=== PATIENT | male | born 1940 | race Caucasian/White ===

== ENCOUNTER 2017-06-23 10:31 | Emergency (ER) | payer MEDICARE ==
[~2017-06-23 10:31] MED LIST: TRIA.1%T TOP; Z.0.NO CURRENT MEDS
[2017-06-23 10:32] VITALS: BP 203/102; PULSE 79; RESP 16; TEMP 97.6; O2SAT 97
--- NOTE | 2017-06-23 11:14 | PD ---
HPI Chief Complaint: Edema Time Seen by Provider: 10:59 Travel History International Travel<30 days: No Contact w/Intl Traveler<30days: No Traveled to known affect area: No History of Present Illness HPI 76-year-old male presents emergency Department with complaint of left foot swelling 1 week. He says he thinks he may have gotten bit by an ant because there is an itchy spot on the back of his ankle he was working in the garden and went golfing about a week ago. He denies injury. Denies history of DVT/ PE. Denies calf pain or leg edema. Denies fevers, vomiting, foot pain, chest pain, shortness of breath. Has been ambulatory on the affected extremity with no complications. He has tried soaking it in Epsom salt with no symptom relief. No known relieving or aggravating factors. Symptoms are mild in severity. Reports history of hypertension 5 years ago with medications; no current medications. Says he takes his blood pressure at [facility] and the top number is typically 130 to 140. Blood pressure is elevated in the ER. He is asymptomatic. I Merry care providers in the ER. No known allergies. Takes no current medications. Denies significant past history other than hypertension. Reports daily alcohol use. Has no other medical complaints. No other modifying factors or associated signs and symptoms. PFSH Social History Alcohol Use: No Tobacco Use: No Substance Use: No Allergies-Medications (Allergen,Severity, Reaction): Coded Allergies: No Known Allergies (Unverified , 07/05/11) Reported Meds & Prescriptions Reported Meds & Active Scripts Active Keflex (Cephalexin) 500 Mg Cap 500 Mg PO Q6H 10 Days Bactrim DS (Sulfamethoxazole-Trimethoprim) 800-160 Mg Tab 1 Tab PO BID 10 Days Kenalog (Triamcinolone) 0.1 % Cre 0.1 % TOP BID Reported No Current Meds (Miscellaneous Medication) Misc Review of Systems Except as stated in HPI: all other systems reviewed are Neg Physical Exam Narrative GENERAL: Well-nourished, well-developed, elderly, male patient, in no acute distress; afebrile, nontoxic-appearing SKIN: Warm and dry. HEAD: Atraumatic. Normocephalic. EYES: Pupils equal and round. No scleral icterus. No injection or drainage. ENT: Mucosa pink and moist. Airway patent. NECK: Trachea midline. CARDIOVASCULAR: Regular rate and rhythm. No murmur appreciated. RESPIRATORY: No accessory muscle use. Breath sounds clear and equal bilaterally. No retractions or tachypnea. GASTROINTESTINAL: Abdomen soft, non-tender, nondistended. Positive bowel sounds. No hepato-splenomegaly, or palpable masses. No guarding. MUSCULOSKELETAL: Left foot and ankle edematous with approximately 1-2+ pitting edema; without tenderness on palpation; full range of motion; no sensory intact ; 2+ pedal pulse; without erythema, ecchymosis; no obvious deformity; there is a small reddened area to the back of the ankle that the patient reports is itchy and it is without drainage or cellulitic process. No obvious deformities. No clubbing. No cyanosis. No edema. NEUROLOGICAL: Awake and alert. Oriented 3. No obvious cranial nerve deficits. Motor grossly within normal limits. Normal speech. PSYCHIATRIC: Appropriate mood and affect; insight and judgment normal. Data Data Last Documented VS Vital Signs Date Time Temp Pulse Resp B/P (MAP) Pulse Ox O2 Delivery O2 Flow Rate FiO2 06/23/17 11:17 62 16 187/95 (125) 98 06/23/17 10:32 97.6 Orders Orders Ed Discharge Order (06/23/17 11:24) MDM Medical Decision Making Medical Screen Exam Complete: Yes Emergency Medical Condition: Yes Medical Record Reviewed: Yes Differential Diagnosis Insect bite, nonspecific foot edema, hypertension, medical clearance Narrative Course 76-year-old male with edema of the left foot and high blood pressure. I discussed the patient with my attending physician, Dr. Ballesteros and she agrees with my plan of care. Keflex and Bactrim prescribed for home. Instructed patient to take Benadryl at home as directed and as needed for itching/swelling. The patient to monitor blood pressure and follow up with primary care provider. Discussed reasons to return to the emergency department. Instructed patient to follow up with primary care provider. Patient verbalizes understanding and agreement with treatment plan. Patient is medically cleared and stable for discharge. Discussed reasons to return to the emergency department. Patient agrees with treatment plan. The patients vital signs are stable and the patient is stable for outpatient follow-up and treatment. Patient discharged home, stable and in no acute distress. Diagnosis Primary Impression: Edema of left foot Additional Impression: High blood pressure Qualified Codes: I10 - Essential (primary) hypertension Referrals: Primary Care Physician Patient Instructions: Edema (ED), General Instructions, Hypertension (ED) Additional Instructions: Antibiotics as prescribed [id number] topicals to reduce itch Benadryl as directed and as needed to reduce itch Follow-up with your primary care provider Return to the emergency department immediately with worsening of symptoms Med/Other Pt SpecificInfo: Prescription(s) given Scripts Cephalexin (Keflex) 500 Mg Cap 500 MG PO Q6H for Infection for 10 Days, #40 CAP 0 Refills Prov: Orin Corona 06/23/17 Sulfamethoxazole-Trimethoprim (Bactrim DS) 800-160 Mg Tab 1 TAB PO BID for Infection for 10 Days, #20 TAB 0 Refills Prov: Orin Corona 06/23/17 Disposition: 01 DISCHARGE HOME Condition: Stable Orin Corona Jun 23, 2017 11:14
[2017-06-23 11:17] VITALS: BP 187/95; PULSE 62; RESP 16; O2SAT 98
[2017-06-23] MEDS ORDERED: BACT800T5 PO (11:19)
[2017-06-23] MEDS ORDERED: CEPH-460 PO (11:19)
[2017-06-23 11:55] VITALS: BP 187/91
== END 2017-06-23 12:02 | disposition home or self-care (01) ==
LOC: NEPC 10:31
DX: R60.0 Localized edema (principal); I10 Essential (primary) hypertension
CPT/HCPCS: 99284

== ENCOUNTER 2017-06-26 13:36 | Emergency (ER) | payer MEDICARE ==
[~2017-06-26] VITALS: Ht 168.9 cm; Wt 66.0 kg
[~2017-06-26 13:36] MED LIST changes: +BACT800T5 PO; +CEPH-460 PO
[2017-06-26 13:37] VITALS: BP 157/82; PULSE 80; RESP 14; TEMP 98.8; O2SAT 98
[2017-06-26] MEDS ORDERED: SODIUM CHLORIDE 0.9% FLUSH 10 ML FLUSH IVF PRN (13:45)
[2017-06-26 14:09] LABS: AUTOMATED NEUTROPHIL # 7.8 TH/MM3 (1.8-7.7); BASOPHIL # 0.1 TH/MM3 (0-0.2); BASOPHIL % 0.5 % (0.0-2.0); EOSINOPHIL # 0.2 TH/MM3 (0-0.4); EOSINOPHIL % 1.5 % (0.0-4.0); HEMATOCRIT 51.3 % (39.0-51.0); HEMOGLOBIN 17.5 GM/DL (13.0-17.0); LYMPH % 15.5 % (9.0-44.0); LYMPHOCYTE # 1.7 TH/MM3 (1.0-4.8); MEAN CELL VOLUME 96.7 FL (80.0-100.0); MEAN CORPUSCULAR HGB CONC 34.1 % (32.0-36.0); MEAN PLATELET VOLUME 6.8 FL (7.0-11.0); MONO % 9.7 % (0.0-8.0); NEUT % 72.8 % (16.0-70.0); PLATELET COUNT 359 TH/MM3 (150-450); RED CELL DISTRIBUTION WIDTH 14.1 % (11.6-17.2); WHITE BLOOD COUNT 10.8 TH/MM3 (4.0-11.0)
[2017-06-26 14:15] LABS: INTERNATIONAL NORMALIZED RATIO 1.2 RATIO; PROTHROMBIN TIME - PATIENT 11.9 SEC (9.8-11.6)
[2017-06-26 14:16] LABS: BACTERIA, URINE OCC /hpf; BLOOD, URINE NEG (NEG); GLUCOSE,URINE 70 mg/dL (NEG); KETONE, URINE NEG (NEG); MUCUS URINE FEW /lpf (OCC); NITRITE,URINE NEG (NEG); SQUAMOUS EPITHELIAL CELL URINE <1 /hpf (0-5); URINE COLOR YELLOW (YELLW/STRAW); URINE LEUKOCYTE ESTERASE MOD (NEG)
[2017-06-26 14:19] LABS: BILIRUBIN, URINE NEG (NEG)
[2017-06-26 14:37] LABS: ALBUMIN 3.9 GM/DL (3.4-5.0); ALKALINE PHOSPHATASE 83 U/L (45-117); ALT (GPT) 22 U/L (12-78); AST (GOT) 31 U/L (15-37); BICARBONATE 28.9 MEQ/L (21.0-32.0); BLOOD UREA NITROGEN 11 MG/DL (7-18); CALCIUM 8.8 MG/DL (8.5-10.1); CHLORIDE 98 MEQ/L (98-107); CREATININE 1.16 MG/DL (0.60-1.30); GLOMERULAR FILTRATION RATE 61 ML/MIN (>89); GLUCOSE,RANDOM 95 MG/DL (74-106); SODIUM (NA) 134 MEQ/L (136-145); TOTAL BILIRUBIN ADULT 0.6 MG/DL (0.2-1.0); TOTAL PROTEIN 8.1 GM/DL (6.4-8.2); TROPONIN I 0.03 NG/ML (0.02-0.05)
[2017-06-26 15:45] VITALS: BP 177/86; PULSE 66; RESP 18; O2SAT 98
--- NOTE | 2017-06-26 16:13 | PD ---
HPI Chief Complaint: Dizziness Time Seen by Provider: 15:38 Travel History International Travel<30 days: No Contact w/Intl Traveler<30days: No Traveled to known affect area: No History of Present Illness HPI Patient is a 76-year-old male presents emergency department for evaluation of dizziness and weakness, the patient states he is on Bactrim for a foot cellulitis and has noticed some mild swelling. He thinks that his symptoms are due to the Bactrim, denies any chest pain shortness of breath abdominal pain fevers cough congestion. He states he is just not feeling fantastic and thinks like he is going to fall out. States symptoms started this morning, intermittent, context as above, mild in severity. PFSH Social History Alcohol Use: No Tobacco Use: No Substance Use: No Allergies-Medications (Allergen,Severity, Reaction): Coded Allergies: No Known Allergies (Unverified Adverse Reaction, Unknown, 06/26/17) Reported Meds & Prescriptions Reported Meds & Active Scripts Active Keflex (Cephalexin) 500 Mg Cap 500 Mg PO Q6H 10 Days Bactrim DS (Sulfamethoxazole-Trimethoprim) 800-160 Mg Tab 1 Tab PO BID 10 Days Kenalog (Triamcinolone) 0.1 % Cre 0.1 % TOP BID Reported No Current Meds (Miscellaneous Medication) Misc Review of Systems Except as stated in HPI: all other systems reviewed are Neg Physical Exam Narrative GENERAL: Well-developed well-nourished, no obvious distress SKIN: Focused skin assessment warm/dry. HEAD: Atraumatic. Normocephalic. EYES: Pupils equal and round. No scleral icterus. No injection or drainage. ENT: No nasal bleeding or discharge. Mucous membranes pink and moist. NECK: Trachea midline. No JVD. CARDIOVASCULAR: Regular rate and rhythm. No murmur appreciated. RESPIRATORY: No accessory muscle use. Clear to auscultation. Breath sounds equal bilaterally. GASTROINTESTINAL: Abdomen soft, non-tender, nondistended. Hepatic and splenic margins not palpable. MUSCULOSKELETAL: No obvious deformities. No clubbing. No cyanosis. Minimal swelling of the right lower extremity, no cellulitis appreciated.. NEUROLOGICAL: Awake and alert. No obvious cranial nerve deficits. Motor grossly within normal limits. Normal speech. PSYCHIATRIC: Appropriate mood and affect; insight and judgment normal. Data Data Last Documented VS Orders Orders Electrocardiogram (06/26/17 13:44) Complete Blood Count With Diff (06/26/17 13:44) Comprehensive Metabolic Panel (06/26/17 13:44) Magnesium (Mg) (06/26/17 13:44) Ckmb (Isoenzyme) Profile (06/26/17 13:44) Troponin I (06/26/17 13:44) Act Partial Throm Time (Ptt) (06/26/17 13:44) Prothrombin Time / Inr (Pt) (06/26/17 13:44) Urinalysis - C+S If Indicated (06/26/17 13:44) Ecg Monitoring (06/26/17 13:44) Iv Access Insert/Monitor (06/26/17 13:44) Oximetry (06/26/17 13:44) Sodium Chloride 0.9% Flush (Ns Flush) (06/26/17 13:45) CKMB (06/26/17 13:52) CKMB% (06/26/17 13:52) Us Leg Venous Doppler (06/26/17 16:29) Ed Discharge Order (06/26/17 17:55) Labs Laboratory Tests Test 06/26/17 13:50 06/26/17 13:52 Urine Color YELLOW Urine Turbidity CLEAR Urine pH 6.0 Urine Specific [place] 1.023 Urine Protein TRACE mg/dL Urine Glucose (UA) 70 mg/dL Urine Ketones NEG mg/dL Urine Occult Blood NEG Urine Nitrite NEG Urine Bilirubin NEG Urine Urobilinogen 2.0 MG/DL Urine Leukocyte Esterase MOD Urine RBC LESS THAN 1 /hpf Urine WBC 4 /hpf Urine Squamous Epithelial Cells <1 /hpf Urine Bacteria OCC /hpf Urine Mucus FEW /lpf Microscopic Urinalysis Comment CULT NOT INDICATED White Blood Count 10.8 TH/MM3 Red Blood Count 5.30 MIL/MM3 Hemoglobin 17.5 GM/DL Hematocrit 51.3 % Mean Corpuscular Volume 96.7 FL Mean Corpuscular Hemoglobin 33.0 PG Mean Corpuscular Hemoglobin Concent 34.1 % Red Cell Distribution Width 14.1 % Platelet Count 359 TH/MM3 Mean Platelet Volume 6.8 FL Neutrophils (%) (Auto) 72.8 % Lymphocytes (%) (Auto) 15.5 % Monocytes (%) (Auto) 9.7 % Eosinophils (%) (Auto) 1.5 % Basophils (%) (Auto) 0.5 % Neutrophils # (Auto) 7.8 TH/MM3 Lymphocytes # (Auto) 1.7 TH/MM3 Monocytes # (Auto) 1.0 TH/MM3 Eosinophils # (Auto) 0.2 TH/MM3 Basophils # (Auto) 0.1 TH/MM3 CBC Comment DIFF FINAL Differential Comment Prothrombin Time 11.9 SEC Prothromb Time International Ratio 1.2 RATIO Activated Partial Thromboplast Time 29.1 SEC Blood Urea Nitrogen 11 MG/DL Creatinine 1.16 MG/DL Random Glucose 95 MG/DL Total Protein 8.1 GM/DL Albumin 3.9 GM/DL Calcium Level 8.8 MG/DL Magnesium Level 2.0 MG/DL Alkaline Phosphatase 83 U/L Aspartate Amino Transf (AST/SGOT) 31 U/L Alanine Aminotransferase (ALT/SGPT) 22 U/L Total Bilirubin 0.6 MG/DL Sodium Level 134 MEQ/L Potassium Level 4.7 MEQ/L Chloride Level 98 MEQ/L Carbon Dioxide Level 28.9 MEQ/L Anion Gap 7 MEQ/L Estimat Glomerular Filtration Rate 61 ML/MIN Total Creatine Kinase 134 U/L Creatine Kinase MB 3.9 NG/ML Troponin I 0.03 NG/ML MDM Medical Decision Making Medical Screen Exam Complete: Yes Emergency Medical Condition: Yes Differential Diagnosis Dizziness, anemia, presyncope, DVT. Narrative Course Patient roomed in emergency department, DVT study negative, basic labs are reassuring and EKG negative. This coupled with physical exam he is stable for discharge, recommended that he continue taking the Bactrim to treat the cellulitis, discussed return to ED criteria, discussed that he still swollen a week to get another ultrasound with his primary care physician. He is stable for discharge. Diagnosis Primary Impression: Pre-syncope Disposition: 01 DISCHARGE HOME Condition: Stable Russell Wetzel MD Jun 26, 2017 16:13
--- NOTE | 2017-06-26 16:55 | RADRPT ---
EXAM DATE/TIME: 06/26/2017 16:27 [facility] COMPARISON: No previous studies available for comparison. INDICATIONS : Left foot swelling. MEDICAL HISTORY : Hypertension. Left foot swelling. SURGICAL HISTORY : None. ENCOUNTER: Initial ACUITY: 1 week PAIN SCORE: 4/10 LOCATION: Left leg. TECHNIQUE: Venous ultrasound of the leg was performed from the inguinal ligament to the proximal calf. Real-jamie e, color Doppler and spectral tracing, compression and augmentation techniques were used. FINDINGS: There is normal compressibility of the deep venous system from the inguinal region to the proximal ca lf. No echogenic clot is seen in the lumen of the common femoral, femoral, popliteal, and posterior tibial veins. There is a normal response of the venous system to proximal and distal augmentation an d respiration. CONCLUSION: Negative for deep venous thrombosis. Mark Anthony Dietz MD FACR on June 26, 2017 at 16:52 Board Certified Radiologist. This report was verified electronically.
--- NOTE | 2017-06-27 12:32 | EKG ---
Date Performed: 06/26/2017 Time Performed: 13:56:07 PTAGE: 76 years EKG: Sinus rhythm LEFT ANTERIOR FASCICULAR BLOCK INFERIOR MYOCARDIAL INFARCTION ABNORMAL ECG NO PREVIOUS TRACING DOCTOR: Brent Garcia Interpretating Date/Time 06/27/2017 12:31:44
== END 2017-06-26 18:40 | disposition home or self-care (01) ==
LOC: NEPC 13:36
DX: R55 Syncope and collapse (principal); M79.89 Other specified soft tissue disorders; R94.31 Abnormal electrocardiogram [ECG] [EKG]
CPT/HCPCS: 80053; 81001; 82550; 82552; 83735; 84484; 85025; 85610; 85730; 93005; 93971; 99285

== ENCOUNTER 2017-11-26 12:40 | Inpatient (IN) | payer MEDICARE ==
[~2017-11-26] VITALS: Ht 167.6 cm; Wt 60.0 kg
[~2017-11-26 12:40] MED LIST changes: +ATOR10 PO
[2017-11-26] MEDS ORDERED: IOHEXOL 350 MG/ML 10 ML VIAL (for RAD DIAG) IVCONTRAST ONE (12:41)
[2017-11-26 12:48] VITALS: BP 174/88; PULSE 103; RESP 28; TEMP 99.3; O2SAT 92
[2017-11-26 12:54] VITALS: O2SAT 94
[2017-11-26] MEDS ORDERED: SODIUM CHLORIDE 0.9% FLUSH 10 ML FLUSH IV FLUSH PRN ×2 (13:00→17:30)
--- NOTE | 2017-11-26 13:01 | PD ---
HPI Chief Complaint: General Weakness Time Seen by Provider: 12:45 Travel History International Travel<30 days: No Contact w/Intl Traveler<30days: No Traveled to known affect area: No History of Present Illness HPI 77-year-old male presents to the emergency department via EMS for evaluation of confusion. Patient states he has been confused since yesterday. According to the nurse, he drinks 6-8 beers daily and has not drank in the past 2 days. The patient tells me he drinks 3 beers daily and last drink yesterday. The patient states he called EMS and lives alone. The patient is alert and oriented to person and place only. He thinks the year is 1977 and that we are in June. The patient has a small abrasion to his forehead. He does not recall how he got this. The patient states he takes no medications at home. He denies any pain. No chest pain or SOB. However, his abdomen is distended. He does appear jaundiced. Patient is a poor historian. Moderate severity. PFSH Past Medical History Cancer: Yes (testicular cancer 2009) Cardiovascular Problems: Yes High Cholesterol: Yes Chest Pain: No Congestive Heart Failure: No Cerebrovascular Accident: Yes (OCTOBER 2013) Diabetes: No Endocrine: No Genitourinary: No Hypertension: Yes Immune Disorder: No Musculoskeletal: No Neurologic: Yes Psychiatric: No Respiratory: No Migraines: No Seizures: No Thyroid Disease: No Past Surgical History Surgical History: No Previous Surgery Genitourinary Surgery: Yes (REMOVE TESTICULAR TUMOR 5 YEARS AGO) Social History Alcohol Use: Yes (daily 6-10 daily ) Tobacco Use: No Substance Use: No Allergies-Medications (Allergen,Severity, Reaction): Coded Allergies: No Known Allergies (Unverified Adverse Reaction, Unknown, 11/26/17) Reported Meds & Prescriptions Reported Meds & Active Scripts Active No Active Prescriptions or Reported Medications Review of Systems ROS Limitations: Altered Mental Status, Poor Historian Except as stated in HPI: all other systems reviewed are Neg Physical Exam Narrative GENERAL: Well-nourished, well-developed male patient, afebrile. SKIN: Focused skin assessment warm/dry. Patient has small abrasion to mid aspect of forehead. HEAD: Normocephalic. EYES: No scleral icterus. No injection or drainage. PERRLA. NECK: Supple, trachea midline. No JVD or lymphadenopathy. ENT: Mucosa pink and moist. No erythema or exudates. No uvular edema. No uvular , palatal, or tonsillar deviation. Airway patent. Nasal turbinates appear normal without nasal blood, purulent drainage or septal hematoma. Bilateral tympanic membranes clear without erythema or perforation. CARDIOVASCULAR: Regular rate and rhythm without murmurs, gallops, or rubs. Bilateral radial and pedal pulses are 2+. RESPIRATORY: Breath sounds equal bilaterally. No accessory muscle use. GASTROINTESTINAL: Abdomen distended, he is tender to the right upper quadrant. MUSCULOSKELETAL: No cyanosis, or edema. Bilateral upper and lower extremity strength 5/5 BACK: Nontender without obvious deformity. No CVA tenderness. Data Data Last Documented VS Vital Signs Date Time Temp Pulse Resp B/P (MAP) Pulse Ox O2 Delivery O2 Flow Rate FiO2 11/26/17 14:37 94 18 149/75 (99) 93 Room Air 11/26/17 12:48 99.3 Orders Orders Electrocardiogram (11/26/17 12:52) Ammonia (11/26/17 12:52) Complete Blood Count With Diff (11/26/17 12:52) Comprehensive Metabolic Panel (11/26/17 12:52) Creatine Kinase (Cpk) (11/26/17 12:52) Prothrombin Time / Inr (Pt) (11/26/17 12:52) Act Partial Throm Time (Ptt) (11/26/17 12:52) Troponin I (11/26/17 12:52) Urinalysis - C+S If Indicated (11/26/17 12:52) Ct Brain W/O Iv Contrast(Rout) (11/26/17 12:52) Blood Glucose (11/26/17 12:52) Ecg Monitoring (11/26/17 12:52) Iv Access Insert/Monitor (11/26/17 12:52) Oximetry (11/26/17 12:52) Sodium Chloride 0.9% Flush (Ns Flush) (11/26/17 13:00) Alcohol (Ethanol) (11/26/17 12:52) Magnesium (Mg) (11/26/17 12:55) Chest, Single Ap (11/26/17 ) Ct Abd/Pel W Iv Contrast(Rout) (11/26/17 ) Lipase (11/26/17 13:22) CKMB (11/26/17 13:04) CKMB% (11/26/17 13:04) Urine Culture (11/26/17 13:37) Iohexol 350 Inj (Omnipaque 350 Inj) (11/26/17 12:41) Sodium Chlorid 0.9% 500 Ml Inj (Ns 500 M (11/26/17 16:00) Admit Order (Ed Use Only) (11/26/17 ) Labs Laboratory Tests Test 11/26/17 13:04 11/26/17 13:37 White Blood Count 14.0 TH/MM3 Red Blood Count 5.08 MIL/MM3 Hemoglobin 16.6 GM/DL Hematocrit 48.2 % Mean Corpuscular Volume 94.8 FL Mean Corpuscular Hemoglobin 32.6 PG Mean Corpuscular Hemoglobin Concent 34.4 % Red Cell Distribution Width 13.6 % Platelet Count 249 TH/MM3 Mean Platelet Volume 6.9 FL Neutrophils (%) (Auto) 93.4 % Lymphocytes (%) (Auto) 2.3 % Monocytes (%) (Auto) 3.9 % Eosinophils (%) (Auto) 0.1 % Basophils (%) (Auto) 0.3 % Neutrophils # (Auto) 13.1 TH/MM3 Lymphocytes # (Auto) 0.3 TH/MM3 Monocytes # (Auto) 0.5 TH/MM3 Eosinophils # (Auto) 0.0 TH/MM3 Basophils # (Auto) 0.0 TH/MM3 CBC Comment DIFF FINAL Differential Comment Prothrombin Time 12.7 SEC Prothromb Time International Ratio 1.3 RATIO Activated Partial Thromboplast Time 28.2 SEC Blood Urea Nitrogen 17 MG/DL Creatinine 1.22 MG/DL Random Glucose 123 MG/DL Total Protein 7.5 GM/DL Albumin 3.4 GM/DL Calcium Level 8.4 MG/DL Alkaline Phosphatase 278 U/L Aspartate Amino Transf (AST/SGOT) 402 U/L Alanine Aminotransferase (ALT/SGPT) 182 U/L Total Bilirubin 3.0 MG/DL Sodium Level 133 MEQ/L Potassium Level 3.9 MEQ/L Chloride Level 95 MEQ/L Carbon Dioxide Level 28.6 MEQ/L Anion Gap 9 MEQ/L Estimat Glomerular Filtration Rate 57 ML/MIN Magnesium Level 1.8 MG/DL Ammonia LESS THAN 10 MCMOL/L Total Creatine Kinase 387 U/L Creatine Kinase MB 6.6 NG/ML Creatine Kinase MB % 1.7 % Troponin I LESS THAN 0.02 NG/ML Lipase 57 U/L Ethyl Alcohol Level LESS THAN 3 MG/DL Urine Color YELLOW Urine Turbidity HAZY Urine pH 6.5 Urine Specific [place] 1.020 Urine Protein 100 mg/dL Urine Glucose (UA) TRACE mg/dL Urine Ketones NEG mg/dL Urine Occult Blood MOD Urine Nitrite NEG Urine Bilirubin SMALL Urine Urobilinogen 4.0 MG/DL Urine Leukocyte Esterase NEG Urine RBC 8 /hpf Urine WBC 7 /hpf Urine Squamous Epithelial Cells <1 /hpf Urine Bacteria RARE /hpf Urine Hyaline Casts 5 /lpf Urine Mucus FEW /lpf Microscopic Urinalysis Comment CATH-CULTURE IND [facility] Medical Decision Making Medical Screen Exam Complete: Yes Emergency Medical Condition: Yes Medical Record Reviewed: Yes Interpretation(s) Last Impressions Head CT 11/26/17 1252 Signed Impressions: Service Date/Time: Sunday, November 26, 2017 14:52 - CONCLUSION: 1. Senescent changes with prominent periventricular white matter ischemic demyelination. 2. No acute intracranial abnormality. Nick Miramontes MD Chest X-Ray 11/26/17 0000 Signed Impressions: Service Date/Time: Sunday, November 26, 2017 12:59 - CONCLUSION: 1. Linear parenchymal opacities in the left lower lung zone, presumably atelectasis lie scarring. 2. Compensated mild cardiomegaly. Nick Miramontes MD Abdomen/Pelvis CT 11/26/17 0000 Signed Impressions: Service Date/Time: Sunday, November 26, 2017 14:59 - CONCLUSION: 1. Choledocholithiasis with prominent common bile duct measuring up to 11 mm. There is also a focus of air in the gallbladder. Gallbladder does not appear inflamed on CT exam. Suspect the air may have been introduced from passage of stone or prior intervention. Consider ERCP examination/intervention as clinically appropriate. Alternatively, HIDA scan may be performed to confirm patency of the cystic duct if there is concern regarding acute cholecystitis. 2. Large septated cystic lesion in the right scrotum measuring up to 11 cm consistent patient's history of testicular carcinoma. 3. Ancillary findings, as above. Nick Miramontes MD Differential Diagnosis Hepatic encephalopathy versus acute liver failure versus alcohol withdrawal versus electrolyte abnormality versus dehydration versus intracranial hemorrhage Narrative Course 77-year-old male presents to the emergency department for evaluation of confusion. EKG, CBC, CMP, CK, troponin, magnesium, ammonia, PTT, PT/INR, alcohol level are ordered and pending. CT of the brain and CT abdomen/pelvis with IV contrast are ordered and pending. Chest x-ray is ordered and pending. EKG shows SR, HR 99. CBC shows leukocytosis of 14.0. CMP shows hyponatremia 133, hyperglycemia 123, bilirubin of 3.0, AST of 402, ALT 182, alkaline phosphatase of 278. CK is 387. Troponin is less than 0.02. Magnesium is 1.8. Lipase is 57. Ammonia is less than 10. PTT is 28.2. PT/INR is 12.7/1.3. Alcohol level is less than 3. UA shows rare bacteria, 7 WBC chest x-ray shows linear parenchymal opacities in the left lower lung zone, presumably atelectasis lie scarring; Compensated mild cardiomegaly. CT of the brain shows senescent changes with prominent periventricular white matter ischemic demyelination, no acute intracranial abnormality. CT abdomen/pelvis shows choledocholithiasis with prominent bile duct measuring up to 11 mm, also a focus of air in the gallbladder, suspect air may have been introduced from passage of stone or prior intervention, consider ERCP or HIDA scan, large septated cystic lesion in the right scrotum measuring up to 11 cm consistent with patient's history of testicular carcinoma. Patient denies any history of cancer to me. Hospitalist is paged for admission. Diagnosis Primary Impression: Altered mental status Qualified Codes: R41.82 - Altered mental status, unspecified Additional Impressions: Choledocholithiasis Alcohol dependence Qualified Codes: F10.29 - Alcohol dependence with unspecified alcohol-induced disorder Admitting Information Admitting Physician Requests: Admit Scripts No Active Prescriptions or Reported Meds Nicole Suarez November 26, 2017 13:01
--- NOTE | 2017-11-26 13:14 | RADRPT ---
EXAM DATE/TIME: 11/26/2017 12:59 [facility] COMPARISON: No previous studies available for comparison. INDICATIONS : Short of breath MEDICAL HISTORY : Hypertension. SURGICAL HISTORY : None. ENCOUNTER: Initial ACUITY: 1 day PAIN SCORE: 0/10 LOCATION: chest FINDINGS: Linear parenchymal opacities in the left lower lung zone. Cardiac silhouette is mildly enlarged. Bony thorax is intact. CONCLUSION: 1. Linear parenchymal opacities in the left lower lung zone, presumably atelectasis lie scarring. 2. Compensated mild cardiomegaly. Nick Miramontes MD on November 26, 2017 at 13:11 Board Certified Radiologist. This report was verified electronically.
[2017-11-26 13:23] LABS: AUTOMATED NEUTROPHIL # 13.1 TH/MM3 (1.8-7.7); BASOPHIL % 0.3 % (0.0-2.0); EOSINOPHIL % 0.1 % (0.0-4.0); HEMATOCRIT 48.2 % (39.0-51.0); HEMOGLOBIN 16.6 GM/DL (13.0-17.0); LYMPH % 2.3 % (9.0-44.0); LYMPHOCYTE # 0.3 TH/MM3 (1.0-4.8); MEAN CELL VOLUME 94.8 FL (80.0-100.0); MEAN CORPUSCULAR HEMOGLOBIN 32.6 PG (27.0-34.0); MEAN CORPUSCULAR HGB CONC 34.4 % (32.0-36.0); MEAN PLATELET VOLUME 6.9 FL (7.0-11.0); MONO % 3.9 % (0.0-8.0); MONOCYTE # 0.5 TH/MM3 (0-0.9); NEUT % 93.4 % (16.0-70.0); PLATELET COUNT 249 TH/MM3 (150-450); RED BLOOD COUNT 5.08 MIL/MM3 (4.50-5.90); RED CELL DISTRIBUTION WIDTH 13.6 % (11.6-17.2)
[2017-11-26 13:31] LABS: INTERNATIONAL NORMALIZED RATIO 1.3 RATIO; PROTHROMBIN TIME - PATIENT 12.7 SEC (9.8-11.6)
[2017-11-26 13:48] LABS: ALBUMIN 3.4 GM/DL (3.4-5.0); ALT (GPT) 182 U/L (12-78); AST (GOT) 402 U/L (15-37); BICARBONATE 28.6 MEQ/L (21.0-32.0); BLOOD UREA NITROGEN 17 MG/DL (7-18); CALCIUM 8.4 MG/DL (8.5-10.1); CHLORIDE 95 MEQ/L (98-107); CREATININE 1.22 MG/DL (0.60-1.30); GLOMERULAR FILTRATION RATE 57 ML/MIN (>89); GLUCOSE,RANDOM 123 MG/DL (74-106); SODIUM (NA) 133 MEQ/L (136-145)
[2017-11-26 13:52] LABS: ALKALINE PHOSPHATASE 278 U/L (45-117); TOTAL PROTEIN 7.5 GM/DL (6.4-8.2); TROPONIN I LESS THAN 0.02 NG/ML (0.02-0.05)
[2017-11-26 14:37] VITALS: BP 149/75; PULSE 94; RESP 18; O2SAT 93
[2017-11-26 14:53] LABS: BACTERIA, URINE RARE /hpf; BILIRUBIN, URINE SMALL (NEG); BLOOD, URINE MOD (NEG); GLUCOSE,URINE TRACE mg/dL (NEG); HYALINE CAST, URINE 5 /lpf (RARE); KETONE, URINE NEG (NEG); MUCUS URINE FEW /lpf (OCC); NITRITE,URINE NEG (NEG); PH, URINE 6.5 (5.0-8.5); SQUAMOUS EPITHELIAL CELL URINE <1 /hpf (0-5); URINE COLOR YELLOW (YELLW/STRAW); URINE LEUKOCYTE ESTERASE NEG (NEG)
--- NOTE | 2017-11-26 15:23 | RADRPT ---
EXAM DATE/TIME: 11/26/2017 14:52 [facility] COMPARISON: CT BRAIN W/O CONTRAST, October 16, 2014, 12:18. INDICATIONS : Altered mental staus. RADIATION DOSE: 53.41 CTDIvol (mGy) ; Tabletop CT Head MEDICAL HISTORY : Cerebrovascular disease. Cardiovascular disease Inflammatory bowel disease.testicular cancer SURGICAL HISTORY : ENCOUNTER: Initial ACUITY: 1 day PAIN SCALE: 0/10 LOCATION: cranial TECHNIQUE: Multiple contiguous axial images were obtained of the head. Using automated exposure control and adj ustment of the mA and/or kV according to patient size, radiation dose was kept as low as reasonably a chievable to obtain optimal diagnostic quality images. DICOM format image data is available electro nically for review and comparison. FINDINGS: CEREBRUM: Prominent diffuse cerebral atrophy. Prominent periventricular white matter hypodensities. The ventric les are normal for degree of atrophy. No evidence of midline shift, mass lesion, hemorrhage or acute infarction. No extra-axial fluid collections are seen. POSTERIOR FOSSA: The cerebellum and brainstem are intact. The 4th ventricle is midline. The cerebellopontine angle i s unremarkable. EXTRACRANIAL: The visualized portion of the orbits is intact. SKULL: The calvaria is intact. No evidence of skull fracture. CONCLUSION: 1. Senescent changes with prominent periventricular white matter ischemic demyelination. 2. No acute intracranial abnormality. Nick Miramontes MD on November 26, 2017 at 15:20 Board Certified Radiologist. This report was verified electronically.
--- NOTE | 2017-11-26 15:34 | RADRPT ---
EXAM DATE/TIME: 11/26/2017 14:59 [facility] COMPARISON: No previous studies available for comparison. INDICATIONS : Patient complains of abdominal pain. IV CONTRAST: 100 cc Omnipaque 350 (iohexol) IV ORAL CONTRAST: No oral contrast ingested. RADIATION DOSE: 14.69 CTDIvol (mGy) MEDICAL HISTORY : Carcinoma, testicular. Cerebrovascular disease. Cardiovascular diseaseHTN SURGICAL HISTORY : None. ENCOUNTER: Initial ACUITY: 1 day PAIN SCALE: 3/10 LOCATION: lower quadrant abdomen TECHNIQUE: Volumetric scanning of the abdomen and pelvis was performed. Using automated exposure control and ad justment of the mA and/or kV according to patient size, radiation dose was kept as low as reasonably achievable to obtain optimal diagnostic quality images. DICOM format image data is available electro nically for review and comparison. FINDINGS: LOWER LUNGS: Minimal atelectasis/scarring at the left lung base. LIVER: Homogeneous density without lesion. There is no dilation of the biliary tree. Small focus of air it appears to be in the gallbladder small probable gallstone near the gallbladder neck. Common bile duct is dilated measuring up to 11 mm and contains a probable 4 mm gallstone distally. SPLEEN: Normal size without lesion. PANCREAS: Within normal limits. KIDNEYS: Kidneys demonstrate symmetrical enhancement without evidence for hydronephrosis. Subcentimeter hypode nse cystic lesion in the right inferior pole is too small to characterize. ADRENAL GLANDS: Within normal limits. VASCULAR: There is no aortic aneurysm. BOWEL/MESENTERY: Prominent sigmoid diverticulosis without significant inflammatory change. Several loops of nondistend ed nonspecific fluid-filled mid to distal jejunum in the midabdomen. No free fluid or drainable fluid collection. No pneumatosis. ABDOMINAL WALL: Within normal limits. RETROPERITONEUM: There is no lymphadenopathy. BLADDER: No wall thickening or mass. REPRODUCTIVE: Within normal limits. INGUINAL: Small fat-containing right inguinal hernia. Large right scrotal septated cystic lesion measuring up t o 11 cm. MUSCULOSKELETAL: Multilevel degenerative spondylosis of the lumbar spine. CONCLUSION: 1. Choledocholithiasis with prominent common bile duct measuring up to 11 mm. There is also a focus o f air in the gallbladder. Gallbladder does not appear inflamed on CT exam. Suspect the air may have b een introduced from passage of stone or prior intervention. Consider ERCP examination/intervention as clinically appropriate. Alternatively, HIDA scan may be performed to confirm patency of the cystic d uct if there is concern regarding acute cholecystitis. 2. Large septated cystic lesion in the right scrotum measuring up to 11 cm consistent patient's histo ry of testicular carcinoma. 3. Ancillary findings, as above. Nick Miramontes MD on November 26, 2017 at 15:23 Board Certified Radiologist. This report was verified electronically.
[2017-11-26] MEDS ORDERED: SODIUM CHLORID 0.9% 500 ML INJ 500 ML IV ONE (16:00)
[2017-11-26] MEDS ORDERED: SENNOSIDES 8.6 MG TAB PO PRN (17:30)
[2017-11-26] MEDS ORDERED: BISACODYL 10 MG SUPP RECTAL PRN (17:30)
[2017-11-26] MEDS ORDERED: MAGNESIUM HYDROXIDE SUSP 30 ML CUP PO PRN (17:30)
[2017-11-26] MEDS ORDERED: ACETAMINOPHEN 325 MG TAB PO PRN (17:30)
[2017-11-26] MEDS ORDERED: LACTULOSE SYRUP 20 GM/30 ML CUP PO PRN (17:30)
[2017-11-26] MEDS ORDERED: NALOXONE HCL 0.4 MG/ML AMP IV PUSH PRN (17:30)
[2017-11-26 17:41] VITALS: BP 149/75
--- NOTE | 2017-11-26 17:48 | EKG ---
Date Performed: 11/26/2017 Time Performed: 13:14:39 PTAGE: 77 years EKG: Sinus rhythm POSSIBLE INFERIOR INFARCT, AGE UNDETERMINED NONSPECIFIC ST & T-WAVE ABNORMALITY ABNORMAL ECG PREVIOUS TRACING : 06/26/2017 13.56 Compared to previous tracing, nonspecific ST/T changes in V 5 and V6 have improved. DOCTOR: Marcial Simmons Interpretating Date/Time 11/26/2017 17:48:31
--- NOTE | 2017-11-26 17:55 | HHI.HP ---
HPI Service [facility] Hospitalists Primary Care Physician Unknown Admission Diagnosis choledocholithiasis Diagnoses: Chief Complaint: "I felt dizzy, was shaking" Travel History International Travel<30 Days: No Contact w/Intl Traveler <30 Da: No Traveled to Known Affected Are: No History of Present Illness This is a 77-year-old male with past medical history significant for alcohol dependence and abuse, history of CVA, hypertension who presents to [facility] complaining of dizziness and shaking. The patient presented to the emergency department via EMS for evaluation of confusion. The patient had told the ER physician that he has been confused since yesterday. The patient stated to me that he felt dizzy and had severe shaking. The patient denies abdominal pain, denies nausea, denies vomiting, denies dysuria. As per ED physician's note the patient was alert and oriented to person and place only and thought he was in the year 1977. The patient states he takes no medications at home. The patient denies chest pain or shortness of breath, appears jaundiced. Patient is a poor historian. During my interview the patient is awake alert and oriented 3 and does not present any tremors. Patient also is noted to have a large right testicular mass. He states that he was seen by a physician in [place] who recommended to have the mass removed but he refused. Review of Systems As per HPI, other systems reviewed by me and negative. Past Family Social History Past Medical History 1. Testicular mass. 2. History of CVA as per medical records. 3. Hypertension. Past Surgical History Denies surgeries. Reported Medications None reported. Allergies: Coded Allergies: No Known Allergies (Unverified Adverse Reaction, Unknown, 11/26/17) Active Ordered Medications Current Medications Medications (Trade) Dose Ordered Sig/Suzette Route Start Time Stop Time Status Last Admin (NS Flush) 2 ml UNSCH PRN IV FLUSH 11/26/17 13:00 Family History Grandmother had diabetes. Denies any family history of cancer. Social History Denies smoking. The patient states he drinks 4 cans of beer every day and he has done that for the past 50 years. Physical Exam Vital Signs Vital Signs Date Time Temp Pulse Resp B/P (MAP) Pulse Ox O2 Delivery O2 Flow Rate FiO2 11/26/17 14:37 94 18 149/75 (99) 93 Room Air 11/26/17 12:54 94 Room Air 11/26/17 12:48 99.3 103 28 174/88 (116) 92 Physical Exam GENERAL: This is a very thin, malnourished patient not in acute distress. SKIN: No rashes, ecchymoses or lesions. Cool and dry. + Jaundice HEAD: Atraumatic. Normocephalic. No temporal or scalp tenderness. EYES: Pupils equal round and reactive. Extraocular motions intact. Mild scleral icterus. No injection or drainage. ENT: Nose without bleeding, purulent drainage or septal hematoma. Throat without erythema, tonsillar hypertrophy or exudate. Uvula midline. Airway patent. NECK: Trachea midline. No JVD or lymphadenopathy. Supple, nontender, no meningeal signs. CARDIOVASCULAR: Regular rate and rhythm without murmurs, gallops, or rubs. RESPIRATORY: Clear to auscultation. Breath sounds equal bilaterally. No wheezes , rales, or rhonchi. GASTROINTESTINAL: Abdomen soft, tender to palpation on right upper quadrant, distended with presence of collateral circulation. + Hepatomegaly, unable to palpate the spleen. MUSCULOSKELETAL: Extremities without clubbing, cyanosis, or edema. No joint tenderness, effusion, or edema noted. No calf tenderness. Negative Homans sign bilaterally. NEUROLOGICAL: Awake and alert. Cranial nerves II through XII intact. Motor and sensory grossly within normal limits. Five out of 5 muscle strength in all muscle groups. Normal speech. : Nontender softball size mass in the right testicle. Left testicle with normal size without any masses, no tenderness. Laboratory Laboratory Tests Test 11/26/17 13:04 11/26/17 13:37 White Blood Count 14.0 Red Blood Count 5.08 Hemoglobin 16.6 Hematocrit 48.2 Mean Corpuscular Volume 94.8 Mean Corpuscular Hemoglobin 32.6 Mean Corpuscular Hemoglobin Concent 34.4 Red Cell Distribution Width 13.6 Platelet Count 249 Mean Platelet Volume 6.9 Neutrophils (%) (Auto) 93.4 Lymphocytes (%) (Auto) 2.3 Monocytes (%) (Auto) 3.9 Eosinophils (%) (Auto) 0.1 Basophils (%) (Auto) 0.3 Neutrophils # (Auto) 13.1 Lymphocytes # (Auto) 0.3 Monocytes # (Auto) 0.5 Eosinophils # (Auto) 0.0 Basophils # (Auto) 0.0 CBC Comment DIFF FINAL Differential Comment Prothrombin Time 12.7 Prothromb Time International Ratio 1.3 Activated Partial Thromboplast Time 28.2 Blood Urea Nitrogen 17 Creatinine 1.22 Random Glucose 123 Total Protein 7.5 Albumin 3.4 Calcium Level 8.4 Alkaline Phosphatase 278 Aspartate Amino Transf (AST/SGOT) 402 Alanine Aminotransferase (ALT/SGPT) 182 Total Bilirubin 3.0 Sodium Level 133 Potassium Level 3.9 Chloride Level 95 Carbon Dioxide Level 28.6 Anion Gap 9 Estimat Glomerular Filtration Rate 57 Magnesium Level 1.8 Ammonia LESS THAN 10 Total Creatine Kinase 387 Creatine Kinase MB 6.6 Creatine Kinase MB % 1.7 Troponin I LESS THAN 0.02 Lipase 57 Ethyl Alcohol Level LESS THAN 3 Urine Color YELLOW Urine Turbidity HAZY Urine pH 6.5 Urine Specific [place] 1.020 Urine Protein 100 Urine Glucose (UA) TRACE Urine Ketones NEG Urine Occult Blood MOD Urine Nitrite NEG Urine Bilirubin SMALL Urine Urobilinogen 4.0 Urine Leukocyte Esterase NEG Urine RBC 8 Urine WBC 7 Urine Squamous Epithelial Cells <1 Urine Bacteria RARE Urine Hyaline Casts 5 Urine Mucus FEW Microscopic Urinalysis Comment CATH-CULTURE IND Date/Time Source Procedure Growth Status 11/26/17 13:37 Urine Catheterized Urine Urine Culture Pending Received Result Diagram: 11/26/17 1304 11/26/17 1304 Imaging Last Impressions Head CT 11/26/17 1252 Signed Impressions: Service Date/Time: Sunday, November 26, 2017 14:52 - CONCLUSION: 1. Senescent changes with prominent periventricular white matter ischemic demyelination. 2. No acute intracranial abnormality. Nick Miramontes MD Chest X-Ray 11/26/17 0000 Signed Impressions: Service Date/Time: Sunday, November 26, 2017 12:59 - CONCLUSION: 1. Linear parenchymal opacities in the left lower lung zone, presumably atelectasis lie scarring. 2. Compensated mild cardiomegaly. Nick Miramontes MD Abdomen/Pelvis CT 11/26/17 0000 Signed Impressions: Service Date/Time: Sunday, November 26, 2017 14:59 - CONCLUSION: 1. Choledocholithiasis with prominent common bile duct measuring up to 11 mm. There is also a focus of air in the gallbladder. Gallbladder does not appear inflamed on CT exam. Suspect the air may have been introduced from passage of stone or prior intervention. Consider ERCP examination/intervention as clinically appropriate. Alternatively, HIDA scan may be performed to confirm patency of the cystic duct if there is concern regarding acute cholecystitis. 2. Large septated cystic lesion in the right scrotum measuring up to 11 cm consistent patient's history of testicular carcinoma. 3. Ancillary findings, as above. MD Kin uMnoz VTE Risk Assessment Caprini VTE Risk Assessment: Mod/High Risk (score >= 2) Caprini Risk Assessment Model Point Value = 1 Point Value = 2 Point Value = 3 Point Value = 5 Age 41-60 Minor surgery BMI > 25 kg/m2 Swollen legs Varicose veins or History of unexplained or recurrent spontaneous Oral contraceptives or hormone replacement Sepsis (< 1 month) Serious lung disease, including pneumonia (< 1 month) Abnormal pulmonary function Acute myocardial infarction Congestive heart failure (< 1 month) History of inflammatory bowel disease Medical patient at bed rest Age 61-74 Arthroscopic surgery Major open surgery (> 45 min) Laparoscopic surgery (> 45 min) Malignancy Confined to bed (> 72 hours) Immobilizing plaster cast Central venous access Age >= 75 History of VTE Family history of VTE Factor V Leiden Prothrombin [id number] Lupus anticoagulant Anticardiolipin antibodies Elevated serum homocysteine Heparin-induced thrombocytopenia Other congenital or acquired thrombophilia Stroke (< 1 month) Elective arthroplasty Hip, pelvis, or leg fracture Acute spinal cord injury (< 1 month) Prophylaxis Regimen Total Risk Factor Score Risk Level Prophylaxis Regimen 0-1 Low Early ambulation 2 Moderate Order ONE of the following: *Sequential Compression Device (SCD) *Heparin 5000 units SQ BID 3-4 Higher Order ONE of the following medications: *Heparin 5000 units SQ TID *Enoxaparin/Lovenox 40 mg SQ daily (WT < 150 kg, CrCl > 30 mL/min) *Enoxaparin/Lovenox 30 mg SQ daily (WT < 150 kg, CrCl > 10-29 mL/min) *Enoxaparin/Lovenox 30 mg SQ BID (WT < 150 kg, CrCl > 30 mL/min) AND/OR *Sequential Compression Device (SCD) 5 or more Highest Order ONE of the following medications: *Heparin 5000 units SQ TID (Preferred with Epidurals) *Enoxaparin/Lovenox 40 mg SQ daily (WT < 150 kg, CrCl > 30 mL/min) *Enoxaparin/Lovenox 30 mg SQ daily (WT < 150 kg, CrCl > 10-29 mL/min) *Enoxaparin/Lovenox 30 mg SQ BID (WT < 150 kg, CrCl > 30 mL/min) AND *Sequential Compression Device (SCD) Assessment and Plan Problem List: (1) Sepsis ICD Code: A41.9 - Sepsis, unspecified organism (2) Choledocholithiasis ICD Code: K80.50 - Calculus of bile duct without cholangitis or cholecystitis without obstruction Status: Acute (3) Alcohol dependence ICD Code: F10.20 - Alcohol dependence Status: Acute (4) Encephalopathy acute ICD Code: G93.40 - Encephalopathy, unspecified (5) Hypertension ICD Code: I10 - Hypertension Status: Acute (6) H/O: CVA (cerebrovascular accident) ICD Code: Z86.73 - Personal history of transient ischemic attack (TIA), and cerebral infarction without residual deficits Assessment and Plan 1. Sepsis: Suspect sepsis likely secondary to possible suspected acute cholecystitis versus urinary tract infection. Admit the patient to the medical floor, start on IV Zosyn, IV fluids, check lactic acid, obtain peripheral blood cultures and follow-up urine culture. 2. Choledocholithiasis.: CT abdomen and pelvis shows choledochal cholelithiasis with prominent common bile duct measuring up to 11 mm. There is also focus of air in the gallbladder. The gallbladder does not appear inflamed on CT exam as per radiology report. We will obtain a HIDA scan to rule out acute cholecystitis. Start the patient IV Zosyn. 3. Right testicular mass: This is equal to testicular cancer until proven otherwise. Consult urology. Patient states he had been recommended to have his testicles removed in [facility] but he refused. 4. Encephalopathy: Suspect metabolic encephalopathy secondary to sepsis. Monitor neurological status. CT of the head reviewed by me showed senescent changes with prominent periventricular white matter ischemic demyelination. No acute intracranial abnormality observed. 5. Alcohol dependence/abuse: I will start the patient on thiamine and folic acid. Placed on CIWA protocol. At this moment there is no evidence of alcohol withdrawal. 6. Leukocytosis: Likely secondary to sepsis, patient also has elevated neutrophils. Continue to monitor CBC with differential. Management of sepsis as above. 7. Hyponatremia: Likely hypovolemic hyponatremia. Start the patient IV normal saline. 8. Transaminitis with bilirubinemia: Suspect secondary to obstructive jaundice with elevated alkaline phosphatase. ALT 182, AST 402. Will check bilirubin differential. Monitor LFTs. Consult gastroenterology for possible ERCP. Check hepatitis profile. 9. Abnormal urinalysis: UA positive with presence of protein, moderate occult blood, small bilirubin, presence of urobilinogen, increased white blood cells, rare bacteria and presence of mucus. Follow-up urine culture. IV Zosyn as above. 10. History of CVA: CT of the head as above. We will start the patient on aspirin 81 mg p.o. daily. Lovenox subcutaneously for DVT prophylaxis. Code Status Full code Discussed Condition With ED physician, RN. Physician Certification 2 Midnight Certification Type: Admission for Inpatient Services Order for Inpatient Services The services are ordered in accordance with Medicare regulations or non- Medicare payer requirements, as applicable. In the case of services not specified as inpatient-only, they are appropriately provided as inpatient services in accordance with the 2-midnight benchmark. Estimated LOS (days): 2 days is the estimated time the patient will need to remain in the hospital, assuming treatment plan goals are met and no additional complications. Post-Hospital Plan: Not yet determined Problem Qualifiers (1) Alcohol dependence: Qualified Codes: F10.29 - Alcohol dependence with unspecified alcohol-induced disorder Montrell Robledo MD November 26, 2017 17:55
[2017-11-26] MEDS: ENOXAPARIN SODIUM 40 MG/0.4 ML SYRINGE SQ SCH (18:00)
[2017-11-26 18:34] LABS: DIRECT BILIRUBIN ADULT 1.9 MG/DL (0.0-0.2); INDIRECT BILIRUBIN 1.2 MG/DL (0.0-0.8); TOTAL BILIRUBIN ADULT 3.1 MG/DL (0.2-1.0)
[2017-11-26 20:30] VITALS: BP 152/73; PULSE 71; RESP 20; TEMP 97.8; O2SAT 94
--- NOTE | 2017-11-26 20:39 | RADRPT ---
EXAM DATE/TIME: 11/26/2017 17:51 This report includes an Addendum and supersedes previous reports for this exam. [facility] COMPARISON: CT ABDOMEN & PELVIS W CONTRAST, November 26, 2017, 14:59. INDICATIONS : Choledocholithiasis. DOSE: 4.3 mCi Tc99m Mebrofenin IV MEDICATION: No CCK administration MEDICAL HISTORY : Carcinoma, testicular. Hypertension. Cerebrovascular disease. SURGICAL HISTORY : Testicular tumor removed. ENCOUNTER: Initial ACUITY: 1 day PAIN SCALE: 0/10 LOCATION: Bilateral upper quadrant TECHNIQUE: Following the intravenous administration of radiotracer, dynamic sequential images were performed wit h continuous acquisition. FINDINGS: HEPATIC KINETICS: There is prompt uptake of radiotracer in the liver. No focal defects are seen. There is normal rate of washout from the hepatic parenchyma. BILIARY CLEARANCE: Significantly delayed biliary clearance with bowel activity noted at approximately 90 minutes. GALLBLADDER: Activity is seen in the gallbladder. BILIARY ENTRIC REFLUX: None observed. CONCLUSION: 1. No activity seen in the gallbladder. Delayed imaging will be obtained to confirm cystic duct occlu soniya. 2. Significantly delayed biliary clearance with bowel activity noted at 90 minutes. This is consisten t with partially obstructing distal CBD calculus as noted on CT exam. Nick Miramontes MD on November 26, 2017 at 20:33 Board Certified Radiologist. This report was verified electronically. ADDENDUM: Delayed images were obtained. There is clear bowel activity on delayed imaging. There is also signifi cant residual hepatic activity. This may be due to partial CBD obstruction or hepatocellular dysfunct ion. The gallbladder is again not visualized. This is concerning for cystic duct obstruction and chol ecystitis in the appropriate clinical setting. Nick Miramontes MD on November 27, 2017 at 10:08 Board Certified Radiologist. This report was verified electronically.
[2017-11-26] MEDS: DOCUSATE SODIUM 50 MG/SENNA 8.6 MG TAB PO SCH (21:00)
[2017-11-26] MEDS: PIPERACIL-TAZO 4.5 GM PREMIX 100 ML IV SCH (22:17)
[2017-11-26] MEDS: SODIUM CHLORIDE 0.9% FLUSH 10 ML FLUSH IV FLUSH SCH (22:18)
[2017-11-26] MEDS: SODIUM CHLOR 0.9% 1000 ML INJ 1,000 ML IV SCH (22:19)
[2017-11-27] VITALS (7 sets, daily range): BP systolic 128–155; BP diastolic 64–79; PULSE 63–72; RESP 16–20; TEMP 97.3–98.3; O2SAT 94–97
[2017-11-27] MEDS: PIPERACIL-TAZO 4.5 GM PREMIX 100 ML IV SCH ×3 (03:40→19:51)
[2017-11-27] MEDS: SODIUM CHLOR 0.9% 1000 ML INJ 1,000 ML IV SCH ×3 (03:41→23:00)
[2017-11-27 08:09] LABS: AUTOMATED NEUTROPHIL # 8.2 TH/MM3 (1.8-7.7); BASOPHIL % 0.3 % (0.0-2.0); EOSINOPHIL % 0.4 % (0.0-4.0); HEMATOCRIT 45.4 % (39.0-51.0); HEMOGLOBIN 15.3 GM/DL (13.0-17.0); LYMPH % 5.9 % (9.0-44.0); LYMPHOCYTE # 0.6 TH/MM3 (1.0-4.8); MEAN CELL VOLUME 96.1 FL (80.0-100.0); MEAN CORPUSCULAR HEMOGLOBIN 32.4 PG (27.0-34.0); MEAN CORPUSCULAR HGB CONC 33.7 % (32.0-36.0); MEAN PLATELET VOLUME 7.6 FL (7.0-11.0); MONO % 12.1 % (0.0-8.0); MONOCYTE # 1.2 TH/MM3 (0-0.9); NEUT % 81.3 % (16.0-70.0); PLATELET COUNT 186 TH/MM3 (150-450); RED BLOOD COUNT 4.72 MIL/MM3 (4.50-5.90); RED CELL DISTRIBUTION WIDTH 13.8 % (11.6-17.2); WHITE BLOOD COUNT 10.1 TH/MM3 (4.0-11.0)
[2017-11-27 08:34] LABS: ALBUMIN 2.6 GM/DL (3.4-5.0); ALKALINE PHOSPHATASE 227 U/L (45-117); ALT (GPT) 188 U/L (12-78); AST (GOT) 221 U/L (15-37); BLOOD UREA NITROGEN 18 MG/DL (7-18); CHLORIDE 99 MEQ/L (98-107); CREATININE 0.99 MG/DL (0.60-1.30); GLOMERULAR FILTRATION RATE 73 ML/MIN (>89); GLUCOSE,RANDOM 71 MG/DL (74-106); SODIUM (NA) 135 MEQ/L (136-145); TOTAL BILIRUBIN ADULT 3.2 MG/DL (0.2-1.0); TOTAL PROTEIN 6.3 GM/DL (6.4-8.2)
[2017-11-27] MEDS: DOCUSATE SODIUM 50 MG/SENNA 8.6 MG TAB PO SCH ×2 (08:50→19:50)
[2017-11-27] MEDS: SODIUM CHLORIDE 0.9% FLUSH 10 ML FLUSH IV FLUSH SCH ×2 (08:50→19:50)
[2017-11-27] MEDS: ASPIRIN EC 81 MG TABEC PO SCH (08:50)
--- NOTE | 2017-11-27 09:53 | PD.CONS ---
HPI Service Urology Consult Requested By Dr. Umaña Reason for Consult Right scrotal mass Primary Care Physician Unknown Diagnosis: (1) Sepsis ICD Code: A41.9 - Sepsis, unspecified organism (2) Choledocholithiasis ICD Code: K80.50 - Calculus of bile duct without cholangitis or cholecystitis without obstruction (3) Alcohol dependence ICD Code: F10.20 - Alcohol dependence (4) Encephalopathy acute ICD Code: G93.40 - Encephalopathy, unspecified (5) Hypertension ICD Code: I10 - Hypertension (6) H/O: CVA (cerebrovascular accident) ICD Code: Z86.73 - Personal history of transient ischemic attack (TIA), and cerebral infarction without residual deficits History of Present Illness 77-year-old gentleman with multiple medical problems and a questionable history of testicular cancer who was admitted for altered mental status. During the course of his present hospitalization a CT scan study was performed that demonstrated an 11 cm cystic mass with septations involving the right scrotum. A urology consult was placed to address this finding. The patient is a very poor historian but stated that he was treated many years ago for testicular cancer. I reviewed the actual CT scan images that demonstrated a septic cystic mass involving the right hemiscrotum with thickened betts consistent with chronicity. There was no pelvic or retroperitoneal adenopathy and no significant abnormalities involving the kidneys or urinary bladder. Patient reports that he is under the care of a urologist in [place] and plans to be returning soon. Review of Systems ROS Limitations: Poor Historian Except as stated in HPI: all other systems reviewed are Neg Past Family Social History Past Medical History History CVA Hypertension Past Surgical History Denies major surgery Reported Medications Refer to EMR Allergies: Coded Allergies: No Known Allergies (Unverified Adverse Reaction, Unknown, 11/26/17) Active Ordered Medications Refer to EMR Family History Diabetes mellitus Cancer Social History Denies history of tobacco or intravenous drug abuse Consumes 4 cans of beer daily and has done so for the past 50 years Physical Exam Vital Signs Date Time Temp Pulse Resp B/P (MAP) Pulse Ox O2 Delivery O2 Flow Rate FiO2 11/27/17 08:00 97.6 65 17 140/72 (94) 95 11/27/17 04:00 97.6 72 20 128/66 (86) 94 11/27/17 00:00 97.4 67 20 131/64 (86) 96 11/26/17 20:30 97.8 71 20 152/73 (99) 94 11/26/17 17:41 149/75 (99) 95 21 11/26/17 14:37 94 18 149/75 (99) 93 Room Air 11/26/17 12:54 94 Room Air 11/26/17 12:48 99.3 103 28 174/88 (116) 92 Physical Exam GENERAL: This is a well-nourished, well-developed patient, in no apparent distress. SKIN: No rashes, ecchymoses or lesions. Cool and dry. HEAD: Atraumatic. Normocephalic. No temporal or scalp tenderness. EYES: Pupils equal round and reactive. Extraocular motions intact. No scleral icterus. No injection or drainage. ENT: Nose without bleeding, purulent drainage or septal hematoma. Throat without erythema, tonsillar hypertrophy or exudate. Uvula midline. Airway patent. NECK: Trachea midline. No JVD or lymphadenopathy. Supple, nontender, no meningeal signs. GASTROINTESTINAL: Abdomen soft, non-tender, nondistended. No hepato-splenomegaly , or palpable masses. No guarding. GENITOURINARY: Cystic mass involving the right hemiscrotum consistent with a hydrocele. MUSCULOSKELETAL: Extremities without clubbing, cyanosis, or edema. No joint tenderness, effusion, or edema noted. No calf tenderness. Negative Homans sign bilaterally. NEUROLOGICAL: Awake and alert. Cranial nerves II through XII intact. Motor and sensory grossly within normal limits. Five out of 5 muscle strength in all muscle groups. Normal speech. Lab results reviewed: Yes Laboratory Tests Test 11/26/17 13:04 11/26/17 13:37 11/27/17 07:00 White Blood Count 14.0 10.1 Red Blood Count 5.08 4.72 Hemoglobin 16.6 15.3 Hematocrit 48.2 45.4 Mean Corpuscular Volume 94.8 96.1 Mean Corpuscular Hemoglobin 32.6 32.4 Mean Corpuscular Hemoglobin Concent 34.4 33.7 Red Cell Distribution Width 13.6 13.8 Platelet Count 249 186 Mean Platelet Volume 6.9 7.6 Neutrophils (%) (Auto) 93.4 81.3 Lymphocytes (%) (Auto) 2.3 5.9 Monocytes (%) (Auto) 3.9 12.1 Eosinophils (%) (Auto) 0.1 0.4 Basophils (%) (Auto) 0.3 0.3 Neutrophils # (Auto) 13.1 8.2 Lymphocytes # (Auto) 0.3 0.6 Monocytes # (Auto) 0.5 1.2 Eosinophils # (Auto) 0.0 0.0 Basophils # (Auto) 0.0 0.0 CBC Comment DIFF FINAL DIFF FINAL Differential Comment Prothrombin Time 12.7 Prothromb Time International Ratio 1.3 Activated Partial Thromboplast Time 28.2 Blood Urea Nitrogen 17 18 Creatinine 1.22 0.99 Random Glucose 123 71 Total Protein 7.5 6.3 Albumin 3.4 2.6 Calcium Level 8.4 8.0 Alkaline Phosphatase 278 227 Aspartate Amino Transf (AST/SGOT) 402 221 Alanine Aminotransferase (ALT/SGPT) 182 188 Total Bilirubin 3.0 3.2 Sodium Level 133 135 Potassium Level 3.9 3.9 Chloride Level 95 99 Carbon Dioxide Level 28.6 24.0 Anion Gap 9 12 Estimat Glomerular Filtration Rate 57 73 Magnesium Level 1.8 Direct Bilirubin 1.9 Indirect Bilirubin 1.2 Ammonia LESS THAN 10 Total Creatine Kinase 387 Creatine Kinase MB 6.6 Creatine Kinase MB % 1.7 Troponin I LESS THAN 0.02 Lipase 57 51 Ethyl Alcohol Level LESS THAN 3 Urine Color YELLOW Urine Turbidity HAZY Urine pH 6.5 Urine Specific Industry 1.020 Urine Protein 100 Urine Glucose (UA) TRACE Urine Ketones NEG Urine Occult Blood MOD Urine Nitrite NEG Urine Bilirubin SMALL Urine Urobilinogen 4.0 Urine Leukocyte Esterase NEG Urine RBC 8 Urine WBC 7 Urine Squamous Epithelial Cells <1 Urine Bacteria RARE Urine Hyaline Casts 5 Urine Mucus FEW Microscopic Urinalysis Comment CATH-CULTURE IND Hepatitis B Surface Antigen NONREACTIVE Hepatitis B Core IgM Antibody NONREACTIVE Hepatitis C IgG Antibody NONREACTIVE Date/Time Source Procedure Growth Status 11/27/17 07:00 Blood Peripheral Aerobic Blood Culture Pending Received 11/27/17 07:00 Blood Peripheral Anaerobic Blood Culture Pending Received 11/26/17 13:37 Urine Catheterized Urine Urine Culture Pending Received Result Diagram: 11/27/17 0700 11/27/17 0700 Personally reviewed images: Yes Imaging Last Impressions Head CT 11/26/17 1252 Signed Impressions: Service Date/Time: Sunday, November 26, 2017 14:52 - CONCLUSION: 1. Senescent changes with prominent periventricular white matter ischemic demyelination. 2. No acute intracranial abnormality. Nick Miramontes MD Hepatobiliary Scan Nuclear Medicine 11/26/17 Signed Impressions: Service Date/Time: Sunday, November 26, 2017 17:51 - CONCLUSION: 1. No activity seen in the gallbladder. Delayed imaging will be obtained to confirm cystic duct occlusion. 2. Significantly delayed biliary clearance with bowel activity noted at 90 minutes. This is consistent with partially obstructing distal CBD calculus as noted on CT exam. Nick Miramontes MD Chest X-Ray 11/26/17 Signed Impressions: Service Date/Time: Sunday, November 26, 2017 12:59 - CONCLUSION: 1. Linear parenchymal opacities in the left lower lung zone, presumably atelectasis lie scarring. 2. Compensated mild cardiomegaly. Nick Miramontes MD Abdomen/Pelvis CT 11/26/17 Signed Impressions: Service Date/Time: Sunday, November 26, 2017 14:59 - CONCLUSION: 1. Choledocholithiasis with prominent common bile duct measuring up to 11 mm. There is also a focus of air in the gallbladder. Gallbladder does not appear inflamed on CT exam. Suspect the air may have been introduced from passage of stone or prior intervention. Consider ERCP examination/intervention as clinically appropriate. Alternatively, HIDA scan may be performed to confirm patency of the cystic duct if there is concern regarding acute cholecystitis. 2. Large septated cystic lesion in the right scrotum measuring up to 11 cm consistent patient's history of testicular carcinoma. 3. Ancillary findings, as above. Nick Miramontes MD Assessment and Plan Assessment and Plan Urologic impression: 1. Septated cystic mass involving right hemiscrotum of chronic nature consistent with hydrocele and not malignancy 2. Questionable history testicular cancer in the past Recommendations: 1. No acute intervention indicated at the present time 2. Patient to follow-up with his established urologist back in [place] after hospital discharge 3. If patient is to remain in the area for an extended period time then he was advised to follow-up with me at my office and I will make arrangements for his urology records from [place] to be sent to my office for review. 4. Will be available as needed Problem Qualifiers (1) Alcohol dependence: Qualified Codes: F10.29 - Alcohol dependence with unspecified alcohol-induced disorder Titus Munroe MD November 27, 2017 09:53
--- NOTE | 2017-11-27 10:15 | HHI.PR ---
Subjective Remarks Follow-up sepsis, choledocholithiasis. The patient is reporting right flank pain that is "achy". Denies nausea or vomiting. Denies chest pain or dyspnea. Objective Vitals Vital Signs Date Time Temp Pulse Resp B/P (MAP) Pulse Ox O2 Delivery O2 Flow Rate FiO2 11/27/17 08:00 97.6 65 17 140/72 (94) 95 11/27/17 04:00 97.6 72 20 128/66 (86) 94 11/27/17 00:00 97.4 67 20 131/64 (86) 96 11/26/17 20:30 97.8 71 20 152/73 (99) 94 11/26/17 17:41 149/75 (99) 95 21 11/26/17 14:37 94 18 149/75 (99) 93 Room Air 11/26/17 12:54 94 Room Air 11/26/17 12:48 99.3 103 28 174/88 (116) 92 I/O 11/26/17 11/26/17 11/26/17 11/27/17 11/27/17 11/27/17 07:00 15:00 23:00 07:00 15:00 23:00 Intake Total 500 ml 1420 ml Output Total 500 ml Balance 500 ml 920 ml Intake Oral 220 ml IV Total 500 ml 1200 ml Output Urine Total 500 ml # Bowel Movements 0 Result Diagram: 11/27/17 0700 11/27/17 0700 Imaging Last Impressions Head CT 11/26/17 1252 Signed Impressions: Service Date/Time: Sunday, November 26, 2017 14:52 - CONCLUSION: 1. Senescent changes with prominent periventricular white matter ischemic demyelination. 2. No acute intracranial abnormality. Nick Miramontes MD Hepatobiliary Scan Nuclear Medicine 11/26/17 0000 Signed Impressions: Service Date/Time: Sunday, November 26, 2017 17:51 - CONCLUSION: 1. No activity seen in the gallbladder. Delayed imaging will be obtained to confirm cystic duct occlusion. 2. Significantly delayed biliary clearance with bowel activity noted at 90 minutes. This is consistent with partially obstructing distal CBD calculus as noted on CT exam. Nick Miramontes MD Chest X-Ray 11/26/17 0000 Signed Impressions: Service Date/Time: Sunday, November 26, 2017 12:59 - CONCLUSION: 1. Linear parenchymal opacities in the left lower lung zone, presumably atelectasis lie scarring. 2. Compensated mild cardiomegaly. Nick Miramontes MD Abdomen/Pelvis CT 11/26/17 0000 Signed Impressions: Service Date/Time: Sunday, November 26, 2017 14:59 - CONCLUSION: 1. Choledocholithiasis with prominent common bile duct measuring up to 11 mm. There is also a focus of air in the gallbladder. Gallbladder does not appear inflamed on CT exam. Suspect the air may have been introduced from passage of stone or prior intervention. Consider ERCP examination/intervention as clinically appropriate. Alternatively, HIDA scan may be performed to confirm patency of the cystic duct if there is concern regarding acute cholecystitis. 2. Large septated cystic lesion in the right scrotum measuring up to 11 cm consistent patient's history of testicular carcinoma. 3. Ancillary findings, as above. Nick Miramontes MD Objective Remarks General: No acute distress. Heart: Regular rate and rhythm. No murmur. Lungs: Clear to auscultation bilaterally. No wheezes, rales, or rhonchi. Breathing is nonlabored. Abdomen: Soft, mild tenderness in the right upper quadrant, moderately distended. Extremities: No lower extremity edema. Psych: Alert and oriented. Neuro: Normal speech. No focal deficits noted. : Significant scrotal enlargement Procedures None Urinary Catheter: No Vascular Central Line Catheter: No A/P Problem List: (1) Sepsis ICD Code: A41.9 - Sepsis, unspecified organism (2) Choledocholithiasis ICD Code: K80.50 - Calculus of bile duct without cholangitis or cholecystitis without obstruction Status: Acute (3) Alcohol dependence ICD Code: F10.20 - Alcohol dependence Status: Acute (4) Encephalopathy acute ICD Code: G93.40 - Encephalopathy, unspecified (5) Hypertension ICD Code: I10 - Hypertension Status: Acute (6) H/O: CVA (cerebrovascular accident) ICD Code: Z86.73 - Personal history of transient ischemic attack (TIA), and cerebral infarction without residual deficits Assessment and Plan 1. Sepsis: Source is likely acute cholecystitis. Continue IV antibiotics, IV fluids. Blood cultures are pending. Urine culture is pending. 2. Choledocholithiasis: Abnormal HIDA scan. Continue IV Zosyn. GI consult is pending. 3. Possible right testicular mass: Imaging shows cystic mass on right. Evaluated by urology. No surgical intervention planned. Patient to follow-up with his urologist in [place]. 4. Encephalopathy: Likely secondary to sepsis. Mental status seems to be improving. 5. Alcohol abuse: CIWA protocol, thiamine, folic acid. No evidence of alcohol withdrawal symptoms at this time. 6. Hyponatremia: Likely hypovolemic. Continue IV fluids. 7. Transaminitis, hyperbilirubinemia: Suspect that this is secondary to obstructive jaundice. Monitor LFTs, which are improving. GI consult is pending. 8. Abnormal UA: Possible UTI. Urine culture is pending. On IV Zosyn. 9. Leukocytosis: Secondary to sepsis. Monitor labs. 10. History of CVA: Continue aspirin. 11. DVT prophylaxis: Lovenox. Problem Qualifiers (1) Alcohol dependence: Qualified Codes: F10.29 - Alcohol dependence with unspecified alcohol-induced disorder Fabrice Dupree MD November 27, 2017 10:15
--- NOTE | 2017-11-27 14:51 | PD.CONS ---
HPI History of Present Illness This is a 77 year old male with hx etoh dependence, CVA who presented with confusion and shakiness. GI is consulted for choledocholithiasis, cholecystitis. Pt denies abd pain but is complaining of right flank pain. He denies n/v, hx liver problems. never had EGD or colonoscopy. Drinks [address] showed choledocholithiasis. HIDA suggestive obstruction, cholecystitis. Limited historian. ([place]) [facility] Past Medical History 1. Testicular mass. 2. History of CVA as per medical records. 3. Hypertension. Past Surgical History Denies surgeries. ([place]) Coded Allergies: No Known Allergies (Unverified Adverse Reaction, Unknown, 11/26/17) Family History Grandmother had diabetes. Denies any family history of cancer. Social History Denies smoking. The patient states he drinks 4 cans of beer every day and he has done that for the past 50 years. ([place]) Review of Systems Constitutional: DENIES: Fever Endocrine: DENIES: Polydipsia Eyes: DENIES: Blurred vision Ears, nose, mouth, throat: DENIES: Hearing loss Respiratory: DENIES: Cough Cardiovascular: DENIES: Chest pain Gastrointestinal: COMPLAINS OF: Diarrhea, DENIES: Abdominal pain, Nausea, Vomiting Genitourinary: DENIES: Urinary incontinence Musculoskeletal: DENIES: Muscle aches Integumentary: DENIES: Abnormal pigmentation Hematologic/lymphatic: DENIES: Bruising Immunologic/allergic: DENIES: Eczema Neurologic: COMPLAINS OF: Abnormal gait Psychiatric: COMPLAINS OF: Confusion ([place]) GI Exam Vitals I&O Vital Signs Date Time Temp Pulse Resp B/P (MAP) Pulse Ox O2 Delivery O2 Flow Rate FiO2 11/27/17 12:00 98.0 63 17 134/70 (91) 97 11/27/17 08:00 97.6 65 17 140/72 (94) 95 11/27/17 04:00 97.6 72 20 128/66 (86) 94 11/27/17 00:00 97.4 67 20 131/64 (86) 96 11/26/17 20:30 97.8 71 20 152/73 (99) 94 11/26/17 17:41 149/75 (99) 95 21 I/O 11/26/17 11/26/17 11/26/17 11/27/17 11/27/17 11/27/17 07:00 15:00 23:00 07:00 15:00 23:00 Intake Total 500 ml 1420 ml 100 ml Output Total 500 ml 200 ml Balance 500 ml 920 ml -100 ml Intake Oral 220 ml IV Total 500 ml 1200 ml 100 ml Output Urine Total 500 ml 200 ml # Bowel Movements 0 Imaging Last Impressions Head CT 11/26/17 1252 Signed Impressions: Service Date/Time: Sunday, November 26, 2017 14:52 - CONCLUSION: 1. Senescent changes with prominent periventricular white matter ischemic demyelination. 2. No acute intracranial abnormality. Nick Miramontes MD Hepatobiliary Scan Nuclear Medicine 11/26/17 0000 Signed Impressions: Service Date/Time: Sunday, November 26, 2017 17:51 - CONCLUSION: 1. No activity seen in the gallbladder. Delayed imaging will be obtained to confirm cystic duct occlusion. 2. Significantly delayed biliary clearance with bowel activity noted at 90 minutes. This is consistent with partially obstructing distal CBD calculus as noted on CT exam. Nick Miramontes MD ADDENDUM: Delayed images were obtained. There is clear bowel activity on delayed imaging. There is also significant residual hepatic activity. This may be due to partial CBD obstruction or hepatocellular dysfunction. The gallbladder is again not visualized. This is concerning for cystic duct obstruction and cholecystitis in the appropriate clinical setting. Nick Miramontes MD Chest X-Ray 11/26/17 0000 Signed Impressions: Service Date/Time: Sunday, November 26, 2017 12:59 - CONCLUSION: 1. Linear parenchymal opacities in the left lower lung zone, presumably atelectasis lie scarring. 2. Compensated mild cardiomegaly. Nick Miramontes MD Abdomen/Pelvis CT 11/26/17 0000 Signed Impressions: Service Date/Time: Sunday, November 26, 2017 14:59 - CONCLUSION: 1. Choledocholithiasis with prominent common bile duct measuring up to 11 mm. There is also a focus of air in the gallbladder. Gallbladder does not appear inflamed on CT exam. Suspect the air may have been introduced from passage of stone or prior intervention. Consider ERCP examination/intervention as clinically appropriate. Alternatively, HIDA scan may be performed to confirm patency of the cystic duct if there is concern regarding acute cholecystitis. 2. Large septated cystic lesion in the right scrotum measuring up to 11 cm consistent patient's history of testicular carcinoma. 3. Ancillary findings, as above. Nick Miramontes MD Laboratory Test 11/27/17 07:00 White Blood Count 10.1 TH/MM3 Red Blood Count 4.72 MIL/MM3 Hemoglobin 15.3 GM/DL Hematocrit 45.4 % Mean Corpuscular Volume 96.1 FL Mean Corpuscular Hemoglobin 32.4 PG Mean Corpuscular Hemoglobin Concent 33.7 % Red Cell Distribution Width 13.8 % Platelet Count 186 TH/MM3 Mean Platelet Volume 7.6 FL Neutrophils (%) (Auto) 81.3 % Lymphocytes (%) (Auto) 5.9 % Monocytes (%) (Auto) 12.1 % Eosinophils (%) (Auto) 0.4 % Basophils (%) (Auto) 0.3 % Neutrophils # (Auto) 8.2 TH/MM3 Lymphocytes # (Auto) 0.6 TH/MM3 Monocytes # (Auto) 1.2 TH/MM3 Eosinophils # (Auto) 0.0 TH/MM3 Basophils # (Auto) 0.0 TH/MM3 CBC Comment DIFF FINAL Differential Comment Blood Urea Nitrogen 18 MG/DL Creatinine 0.99 MG/DL Random Glucose 71 MG/DL Total Protein 6.3 GM/DL Albumin 2.6 GM/DL Calcium Level 8.0 MG/DL Alkaline Phosphatase 227 U/L Aspartate Amino Transf (AST/SGOT) 221 U/L Alanine Aminotransferase (ALT/SGPT) 188 U/L Total Bilirubin 3.2 MG/DL Sodium Level 135 MEQ/L Potassium Level 3.9 MEQ/L Chloride Level 99 MEQ/L Carbon Dioxide Level 24.0 MEQ/L Anion Gap 12 MEQ/L Estimat Glomerular Filtration Rate 73 ML/MIN Lipase 51 U/L Hepatitis A IgM Antibody NONREACTIVE Hepatitis B Surface Antigen NONREACTIVE Hepatitis B Core IgM Antibody NONREACTIVE Hepatitis C IgG Antibody NONREACTIVE Date/Time Source Procedure Growth Status 11/27/17 07:00 Blood Peripheral Aerobic Blood Culture Pending Received 11/27/17 07:00 Blood Peripheral Anaerobic Blood Culture Pending Received 11/26/17 13:37 Urine Catheterized Urine Urine Culture - Preliminary Gram Negative [place] Resulted Physical Examination HEENT: PERRL; normocephalic; atraumatic;+ jaundice. CHEST: CTA CARDIAC: RRR ABDOMEN: Soft, distended, RUQ & epigastric tenderness; no hepatosplenomegaly; bowel sounds are present in all four quadrants. EXTREMITIES: No clubbing, cyanosis, or edema. SKIN: Normal; no rash; CARTRIDGE FEEDER: alert ([place]) Assessment and Plan Plan ASSESSMENT - abnormal imaging, elevated LFTs - CT showed choledocholithiasis, HIDA suggestive obstruction & cholecystitis. LFTs elevated obstructive pattern. pt denied abd pain but was tender on exam. Hx etoh dependence. GS consult pending. PLAN - ERCP - obtain consent - NPO after midnight - await GS consult - monitor labs - further recs to follow pt seen by myself and DR Goldstein and this note is on his behalf ([place]) Physician Comments Patient seen and examined Agree with above Continue with current supportive care Monitor labs ERCP tomorrow (Prasanth Goldstein MD) [place] November 27, 2017 14:51 Prasanth Goldstein MD November 27, 2017 23:38
[2017-11-27] MEDS: ENOXAPARIN SODIUM 40 MG/0.4 ML SYRINGE SQ SCH (16:54)
[2017-11-28 00:22] VITALS: BP 139/66; PULSE 62; RESP 18; TEMP 97.5; O2SAT 95
[2017-11-28] MEDS: PIPERACIL-TAZO 4.5 GM PREMIX 100 ML IV SCH ×3 (03:53→19:20)
[2017-11-28] MEDS ORDERED: SODIUM CHLORID 0.9% 500 ML IV PRN (07:00)
[2017-11-28] MEDS ORDERED: LACTATED RINGER'S 1000 ML IV PRN (07:00)
[2017-11-28] MEDS ORDERED: CHLORHEXIDINE GLUCONATE 2 % 1 PACK (2 CLOTHS) TOPICAL PRN (07:00)
[2017-11-28 08:00] VITALS: BP 164/78; PULSE 56; RESP 17; TEMP 97.3; O2SAT 95
[2017-11-28 08:09] LABS: AUTOMATED NEUTROPHIL # 5.6 TH/MM3 (1.8-7.7); BASOPHIL % 0.3 % (0.0-2.0); EOSINOPHIL # 0.2 TH/MM3 (0-0.4); HEMOGLOBIN 15.2 GM/DL (13.0-17.0); LYMPH % 10.2 % (9.0-44.0); LYMPHOCYTE # 0.8 TH/MM3 (1.0-4.8); MEAN CELL VOLUME 96.1 FL (80.0-100.0); MEAN CORPUSCULAR HEMOGLOBIN 32.4 PG (27.0-34.0); MEAN CORPUSCULAR HGB CONC 33.7 % (32.0-36.0); MEAN PLATELET VOLUME 7.4 FL (7.0-11.0); MONO % 16.3 % (0.0-8.0); MONOCYTE # 1.3 TH/MM3 (0-0.9); NEUT % 71.2 % (16.0-70.0); PLATELET COUNT 208 TH/MM3 (150-450); RED BLOOD COUNT 4.69 MIL/MM3 (4.50-5.90); RED CELL DISTRIBUTION WIDTH 13.7 % (11.6-17.2); WHITE BLOOD COUNT 7.9 TH/MM3 (4.0-11.0)
--- NOTE | 2017-11-28 08:30 | PD.CONS ---
cc: Jovany Rob MD HPI Service General Surgery Consult Requested By Dr. Dupree Reason for Consult Cholecystitis Primary Care Physician Unknown History of Present Illness This is a 77 year old male with a past history of a testicular mass who is a relatively poor historian presented the ED on Monday complaining of confusion , dizziness and shaky hands. The patient denies fever, chills or headache. He lives here part of the year and in [place] the other part of the year. He does have a Urologist he follows for his testicular mass in [place]. On admission his WBC was elevated at 14,000 but now 7,900. He does have elevated liver enzymes and imaging consistent with choledocholithiasis. He is scheduled for an ERCP today. His main complaint today is that his abdomen is distended. A General Surgery consultation has been requested. Review of Systems Constitutional: COMPLAINS OF: Dizziness, DENIES: Fatigue, Chills, Change in appetite Endocrine: DENIES: Polydipsia, Polyuria, Polyphagia Eyes: DENIES: Diplopia, Double Vision Ears, nose, mouth, throat: DENIES: Hearing loss Respiratory: COMPLAINS OF: Shortness of breath, DENIES: Apneas Cardiovascular: COMPLAINS OF: Dyspnea on Exertion, DENIES: Chest pain Gastrointestinal: DENIES: Abdominal pain, Nausea, Vomiting Genitourinary: COMPLAINS OF: Testicular Swelling, DENIES: Urgency Musculoskeletal: DENIES: Joint pain Integumentary: DENIES: Abnormal pigmentation Hematologic/lymphatic: DENIES: Bruising Immunologic/allergic: DENIES: Eczema Neurologic: DENIES: Headache, Localized weakness Psychiatric: DENIES: Depression, Hallucinations Past Family Social History Past Medical History Testicular mass Past Surgical History Tonsillectomy as a child Reported Medications None Allergies: Coded Allergies: No Known Allergies (Unverified Adverse Reaction, Unknown, 11/26/17) Active Ordered Medications Current Medications Medications (Trade) Dose Ordered Sig/Suzette Route Start Time Stop Time Status Last Admin Sodium Chloride 1,000 ml @ 100 mls/hr Q10H IV 11/26/17 17:21 11/27/17 23:00 (NS Flush) 2 ml UNSCH PRN IV FLUSH 11/26/17 17:30 (NS Flush) 2 ml BID IV FLUSH 11/26/17 21:00 11/26/17 22:18 (Tylenol) 650 mg Q4H PRN PO 11/26/17 17:30 (Lovenox Inj) 40 mg Q24H SQ 11/26/17 18:00 11/27/17 16:54 (Narcan Inj) 0.4 mg UNSCH PRN IV PUSH 11/26/17 17:30 (Adele-Colace) 1 tab BID PO 11/26/17 21:00 (Milk Of Magnesia Liq) 30 ml Q12H PRN PO 11/26/17 17:30 (Senokot) 17.2 mg Q12H PRN PO 11/26/17 17:30 (Dulcolax Supp) 10 mg DAILY PRN RECTAL 11/26/17 17:30 (Lactulose Liq) 30 ml DAILY PRN PO 11/26/17 17:30 Piperacillin Sod/ Tazobactam Sod 100 ml @ 200 mls/hr Q8H IV 11/26/17 20:00 11/28/17 03:53 (Ecotrin Ec) 81 mg DAILY PO 11/27/17 09:00 Lactated Ringer's 1,000 ml @ 30 mls/hr Q24H PRN IV 11/28/17 07:00 12/01/17 06:59 Sodium Chloride 500 ml @ 30 mls/hr [id number] PRN IV 11/28/17 07:00 12/01/17 06:59 (Chlorhexidine 2% Cloth) 3 pack INTERACTIVE [employer] DES[employer] PRN TOPICAL 11/28/17 07:00 12/01/17 06:59 Family History Noncontributory Social History Denies tobacco use + ETOH use ---4 beers daily for 50 + years Lives in [place] half the year and the other half in [place]. He is [place] go back [place] tomorrow. Physical Exam Vital Signs Vital Signs Date Time Temp Pulse Resp B/P (MAP) Pulse Ox O2 Delivery O2 Flow Rate FiO2 11/28/17 00:22 97.5 62 18 139/66 (90) 95 11/27/17 23:58 64 11/27/17 20:34 97.3 71 16 155/79 (104) 97 11/27/17 16:00 98.3 64 17 147/77 (100) 97 11/27/17 12:00 98.0 63 17 134/70 (91) 97 Physical Exam GENERAL: 77 year old male mildly confused resting in bed in no acute distress. SKIN: Warm and dry. HEAD: Atraumatic. Normocephalic. EYES: Pupils equal and round. No scleral icterus. No injection or drainage. ENT: No nasal bleeding or discharge. Mucous membranes pink and moist. NECK: Trachea midline. CARDIOVASCULAR: Regular rate and rhythm. RESPIRATORY: No accessory muscle use. Clear to auscultation. Breath sounds equal bilaterally. GASTROINTESTINAL: Abdomen soft, distended; Mild RUQ tenderness with palpation. Moderate RIGHT flank pain. No visible scars or hernias. MUSCULOSKELETAL: Extremities without clubbing, cyanosis, or edema. No obvious deformities. NEUROLOGICAL: Awake and alert. No obvious cranial nerve deficits. Motor grossly within normal limits. Five out of 5 muscle strength in the arms and legs. Normal speech. PSYCHIATRIC: Appropriate mood and affect; insight and judgment normal. Laboratory Laboratory Tests Test 11/28/17 07:25 11/28/17 07:58 White Blood Count 7.9 Red Blood Count 4.69 Hemoglobin 15.2 Hematocrit 45.0 Mean Corpuscular Volume 96.1 Mean Corpuscular Hemoglobin 32.4 Mean Corpuscular Hemoglobin Concent 33.7 Red Cell Distribution Width 13.7 Platelet Count 208 Mean Platelet Volume 7.4 Neutrophils (%) (Auto) 71.2 Lymphocytes (%) (Auto) 10.2 Monocytes (%) (Auto) 16.3 Eosinophils (%) (Auto) 2.0 Basophils (%) (Auto) 0.3 Neutrophils # (Auto) 5.6 Lymphocytes # (Auto) 0.8 Monocytes # (Auto) 1.3 Eosinophils # (Auto) 0.2 Basophils # (Auto) 0.0 CBC Comment DIFF FINAL Differential Comment Date/Time Source Procedure Growth Status 11/27/17 07:00 Blood Peripheral Aerobic Blood Culture Pending Received 11/27/17 07:00 Blood Peripheral Anaerobic Blood Culture Pending Received 11/26/17 13:37 Urine Catheterized Urine Urine Culture - Preliminary Gram Negative [place] Resulted Result Diagram: 11/28/17 0725 11/27/17 0700 Imaging Last [address] 11/26/17 1252 Signed Impressions: Service Date/Time: Sunday, November 26, 2017 14:52 - CONCLUSION: 1. Senescent changes with prominent periventricular white matter ischemic demyelination. 2. No acute intracranial abnormality. Nick Miramontes MD Assessment and Plan Assessment and Plan 77 year old male with choledocholithiasis -Proceed with ERCP today with GI -CT images reviewed and does not show an inflamed gallbladder -Follow liver enzymes -NPO for procedure; diet as tolerated after -Follow up with Urologist in [place] for testicular mass PATIENT SEEN AND EVALUATED WITH SITE LEAD WHO DOCUMENTED OUR VISIT. NO EVIDENCE OF CHOLECYSTITIS. PATIENT NEEDS ERCP FOR STONE REMOVAL. WILL FOLLOW UP EXAM. WILL NEED ELECTIVE CHOLECYSTECTOMY. HE IS RETURNING [place] SOON AND SAYS HE WILL HAVE IT DONE UP THERE. JOVANY ROB MD FACS Discussed Condition With Fe Pascal SITE LEAD/[employer] SITE LEAD November 28, 2017 08:30 Jovany Rob MD Dec 12, 2017 10:48
[2017-11-28 08:36] LABS: INTERNATIONAL NORMALIZED RATIO 1.1 RATIO; PROTHROMBIN TIME - PATIENT 11.4 SEC (9.8-11.6)
[2017-11-28 08:47] LABS: ALBUMIN 2.6 GM/DL (3.4-5.0); ALT (GPT) 132 U/L (12-78); AST (GOT) 95 U/L (15-37); BICARBONATE 24.7 MEQ/L (21.0-32.0); BLOOD UREA NITROGEN 13 MG/DL (7-18); CALCIUM 7.9 MG/DL (8.5-10.1); CHLORIDE 103 MEQ/L (98-107); GLOMERULAR FILTRATION RATE 82 ML/MIN (>89); GLUCOSE,RANDOM 79 MG/DL (74-106); SODIUM (NA) 137 MEQ/L (136-145)
[2017-11-28 08:49] LABS: ALKALINE PHOSPHATASE 178 U/L (45-117); TOTAL BILIRUBIN ADULT 1.2 MG/DL (0.2-1.0); TOTAL PROTEIN 6.1 GM/DL (6.4-8.2)
[2017-11-28] MEDS: DOCUSATE SODIUM 50 MG/SENNA 8.6 MG TAB PO SCH ×2 (09:00→19:20)
[2017-11-28] MEDS: ASPIRIN EC 81 MG TABEC PO SCH (09:00)
[2017-11-28] MEDS: SODIUM CHLORIDE 0.9% FLUSH 10 ML FLUSH IV FLUSH SCH ×2 (09:00→19:20)
[2017-11-28] MEDS: SODIUM CHLOR 0.9% 1000 ML INJ 1,000 ML IV SCH ×2 (09:21→19:20)
[2017-11-28 12:00] VITALS: BP 180/89; PULSE 61; RESP 18; TEMP 97.5; O2SAT 96
[2017-11-28] MEDS ORDERED: METOPROLOL TARTRATE 5 MG/5 ML VIAL IV ONE (12:00)
[2017-11-28] MEDS ORDERED: SUCCINYLCHOLINE CHLORIDE 100 MG/5 ML SYRINGE IV PUSH ONE (12:00)
[2017-11-28] MEDS ORDERED: hydrALAZINE HCL 20 MG/ML VIAL IV ONE (12:00)
[2017-11-28] MEDS ORDERED: LIDOCAINE HCL 1% PF 5 ML SYRINGE OTHER ONE (12:00)
[2017-11-28] MEDS ORDERED: PROPOFOL 200 MG/20 ML AMP IV ONE (12:00)
--- NOTE | 2017-11-28 12:32 | HHI.PR ---
Subjective Remarks The patient was about to go for ERCP. He said his blood pressure was high. He said that he had abdominal bloating but no real pain. He has not had an appetite recently. Discussed with nursing. Objective Vitals Vital Signs Date Time Temp Pulse Resp B/P (MAP) Pulse Ox O2 Delivery O2 Flow Rate FiO2 11/28/17 00:22 97.5 62 18 139/66 (90) 95 11/27/17 23:58 64 11/27/17 20:34 97.3 71 16 155/79 (104) 97 11/27/17 16:00 98.3 64 17 147/77 (100) 97 I/O 11/27/17 11/27/17 11/27/17 11/28/17 11/28/17 11/28/17 07:00 15:00 23:00 07:00 15:00 23:00 Intake Total 1420 ml 100 ml 2060 ml 100 ml Output Total 500 ml 200 ml 340 ml Balance 920 ml -100 ml 2060 ml -240 ml Intake Oral 220 ml 960 ml IV Total 1200 ml 100 ml 1100 ml 100 ml Output Urine Total 500 ml 200 ml 340 ml # Voids 4 # Bowel Movements 0 1 0 Result Diagram: 11/28/17 0725 11/28/17 0725 Imaging Last Impressions Head CT 11/26/17 1252 Signed Impressions: Service Date/Time: Sunday, November 26, 2017 14:52 - CONCLUSION: 1. Senescent changes with prominent periventricular white matter ischemic demyelination. 2. No acute intracranial abnormality. Nick Miramontes MD Hepatobiliary Scan Nuclear Medicine 11/26/17 0000 Signed Impressions: Service Date/Time: Sunday, November 26, 2017 17:51 - CONCLUSION: 1. No activity seen in the gallbladder. Delayed imaging will be obtained to confirm cystic duct occlusion. 2. Significantly delayed biliary clearance with bowel activity noted at 90 minutes. This is consistent with partially obstructing distal CBD calculus as noted on CT exam. Ncik Miramontes MD ADDENDUM: Delayed images were obtained. There is clear bowel activity on delayed imaging. There is also significant residual hepatic activity. This may be due to partial CBD obstruction or hepatocellular dysfunction. The gallbladder is again not visualized. This is concerning for cystic duct obstruction and cholecystitis in the appropriate clinical setting. Nick Miramontes MD Chest X-Ray 11/26/17 0000 Signed Impressions: Service Date/Time: Sunday, November 26, 2017 12:59 - CONCLUSION: 1. Linear parenchymal opacities in the left lower lung zone, presumably atelectasis lie scarring. 2. Compensated mild cardiomegaly. Nick Miramontes MD Abdomen/Pelvis CT 11/26/17 0000 Signed Impressions: Service Date/Time: Sunday, November 26, 2017 14:59 - CONCLUSION: 1. Choledocholithiasis with prominent common bile duct measuring up to 11 mm. There is also a focus of air in the gallbladder. Gallbladder does not appear inflamed on CT exam. Suspect the air may have been introduced from passage of stone or prior intervention. Consider ERCP examination/intervention as clinically appropriate. Alternatively, HIDA scan may be performed to confirm patency of the cystic duct if there is concern regarding acute cholecystitis. 2. Large septated cystic lesion in the right scrotum measuring up to 11 cm consistent patient's history of testicular carcinoma. 3. Ancillary findings, as above. Nick Miramontes MD Objective Remarks General: No acute distress. Heart: Regular rate and rhythm. No murmur. Lungs: Clear to auscultation bilaterally. No wheezes, rales, or rhonchi. Breathing is nonlabored. Abdomen: Soft, mild tenderness in the right upper quadrant, moderately distended. Extremities: No lower extremity edema. Psych: Alert and oriented. Neuro: Normal speech. No focal deficits noted. : Significant scrotal enlargement Procedures None A/P Problem List: (1) Sepsis ICD Code: A41.9 - Sepsis, unspecified organism (2) Choledocholithiasis ICD Code: K80.50 - Calculus of bile duct without cholangitis or cholecystitis without obstruction Status: Acute (3) Alcohol dependence ICD Code: F10.20 - Alcohol dependence Status: Acute (4) Encephalopathy acute ICD Code: G93.40 - Encephalopathy, unspecified (5) Hypertension ICD Code: I10 - Hypertension Status: Acute (6) H/O: CVA (cerebrovascular accident) ICD Code: Z86.73 - Personal history of transient ischemic attack (TIA), and cerebral infarction without residual deficits Assessment and Plan Sepsis Source is likely acute cholecystitis. - Continue IV antibiotics, IV fluids. - Blood cultures are pending. Urine culture is pending. Choledocholithiasis Abnormal HIDA scan noted. - Continue IV Zosyn. - GI and GS consults appreciated. ERCP pending. Possible right testicular mass Imaging shows cystic mass on right. Evaluated by urology. No surgical intervention planned. - Patient to follow-up with his urologist in [place]. Encephalopathy Likely secondary to sepsis. Mental status seems to be improving. - frequent orientation. Alcohol abuse No evidence of withdrawal. - [facility] protocol, thiamine, folic acid. Transaminitis, hyperbilirubinemia Suspect that this is secondary to obstructive jaundice. - Monitor LFTs, which are improving. - GI following. Abnormal UA Possible UTI. - Urine culture is pending. - On IV Zosyn. History of CVA Stable. - Continue aspirin. HTN Blood pressure has been elevated at times. - Vasotec as needed. DVT prophylaxis: Lovenox. Problem Qualifiers (1) Alcohol dependence: Qualified Codes: F10.29 - Alcohol dependence with unspecified alcohol-induced disorder Rj Hilton DO November 28, 2017 12:32
[2017-11-28] MEDS ORDERED: IOHEXOL 350 MG/ML 50 ML BTL (for RAD DIAG) OTHER ONE (14:24)
[2017-11-28] MEDS ORDERED: *RESP: ALBUTEROL 2.5 MG/3 ML NEB (PRN) PERIprocedural Use ONLY NEB ONE (14:36)
--- NOTE | 2017-11-28 15:47 | PD.PROCEDR ---
GI Procedure PROCEDURE PERFORMED ERCP with sphincterotomy and balloon extraction and biopsy INDICATION FOR PROCEDURE Choledocholithiasis PROCEDURE: The procedure, risks and benefits were discussed with Patient/POA and informed consent was obtained. Anesthesia sedated Patient with Diprivan. Patient was placed in the left lateral decubitus position. ERCP: Patient was placed in a prone position. The Pentax videoscope was introduced through the oropharynx and advanced to the second portion of the duodenum where the ampula was identified. FINDINGS: The ampulla appeared to be unremarkable at the edge of the duodenal diverticulum we were able to obtain easy cannulation of the common bile duct which appeared to be mildly dilated with filling defects a generous sphincterotomy was performed and using the 8 mm balloon we were able to extract 3 filling defects further evaluation of the common bile duct with an obstructive cholangiogram revealed total clearance of the filling defects the intrahepatics were unremarkable the gallbladder did not fill up Adjacent to the ampulla were several sessile duodenal polyps biopsies were taken for further evaluation ESTIMATED BLOOD LOSS: Minimal SPECIMENS REMOVED: Duodenal biopsy COMPLICATIONS: None IMPRESSION: Choledocholithiasis Duodenal diverticulum Duodenal polyps PLAN: Await biopsies Continue with current supportive care Monitor labs Follow-up with GI post discharge Patient will most likely require an EGD and possible endoscopic ultrasound to further evaluate the duodenal polyps Prasanth Goldstein MD November 28, 2017 15:47
[2017-11-28 16:00] VITALS: BP 161/80; PULSE 62; RESP 20; TEMP 97.7; O2SAT 98
[2017-11-28] MEDS: ENOXAPARIN SODIUM 40 MG/0.4 ML SYRINGE SQ SCH (16:13)
[2017-11-28] MEDS ORDERED: DO NOT ADM ANY ANTICOAGULANT DRUGS PRN (17:15)
--- NOTE | 2017-11-28 18:31 | RADRPT ---
EXAM DATE: 11/28/2017 6:23 PM EDT AGE/SEX: 77 years / Male INDICATIONS: Altered mental status. CLINICAL DATA: This is the patient's initial encounter. Patient reports that signs and symptoms have been present for 1 day and indicates a pain score of Nonresponsive. MEDICAL/SURGICAL HISTORY: Carcinoma, testicular. Hypertension. Cerebrovascular disease. None. RADIATION DOSE: 41.92 CTDI (mGy) COMPARISON: [facility] [place], CT BRAIN W/O CONTRAST, 11/26/2017. . TECHNIQUE: CT of the head without contrast. Using automated exposure control and adjustment of the mA and/or kV according to patient size, radiation dose was kept as low as reasonably achievable to ob tain optimal diagnostic quality images. FINDINGS: Cerebrum: The ventricles and cortical sulci are widened. There is decreased density seen throughout the periventricular white matter. There are old lacunar infarcts at the left basal ganglia, right ruthy lamus, right caudate head, and left posterior limb of the internal capsule. No evidence of midline s hift, mass lesion, hemorrhage or acute infarction. No extraaxial fluid collections are seen. Posterior Fossa: The cerebellum and brainstem are intact. The 4th ventricle is midline. The cerebe llopontine angle is unremarkable. Extracranial: The visualized portion of the orbits is intact. Skull: The calvaria is intact. No evidence of skull fracture. Post Contrast: No abnormal areas of parenchymal or dural enhancement. No evidence of blood-brain ba rrier breakdown. CONCLUSION: 1. No acute abnormality seen. 2. Age-related atrophy and suspected small vessel ischemic change in the white matter. 3. Old lacunar infarct. Electronically signed by: Herb Coe MD 11/28/2017 6:29 PM EDT
[2017-11-28 20:28] VITALS: BP 162/80; PULSE 63; RESP 18; TEMP 97.2; O2SAT 96
[2017-11-28] MEDS ORDERED: MORPHINE SULFATE 4 MG/ML INJ PO ONE (23:45)
[2017-11-29] VITALS (7 sets, daily range): BP systolic 115–216; BP diastolic 57–124; PULSE 66–115; RESP 16–20; TEMP 97.3–98.1; O2SAT 92–94
[2017-11-29] MEDS: ACETAMINOPHEN/HYDROcodone 325 MG/5 MG TAB PO PRN ×3 (01:09→23:26)
[2017-11-29] MEDS: ENALAPRILAT 1.25 MG/ML VIAL IV PUSH PRN ×2 (01:37→21:12)
[2017-11-29] MEDS ORDERED: cloNIDine HCL 0.1 MG TAB PO ONE (01:45)
--- NOTE | 2017-11-29 02:18 | RADRPT ---
EXAM DATE: 11/29/2017 2:13 AM EDT AGE/SEX: 77 years / Male INDICATIONS: Evaluate for ileus. CLINICAL DATA: This is the patient's subsequent encounter. Patient reports that signs and symptoms h ave been present for 2 days and indicates a pain score of Nonresponsive. MEDICAL/SURGICAL HISTORY: Carcinoma, testicular. Hypertension. None. COMPARISON: [facility] – [place], CT ABDOMEN & PELVIS W CONTRAST, 11/26/2017. . FINDINGS: A single AP supine view of the abdomen and pelvis was obtained and demonstrates multiple loops of no ndilated air-containing small bowel. Gas and stool is noted segmental in the colon. Vicarious excreti on of contrast is noted the gallbladder. The bony structures are intact with bridging osteophytes the lumbar spine. CONCLUSION: Nonspecific, nonobstructive bowel gas pattern which may represent a mild ileus and/or gastroenteriti s. Electronically signed by: Rj Henson MD 11/29/2017 2:17 AM EDT
[2017-11-29] MEDS: PIPERACIL-TAZO 4.5 GM PREMIX 100 ML IV SCH ×2 (02:53→14:06)
[2017-11-29 04:08] LABS: HEMATOCRIT 44.1 % (39.0-51.0); HEMOGLOBIN 14.9 GM/DL (13.0-17.0); MEAN CELL VOLUME 95.3 FL (80.0-100.0); MEAN CORPUSCULAR HEMOGLOBIN 32.3 PG (27.0-34.0); MEAN CORPUSCULAR HGB CONC 33.9 % (32.0-36.0); MEAN PLATELET VOLUME 7.7 FL (7.0-11.0); PLATELET COUNT 202 TH/MM3 (150-450); RED BLOOD COUNT 4.62 MIL/MM3 (4.50-5.90); RED CELL DISTRIBUTION WIDTH 13.7 % (11.6-17.2)
[2017-11-29 04:30] LABS: ALBUMIN 2.6 GM/DL (3.4-5.0); BICARBONATE 22.5 MEQ/L (21.0-32.0); CALCIUM 7.5 MG/DL (8.5-10.1); CREATININE 0.68 MG/DL (0.60-1.30); MAGNESIUM 1.8 MG/DL (1.5-2.5)
[2017-11-29 04:34] LABS: DIRECT BILIRUBIN ADULT 1.4 MG/DL (0.0-0.2); INDIRECT BILIRUBIN 0.6 MG/DL (0.0-0.8); TOTAL PROTEIN 6.2 GM/DL (6.4-8.2)
[2017-11-29] MEDS: SODIUM CHLOR 0.9% 1000 ML INJ 1,000 ML IV SCH ×2 (05:21→10:02)
[2017-11-29] MEDS: SODIUM CHLORIDE 0.9% FLUSH 10 ML FLUSH IV FLUSH SCH ×2 (07:34→19:58)
--- NOTE | 2017-11-29 08:32 | HHI.PR ---
Subjective Subjective Notes reports diffuse abdominal pain, mainly LUQ and LLQ. Objective Vitals/I&O Vital Signs Date Time Temp Pulse Resp B/P (MAP) Pulse Ox O2 Delivery O2 Flow Rate FiO2 11/29/17 08:22 98.1 82 16 175/91 (119) 93 11/28/17 15:15 Nasal Cannula 3 11/26/17 17:41 21 Labs Laboratory Tests Test 11/29/17 03:27 White Blood Count 13.0 Red Blood Count 4.62 Hemoglobin 14.9 Hematocrit 44.1 Mean Corpuscular Volume 95.3 Mean Corpuscular Hemoglobin 32.3 Mean Corpuscular Hemoglobin Concent 33.9 Red Cell Distribution Width 13.7 Platelet Count 202 Mean Platelet Volume 7.7 Blood Urea Nitrogen 11 Creatinine 0.68 Random Glucose 106 Total Protein 6.2 Albumin 2.6 Calcium Level 7.5 Magnesium Level 1.8 Alkaline Phosphatase 148 Aspartate Amino Transf (AST/SGOT) 110 Alanine Aminotransferase (ALT/SGPT) 120 Total Bilirubin 2.0 Direct Bilirubin 1.4 Sodium Level 135 Potassium Level 3.1 Chloride Level 100 Carbon Dioxide Level 22.5 Anion Gap 13 Estimat Glomerular Filtration Rate 113 Indirect Bilirubin 0.6 Date/Time Source Procedure Growth Status 11/27/17 07:00 Blood Peripheral Aerobic Blood Culture - Preliminary NO GROWTH IN 1 DAY Resulted 11/27/17 07:00 Blood Peripheral Anaerobic Blood Culture - Preliminary NO GROWTH IN 1 DAY Resulted 11/26/17 13:37 Urine Catheterized Urine Urine Culture - Final Pseudomonas Aeruginosa Complete Radiology Last [address] 11/26/17 1252 Signed Impressions: Service Date/Time: Sunday, November 26, 2017 14:52 - CONCLUSION: 1. Senescent changes with prominent periventricular white matter ischemic demyelination. 2. No acute intracranial abnormality. Nick Miramontes MD Abdomen: Post-op tenderness, BS normal Narrative Exam still very distended, mild pain, no rebound/guarding, few BS, negative Baker's sign A/P Assessment and Plan Mental status changes, choledocholithiasis s/p ERCP - extraction of 3 stones KUB c/w ileus will check gallbladder US however pt did not present with RUQ pain and gallbladder was not abnormal on initial imaging. HIDA not reliable in pt with liver dysfunction, gallbladder probably chronically occluded WBC has been normal not a good surgical candidate at this time. recommend observation. Andrei Jasso MD November 29, 2017 08:32
[2017-11-29] MEDS: ASPIRIN EC 81 MG TABEC PO SCH (10:01)
[2017-11-29] MEDS: DOCUSATE SODIUM 50 MG/SENNA 8.6 MG TAB PO SCH ×2 (10:02→19:58)
--- NOTE | 2017-11-29 10:58 | RADRPT ---
EXAM DATE: 11/28/2017 2:42 PM EDT AGE/SEX: 77 years / Male INDICATIONS: Stone removal. CLINICAL DATA: This is the patient's initial encounter. Patient reports that signs and symptoms have been present for 1 day and indicates a pain score of Nonresponsive. MEDICAL/SURGICAL HISTORY: Non-responsive. Non-responsive. COMPARISON: No prior [facility] exams available for comparison. FINDINGS: An ERCP was performed by the ordering physician. The images demonstrate initial image demonstrating a filling defect in the CBD probably representing a stone. Sequential image shows insufflation of the ERCP balloon. Final images show clearing of the filling defect characteristic of stone extraction CONCLUSION: Apparent ERCP stone extraction as detailed above. CBD is now clear. Electronically signed by: Ramsey Reed MD 11/29/2017 10:57 AM EDT
--- NOTE | 2017-11-29 11:35 | RADRPT ---
EXAM DATE: 11/29/2017 11:05 AM EDT AGE/SEX: 77 years / Male INDICATIONS: Right upper quadrant pain. CLINICAL DATA: This is the patient's initial encounter. Patient reports that signs and symptoms have been present for 4 - 6 days and indicates a pain score of 8/10. MEDICAL/SURGICAL HISTORY: Hypercholesterolemia. Hypertension. Cerebrovascular accident. Dyspne a. Testicular cancer. . Testicular tumor removed. COMPARISON: [facility] [place], [place] ABDOMEN & PELVIS W CONTRAST, 11/26/2017. . MEASUREMENTS: Liver:__ 18.3 cm. Common Bile Duct:___ 12mm. Right Kidney:___9.8 x 4.2 x 5.1 . Left Kidney:___10.0 x 5.4x 4.5 . Spleen:___18.3 . Aorta: The proximal portion measures 2.5 cm maximal. FINDINGS: Liver: The liver demonstrates increased echogenicity and heterogeneity. There is a 1.5 cm echogenic focus seen in the right lobe. This is not clearly seen on the prior CT examination. The technologist noted a potential cystic area anterior to the liver. Based on its appearance [facility], this likely represents a portion of the transverse colon anterior to the liver. Portal Vein: Hepatopedal flow seen in portal vein. Common Duct: No intraluminal mass or stone visualized. The common bile duct is dilated at 12 mm. Gallbladder: Multiple gallstones are present. The gallbladder wall is mildly thickened at 4 mm. e technologist reports a negative sonographic Baker's sign although it is uncertain if the patient i s on pain medication. Pancreas: The pancreatic duct is mildly prominent at 3 mm. Right Kidney: No mass or hydronephrosis. Measures Left Kidney: No mass or hydronephrosis. Measures Ascites: None. Pleural Effusion: None Spleen: No focal lesion. Aorta: Non aneurysmal. IVC: Within normal limits. CONCLUSION: 1. Cholelithiasis with a mildly thickened gallbladder wall. 2. Dilatation the common bile duct. On the prior CT examination, there was a filling defect within t he common bile duct. 3. Heterogeneity to the liver with increased echogenicity likely related to hepatic steatosis. 4. 1.5 cm echogenic focus in the right lobe of the liver. This could represent an underlying lesion such as a hemangioma. This is not clearly seen on the recent CT examination. One could perform a MRI of the abdomen at some point to more fully evaluate the liver. This could be performed as an outpatie nt. Electronically signed by: Herb Coe MD 11/29/2017 11:34 AM EDT
--- NOTE | 2017-11-29 13:34 | HHI.GIFU ---
Subjective Remarks Pt resting in bed Pt has his head at the foot of the bed States he is still having some pain, points to both of his flanks Denies nausea, vomiting (Марина Ochoa) Objective Vitals I&O Vital Signs Date Time Temp Pulse Resp B/P (MAP) Pulse Ox O2 Delivery O2 Flow Rate FiO2 11/29/17 12:42 97.3 69 18 115/57 (76) 92 11/29/17 08:22 98.1 82 16 175/91 (119) 93 11/29/17 03:34 68 144/76 (98) 11/29/17 02:33 190/96 (127) 11/29/17 02:09 18 11/29/17 01:36 97.4 115 18 216/124 (154) 94 11/28/17 23:59 18 11/28/17 20:28 97.2 63 18 162/80 (107) 96 11/28/17 16:00 97.7 62 20 161/80 (107) 98 11/28/17 15:15 63 21 169/84 (112) 98 Nasal Cannula 3 11/28/17 15:00 69 23 172/95 (120) 100 Nasal Cannula 3 11/28/17 14:45 71 23 174/95 (121) 97 Nasal Cannula 3 11/28/17 14:32 97.4 84 23 161/85 (110) 97 Nasal Cannula 3 I/O 11/28/17 11/28/17 11/28/17 11/29/17 11/29/17 11/29/17 07:00 15:00 23:00 07:00 15:00 23:00 Intake Total 100 ml 700 ml 1200 ml 1680 ml Output Total 340 ml 800 ml Balance -240 ml 700 ml 1200 ml 880 ml Intake Oral 580 ml IV Total 100 ml 1200 ml 1100 ml Other 700 ml Output Urine Total 340 ml 800 ml # Voids 3 # Bowel Movements 0 1 Laboratory Laboratory Tests Test 11/29/17 03:27 White Blood Count 13.0 Red Blood Count 4.62 Hemoglobin 14.9 Hematocrit 44.1 Mean Corpuscular Volume 95.3 Mean Corpuscular Hemoglobin 32.3 Mean Corpuscular Hemoglobin Concent 33.9 Red Cell Distribution Width 13.7 Platelet Count 202 Mean Platelet Volume 7.7 Blood Urea Nitrogen 11 Creatinine 0.68 Random Glucose 106 Total Protein 6.2 Albumin 2.6 Calcium Level 7.5 Magnesium Level 1.8 Alkaline Phosphatase 148 Aspartate Amino Transf (AST/SGOT) 110 Alanine Aminotransferase (ALT/SGPT) 120 Total Bilirubin 2.0 Direct Bilirubin 1.4 Sodium Level 135 Potassium Level 3.1 Chloride Level 100 Carbon Dioxide Level 22.5 Anion Gap 13 Estimat Glomerular Filtration Rate 113 Indirect Bilirubin 0.6 Date/Time Source Procedure Growth Status 11/27/17 07:00 Blood Peripheral Aerobic Blood Culture - Preliminary NO GROWTH IN 2 DAYS Resulted 11/27/17 07:00 Blood Peripheral Anaerobic Blood Culture - Preliminary NO GROWTH IN 2 DAYS Resulted 11/26/17 13:37 Urine Catheterized Urine Urine Culture - Final Pseudomonas Aeruginosa Complete Imaging Last Impressions Abdomen X-Ray 11/29/17 0000 Signed Impressions: CONCLUSION: Abdomen Ultrasound 11/29/17 0000 Signed Impressions: CONCLUSION: Head CT 11/28/17 0000 Signed Impressions: CONCLUSION: GI Procedure 11/28/17 0000 Signed Impressions: CONCLUSION: Hepatobiliary Scan Nuclear Medicine 11/26/17 0000 Signed Impressions: Service Date/Time: Sunday, November 26, 2017 17:51 - CONCLUSION: 1. No activity seen in the gallbladder. Delayed imaging will be obtained to confirm cystic duct occlusion. 2. Significantly delayed biliary clearance with bowel activity noted at 90 minutes. This is consistent with partially obstructing distal CBD calculus as noted on CT exam. Nick Miramontes MD ADDENDUM: Delayed images were obtained. There is clear bowel activity on delayed imaging. There is also significant residual hepatic activity. This may be due to partial CBD obstruction or hepatocellular dysfunction. The gallbladder is again not visualized. This is concerning for cystic duct obstruction and cholecystitis in the appropriate clinical setting. Nick Miramontes MD Chest X-Ray 11/26/17 0000 Signed Impressions: Service Date/Time: Sunday, November 26, 2017 12:59 - CONCLUSION: 1. Linear parenchymal opacities in the left lower lung zone, presumably atelectasis lie scarring. 2. Compensated mild cardiomegaly. Nick Miramontes MD Abdomen/Pelvis CT 11/26/17 0000 Signed Impressions: Service Date/Time: Sunday, November 26, 2017 14:59 - CONCLUSION: 1. Choledocholithiasis with prominent common bile duct measuring up to 11 mm. There is also a focus of air in the gallbladder. Gallbladder does not appear inflamed on CT exam. Suspect the air may have been introduced from passage of stone or prior intervention. Consider ERCP examination/intervention as clinically appropriate. Alternatively, HIDA scan may be performed to confirm patency of the cystic duct if there is concern regarding acute cholecystitis. 2. Large septated cystic lesion in the right scrotum measuring up to 11 cm consistent patient's history of testicular carcinoma. 3. Ancillary findings, as above. Nick Miramontes MD Physical Exam HEENT: Normocephalic; atraumatic CHEST: Diffuse expiratory wheezing CARDIAC: RRR ABDOMEN: Distended, semi-firm, nontender, bowel sounds active SKIN: Normal; no rash; no jaundice. 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 There is also a focus of air in the gallbladder. Gallbladder does not appear inflamed on CT exam. HIDA scan (11/26) No activity seen in the gallbladder. Significantly delayed biliary clearance with bowel activity noted at 90 minutes. Consistent with partially obstructing distal CBD calculus. Delayed images obtained, clear bowel activity on delayed imaging, also significant residual hepatic activity, may be due to CBD obstruction vs hepatocellular dysfunction. The gallbladder again not visualized, concerning for cystic duct obstruction and cholecystitis in appropriate setting. ERCP (11/28) --> Choledocholithiasis, S/P sphincterotomy and balloon extraction 3 sones, cholangiogram revealed total clearance of filling defects and intrahepatics were unremarkable. Duodenal diverticulum. Duodenal polyps, biopsy. GS consult noted HIDA scan findings unreliable in pt with liver dysfunction, they have ordered US gallbladder to further evaluate, not ed pt is not a good surgical candidate at this time - ETOH abuse- reports 3 beers a day- on CIWA protocol - Sepsis- Pt on Zosyn - Encephalopathy - noted to be secondary to sepsis- ammonia < 10 (11/29) Pt states abdominal pain but when asked to localize the pain he points to both of his flanks. Also noticed some abdominal bloating. Not much of an appetite, on clear liquids has not had much of his lunch. KUB (11/29) -->Nonspecific, nonobstructive bowel gas pattern which may represent a mild ileus and/or gastroenteritis. Mild increase in LFTs today, possibly secondary to sphincterotomy, will continue to monitor labs PLAN - Reglan - Monitor LFTs - EGD biopsy pending - GS following, has ordered GB US - Remains on clear liquids - Further recommendations based on clinical course and results of above Pt has been seen and examined by myself and Dr. Goldstein and this note is written on his behalf (Марина Ochoa) Physician Comments Patient seen and examined Agree with above Continue with current supportive care Monitor labs (Prasanth Goldstein MD) Марина Ochoa November 29, 2017 13:34 Prasanth Goldstein MD November 29, 2017 20:44
[2017-11-29] MEDS: METOCLOPRAMIDE HCL 10 MG/2 ML VIAL IV PUSH SCH ×2 (14:07→19:58)
[2017-11-29] MEDS ORDERED: POTASSIUM CHLORIDE 20 MEQ CONTROLLED RELEASE TAB PO ONE (14:15)
--- NOTE | 2017-11-29 15:16 | HHI.PR ---
Subjective Remarks The patient was sitting next to the window. He said his pain was a 6 out of 10 in severity. He has been having bowel movements. He has not been eating much. Discussed with nursing. Objective Vitals Vital Signs Date Time Temp Pulse Resp B/P (MAP) Pulse Ox O2 Delivery O2 Flow Rate FiO2 11/29/17 12:42 97.3 69 18 115/57 (76) 92 11/29/17 08:22 98.1 82 16 175/91 (119) 93 11/29/17 03:34 68 144/76 (98) 11/29/17 02:33 190/96 (127) 11/29/17 02:09 18 11/29/17 01:36 97.4 115 18 216/124 (154) 94 11/28/17 23:59 18 11/28/17 20:28 97.2 63 18 162/80 (107) 96 11/28/17 16:00 97.7 62 20 161/80 (107) 98 11/28/17 15:15 63 21 169/84 (112) 98 Nasal Cannula 3 I/O 11/28/17 11/28/17 11/28/17 11/29/17 11/29/17 11/29/17 07:00 15:00 23:00 07:00 15:00 23:00 Intake Total 100 ml 700 ml 1200 ml 1680 ml Output Total 340 ml 800 ml Balance -240 ml 700 ml 1200 ml 880 ml Intake Oral 580 ml IV Total 100 ml 1200 ml 1100 ml Other 700 ml Output Urine Total 340 ml 800 ml # Voids 3 # Bowel Movements 0 1 Result Diagram: 11/29/17 0327 11/29/17 0327 Imaging Last Impressions Abdomen X-Ray 11/29/17 0000 Signed Impressions: CONCLUSION: Abdomen Ultrasound 11/29/17 0000 Signed Impressions: CONCLUSION: Head CT 11/28/17 0000 Signed Impressions: CONCLUSION: GI Procedure 11/28/17 0000 Signed Impressions: CONCLUSION: Hepatobiliary Scan Nuclear Medicine 11/26/17 0000 Signed Impressions: Service Date/Time: Sunday, November 26, 2017 17:51 - CONCLUSION: 1. No activity seen in the gallbladder. Delayed imaging will be obtained to confirm cystic duct occlusion. 2. Significantly delayed biliary clearance with bowel activity noted at 90 minutes. This is consistent with partially obstructing distal CBD calculus as noted on CT exam. Nick Miramontes MD ADDENDUM: Delayed images were obtained. There is clear bowel activity on delayed imaging. There is also significant residual hepatic activity. This may be due to partial CBD obstruction or hepatocellular dysfunction. The gallbladder is again not visualized. This is concerning for cystic duct obstruction and cholecystitis in the appropriate clinical setting. Nick Miramontes MD Chest X-Ray 11/26/17 0000 Signed Impressions: Service Date/Time: Sunday, November 26, 2017 12:59 - CONCLUSION: 1. Linear parenchymal opacities in the left lower lung zone, presumably atelectasis lie scarring. 2. Compensated mild cardiomegaly. Nick Miramontes MD Abdomen/Pelvis CT 11/26/17 0000 Signed Impressions: Service Date/Time: Sunday, November 26, 2017 14:59 - CONCLUSION: 1. Choledocholithiasis with prominent common bile duct measuring up to 11 mm. There is also a focus of air in the gallbladder. Gallbladder does not appear inflamed on CT exam. Suspect the air may have been introduced from passage of stone or prior intervention. Consider ERCP examination/intervention as clinically appropriate. Alternatively, HIDA scan may be performed to confirm patency of the cystic duct if there is concern regarding acute cholecystitis. 2. Large septated cystic lesion in the right scrotum measuring up to 11 cm consistent patient's history of testicular carcinoma. 3. Ancillary findings, as above. Nick Miramontes MD Objective Remarks General: No acute distress. Heart: Regular rate and rhythm. No murmur. Lungs: Clear to auscultation bilaterally. No wheezes, rales, or rhonchi. Breathing is nonlabored. Abdomen: Soft, mild tenderness in the epigastric area, moderately distended. Extremities: No lower extremity edema. Psych: Alert and oriented. Neuro: Normal speech. No focal deficits noted. : Significant scrotal enlargement Procedures None A/P Problem List: (1) Sepsis ICD Code: A41.9 - Sepsis, unspecified organism (2) Choledocholithiasis ICD Code: K80.50 - Calculus of bile duct without cholangitis or cholecystitis without obstruction Status: Acute (3) Alcohol dependence ICD Code: F10.20 - Alcohol dependence Status: Acute (4) Encephalopathy acute ICD Code: G93.40 - Encephalopathy, unspecified (5) Hypertension ICD Code: I10 - Hypertension Status: Acute (6) H/O: CVA (cerebrovascular accident) ICD Code: Z86.73 - Personal history of transient ischemic attack (TIA), and cerebral infarction without residual deficits Assessment and Plan Sepsis Source is UTI. Pseudomonas growing. - Continue IV Levaquin. - Blood cultures are pending. Choledocholithiasis Abnormal HIDA scan and US noted. GI and surgical consults appreciated. S/p ERCP which revealed: Choledocholithiasis; Duodenal diverticulum; Duodenal polyps. - possible cholecystectomy per GS. - follow up with GI. - trend LFTs. Possible right testicular mass Imaging shows cystic mass on right. Evaluated by urology. No surgical intervention planned for hydrocele. - Patient to follow-up with urology as outpt. Alcohol abuse No evidence of withdrawal. - CIWA protocol, thiamine, folic acid. History of CVA Stable. - Continue aspirin. HTN Blood pressure has been elevated at times. - amlodipine 5 mg daily added. - Vasotec as needed. Hypokalemia S/t decreased PO intake. - replete and monitor. DVT prophylaxis: Lovenox. Problem Qualifiers (1) Alcohol dependence: Qualified Codes: F10.29 - Alcohol dependence with unspecified alcohol-induced disorder Rj Hilton DO November 29, 2017 15:16
[2017-11-29] MEDS: LEVOFLOXACIN 750 MG PREMIX INJ 150 ML IV SCH (15:41)
[2017-11-29] MEDS: POTASSIUM CHLORIDE INJ 30 MEQ in DEXT 5%-NACL 0.9% 1000 ML INJ 1,000 ML IV SCH (15:54)
[2017-11-29] MEDS: amLODIPine BESYLATE 5 MG TAB PO SCH (15:54)
[2017-11-29] MEDS: ENOXAPARIN SODIUM 40 MG/0.4 ML SYRINGE SQ SCH ×2 (17:21→17:24)
[2017-11-29] MEDS: cloNIDine HCL 0.1 MG TAB PO PRN (22:01)
[2017-11-29] MEDS: RESP: IPRATROPIUM 0.5 MG/2.5 ML NEB NEB PRN (22:54)
[2017-11-30] VITALS (7 sets, daily range): BP systolic 129–217; BP diastolic 74–106; PULSE 69–95; RESP 16–20; TEMP 97.1–98.1; O2SAT 90–99
[2017-11-30] MEDS ORDERED: MORPHINE SULFATE 4 MG/ML INJ IV PUSH ONE (00:45)
[2017-11-30] MEDS ORDERED: ALPRAZolam 0.25 MG TAB PO ONE (00:45)
[2017-11-30] MEDS: POTASSIUM CHLORIDE INJ 30 MEQ in DEXT 5%-NACL 0.9% 1000 ML INJ 1,000 ML IV SCH ×2 (03:36→09:23)
[2017-11-30] MEDS: ACETAMINOPHEN/HYDROcodone 325 MG/5 MG TAB PO PRN ×3 (05:52→21:12)
[2017-11-30] MEDS: METOCLOPRAMIDE HCL 10 MG/2 ML VIAL IV PUSH SCH ×3 (05:53→21:12)
[2017-11-30 08:13] LABS: HEMATOCRIT 39.8 % (39.0-51.0); HEMOGLOBIN 13.4 GM/DL (13.0-17.0); MEAN CELL VOLUME 96.2 FL (80.0-100.0); MEAN CORPUSCULAR HEMOGLOBIN 32.4 PG (27.0-34.0); MEAN CORPUSCULAR HGB CONC 33.7 % (32.0-36.0); MEAN PLATELET VOLUME 7.8 FL (7.0-11.0); PLATELET COUNT 197 TH/MM3 (150-450); RED BLOOD COUNT 4.14 MIL/MM3 (4.50-5.90); RED CELL DISTRIBUTION WIDTH 13.4 % (11.6-17.2); WHITE BLOOD COUNT 9.4 TH/MM3 (4.0-11.0)
[2017-11-30] MEDS: RESP: IPRATROPIUM 0.5 MG/2.5 ML NEB NEB PRN (08:31)
[2017-11-30 08:52] LABS: ALBUMIN 2.5 GM/DL (3.4-5.0); BICARBONATE 26.4 MEQ/L (21.0-32.0); CREATININE 0.69 MG/DL (0.60-1.30); MAGNESIUM 1.9 MG/DL (1.5-2.5)
[2017-11-30 08:53] LABS: DIRECT BILIRUBIN ADULT 0.5 MG/DL (0.0-0.2)
[2017-11-30 08:57] LABS: INDIRECT BILIRUBIN 0.6 MG/DL (0.0-0.8); TOTAL BILIRUBIN ADULT 1.1 MG/DL (0.2-1.0); TOTAL PROTEIN 5.8 GM/DL (6.4-8.2)
[2017-11-30] MEDS: SODIUM CHLORIDE 0.9% FLUSH 10 ML FLUSH IV FLUSH SCH ×2 (09:22→21:13)
[2017-11-30] MEDS: amLODIPine BESYLATE 5 MG TAB PO SCH (09:22)
[2017-11-30] MEDS: DOCUSATE SODIUM 50 MG/SENNA 8.6 MG TAB PO SCH ×2 (09:22→21:12)
[2017-11-30] MEDS: ASPIRIN EC 81 MG TABEC PO SCH (09:22)
[2017-11-30] MEDS: cloNIDine HCL 0.1 MG TAB PO PRN ×2 (12:10→21:12)
[2017-11-30] MEDS: LEVOFLOXACIN 750 MG PREMIX INJ 150 ML IV SCH (13:36)
--- NOTE | 2017-11-30 14:31 | HHI.GIFU ---
Subjective Remarks Eyes closed resting in the bed Continues with distended taut abdomen with soft bowel sounds Denies any current nausea or vomiting Tolerating clear liquids Hemoglobin 13.4 (Laurel Nelson) Objective Vitals I&O Vital Signs Date Time Temp Pulse Resp B/P (MAP) Pulse Ox O2 Delivery O2 Flow Rate FiO2 11/30/17 08:32 99 Nasal Cannula 2.00 11/30/17 04:00 97.1 69 18 159/90 (113) 92 11/30/17 00:00 97.1 95 18 217/106 (143) 92 11/29/17 20:00 97.3 104 20 94 11/29/17 20:00 202/110 (140) 11/29/17 16:12 97.7 66 16 168/82 (110) 94 I/O 11/29/17 11/29/17 11/29/17 11/30/17 11/30/17 11/30/17 07:00 15:00 23:00 07:00 15:00 23:00 Intake Total 1680 ml 2000 ml 1208 ml Output Total 800 ml 650 ml Balance 880 ml 2000 ml 558 ml Intake Oral 580 ml 800 ml IV Total 1100 ml 1200 ml 1208 ml Output Urine Total 800 ml 650 ml # Voids 4 # Bowel Movements 1 Laboratory Laboratory Tests Test 11/30/17 06:59 White Blood Count 9.4 Red Blood Count 4.14 Hemoglobin 13.4 Hematocrit 39.8 Mean Corpuscular Volume 96.2 Mean Corpuscular Hemoglobin 32.4 Mean Corpuscular Hemoglobin Concent 33.7 Red Cell Distribution Width 13.4 Platelet Count 197 Mean Platelet Volume 7.8 Blood Urea Nitrogen 6 Creatinine 0.69 Random Glucose 145 Total Protein 5.8 Albumin 2.5 Calcium Level 8.0 Magnesium Level 1.9 Alkaline Phosphatase 105 Aspartate Amino Transf (AST/SGOT) 59 Alanine Aminotransferase (ALT/SGPT) 90 Total Bilirubin 1.1 Direct Bilirubin 0.5 Sodium Level 135 Potassium Level 3.5 Chloride Level 101 Carbon Dioxide Level 26.4 Anion Gap 8 Estimat Glomerular Filtration Rate 111 Indirect Bilirubin 0.6 Amylase Level 14 Lipase 39 Date/Time Source Procedure Growth Status 11/27/17 07:00 Blood Peripheral Aerobic Blood Culture - Preliminary NO GROWTH IN 3 DAYS Resulted 11/27/17 07:00 Blood Peripheral Anaerobic Blood Culture - Preliminary NO GROWTH IN 3 DAYS Resulted 11/26/17 13:37 Urine Catheterized Urine Urine Culture - Final Pseudomonas Aeruginosa Complete Imaging Last Impressions Abdomen X-Ray 11/29/17 Signed Impressions: CONCLUSION: Nonspecific, nonobstructive bowel gas pattern which may represent a mild ileus and/or gastroenteritis. Abdomen Ultrasound 11/29/17 Signed Impressions: CONCLUSION: 1. Cholelithiasis with a mildly thickened gallbladder wall. 2. Dilatation the common bile duct. On the prior CT examination, there was a f illing defect within the common bile duct. 3. Heterogeneity to the liver with increased echogenicity likely related to he patic steatosis. 4. 1.5 cm echogenic focus in the right lobe of the liver. This could represent an underlying lesion such as a hemangioma. This is not clearly seen on the rec ent CT examination. One could perform a MRI of the abdomen at some point to mor e fully evaluate the liver. This could be performed as an outpatient. Head CT 11/28/17 Signed Impressions: CONCLUSION: 1. No acute abnormality seen. 2. Age-related atrophy and suspected small vessel ischemic change in the white matter. 3. Old lacunar infarct. GI Procedure 11/28/17 Signed Impressions: CONCLUSION: Apparent ERCP stone extraction as detailed above. CBD is now clear. Hepatobiliary Scan Nuclear Medicine 11/26/17 Signed Impressions: Service Date/Time: Sunday, November 26, 2017 17:51 - CONCLUSION: 1. No activity seen in the gallbladder. Delayed imaging will be obtained to confirm cystic duct occlusion. 2. Significantly delayed biliary clearance with bowel activity noted at 90 minutes. This is consistent with partially obstructing distal CBD calculus as noted on CT exam. Nick Miramontes MD ADDENDUM: Delayed images were obtained. There is clear bowel activity on delayed imaging. There is also significant residual hepatic activity. This may be due to partial CBD obstruction or hepatocellular dysfunction. The gallbladder is again not visualized. This is concerning for cystic duct obstruction and cholecystitis in the appropriate clinical setting. Nick Miramontes MD Chest X-Ray 11/26/17 Signed Impressions: Service Date/Time: Sunday, November 26, 2017 12:59 - CONCLUSION: 1. Linear parenchymal opacities in the left lower lung zone, presumably atelectasis lie scarring. 2. Compensated mild cardiomegaly. Nick Miramontes MD Abdomen/Pelvis CT 11/26/17 0000 Signed Impressions: Service Date/Time: Sunday, November 26, 2017 14:59 - CONCLUSION: 1. Choledocholithiasis with prominent common bile duct measuring up to 11 mm. There is also a focus of air in the gallbladder. Gallbladder does not appear inflamed on CT exam. Suspect the air may have been introduced from passage of stone or prior intervention. Consider ERCP examination/intervention as clinically appropriate. Alternatively, HIDA scan may be performed to confirm patency of the cystic duct if there is concern regarding acute cholecystitis. 2. Large septated cystic lesion in the right scrotum measuring up to 11 cm consistent patient's history of testicular carcinoma. 3. Ancillary findings, as above. Nick Miramontes MD Physical Exam HEENT: Normocephalic; atraumatic CHEST: Diffuse expiratory wheezing CARDIAC: RRR ABDOMEN: Distended, semi-firm, nontender, bowel sounds active SKIN: Normal; no rash; no jaundice. 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 There is also a focus of air in the gallbladder. Gallbladder does not appear inflamed on CT exam. HIDA scan (11/26) No activity seen in the gallbladder. Significantly delayed biliary clearance with bowel activity noted at 90 minutes. Consistent with partially obstructing distal CBD calculus. Delayed images obtained, clear bowel activity on delayed imaging, also significant residual hepatic activity, may be due to CBD obstruction vs hepatocellular dysfunction. The gallbladder again not visualized, concerning for cystic duct obstruction and cholecystitis in appropriate setting. ERCP (11/28) --> Choledocholithiasis, S/P sphincterotomy and balloon extraction 3 sones, cholangiogram revealed total clearance of filling defects and intrahepatics were unremarkable. Duodenal diverticulum. Duodenal polyps, biopsy. GS consult noted HIDA scan findings unreliable in pt with liver dysfunction, they have ordered US gallbladder to further evaluate, not ed pt is not a good surgical candidate at this time - ETOH abuse- reports 3 beers a day- on CIWA protocol - Sepsis- Pt on Zosyn - Encephalopathy - noted to be secondary to sepsis- ammonia < 10 (11/29) Pt states abdominal pain but when asked to localize the pain he points to both of his flanks. Also noticed some abdominal bloating. Not much of an appetite, on clear liquids has not had much of his lunch. KUB (11/29) -->Nonspecific, nonobstructive bowel gas pattern which may represent a mild ileus and/or gastroenteritis. Mild increase in LFTs today, possibly secondary to sphincterotomy, will continue to monitor labs 11/30/2017 patient continues with distended abdomen, soft bowel sounds, talked semifirm, with some mild discomfort to light palpation midabdomen. Tolerating clear liquids fairly well with no nausea or vomiting Labs show hemoglobin 13.4. Labs improved with bilirubin 1.1 AST 59 ALT 90 which are steadily decreasing, lipase 39. Will need to continue to monitor mild ileus pattern and BMs PLAN -Diet clear liquids maintained for now - Reglan - Biopsies pending, EGD - EGD biopsy pending -Monitor labs with special attention to LFTs - Add Dulcolax suppositories - Further recommendations based on clinical course and results of above Pt has been seen and examined by myself and Dr. 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
[2017-11-30] MEDS: BISACODYL 10 MG SUPP RECTAL SCH (14:45)
--- NOTE | 2017-11-30 15:05 | HHI.PR ---
cc: Jovany Rob MD Subjective Subjective Notes Sitting on the side of the bed No complaints Objective Vitals/I&O Vital Signs Date Time Temp Pulse Resp B/P (MAP) Pulse Ox O2 Delivery O2 Flow Rate FiO2 11/30/17 12:00 97.1 84 16 189/94 (125) 96 11/30/17 08:32 Nasal Cannula 2.00 11/26/17 17:41 21 Labs Laboratory Tests Test 11/30/17 06:59 White Blood Count 9.4 Red Blood Count 4.14 Hemoglobin 13.4 Hematocrit 39.8 Mean Corpuscular Volume 96.2 Mean Corpuscular Hemoglobin 32.4 Mean Corpuscular Hemoglobin Concent 33.7 Red Cell Distribution Width 13.4 Platelet Count 197 Mean Platelet Volume 7.8 Blood Urea Nitrogen 6 Creatinine 0.69 Random Glucose 145 Total Protein 5.8 Albumin 2.5 Calcium Level 8.0 Magnesium Level 1.9 Alkaline Phosphatase 105 Aspartate Amino Transf (AST/SGOT) 59 Alanine Aminotransferase (ALT/SGPT) 90 Total Bilirubin 1.1 Direct Bilirubin 0.5 Sodium Level 135 Potassium Level 3.5 Chloride Level 101 Carbon Dioxide Level 26.4 Anion Gap 8 Estimat Glomerular Filtration Rate 111 Indirect Bilirubin 0.6 Amylase Level 14 Lipase 39 Date/Time Source Procedure Growth Status 11/27/17 07:00 Blood Peripheral Aerobic Blood Culture - Preliminary NO GROWTH IN 3 DAYS Resulted 11/27/17 07:00 Blood Peripheral Anaerobic Blood Culture - Preliminary NO GROWTH IN 3 DAYS Resulted 11/26/17 13:37 Urine Catheterized Urine Urine Culture - Final Pseudomonas Aeruginosa Complete Radiology Last [address] 11/26/17 1252 Signed Impressions: Service Date/Time: Sunday, November 26, 2017 14:52 - CONCLUSION: 1. Senescent changes with prominent periventricular white matter ischemic demyelination. 2. No acute intracranial abnormality. Nick Miramontes MD Cardiovascular: Regular Lungs: Clear Abdomen: Other (distended; mild RUQ tenderness ) Extremities: No edema A/P Assessment and Plan 77 year old male with choledocholithiasis -s/p ERCP -Liver enzymes trending down -Clear liquids -Will repeat CT abd/pelvis today -Possible lap trini in the upcoming days depending on CT SEEN ON ROUNDS WITH PRACTICE ADVISOR WHO DOCUMENTED OUR VISIT. I CERTIFY AND ATTEST I PERSONALLY EXAMINED THE PATIENT. I DO NOT THINK THIS IS CHOLECYSTITIS. WILL NEED ELECTIVE LAP TRINI FOR PREVENTION OF FUTURE EPISODES OF CHOLEDOCHOLITHIASIS. WILL REPEAT CT TO EVALUATE FOR OTHER SOURCES OF ILEUS. JOVANY ROB MD FACS Fe Vásquez. PRACTICE ADVISOR/[employer] PRACTICE ADVISOR November 30, 2017 15:05 Jovany Rob MD November 30, 2017 21:16
[2017-11-30] MEDS ORDERED: IOHEXOL 350 MG/ML 10 ML VIAL (for RAD DIAG) IVCONTRAST ONE (16:52)
--- NOTE | 2017-11-30 16:59 | RADRPT ---
EXAM DATE: 11/30/2017 4:48 PM EDT AGE/SEX: 77 years / Male INDICATIONS: Abdominal pain CLINICAL DATA: This is the patient's subsequent encounter. Patient reports that signs and symptoms h ave been present for 4 - 6 days and indicates a pain score of 4/10. MEDICAL/SURGICAL HISTORY: Cerebrovascular disease. Hypertension. Testicular cancer None. ORAL CONTRAST: No oral contrast ingested. RADIATION DOSE: 6.84 CTDI (mGy) COMPARISON: [facility] – [place], CT ABDOMEN & PELVIS W CONTRAST, 11/26/2017. . TECHNIQUE: Multiple contiguous axial images were obtained through the abdomen and pelvis following b olus infusion of 85 ml Omnipaque 350 (iohexol) nonionic water-soluble contrast as a single exam dos e. No oral contrast ingested. Using automated exposure control and adjustment of the mA and/or kV ac cording to patient size, the radiation dose was kept as low as reasonably achievable to obtain optima l diagnostic quality images. FINDINGS: Comparison is examination from 4 days ago on November 26, 2017. There is a normal development of a mass in the anterior left lobe of the liver. Mass is elliptical in shape, circumscribed and measures up to 9 .6 cm in transverse diameter and 6.4 cm AP and contains multiple small locules of air. Given the rapi d development of this mass this is probably infectious in nature, probably a developing hepatic absce ss. There are small bilateral pleural effusions with dependent atelectasis at the lung bases. Spleen, adr enals, kidneys and pancreas are unremarkable. Multiple gallstones. There is severe colonic diverticulosis, especially sigmoid. No acute bony abnormalities. There is a l arge right-sided fluid collection in the scrotum measuring up to 13.6 cm in diameter. CONCLUSION: 1. Over the last 4 days a large mass is developed in the anterior left lobe of the liver measuring u p to 9.6 cm in diameter containing multiple locules of air likely a developing complex liver abscess. 2. Multiple gallstones without significant inflammatory changes identified around the gallbladder. 3. Severe colonic diverticulosis. 4. Small bilateral pleural effusions with basilar atelectasis. 5. Large loculated hydrocele or cystic testicular mass in the right hemiscrotum measuring up to 13.6 cm in diameter. Electronically signed by: Riaz Mccormick MD 11/30/2017 4:58 PM EDT
[2017-11-30] MEDS: ENOXAPARIN SODIUM 40 MG/0.4 ML SYRINGE SQ SCH (17:28)
[2017-11-30] MEDS ORDERED: RESP: ALBUTEROL 2.5 MG/IPRATROPIUM 0.5 MG NEB (SCH) NEB ONE (17:30)
[2017-11-30] MEDS ORDERED: RESP: ALBUTEROL 2.5 MG/IPRATROPIUM 0.5 MG NEB (PRN) NEB (17:30)
--- NOTE | 2017-11-30 17:37 | HHI.PR ---
Subjective Remarks The patient was complaining of shortness of breath. He said that he had some pain in his upper abdomen. He wanted to know the results of his imaging. Discussed with nursing. Objective Vitals Vital Signs Date Time Temp Pulse Resp B/P (MAP) Pulse Ox O2 Delivery O2 Flow Rate FiO2 11/30/17 16:00 97.2 80 20 176/82 (113) 90 11/30/17 12:00 97.1 84 16 189/94 (125) 96 11/30/17 08:32 99 Nasal Cannula 2.00 11/30/17 08:00 97.2 75 18 129/74 (92) 90 11/30/17 04:00 97.1 69 18 159/90 (113) 92 11/30/17 00:00 97.1 95 18 217/106 (143) 92 11/29/17 20:00 97.3 104 20 94 11/29/17 20:00 202/110 (140) I/O 11/29/17 11/29/17 11/29/17 11/30/17 11/30/17 11/30/17 07:00 15:00 23:00 07:00 15:00 23:00 Intake Total 1680 ml 2000 ml 1208 ml Output Total 800 ml 650 ml Balance 880 ml 2000 ml 558 ml Intake Oral 580 ml 800 ml IV Total 1100 ml 1200 ml 1208 ml Output Urine Total 800 ml 650 ml # Voids 4 # Bowel Movements 1 Result Diagram: 11/30/17 0659 11/30/17 0659 Imaging Last Impressions Abdomen/Pelvis CT 11/30/17 0000 Signed Impressions: CONCLUSION: 1. Over the last 4 days a large mass is developed in the anterior left lobe of the liver measuring up to 9.6 cm in diameter containing multiple locules of ai r likely a developing complex liver abscess. 2. Multiple gallstones without significant inflammatory changes identified bernardo und the gallbladder. 3. Severe colonic diverticulosis. 4. Small bilateral pleural effusions with basilar atelectasis. 5. Large loculated hydrocele or cystic testicular mass in the right hemiscrotu m measuring up to 13.6 cm in diameter. Abdomen X-Ray 11/29/17 0000 Signed Impressions: CONCLUSION: Nonspecific, nonobstructive bowel gas pattern which may represent a mild ileus and/or gastroenteritis. Abdomen Ultrasound 11/29/17 Signed Impressions: CONCLUSION: 1. Cholelithiasis with a mildly thickened gallbladder wall. 2. Dilatation the common bile duct. On the prior CT examination, there was a f illing defect within the common bile duct. 3. Heterogeneity to the liver with increased echogenicity likely related to he patic steatosis. 4. 1.5 cm echogenic focus in the right lobe of the liver. This could represent an underlying lesion such as a hemangioma. This is not clearly seen on the rec ent CT examination. One could perform a MRI of the abdomen at some point to mor e fully evaluate the liver. This could be performed as an outpatient. Head CT 11/28/17 Signed Impressions: CONCLUSION: 1. No acute abnormality seen. 2. Age-related atrophy and suspected small vessel ischemic change in the white matter. 3. Old lacunar infarct. GI Procedure 11/28/17 Signed Impressions: CONCLUSION: Apparent ERCP stone extraction as detailed above. CBD is now clear. Hepatobiliary Scan Nuclear Medicine 11/26/17 Signed Impressions: Service Date/Time: Sunday, November 26, 2017 17:51 - CONCLUSION: 1. No activity seen in the gallbladder. Delayed imaging will be obtained to confirm cystic duct occlusion. 2. Significantly delayed biliary clearance with bowel activity noted at 90 minutes. This is consistent with partially obstructing distal CBD calculus as noted on CT exam. Nick Miramontes MD ADDENDUM: Delayed images were obtained. There is clear bowel activity on delayed imaging. There is also significant residual hepatic activity. This may be due to partial CBD obstruction or hepatocellular dysfunction. The gallbladder is again not visualized. This is concerning for cystic duct obstruction and cholecystitis in the appropriate clinical setting. Nick Miramontes MD Chest X-Ray 11/26/17 Signed Impressions: Service Date/Time: Sunday, November 26, 2017 12:59 - CONCLUSION: 1. Linear parenchymal opacities in the left lower lung zone, presumably atelectasis lie scarring. 2. Compensated mild cardiomegaly. Nick Miramontes MD Objective Remarks General: Appears uncomfortable. Heart: Regular rate and rhythm. No murmur. Lungs: Diffuse wheezing. Abdomen: Soft, mild tenderness in the epigastric area, distended. Extremities: No lower extremity edema. Psych: Alert and oriented. Neuro: Normal speech. No focal deficits noted. : Significant scrotal enlargement Procedures None A/P Problem List: (1) Sepsis ICD Code: A41.9 - Sepsis, unspecified organism (2) Choledocholithiasis ICD Code: K80.50 - Calculus of bile duct without cholangitis or cholecystitis without obstruction Status: Acute (3) Alcohol dependence ICD Code: F10.20 - Alcohol dependence Status: Acute (4) Encephalopathy acute ICD Code: G93.40 - Encephalopathy, unspecified (5) Hypertension ICD Code: I10 - Hypertension Status: Acute (6) H/O: CVA (cerebrovascular accident) ICD Code: Z86.73 - Personal history of transient ischemic attack (TIA), and cerebral infarction without residual deficits Assessment and Plan Sepsis Source is UTI. Pseudomonas growing. - Continue IV Zosyn. - Blood cultures are pending. Choledocholithiasis/ Liver abscess Abnormal HIDA scan and US noted. GI and surgical consults appreciated. S/p ERCP which revealed: Choledocholithiasis; Duodenal diverticulum; Duodenal polyps. CT 11/30: Over the last 4 days a large mass has developed in the anterior left lobe of the liver measuring up to 9.6 cm in diameter containing multiple locules of air likely a developing complex liver abscess; Multiple gallstones without significant inflammatory changes identified around the gallbladder. - IR consult for abscess drainage. - continue IV Zosyn. - follow up with GI and surgery. - trend LFTs. Reactive airway disease The patient has significant wheezing on examination. - Oxygen and nebs as needed. Also start standing nebs. - Chest x-ray. - IV Solu-Medrol. Possible right testicular mass Imaging shows cystic mass on right. Evaluated by urology. No surgical intervention planned for hydrocele. Repeat CT: Large loculated hydrocele or cystic testicular mass in the right hemiscrotum measuring up to 13.6 cm in diameter. - Patient to follow-up with urology as outpt. Reconsult as needed. Alcohol abuse No evidence of withdrawal. - CIWA protocol, thiamine, folic acid. History of CVA Stable. - Continue aspirin. HTN Blood pressure has been elevated at times. - amlodipine 10 mg daily added. - Vasotec as needed. Hypokalemia S/t decreased PO intake. - replete and monitor. DVT prophylaxis: Lovenox. Problem Qualifiers (1) Alcohol dependence: Qualified Codes: F10.29 - Alcohol dependence with unspecified alcohol-induced disorder Rj Hilton DO November 30, 2017 17:37
[2017-11-30] MEDS ORDERED: amLODIPine BESYLATE 5 MG TAB PO ONE (17:45)
--- NOTE | 2017-11-30 18:12 | RADRPT ---
EXAM DATE: 11/30/2017 6:03 PM EDT AGE/SEX: 77 years / Male INDICATIONS: Dyspnea. CLINICAL DATA: This is the patient's subsequent encounter. Patient reports that signs and symptoms h ave been present for 4 - 6 days and indicates a pain score of 0/10. MEDICAL/SURGICAL HISTORY: . Carcinoma, testicular. Hypertension. Cerebrovascular disease None. COMPARISON: 11/26/2017. FINDINGS: A single AP view of the chest demonstrates the lungs to be symmetrically aerated without evidence of mass or confluence infiltrate. Atherosclerotic changes are present in the aorta. Linear opacities are present in the left perihilar region and left lung base. The left costophrenic angle is mildly blunt ed. The cardiomediastinal contours are unremarkable. Osseous structures are intact. CONCLUSION: 1. Linear opacities again noted in the left perihilar region and left lung base most characteristic of scarring. 2. The left costophrenic angle is mildly blunted consistent with a small effusion. Electronically signed by: Rj Henson MD 11/30/2017 6:11 PM EDT
[2017-11-30] MEDS: methylPREDNISolone SOD SUCC 40 MG/1 ML VIAL IV PUSH SCH ×2 (18:59→21:13)
[2017-11-30] MEDS: RESP: ALBUTEROL 2.5 MG/IPRATROPIUM 0.5 MG NEB (SCH) NEB (20:00)
[2017-11-30] MEDS: PIPERACIL-TAZO 4.5 GM PREMIX 100 ML IV SCH (21:39)
[2017-12-01] VITALS (10 sets, daily range): BP systolic 129–190; BP diastolic 72–86; PULSE 60–88; RESP 16–18; TEMP 96.3–98.2; O2SAT 91–97
[2017-12-01] MEDS: PIPERACIL-TAZO 4.5 GM PREMIX 100 ML IV SCH ×4 (01:49→20:48)
[2017-12-01] MEDS: methylPREDNISolone SOD SUCC 40 MG/1 ML VIAL IV PUSH SCH ×3 (05:14→21:57)
[2017-12-01] MEDS: METOCLOPRAMIDE HCL 10 MG/2 ML VIAL IV PUSH SCH ×3 (05:14→21:58)
[2017-12-01] MEDS: POTASSIUM CHLORIDE INJ 30 MEQ in DEXT 5%-NACL 0.9% 1000 ML INJ 1,000 ML IV SCH (07:36)
[2017-12-01] MEDS: BISACODYL 10 MG SUPP RECTAL SCH (08:15)
[2017-12-01] MEDS: DOCUSATE SODIUM 50 MG/SENNA 8.6 MG TAB PO SCH ×2 (08:15→20:49)
[2017-12-01] MEDS: RESP: ALBUTEROL 2.5 MG/IPRATROPIUM 0.5 MG NEB (SCH) NEB ×2 (08:39→20:29)
[2017-12-01 09:04] LABS: HEMATOCRIT 46.3 % (39.0-51.0); HEMOGLOBIN 15.5 GM/DL (13.0-17.0); MEAN CELL VOLUME 96.1 FL (80.0-100.0); MEAN CORPUSCULAR HEMOGLOBIN 32.2 PG (27.0-34.0); MEAN CORPUSCULAR HGB CONC 33.5 % (32.0-36.0); MEAN PLATELET VOLUME 7.8 FL (7.0-11.0); PLATELET COUNT 277 TH/MM3 (150-450); RED BLOOD COUNT 4.82 MIL/MM3 (4.50-5.90); RED CELL DISTRIBUTION WIDTH 13.7 % (11.6-17.2); WHITE BLOOD COUNT 8.7 TH/MM3 (4.0-11.0)
[2017-12-01 09:52] LABS: BICARBONATE 27.9 MEQ/L (21.0-32.0); CALCIUM 9.1 MG/DL (8.5-10.1); CREATININE 0.72 MG/DL (0.60-1.30); DIRECT BILIRUBIN ADULT 0.4 MG/DL (0.0-0.2); INDIRECT BILIRUBIN 0.7 MG/DL (0.0-0.8); MAGNESIUM 2.2 MG/DL (1.5-2.5); TOTAL BILIRUBIN ADULT 1.1 MG/DL (0.2-1.0); TOTAL PROTEIN 7.5 GM/DL (6.4-8.2)
--- NOTE | 2017-12-01 12:27 | HHI.PR ---
Subjective Remarks The patient was awaiting drainage of his abscess. He said that he did not have much of an appetite. He said he still has some shortness of breath. Discussed with nursing. Objective Vitals Vital Signs Date Time Temp Pulse Resp B/P (MAP) Pulse Ox O2 Delivery O2 Flow Rate FiO2 12/01/17 08:43 95 12/01/17 08:00 97.5 82 18 190/86 (120) 94 12/01/17 04:56 96.3 60 16 143/73 (96) 93 12/01/17 00:00 97.0 64 16 136/75 (95) 92 11/30/17 20:00 98.1 89 18 170/89 (116) 91 11/30/17 16:00 97.2 80 20 176/82 (113) 90 I/O 11/30/17 11/30/17 11/30/17 12/01/17 12/01/17 12/01/17 06:59 14:59 22:59 06:59 14:59 22:59 Intake Total 1208 ml 620 ml 650 ml Output Total 650 ml 700 ml 400 ml Balance 558 ml -80 ml 250 ml Intake Oral 620 ml IV Total 1208 ml 650 ml Output Urine Total 650 ml 700 ml 400 ml # Bowel Movements 0 Result Diagram: 12/01/17 0746 12/01/17 0746 Imaging Last Impressions Chest X-Ray 11/30/17 0000 Signed Impressions: CONCLUSION: 1. Linear opacities again noted in the left perihilar region and left lung bas e most characteristic of scarring. 2. The left costophrenic angle is mildly blunted consistent with a small effus ion. Abdomen/Pelvis CT 11/30/17 0000 Signed Impressions: CONCLUSION: 1. Over the last 4 days a large mass is developed in the anterior left lobe of the liver measuring up to 9.6 cm in diameter containing multiple locules of ai r likely a developing complex liver abscess. 2. Multiple gallstones without significant inflammatory changes identified bernardo und the gallbladder. 3. Severe colonic diverticulosis. 4. Small bilateral pleural effusions with basilar atelectasis. 5. Large loculated hydrocele or cystic testicular mass in the right hemiscrotu m measuring up to 13.6 cm in diameter. Abdomen X-Ray 11/29/17 0000 Signed Impressions: CONCLUSION: Nonspecific, nonobstructive bowel gas pattern which may represent a mild ileus and/or gastroenteritis. Abdomen Ultrasound 11/29/17 Signed Impressions: CONCLUSION: 1. Cholelithiasis with a mildly thickened gallbladder wall. 2. Dilatation the common bile duct. On the prior CT examination, there was a f illing defect within the common bile duct. 3. Heterogeneity to the liver with increased echogenicity likely related to he patic steatosis. 4. 1.5 cm echogenic focus in the right lobe of the liver. This could represent an underlying lesion such as a hemangioma. This is not clearly seen on the rec ent CT examination. One could perform a MRI of the abdomen at some point to mor e fully evaluate the liver. This could be performed as an outpatient. Head CT 11/28/17 Signed Impressions: CONCLUSION: 1. No acute abnormality seen. 2. Age-related atrophy and suspected small vessel ischemic change in the white matter. 3. Old lacunar infarct. GI Procedure 11/28/17 Signed Impressions: CONCLUSION: Apparent ERCP stone extraction as detailed above. CBD is now clear. Hepatobiliary Scan Nuclear Medicine 11/26/17 Signed Impressions: Service Date/Time: Sunday, November 26, 2017 17:51 - CONCLUSION: 1. No activity seen in the gallbladder. Delayed imaging will be obtained to confirm cystic duct occlusion. 2. Significantly delayed biliary clearance with bowel activity noted at 90 minutes. This is consistent with partially obstructing distal CBD calculus as noted on CT exam. Nick Miramontes MD ADDENDUM: Delayed images were obtained. There is clear bowel activity on delayed imaging. There is also significant residual hepatic activity. This may be due to partial CBD obstruction or hepatocellular dysfunction. The gallbladder is again not visualized. This is concerning for cystic duct obstruction and cholecystitis in the appropriate clinical setting. Nick Miramontes MD Objective Remarks General: Appears uncomfortable. Heart: Regular rate and rhythm. No murmur. Lungs: Bilateral rhonchi. Abdomen: Soft, mild tenderness in the epigastric area, distended. Extremities: No lower extremity edema. Psych: Alert and oriented. Neuro: Normal speech. No focal deficits noted. : Significant scrotal enlargement Procedures None A/P Problem List: (1) Sepsis ICD Code: A41.9 - Sepsis, unspecified organism (2) Choledocholithiasis ICD Code: K80.50 - Calculus of bile duct without cholangitis or cholecystitis without obstruction Status: Acute (3) Alcohol dependence ICD Code: F10.20 - Alcohol dependence Status: Acute (4) Encephalopathy acute ICD Code: G93.40 - Encephalopathy, unspecified (5) Hypertension ICD Code: I10 - Hypertension Status: Acute (6) H/O: CVA (cerebrovascular accident) ICD Code: Z86.73 - Personal history of transient ischemic attack (TIA), and cerebral infarction without residual deficits Assessment and Plan Sepsis Source is UTI. Pseudomonas growing. - Continue IV Zosyn. - Blood cultures NGTD 4 days. Choledocholithiasis/ Liver abscess Abnormal HIDA scan and US noted. GI and surgical consults appreciated. S/p ERCP which revealed: Choledocholithiasis; Duodenal diverticulum; Duodenal polyps. CT 11/30: Over the last 4 days a large mass has developed in the anterior left lobe of the liver measuring up to 9.6 cm in diameter containing multiple locules of air likely a developing complex liver abscess; Multiple gallstones without significant inflammatory changes identified around the gallbladder. - IR consult for abscess drainage 12/01. - continue IV Zosyn. - follow up with GI and surgery. - trend LFTs. Reactive airway disease Improving. CXR without acute process. - Oxygen and nebs as needed. Started standing nebs. - IV Solu-Medrol. - antibiotics. Possible right testicular mass Imaging shows cystic mass on right. Evaluated by urology. No surgical intervention planned for hydrocele. Repeat CT: Large loculated hydrocele or cystic testicular mass in the right hemiscrotum measuring up to 13.6 cm in diameter. - Patient to follow-up with urology as outpt. Reconsult as needed. Alcohol abuse No evidence of withdrawal. - CIWA protocol, thiamine, folic acid. History of CVA Stable. - Continue aspirin. HTN Blood pressure has been elevated at times. - amlodipine 10 mg daily added. - Vasotec as needed. Hypokalemia S/t decreased PO intake. - replete and monitor. DVT prophylaxis: Lovenox. Problem Qualifiers (1) Alcohol dependence: Qualified Codes: F10.29 - Alcohol dependence with unspecified alcohol-induced disorder Rj Hilton DO December 01, 2017 12:27
--- NOTE | 2017-12-01 13:16 | HHI.PR ---
Subjective Subjective Notes Feels the same. Tolerating liquids. REports BM with suppository today Objective Vitals/I&O Vital Signs Date Time Temp Pulse Resp B/P (MAP) Pulse Ox O2 Delivery O2 Flow Rate FiO2 12/01/17 12:00 97.9 82 18 152/76 (101) 97 11/30/17 08:32 Nasal Cannula 2.00 Labs Laboratory Tests Test 12/01/17 07:46 White Blood Count 8.7 Red Blood Count 4.82 Hemoglobin 15.5 Hematocrit 46.3 Mean Corpuscular Volume 96.1 Mean Corpuscular Hemoglobin 32.2 Mean Corpuscular Hemoglobin Concent 33.5 Red Cell Distribution Width 13.7 Platelet Count 277 Mean Platelet Volume 7.8 Blood Urea Nitrogen 6 Creatinine 0.72 Random Glucose 144 Total Protein 7.5 Albumin 3.0 Calcium Level 9.1 Magnesium Level 2.2 Alkaline Phosphatase 124 Aspartate Amino Transf (AST/SGOT) 41 Alanine Aminotransferase (ALT/SGPT) 91 Total Bilirubin 1.1 Direct Bilirubin 0.4 Sodium Level 134 Potassium Level 3.9 Chloride Level 96 Carbon Dioxide Level 27.9 Anion Gap 10 Estimat Glomerular Filtration Rate 106 Indirect Bilirubin 0.7 Date/Time Source Procedure Growth Status 11/27/17 07:00 Blood Peripheral Aerobic Blood Culture - Preliminary NO GROWTH IN 4 DAYS Resulted 11/27/17 07:00 Blood Peripheral Anaerobic Blood Culture - Preliminary NO GROWTH IN 4 DAYS Resulted 11/26/17 13:37 Urine Catheterized Urine Urine Culture - Final Pseudomonas Aeruginosa Complete Radiology Last [address] 11/26/17 1252 Signed Impressions: Service Date/Time: Sunday, November 26, 2017 14:52 - CONCLUSION: 1. Senescent changes with prominent periventricular white matter ischemic demyelination. 2. No acute intracranial abnormality. Nick Miramontes MD Narrative Exam still very distended, mild pain, no rebound/guarding, few BS, negative Baker's sign A/P Assessment and Plan 77 year old male with choledocholithiasis CT reviewed with Dr. Valles. Liver abscess LEFT lobe. Likely from cholangitis/CBD stones. No evidence of cholecystitis at all, gallbladder appears normal. Cystic duct likely obstructed chronically, no evidence of acute obstruction Recommend IR to drain liver abscess. Pt is high risk for pulling drain out. No surgical intervention planned at this time. Patient is high surgical risk for any procedure. Will see prn, please call with any surgical concerns - Dr Garces covering Monday, I'm on Monday, Dr Craig on Monday. Andrei Jasso MD December 01, 2017 13:16
[2017-12-01] MEDS: SODIUM CHLORIDE 0.9% FLUSH 10 ML FLUSH IV FLUSH SCH ×2 (13:34→20:49)
[2017-12-01] MEDS ORDERED: MIDAZOLAM HCL 2 MG/2 ML VIAL ONE (14:03)
--- NOTE | 2017-12-01 15:09 | PD.RAD ---
Post CT Procedure Prog Note Pre Procedure Diagnosis: (1) Liver abscess (2) Sepsis Post Procedure Diagnosis: (1) Liver abscess (2) Sepsis Procedure Date: December 01, 2017 Supervising Radiologist: Caleb Valles Anesthesia: Local, Conscious Sedation Plan of Activity Patient to Unit: Nursing Unit Patient Condition: Fair See PACS Report for procedural detail/treatment Drainage Procedure Procedure 1 Imaging Guidance: CT Side: Left Procedure Type: Abscess Drainage Procedure: Removal Drainage: Suction Fluid Description: Bloody Findings: Liver hematoma vs abscess. Specimen sent for C&S Caleb Valles MD December 01, 2017 15:09
--- NOTE | 2017-12-01 16:00 | HHI.GIFU ---
Subjective Remarks Patient is status post late afternoon CT guided abscess drainage Findings liver hematoma versus abscess specimen sent to INFORMATION SYSTEMS SPECIALIST Bloody drainage noted in vac seal Patient's resting in the bed tolerated procedure well Afebrile (Laurel Nelson) Objective Vitals I&O Vital Signs Date Time Temp Pulse Resp B/P (MAP) Pulse Ox O2 Delivery O2 Flow Rate FiO2 12/01/17 15:15 80 18 129/72 (91) 93 12/01/17 15:10 97.5 88 18 139/73 (95) 94 12/01/17 15:10 98.2 81 18 134/76 (95) 12/01/17 12:00 97.9 82 18 152/76 (101) 97 12/01/17 08:43 95 12/01/17 08:00 97.5 82 18 190/86 (120) 94 12/01/17 04:56 96.3 60 16 143/73 (96) 93 12/01/17 00:00 97.0 64 16 136/75 (95) 92 11/30/17 20:00 98.1 89 18 170/89 (116) 91 11/30/17 16:00 97.2 80 20 176/82 (113) 90 I/O 11/30/17 11/30/17 11/30/17 12/01/17 12/01/17 12/01/17 07:00 15:00 23:00 07:00 15:00 23:00 Intake Total 1208 ml 620 ml 650 ml Output Total 650 ml 700 ml 400 ml Balance 558 ml -80 ml 250 ml Intake Oral 620 ml IV Total 1208 ml 650 ml Output Urine Total 650 ml 700 ml 400 ml # Bowel Movements 0 Laboratory Laboratory Tests Test 12/01/17 07:46 White Blood Count 8.7 Red Blood Count 4.82 Hemoglobin 15.5 Hematocrit 46.3 Mean Corpuscular Volume 96.1 Mean Corpuscular Hemoglobin 32.2 Mean Corpuscular Hemoglobin Concent 33.5 Red Cell Distribution Width 13.7 Platelet Count 277 Mean Platelet Volume 7.8 Blood Urea Nitrogen 6 Creatinine 0.72 Random Glucose 144 Total Protein 7.5 Albumin 3.0 Calcium Level 9.1 Magnesium Level 2.2 Alkaline Phosphatase 124 Aspartate Amino Transf (AST/SGOT) 41 Alanine Aminotransferase (ALT/SGPT) 91 Total Bilirubin 1.1 Direct Bilirubin 0.4 Sodium Level 134 Potassium Level 3.9 Chloride Level 96 Carbon Dioxide Level 27.9 Anion Gap 10 Estimat Glomerular Filtration Rate 106 Indirect Bilirubin 0.7 Date/Time Source Procedure Growth Status 11/27/17 07:00 Blood Peripheral Aerobic Blood Culture - Preliminary NO GROWTH IN 4 DAYS Resulted 11/27/17 07:00 Blood Peripheral Anaerobic Blood Culture - Preliminary NO GROWTH IN 4 DAYS Resulted 12/01/17 14:40 Fluid Other Gram Stain Pending Received 12/01/17 14:40 Fluid Other Body Fluid Culture Pending Received 11/26/17 13:37 Urine Catheterized Urine Urine Culture - Final Pseudomonas Aeruginosa Complete Imaging Last Impressions Chest X-Ray 11/30/17 0000 Signed Impressions: CONCLUSION: 1. Linear opacities again noted in the left perihilar region and left lung bas e most characteristic of scarring. 2. The left costophrenic angle is mildly blunted consistent with a small effus ion. Abdomen/Pelvis CT 11/30/17 0000 Signed Impressions: CONCLUSION: 1. Over the last 4 days a large mass is developed in the anterior left lobe of the liver measuring up to 9.6 cm in diameter containing multiple locules of ai r likely a developing complex liver abscess. 2. Multiple gallstones without significant inflammatory changes identified bernardo und the gallbladder. 3. Severe colonic diverticulosis. 4. Small bilateral pleural effusions with basilar atelectasis. 5. Large loculated hydrocele or cystic testicular mass in the right hemiscrotu m measuring up to 13.6 cm in diameter. Abdomen X-Ray 11/29/17 Signed Impressions: CONCLUSION: Nonspecific, nonobstructive bowel gas pattern which may represent a mild ileus and/or gastroenteritis. Abdomen Ultrasound 11/29/17 Signed Impressions: CONCLUSION: 1. Cholelithiasis with a mildly thickened gallbladder wall. 2. Dilatation the common bile duct. On the prior CT examination, there was a f illing defect within the common bile duct. 3. Heterogeneity to the liver with increased echogenicity likely related to he patic steatosis. 4. 1.5 cm echogenic focus in the right lobe of the liver. This could represent an underlying lesion such as a hemangioma. This is not clearly seen on the rec ent CT examination. One could perform a MRI of the abdomen at some point to mor e fully evaluate the liver. This could be performed as an outpatient. Head CT 11/28/17 0000 Signed Impressions: CONCLUSION: 1. No acute abnormality seen. 2. Age-related atrophy and suspected small vessel ischemic change in the white matter. 3. Old lacunar infarct. GI Procedure 11/28/17 0000 Signed Impressions: CONCLUSION: Apparent ERCP stone extraction as detailed above. CBD is now clear. Hepatobiliary Scan Nuclear Medicine 11/26/17 0000 Signed Impressions: Service Date/Time: Sunday, November 26, 2017 17:51 - CONCLUSION: 1. No activity seen in the gallbladder. Delayed imaging will be obtained to confirm cystic duct occlusion. 2. Significantly delayed biliary clearance with bowel activity noted at 90 minutes. This is consistent with partially obstructing distal CBD calculus as noted on CT exam. Nick Miramontes MD ADDENDUM: Delayed images were obtained. There is clear bowel activity on delayed imaging. There is also significant residual hepatic activity. This may be due to partial CBD obstruction or hepatocellular dysfunction. The gallbladder is again not visualized. This is concerning for cystic duct obstruction and cholecystitis in the appropriate clinical setting. Nick Miramontes MD Physical Exam HEENT: Normocephalic; atraumatic, mild pale, CHEST: Diminished breath sounds but no obvious wheezing or rhonchi CARDIAC: RRR ABDOMEN: Distended, semi-firm, nontender, bowel sounds active , status post CT- guided abscess drainage, vac seal noted with dark bloody drainage SKIN: No obvious breakdown or rashes INFORMATION SYSTEMS SPECIALIST: Awake, answers questions appropriately (Laurel Nelson) Assessment and Plan Plan ASSESSMENT - Choledocholithiasis with elevated LFTs On admission (11/26) AST-402 ALT-182 Alk phos-278 T bili-3 CT abdomen and pelvis W IV contrast (11/26) Choledocholithiasis with prominent common bile duct measuring up to 11 mm. There is also a focus of air in the gallbladder. Gallbladder does not appear inflamed on CT exam. HIDA scan (11/26) No activity seen in the gallbladder. Significantly delayed biliary clearance with bowel activity noted at 90 minutes. Consistent with partially obstructing distal CBD calculus. Delayed images obtained, clear bowel activity on delayed imaging, also significant residual hepatic activity, may be due to CBD obstruction vs hepatocellular dysfunction. The gallbladder again not visualized, concerning for cystic duct obstruction and cholecystitis in appropriate setting. ERCP (11/28) --> Choledocholithiasis, S/P sphincterotomy and balloon extraction 3 sones, cholangiogram revealed total clearance of filling defects and intrahepatics were unremarkable. Duodenal diverticulum. Duodenal polyps, biopsy. GS consult noted HIDA scan findings unreliable in pt with liver dysfunction, they have ordered US gallbladder to further evaluate, not ed pt is not a good surgical candidate at this time - ETOH abuse- reports 3 beers a day- on CIWA protocol - Sepsis- Pt on Zosyn - Encephalopathy - noted to be secondary to sepsis- ammonia < 10 (11/29) Pt states abdominal pain but when asked to localize the pain he points to both of his flanks. Also noticed some abdominal bloating. Not much of an appetite, on clear liquids has not had much of his lunch. KUB (11/29) -->Nonspecific, nonobstructive bowel gas pattern which may represent a mild ileus and/or gastroenteritis. Mild increase in LFTs today, possibly secondary to sphincterotomy, will continue to monitor labs 11/30/2017 patient continues with distended abdomen, soft bowel sounds, talked semifirm, with some mild discomfort to light palpation midabdomen. Tolerating clear liquids fairly well with no nausea or vomiting Labs show hemoglobin 13.4. Labs improved with bilirubin 1.1 AST 59 ALT 90 which are steadily decreasing, lipase 39. Will need to continue to monitor mild ileus pattern and BMs 12/01/2017 patient is status post CT-guided cystic drainage today. Findings include liver hematoma versus abscess. Bloody drainage noted in closed VAC drainage system. patient tolerated procedures well. Note CT scan done on 2017 showing large mass developed over the last 4 days in the anterior left lobe of the liver measuring up to 9.6 cm containing multiple nodules likely a complex liver abscess Multiple gallstones without significant inflammatory changes. Severe colonic diverticulosis small bilateral pleural effusions with basilar atelectasis large loculated hydrocele or cystic testicular mass. 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 Patient will need follow-up with GI when he is able to leave the hospital for outpatient EGD to remove the polyps in the duodenum. Labs show last hemoglobin 10.9, bilirubin 1.1 which has mildly decreased AST 41 ALT 91 all showing decreased improvement. Alkaline phosphatase 124. Any elevation in WBC count may been related to steroids. PLAN -Diet continue clear liquids for now -Monitor biliary drain VAC output , dressing site to be changed daily and as needed. - Reglan -Steroids -Encouraged EtOH abstinence and supportive care -Follow-up outpatient EGD for removal of duodenal polyps -Monitor labs with special attention to LFTs -Dulcolax daily as needed - Further recommendations based on clinical course and results of above Pt has been seen and examined by myself and Dr. Goldstein, note is written on his behalf (Laurel Nelson) Physician Comments Patient seen and examined Agree with above Continue with current supportive care Monitor lab (Prasanth Goldstein MD) Laurel Nelson December 01, 2017 16:00 Prasanth Goldstein MD December 01, 2017 17:13
--- NOTE | 2017-12-01 16:05 | RADRPT ---
EXAM DATE: 12/01/2017 3:59 PM EDT AGE/SEX: 77 years / Male INDICATIONS: Liver abscess. CLINICAL DATA: This is the patient's initial encounter. Patient reports that signs and symptoms have been present for 1 day and indicates a pain score of 2/10. MEDICAL/SURGICAL HISTORY: Carcinoma, testicular. Hypertension. Cardiovascular disease. Strok e. . Testicular mass removed. COMPARISON: No prior [facility] exams available for comparison. SEDATION TIME (min): 20 BIOPSY SITE: liver abscess MEDICATION(S): 2 mg midazolam (Versed) IV 100 mcg fentanyl (Sublimaze) IV DEVICE(S): 12 Fr Skater FLUID: Total volume of 20 cc of bloody fluid was removed. 5 cc of fluid was sent to lab for ordered studies.. . . PROCEDURE : CT guided drainage of the liver abscess. Conscious sedation with continuous EKG and oximetry monitoring. The risks, benefits and alternatives to the procedure were explained and verbal and written consent w as obtained. Using automated exposure control and adjustment of the mA and/or kV according to patient size, radiation dose was kept as low as reasonably achievable to obtain optimal diagnostic quality i mages. The site was prepped in sterile fashion. Full sterile technique was used, including cap, ma sk, sterile gloves and gown and a large sterile sheet. Hand hygiene and 2% chlorhexidine and/or beta dine/alcohol prep was utilized per protocol for cutaneous antisepsis. The skin and subcutaneous tiss ues were infiltrated with local anesthetic solution. DICOM format image data is available electronic ally for review and comparison. Using CT guidance the a heterogeneous cystic fluid collection in the left hepatic lobe was localized. . Drainage was performed using the prescribed catheter. Bloody nonpurulent appearing drainage was obtained. The patient tolerated the procedure well and there were no complications. The patient tolerated the procedure well and there were no complications. The patient was sent to post anesthesia recovery in s table condition. CONCLUSION: 1. Uncomplicated CT guided drainage. 2. Hepatic collection has the appearance of a hematoma which may be infected considering the small b ubbles a contains. Specimen sent for culture and sensitivity. 3. 12 [place] catheter left in place. Electronically signed by: Caleb Valles MD 12/01/2017 4:04 PM EDT
[2017-12-01] MEDS: ENOXAPARIN SODIUM 40 MG/0.4 ML SYRINGE SQ SCH (16:12)
[2017-12-01] MEDS: ACETAMINOPHEN/HYDROcodone 325 MG/5 MG TAB PO PRN (16:12)
[2017-12-01] MEDS: ASPIRIN EC 81 MG TABEC PO SCH (16:16)
[2017-12-01] MEDS: SODIUM CHLORIDE 0.9% 10 ML VIAL IRRIGATION SCH (20:00)
[2017-12-02] VITALS (7 sets, daily range): BP systolic 146–168; BP diastolic 69–90; PULSE 75–96; RESP 16–20; TEMP 97.2–97.6; O2SAT 90–96
[2017-12-02] MEDS: PIPERACIL-TAZO 4.5 GM PREMIX 100 ML IV SCH ×4 (01:18→20:42)
[2017-12-02] MEDS: POTASSIUM CHLORIDE INJ 30 MEQ in DEXT 5%-NACL 0.9% 1000 ML INJ 1,000 ML IV SCH (01:19)
[2017-12-02] MEDS: METOCLOPRAMIDE HCL 10 MG/2 ML VIAL IV PUSH SCH ×3 (05:40→20:41)
[2017-12-02] MEDS: methylPREDNISolone SOD SUCC 40 MG/1 ML VIAL IV PUSH SCH ×3 (05:40→20:40)
[2017-12-02 07:52] LABS: ALBUMIN 2.9 GM/DL (3.4-5.0); AST (GOT) 48 U/L (15-37); BICARBONATE 28.8 MEQ/L (21.0-32.0); BLOOD UREA NITROGEN 10 MG/DL (7-18); CALCIUM 8.7 MG/DL (8.5-10.1); CHLORIDE 96 MEQ/L (98-107); GLOMERULAR FILTRATION RATE 82 ML/MIN (>89); GLUCOSE,RANDOM 154 MG/DL (74-106); SODIUM (NA) 136 MEQ/L (136-145)
[2017-12-02 07:55] LABS: ALKALINE PHOSPHATASE 109 U/L (45-117); ALT (GPT) 82 U/L (12-78); TOTAL BILIRUBIN ADULT 0.8 MG/DL (0.2-1.0); TOTAL PROTEIN 7.3 GM/DL (6.4-8.2)
[2017-12-02] MEDS: RESP: ALBUTEROL 2.5 MG/IPRATROPIUM 0.5 MG NEB (SCH) NEB ×3 (08:54→21:11)
[2017-12-02] MEDS: BISACODYL 10 MG SUPP RECTAL SCH (09:00)
[2017-12-02] MEDS: DOCUSATE SODIUM 50 MG/SENNA 8.6 MG TAB PO SCH ×2 (09:36→20:42)
[2017-12-02] MEDS: SODIUM CHLORIDE 0.9% FLUSH 10 ML FLUSH IV FLUSH SCH ×2 (09:36→20:43)
[2017-12-02] MEDS: ASPIRIN EC 81 MG TABEC PO SCH (09:36)
[2017-12-02] MEDS: SODIUM CHLORIDE 0.9% 10 ML VIAL IRRIGATION SCH ×2 (09:42→20:00)
[2017-12-02] MEDS ORDERED: POTASSIUM CHLORIDE 25 MEQ EFFERVESCENT TAB PO ONE (14:15)
--- NOTE | 2017-12-02 14:18 | HHI.PR ---
Subjective Remarks The pt was resting comfortably in bed. He wanted his diet advanced. He denied any pain. He said he still had some shortness of breath. Objective Vitals Vital Signs Date Time Temp Pulse Resp B/P (MAP) Pulse Ox O2 Delivery O2 Flow Rate FiO2 12/02/17 12:00 97.6 78 16 146/73 (97) 96 12/02/17 08:57 93 12/02/17 08:00 97.6 96 17 168/90 (116) 94 12/02/17 00:00 97.2 75 20 159/76 (103) 90 12/01/17 20:29 91 21 12/01/17 20:00 98.0 83 18 139/76 (97) 91 12/01/17 16:00 96.4 83 18 166/80 (108) 96 12/01/17 15:15 80 18 129/72 (91) 93 12/01/17 15:10 97.5 88 18 139/73 (95) 94 12/01/17 15:10 98.2 81 18 134/76 (95) I/O 12/01/17 12/01/17 12/01/17 12/02/17 12/02/17 12/02/17 07:00 15:00 23:00 07:00 15:00 23:00 Intake Total 650 ml 100 ml 1100 ml Output Total 400 ml 370 ml 530 ml Balance 250 ml -270 ml 570 ml IV Total 650 ml 100 ml 1100 ml Output Urine Total 400 ml 350 ml 500 ml Drainage Total 20 ml 30 ml # Voids 1 # Bowel Movements 0 1 Result Diagram: 12/01/17 0746 12/02/17 0533 Imaging Last Impressions Abscess Drainage CT 12/01/17 0000 Signed Impressions: CONCLUSION: 1. Uncomplicated CT guided drainage. 2. Hepatic collection has the appearance of a hematoma which may be infected c onsidering the small bubbles a contains. Specimen sent for culture and sensitiv ity. 3. 12 [place] catheter left in place. Chest X-Ray 11/30/17 0000 Signed Impressions: CONCLUSION: 1. Linear opacities again noted in the left perihilar region and left lung bas e most characteristic of scarring. 2. The left costophrenic angle is mildly blunted consistent with a small effus ion. Abdomen/Pelvis CT 11/30/17 0000 Signed Impressions: CONCLUSION: 1. Over the last 4 days a large mass is developed in the anterior left lobe of the liver measuring up to 9.6 cm in diameter containing multiple locules of ai r likely a developing complex liver abscess. 2. Multiple gallstones without significant inflammatory changes identified bernardo und the gallbladder. 3. Severe colonic diverticulosis. 4. Small bilateral pleural effusions with basilar atelectasis. 5. Large loculated hydrocele or cystic testicular mass in the right hemiscrotu m measuring up to 13.6 cm in diameter. Abdomen X-Ray 11/29/17 Signed Impressions: CONCLUSION: Nonspecific, nonobstructive bowel gas pattern which may represent a mild ileus and/or gastroenteritis. Abdomen Ultrasound 11/29/17 Signed Impressions: CONCLUSION: 1. Cholelithiasis with a mildly thickened gallbladder wall. 2. Dilatation the common bile duct. On the prior CT examination, there was a f illing defect within the common bile duct. 3. Heterogeneity to the liver with increased echogenicity likely related to he patic steatosis. 4. 1.5 cm echogenic focus in the right lobe of the liver. This could represent an underlying lesion such as a hemangioma. This is not clearly seen on the rec ent CT examination. One could perform a MRI of the abdomen at some point to mor e fully evaluate the liver. This could be performed as an outpatient. Head CT 11/28/17 Signed Impressions: CONCLUSION: 1. No acute abnormality seen. 2. Age-related atrophy and suspected small vessel ischemic change in the white matter. 3. Old lacunar infarct. GI Procedure 11/28/17 Signed Impressions: CONCLUSION: Apparent ERCP stone extraction as detailed above. CBD is now clear. Hepatobiliary Scan Nuclear Medicine 11/26/17 Signed Impressions: Service Date/Time: Sunday, November 26, 2017 17:51 - CONCLUSION: 1. No activity seen in the gallbladder. Delayed imaging will be obtained to confirm cystic duct occlusion. 2. Significantly delayed biliary clearance with bowel activity noted at 90 minutes. This is consistent with partially obstructing distal CBD calculus as noted on CT exam. Nick Miramontes MD ADDENDUM: Delayed images were obtained. There is clear bowel activity on delayed imaging. There is also significant residual hepatic activity. This may be due to partial CBD obstruction or hepatocellular dysfunction. The gallbladder is again not visualized. This is concerning for cystic duct obstruction and cholecystitis in the appropriate clinical setting. Nick Miramontes MD Objective Remarks General: No distress. Heart: Regular rate and rhythm. No murmur. Lungs: Bilateral rhonchi. Abdomen: Soft, mild tenderness in the epigastric area, distended. Extremities: No lower extremity edema. Psych: Alert and oriented. Neuro: Normal speech. No focal deficits noted. : Significant scrotal enlargement Procedures None A/P Problem List: (1) Sepsis ICD Code: A41.9 - Sepsis, unspecified organism (2) Choledocholithiasis ICD Code: K80.50 - Calculus of bile duct without cholangitis or cholecystitis without obstruction Status: Acute (3) Alcohol dependence ICD Code: F10.20 - Alcohol dependence Status: Acute (4) Encephalopathy acute ICD Code: G93.40 - Encephalopathy, unspecified (5) Hypertension ICD Code: I10 - Hypertension Status: Acute (6) H/O: CVA (cerebrovascular accident) ICD Code: Z86.73 - Personal history of transient ischemic attack (TIA), and cerebral infarction without residual deficits Assessment and Plan Sepsis Source is UTI. Pseudomonas growing. - Continue IV Zosyn. Choledocholithiasis/ Liver abscess Abnormal HIDA scan and US noted. GI and surgical consults appreciated. S/p ERCP which revealed: Choledocholithiasis; Duodenal diverticulum; Duodenal polyps. CT 11/30: Over the last 4 days a large mass has developed in the anterior left lobe of the liver measuring up to 9.6 cm in diameter containing multiple locules of air likely a developing complex liver abscess; Multiple gallstones without significant inflammatory changes identified around the gallbladder. IR consulted for abscess drainage 12/01. - continue IV Zosyn. - follow up with GI and surgery. - trend LFTs. - follow abscess culture. Reactive airway disease Improving. CXR without acute process. - Oxygen and nebs as needed. Started standing nebs. - IV Solu-Medrol. - continue antibiotics. Possible right testicular mass Imaging shows cystic mass on right. Evaluated by urology. No surgical intervention planned for hydrocele. Repeat CT: Large loculated hydrocele or cystic testicular mass in the right hemiscrotum measuring up to 13.6 cm in diameter. - Patient to follow-up with urology as outpt. Reconsult as needed. Alcohol abuse No evidence of withdrawal. - CIWA protocol, thiamine, folic acid. History of CVA Stable. - Continue aspirin. HTN Blood pressure has been elevated at times. - amlodipine 10 mg daily added. Improved. - Vasotec as needed. Hypokalemia S/t decreased PO intake. - replete and monitor. DVT prophylaxis: Lovenox. Problem Qualifiers (1) Alcohol dependence: Qualified Codes: F10.29 - Alcohol dependence with unspecified alcohol-induced disorder Rj Hilton DO December 02, 2017 14:18
--- NOTE | 2017-12-02 14:37 | HHI.GIFU ---
Subjective Remarks Pt is sitting up in bed eating lunch (Charbel Bruce) Objective Vitals I&O Vital Signs Date Time Temp Pulse Resp B/P (MAP) Pulse Ox O2 Delivery O2 Flow Rate FiO2 12/02/17 12:00 97.6 78 16 146/73 (97) 96 12/02/17 08:57 93 12/02/17 08:00 97.6 96 17 168/90 (116) 94 12/02/17 00:00 97.2 75 20 159/76 (103) 90 12/01/17 20:29 91 21 12/01/17 20:00 98.0 83 18 139/76 (97) 91 12/01/17 16:00 96.4 83 18 166/80 (108) 96 12/01/17 15:15 80 18 129/72 (91) 93 12/01/17 15:10 97.5 88 18 139/73 (95) 94 12/01/17 15:10 98.2 81 18 134/76 (95) I/O 12/01/17 12/01/17 12/01/17 12/02/17 12/02/17 12/02/17 07:00 15:00 23:00 07:00 15:00 23:00 Intake Total 650 ml 100 ml 1100 ml Output Total 400 ml 370 ml 530 ml Balance 250 ml -270 ml 570 ml IV Total 650 ml 100 ml 1100 ml Output Urine Total 400 ml 350 ml 500 ml Drainage Total 20 ml 30 ml # Voids 1 # Bowel Movements 0 1 Laboratory Laboratory Tests Test 12/02/17 05:33 Blood Urea Nitrogen 10 Creatinine 0.90 Random Glucose 154 Total Protein 7.3 Albumin 2.9 Calcium Level 8.7 Alkaline Phosphatase 109 Aspartate Amino Transf (AST/SGOT) 48 Alanine Aminotransferase (ALT/SGPT) 82 Total Bilirubin 0.8 Sodium Level 136 Potassium Level 3.4 Chloride Level 96 Carbon Dioxide Level 28.8 Anion Gap 11 Estimat Glomerular Filtration Rate 82 Date/Time Source Procedure Growth Status 11/27/17 07:00 Blood Peripheral Aerobic Blood Culture - Final NO GROWTH IN 5 DAYS Complete 11/27/17 07:00 Blood Peripheral Anaerobic Blood Culture - Final NO GROWTH IN 5 DAYS Complete 12/01/17 14:40 Fluid Other Gram Stain - Final Resulted 12/01/17 14:40 Fluid Other Body Fluid Culture Pending Resulted 11/26/17 13:37 Urine Catheterized Urine Urine Culture - Final Pseudomonas Aeruginosa Complete Imaging Last Impressions Abscess Drainage CT 12/01/17 Signed Impressions: CONCLUSION: 1. Uncomplicated CT guided drainage. 2. Hepatic collection has the appearance of a hematoma which may be infected c onsidering the small bubbles a contains. Specimen sent for culture and sensitiv ity. 3. 12 B[place] catheter left in place. Chest X-Ray 11/30/17 Signed Impressions: CONCLUSION: 1. Linear opacities again noted in the left perihilar region and left lung bas e most characteristic of scarring. 2. The left costophrenic angle is mildly blunted consistent with a small effus ion. Abdomen/Pelvis CT 11/30/17 Signed Impressions: CONCLUSION: 1. Over the last 4 days a large mass is developed in the anterior left lobe of the liver measuring up to 9.6 cm in diameter containing multiple locules of ai r likely a developing complex liver abscess. 2. Multiple gallstones without significant inflammatory changes identified bernardo und the gallbladder. 3. Severe colonic diverticulosis. 4. Small bilateral pleural effusions with basilar atelectasis. 5. Large loculated hydrocele or cystic testicular mass in the right hemiscrotu m measuring up to 13.6 cm in diameter. Abdomen X-Ray 11/29/17 Signed Impressions: CONCLUSION: Nonspecific, nonobstructive bowel gas pattern which may represent a mild ileus and/or gastroenteritis. Abdomen Ultrasound 11/29/17 Signed Impressions: CONCLUSION: 1. Cholelithiasis with a mildly thickened gallbladder wall. 2. Dilatation the common bile duct. On the prior CT examination, there was a f illing defect within the common bile duct. 3. Heterogeneity to the liver with increased echogenicity likely related to he patic steatosis. 4. 1.5 cm echogenic focus in the right lobe of the liver. This could represent an underlying lesion such as a hemangioma. This is not clearly seen on the rec ent CT examination. One could perform a MRI of the abdomen at some point to mor e fully evaluate the liver. This could be performed as an outpatient. Head CT 11/28/17 Signed Impressions: CONCLUSION: 1. No acute abnormality seen. 2. Age-related atrophy and suspected small vessel ischemic change in the white matter. 3. Old lacunar infarct. GI Procedure 5/22/18 0000 Signed Impressions: CONCLUSION: Apparent ERCP stone extraction as detailed above. CBD is now clear. Hepatobiliary Scan Nuclear Medicine 11/26/17 0000 Signed Impressions: Service Date/Time: Sunday, November 26, 2017 17:51 - CONCLUSION: 1. No activity seen in the gallbladder. Delayed imaging will be obtained to confirm cystic duct occlusion. 2. Significantly delayed biliary clearance with bowel activity noted at 90 minutes. This is consistent with partially obstructing distal CBD calculus as noted on CT exam. Nick Miramontes MD ADDENDUM: Delayed images were obtained. There is clear bowel activity on delayed imaging. There is also significant residual hepatic activity. This may be due to partial CBD obstruction or hepatocellular dysfunction. The gallbladder is again not visualized. This is concerning for cystic duct obstruction and cholecystitis in the appropriate clinical setting. 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 There is also a focus of air in the gallbladder. Gallbladder does not appear inflamed on CT exam. HIDA scan (11/26) No activity seen in the gallbladder. Significantly delayed biliary clearance with bowel activity noted at 90 minutes. Consistent with partially obstructing distal CBD calculus. Delayed images obtained, clear bowel activity on delayed imaging, also significant residual hepatic activity, may be due to CBD obstruction vs hepatocellular dysfunction. The gallbladder again not visualized, concerning for cystic duct obstruction and cholecystitis in appropriate setting. ERCP (11/28) --> Choledocholithiasis, S/P sphincterotomy and balloon extraction 3 sones, cholangiogram revealed total clearance of filling defects and intrahepatics were unremarkable. Duodenal diverticulum. Duodenal polyps, biopsy. GS consult noted HIDA scan findings unreliable in pt with liver dysfunction, they have ordered US gallbladder to further evaluate, not ed pt is not a good surgical candidate at this time - ETOH abuse- reports 3 beers a day- on CIWA protocol - Sepsis- Pt on Zosyn - Encephalopathy - noted to be secondary to sepsis- ammonia < 10 (11/29) Pt states abdominal pain but when asked to localize the pain he points to both of his flanks. Also noticed some abdominal bloating. Not much of an appetite, on clear liquids has not had much of his lunch. KUB (11/29) -->Nonspecific, nonobstructive bowel gas pattern which may represent a mild ileus and/or gastroenteritis. Mild increase in LFTs today, possibly secondary to sphincterotomy, will continue to monitor labs 11/30/2017 patient continues with distended abdomen, soft bowel sounds, talked semifirm, with some mild discomfort to light palpation midabdomen. Tolerating clear liquids fairly well with no nausea or vomiting Labs show hemoglobin 13.4. Labs improved with bilirubin 1.1 AST 59 ALT 90 which are steadily decreasing, lipase 39. Will need to continue to monitor mild ileus pattern and BMs 12/01/2017 patient is status post CT-guided cystic drainage today. Findings include liver hematoma versus abscess. Bloody drainage noted in closed VAC drainage system. patient tolerated procedures well. Note CT scan done on 2017 showing large mass developed over the last 4 days in the anterior left lobe of the liver measuring up to 9.6 cm containing multiple nodules likely a complex liver abscess Multiple gallstones without significant inflammatory changes. Severe colonic diverticulosis small bilateral pleural effusions with basilar atelectasis large loculated hydrocele or cystic testicular mass. 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 Patient will need follow-up with GI when he is able to leave the hospital for outpatient EGD to remove the polyps in the duodenum. Labs show last hemoglobin 10.9, bilirubin 1.1 which has mildly decreased AST 41 ALT 91 all showing decreased improvement. Alkaline phosphatase 124. Any elevation in WBC count may been related to steroids. (12/02) no changes today, Bloody drainage noted in closed VAC drainage system. LFTs stable PLAN - Full liquid diet -Monitor biliary drain VAC output , dressing site to be changed daily and as needed. - Reglan -Steroids -Encouraged EtOH abstinence and supportive care -Follow-up outpatient EGD for removal of duodenal polyps -Monitor labs with special attention to LFTs -Dulcolax daily as needed - Further recommendations based on clinical course and results of above Pt has been seen and examined by myself and Dr. Goldstein, note is written on his behalf (Charbel Bruce) Physician Comments Patient seen and examined Agree with above Continue with current supportive care Monitor labs (Prasanth Goldstein MD) Charbel Bruce December 02, 2017 14:37 Prasanth Goldstein MD December 02, 2017 19:36
[2017-12-02] MEDS: ENOXAPARIN SODIUM 40 MG/0.4 ML SYRINGE SQ SCH (16:24)
--- NOTE | 2017-12-02 18:18 | HHI.PR ---
Subjective Subjective Notes Painful at drain site. Wants more than clear liquids Objective Vitals/I&O Vital Signs Date Time Temp Pulse Resp B/P (MAP) Pulse Ox O2 Delivery O2 Flow Rate FiO2 12/02/17 16:00 97.6 80 16 149/69 (95) 93 12/01/17 20:29 21 11/30/17 08:32 Nasal Cannula 2.00 Labs Laboratory Tests Test 12/02/17 05:33 Blood Urea Nitrogen 10 Creatinine 0.90 Random Glucose 154 Total Protein 7.3 Albumin 2.9 Calcium Level 8.7 Alkaline Phosphatase 109 Aspartate Amino Transf (AST/SGOT) 48 Alanine Aminotransferase (ALT/SGPT) 82 Total Bilirubin 0.8 Sodium Level 136 Potassium Level 3.4 Chloride Level 96 Carbon Dioxide Level 28.8 Anion Gap 11 Estimat Glomerular Filtration Rate 82 Date/Time Source Procedure Growth Status 11/27/17 07:00 Blood Peripheral Aerobic Blood Culture - Final NO GROWTH IN 5 DAYS Complete 11/27/17 07:00 Blood Peripheral Anaerobic Blood Culture - Final NO GROWTH IN 5 DAYS Complete 12/01/17 14:40 Fluid Other Gram Stain - Final Resulted 12/01/17 14:40 Fluid Other Body Fluid Culture - Preliminary NO GROWTH IN 24 HOURS. Resulted 11/26/17 13:37 Urine Catheterized Urine Urine Culture - Final Pseudomonas Aeruginosa Complete Radiology Last [address] 11/26/17 1252 Signed Impressions: Service Date/Time: Sunday, November 26, 2017 14:52 - CONCLUSION: 1. Senescent changes with prominent periventricular white matter ischemic demyelination. 2. No acute intracranial abnormality. Nick Miramontes MD Abdomen: Non-distended, Other (Tender at drain site) A/P Assessment and Plan Assessment and Plan 77 year old male with choledocholithiasis CT reviewed with Dr. Valles. Liver hematoma LEFT lobe. May be due to recent ERCP. No evidence of cholecystitis at all, gallbladder appears normal. Cystic duct likely obstructed chronically, no evidence of acute obstruction If no growth from culture, Dr. Valles recommends drain be pulled sooner. No surgical intervention planned at this time. Patient is high surgical risk for any procedure. Dez,Angel. MD December 02, 2017 18:18
[2017-12-03] VITALS (7 sets, daily range): BP systolic 132–185; BP diastolic 63–84; PULSE 73–84; RESP 17–22; TEMP 97.4–97.9; O2SAT 92–97
[2017-12-03] MEDS: POTASSIUM CHLORIDE INJ 30 MEQ in DEXT 5%-NACL 0.9% 1000 ML INJ 1,000 ML IV SCH (00:21)
[2017-12-03] MEDS: PIPERACIL-TAZO 4.5 GM PREMIX 100 ML IV SCH ×4 (02:16→22:26)
[2017-12-03] MEDS: METOCLOPRAMIDE HCL 10 MG/2 ML VIAL IV PUSH SCH ×3 (05:32→22:28)
[2017-12-03 06:52] LABS: ALBUMIN 2.9 GM/DL (3.4-5.0); AST (GOT) 56 U/L (15-37); BICARBONATE 30.7 MEQ/L (21.0-32.0); BLOOD UREA NITROGEN 11 MG/DL (7-18); CALCIUM 8.6 MG/DL (8.5-10.1); CHLORIDE 98 MEQ/L (98-107); CREATININE 0.88 MG/DL (0.60-1.30); GLOMERULAR FILTRATION RATE 84 ML/MIN (>89); GLUCOSE,RANDOM 151 MG/DL (74-106); SODIUM (NA) 137 MEQ/L (136-145)
[2017-12-03 06:55] LABS: ALKALINE PHOSPHATASE 100 U/L (45-117); ALT (GPT) 85 U/L (12-78); TOTAL BILIRUBIN ADULT 0.8 MG/DL (0.2-1.0)
[2017-12-03] MEDS: ASPIRIN EC 81 MG TABEC PO SCH (08:59)
[2017-12-03] MEDS: methylPREDNISolone SOD SUCC 40 MG/1 ML VIAL IV PUSH SCH (08:59)
[2017-12-03] MEDS: BISACODYL 10 MG SUPP RECTAL SCH (09:00)
[2017-12-03] MEDS: SODIUM CHLORIDE 0.9% FLUSH 10 ML FLUSH IV FLUSH SCH ×2 (09:00→22:28)
[2017-12-03] MEDS: DOCUSATE SODIUM 50 MG/SENNA 8.6 MG TAB PO SCH ×2 (09:00→22:27)
[2017-12-03] MEDS: SODIUM CHLORIDE 0.9% 10 ML VIAL IRRIGATION SCH ×4 (09:00→22:30)
[2017-12-03] MEDS: RESP: ALBUTEROL 2.5 MG/IPRATROPIUM 0.5 MG NEB (SCH) NEB ×3 (09:19→21:13)
--- NOTE | 2017-12-03 11:02 | HHI.PR ---
Subjective Subjective Notes feels fine, denies pain, tolerating po Objective Vitals/I&O Vital Signs Date Time Temp Pulse Resp B/P (MAP) Pulse Ox O2 Delivery O2 Flow Rate FiO2 12/03/17 08:00 97.4 84 17 166/82 (110) 97 12/02/17 21:11 21 11/30/17 08:32 Nasal Cannula 2.00 Labs Laboratory Tests Test 12/03/17 05:00 Blood Urea Nitrogen 11 Creatinine 0.88 Random Glucose 151 Total Protein 7.0 Albumin 2.9 Calcium Level 8.6 Alkaline Phosphatase 100 Aspartate Amino Transf (AST/SGOT) 56 Alanine Aminotransferase (ALT/SGPT) 85 Total Bilirubin 0.8 Sodium Level 137 Potassium Level 3.5 Chloride Level 98 Carbon Dioxide Level 30.7 Anion Gap 8 Estimat Glomerular Filtration Rate 84 Date/Time Source Procedure Growth Status 11/27/17 07:00 Blood Peripheral Aerobic Blood Culture - Final NO GROWTH IN 5 DAYS Complete 11/27/17 07:00 Blood Peripheral Anaerobic Blood Culture - Final NO GROWTH IN 5 DAYS Complete 12/01/17 14:40 Fluid Other Gram Stain - Final Resulted 12/01/17 14:40 Fluid Other Body Fluid Culture - Preliminary NO GROWTH IN 48 HOURS. Resulted 11/26/17 13:37 Urine Catheterized Urine Urine Culture - Final Pseudomonas Aeruginosa Complete Radiology Last [address] 11/26/17 1252 Signed Impressions: Service Date/Time: Sunday, November 26, 2017 14:52 - CONCLUSION: 1. Senescent changes with prominent periventricular white matter ischemic demyelination. 2. No acute intracranial abnormality. Nick Miramontes MD Abdomen: Non-distended, BS normal Narrative Exam less distended, mild pain, no rebound/guarding, few BS, negative Baker's sign drain with blood, no pus or bile A/P Assessment and Plan 77 year old male with choledocholithiasis CT reviewed with Dr. Valles. Liver abscess LEFT lobe. Likely from cholangitis/CBD stones. No evidence of cholecystitis at all, gallbladder appears normal. Cystic duct likely obstructed chronically, no evidence of acute obstruction Recommend removing drain as high risk for infection of hematoma No surgical intervention planned at this time. Patient is high surgical risk for any procedure. Will see prn, please call with any surgical concerns - Dr Garces covering Monday, I'm on Monday, Dr Craig on Monday. recommend FU with Surgeon in [place] for elective cholecystectomy in 6-8 weeks. Andrei Jasso MD December 03, 2017 11:02
--- NOTE | 2017-12-03 12:35 | HHI.PR ---
Subjective Remarks The patient was resting comfortably by the window. He said he still had some abdominal pain but was doing well. He has been having bowel movements. He would like to have his drain removed if possible. Discussed with GI and surgery. Objective Vitals Vital Signs Date Time Temp Pulse Resp B/P (MAP) Pulse Ox O2 Delivery O2 Flow Rate FiO2 12/03/17 08:00 97.4 84 17 166/82 (110) 97 12/03/17 00:00 97.9 82 18 132/63 (86) 92 12/02/17 21:11 92 21 12/02/17 20:00 97.5 90 19 167/80 (109) 94 12/02/17 16:00 97.6 80 16 149/69 (95) 93 I/O 12/02/17 12/02/17 12/02/17 12/03/17 12/03/17 12/03/17 07:00 15:00 23:00 07:00 15:00 23:00 Intake Total 1100 ml 100 ml 700 ml 590 ml Output Total 530 ml 340 ml 810 ml Balance 570 ml 100 ml 360 ml -220 ml Intake Oral 500 ml 240 ml IV Total 1100 ml 100 ml 200 ml 350 ml Output Urine Total 500 ml 300 ml 800 ml Drainage Total 30 ml 40 ml 10 ml # Voids 1 1 # Bowel Movements 1 1 1 Result Diagram: 12/01/17 0746 12/03/17 0500 Imaging Last Impressions Abscess Drainage CT 12/01/17 0000 Signed Impressions: CONCLUSION: 1. Uncomplicated CT guided drainage. 2. Hepatic collection has the appearance of a hematoma which may be infected c onsidering the small bubbles a contains. Specimen sent for culture and sensitiv ity. 3. 12 Prydeinig catheter left in place. Chest X-Ray 11/30/17 0000 Signed Impressions: CONCLUSION: 1. Linear opacities again noted in the left perihilar region and left lung bas e most characteristic of scarring. 2. The left costophrenic angle is mildly blunted consistent with a small effus ion. Abdomen/Pelvis CT 11/30/17 0000 Signed Impressions: CONCLUSION: 1. Over the last 4 days a large mass is developed in the anterior left lobe of the liver measuring up to 9.6 cm in diameter containing multiple locules of ai r likely a developing complex liver abscess. 2. Multiple gallstones without significant inflammatory changes identified bernardo und the gallbladder. 3. Severe colonic diverticulosis. 4. Small bilateral pleural effusions with basilar atelectasis. 5. Large loculated hydrocele or cystic testicular mass in the right hemiscrotu m measuring up to 13.6 cm in diameter. Abdomen X-Ray 11/29/17 Signed Impressions: CONCLUSION: Nonspecific, nonobstructive bowel gas pattern which may represent a mild ileus and/or gastroenteritis. Abdomen Ultrasound 11/29/17 Signed Impressions: CONCLUSION: 1. Cholelithiasis with a mildly thickened gallbladder wall. 2. Dilatation the common bile duct. On the prior CT examination, there was a f illing defect within the common bile duct. 3. Heterogeneity to the liver with increased echogenicity likely related to he patic steatosis. 4. 1.5 cm echogenic focus in the right lobe of the liver. This could represent an underlying lesion such as a hemangioma. This is not clearly seen on the rec ent CT examination. One could perform a MRI of the abdomen at some point to mor e fully evaluate the liver. This could be performed as an outpatient. Head CT 11/28/17 Signed Impressions: CONCLUSION: 1. No acute abnormality seen. 2. Age-related atrophy and suspected small vessel ischemic change in the white matter. 3. Old lacunar infarct. GI Procedure 11/28/17 Signed Impressions: CONCLUSION: Apparent ERCP stone extraction as detailed above. CBD is now clear. Hepatobiliary Scan Nuclear Medicine 11/26/17 Signed Impressions: Service Date/Time: Sunday, November 26, 2017 17:51 - CONCLUSION: 1. No activity seen in the gallbladder. Delayed imaging will be obtained to confirm cystic duct occlusion. 2. Significantly delayed biliary clearance with bowel activity noted at 90 minutes. This is consistent with partially obstructing distal CBD calculus as noted on CT exam. Nick Miramontes MD ADDENDUM: Delayed images were obtained. There is clear bowel activity on delayed imaging. There is also significant residual hepatic activity. This may be due to partial CBD obstruction or hepatocellular dysfunction. The gallbladder is again not visualized. This is concerning for cystic duct obstruction and cholecystitis in the appropriate clinical setting. Nick Miramontes MD Objective Remarks General: No distress. Heart: Regular rate and rhythm. No murmur. Lungs: Bilateral rhonchi. Abdomen: Soft, mild tenderness in the epigastric area, distended. Drain in place with bloody drainage. Extremities: No lower extremity edema. Psych: Alert and oriented. Neuro: Normal speech. No focal deficits noted. : Significant scrotal enlargement Procedures None A/P Problem List: (1) Sepsis ICD Code: A41.9 - Sepsis, unspecified organism (2) Choledocholithiasis ICD Code: K80.50 - Calculus of bile duct without cholangitis or cholecystitis without obstruction Status: Acute (3) Alcohol dependence ICD Code: F10.20 - Alcohol dependence Status: Acute (4) Encephalopathy acute ICD Code: G93.40 - Encephalopathy, unspecified (5) Hypertension ICD Code: I10 - Hypertension Status: Acute (6) H/O: CVA (cerebrovascular accident) ICD Code: Z86.73 - Personal history of transient ischemic attack (TIA), and cerebral infarction without residual deficits Assessment and Plan Sepsis Source is UTI. Pseudomonas growing. - Continue IV Zosyn. Choledocholithiasis/ Liver abscess Abnormal HIDA scan and US noted. GI and surgical consults appreciated. S/p ERCP which revealed: Choledocholithiasis; Duodenal diverticulum; Duodenal polyps. CT 11/30: Over the last 4 days a large mass has developed in the anterior left lobe of the liver measuring up to 9.6 cm in diameter containing multiple locules of air likely a developing complex liver abscess; Multiple gallstones without significant inflammatory changes identified around the gallbladder. IR consulted for abscess drainage 12/01. Drain still in place. - continue IV Zosyn. - follow up with GI and surgery. Repeat CT abdomen per GI and remove drain if improved. - trend LFTs. - follow abscess culture. NGTD. Reactive airway disease Improving. CXR without acute process. - Oxygen and nebs as needed. Started standing nebs. - d/c Solu-Medrol. Prednisone in AM. - continue antibiotics. Possible right testicular mass Imaging shows cystic mass on right. Evaluated by urology. No surgical intervention planned for hydrocele. Repeat CT: Large loculated hydrocele or cystic testicular mass in the right hemiscrotum measuring up to 13.6 cm in diameter. - Patient to follow-up with urology as outpt. Reconsult as needed. Alcohol abuse No evidence of withdrawal. - CIWA protocol, thiamine, folic acid. History of CVA Stable. - Continue aspirin. HTN Blood pressure has been elevated at times. - amlodipine 10 mg daily added. Improved. - Vasotec as needed. Hypokalemia S/t decreased PO intake. - replete and monitor. DVT prophylaxis: Lovenox. Problem Qualifiers (1) Alcohol dependence: Qualified Codes: F10.29 - Alcohol dependence with unspecified alcohol-induced disorder Rj Hilton DO December 03, 2017 12:35
[2017-12-03] MEDS ORDERED: POTASSIUM CHLORIDE 20 MEQ CONTROLLED RELEASE TAB PO ONE (12:50)
[2017-12-03] MEDS ORDERED: DIATRIZOATE MEGLUM/DIATRIZOATE SOD 9 ML CUP PO ONE (13:15)
--- NOTE | 2017-12-03 13:55 | HHI.GIFU ---
Subjective Remarks sitting up in room. Dark red bloody drainage, < 50CC Mild ABD pain. Noted dark stools X 24 hrs. Objective Vitals I&O Vital Signs Date Time Temp Pulse Resp B/P (MAP) Pulse Ox O2 Delivery O2 Flow Rate FiO2 12/03/17 12:00 97.6 73 17 159/80 (106) 94 12/03/17 08:00 97.4 84 17 166/82 (110) 97 12/03/17 00:00 97.9 82 18 132/63 (86) 92 12/02/17 21:11 92 21 12/02/17 20:00 97.5 90 19 167/80 (109) 94 12/02/17 16:00 97.6 80 16 149/69 (95) 93 I/O 12/02/17 12/02/17 12/02/17 12/03/17 12/03/17 12/03/17 07:00 15:00 23:00 07:00 15:00 23:00 Intake Total 1100 ml 100 ml 700 ml 590 ml 525 ml Output Total 530 ml 340 ml 810 ml Balance 570 ml 100 ml 360 ml -220 ml 525 ml Intake Oral 500 ml 240 ml IV Total 1100 ml 100 ml 200 ml 350 ml 525 ml Output Urine Total 500 ml 300 ml 800 ml Drainage Total 30 ml 40 ml 10 ml # Voids 1 1 # Bowel Movements 1 1 1 Laboratory Laboratory Tests Test 12/03/17 05:00 Blood Urea Nitrogen 11 Creatinine 0.88 Random Glucose 151 Total Protein 7.0 Albumin 2.9 Calcium Level 8.6 Alkaline Phosphatase 100 Aspartate Amino Transf (AST/SGOT) 56 Alanine Aminotransferase (ALT/SGPT) 85 Total Bilirubin 0.8 Sodium Level 137 Potassium Level 3.5 Chloride Level 98 Carbon Dioxide Level 30.7 Anion Gap 8 Estimat Glomerular Filtration Rate 84 Date/Time Source Procedure Growth Status 11/27/17 07:00 Blood Peripheral Aerobic Blood Culture - Final NO GROWTH IN 5 DAYS Complete 11/27/17 07:00 Blood Peripheral Anaerobic Blood Culture - Final NO GROWTH IN 5 DAYS Complete 12/01/17 14:40 Fluid Other Gram Stain - Final Resulted 12/01/17 14:40 Fluid Other Body Fluid Culture - Preliminary NO GROWTH IN 48 HOURS. Resulted 11/26/17 13:37 Urine Catheterized Urine Urine Culture - Final Pseudomonas Aeruginosa Complete Imaging Last Impressions Abscess Drainage CT 5/25/18 0000 Signed Impressions: CONCLUSION: 1. Uncomplicated CT guided drainage. 2. Hepatic collection has the appearance of a hematoma which may be infected c onsidering the small bubbles a contains. Specimen sent for culture and sensitiv ity. 3. 12 Nepali catheter left in place. Chest X-Ray 11/30/17 Signed Impressions: CONCLUSION: 1. Linear opacities again noted in the left perihilar region and left lung bas e most characteristic of scarring. 2. The left costophrenic angle is mildly blunted consistent with a small effus ion. Abdomen/Pelvis CT 11/30/17 Signed Impressions: CONCLUSION: 1. Over the last 4 days a large mass is developed in the anterior left lobe of the liver measuring up to 9.6 cm in diameter containing multiple locules of ai r likely a developing complex liver abscess. 2. Multiple gallstones without significant inflammatory changes identified bernardo und the gallbladder. 3. Severe colonic diverticulosis. 4. Small bilateral pleural effusions with basilar atelectasis. 5. Large loculated hydrocele or cystic testicular mass in the right hemiscrotu m measuring up to 13.6 cm in diameter. Abdomen X-Ray 11/29/17 Signed Impressions: CONCLUSION: Nonspecific, nonobstructive bowel gas pattern which may represent a mild ileus and/or gastroenteritis. Abdomen Ultrasound 11/29/17 Signed Impressions: CONCLUSION: 1. Cholelithiasis with a mildly thickened gallbladder wall. 2. Dilatation the common bile duct. On the prior CT examination, there was a f illing defect within the common bile duct. 3. Heterogeneity to the liver with increased echogenicity likely related to he patic steatosis. 4. 1.5 cm echogenic focus in the right lobe of the liver. This could represent an underlying lesion such as a hemangioma. This is not clearly seen on the rec ent CT examination. One could perform a MRI of the abdomen at some point to mor e fully evaluate the liver. This could be performed as an outpatient. Head CT 11/28/17 Signed Impressions: CONCLUSION: 1. No acute abnormality seen. 2. Age-related atrophy and suspected small vessel ischemic change in the white matter. 3. Old lacunar infarct. GI Procedure 11/28/17 Signed Impressions: CONCLUSION: Apparent ERCP stone extraction as detailed above. CBD is now clear. Hepatobiliary Scan Nuclear Medicine 5/20/18 0000 Signed Impressions: Service Date/Time: Sunday, November 26, 2017 17:51 - CONCLUSION: 1. No activity seen in the gallbladder. Delayed imaging will be obtained to confirm cystic duct occlusion. 2. Significantly delayed biliary clearance with bowel activity noted at 90 minutes. This is consistent with partially obstructing distal CBD calculus as noted on CT exam. Nick Miramontes MD ADDENDUM: Delayed images were obtained. There is clear bowel activity on delayed imaging. There is also significant residual hepatic activity. This may be due to partial CBD obstruction or hepatocellular dysfunction. The gallbladder is again not visualized. This is concerning for cystic duct obstruction and cholecystitis in the appropriate clinical setting. Nick Miramontes MD Physical Exam HEENT: Normocephalic; atraumatic, slim CHEST: Diminished breath sounds, +Rhonch, cough CARDIAC: RRR ABDOMEN: Distended, semi-firm, mild ABD soreness at drain site. 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 There is also a focus of air in the gallbladder. Gallbladder does not appear inflamed on CT exam. HIDA scan (11/26) No activity seen in the gallbladder. Significantly delayed biliary clearance with bowel activity noted at 90 minutes. Consistent with partially obstructing distal CBD calculus. Delayed images obtained, clear bowel activity on delayed imaging, also significant residual hepatic activity, may be due to CBD obstruction vs hepatocellular dysfunction. The gallbladder again not visualized, concerning for cystic duct obstruction and cholecystitis in appropriate setting. ERCP (11/28) --> Choledocholithiasis, S/P sphincterotomy and balloon extraction 3 sones, cholangiogram revealed total clearance of filling defects and intrahepatics were unremarkable. Duodenal diverticulum. Duodenal polyps, biopsy. GS consult noted HIDA scan findings unreliable in pt with liver dysfunction, they have ordered US gallbladder to further evaluate, not ed pt is not a good surgical candidate at this time - ETOH abuse- reports 3 beers a day- on CIWA protocol - Sepsis- Pt on Zosyn - Encephalopathy - noted to be secondary to sepsis- ammonia < 10 (11/29) Pt states abdominal pain but when asked to localize the pain he points to both of his flanks. Also noticed some abdominal bloating. Not much of an appetite, on clear liquids has not had much of his lunch. KUB (11/29) -->Nonspecific, nonobstructive bowel gas pattern which may represent a mild ileus and/or gastroenteritis. Mild increase in LFTs today, possibly secondary to sphincterotomy, will continue to monitor labs 11/30/2017 patient continues with distended abdomen, soft bowel sounds, talked semifirm, with some mild discomfort to light palpation midabdomen. Tolerating clear liquids fairly well with no nausea or vomiting Labs show hemoglobin 13.4. Labs improved with bilirubin 1.1 AST 59 ALT 90 which are steadily decreasing, lipase 39. Will need to continue to monitor mild ileus pattern and BMs 12/01/2017 patient is status post CT-guided cystic drainage today. Findings include liver hematoma versus abscess. Bloody drainage noted in closed VAC drainage system. patient tolerated procedures well. Note CT scan done on 2017 showing large mass developed over the last 4 days in the anterior left lobe of the liver measuring up to 9.6 cm containing multiple nodules likely a complex liver abscess Multiple gallstones without significant inflammatory changes. Severe colonic diverticulosis small bilateral pleural effusions with basilar atelectasis large loculated hydrocele or cystic testicular mass. 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 Patient will need follow-up with GI when he is able to leave the hospital for outpatient EGD to remove the polyps in the duodenum. Labs show last hemoglobin 10.9, bilirubin 1.1 which has mildly decreased AST 41 ALT 91 all showing decreased improvement. Alkaline phosphatase 124. Any elevation in WBC count may been related to steroids. (12/02) no changes today, Bloody drainage noted in closed VAC drainage system. LFTs stable 12/03/17, Up in room, Dr. Mckeon recommended repeat CT before pulling drain to eval size of abscess/hematoma site. Patient noted dark stool yesterday and today with BM. Could be stress ulcer related. Hemoccult stools X2 PLAN - Add Protonix 40 mg. Every 12 hrs. -Hemoccult stools X 2 , may need EGD once stable from abscess site. - CT ABD to evaluate abcess/hematoma site before pulling drain -Monitor VAC output , dressing site to be changed daily and as needed. - Reglan -Steroids -Encouraged EtOH abstinence and supportive care -Follow-up outpatient EGD for removal of duodenal polyps -Monitor labs with special attention to LFTs -Dulcolax daily as needed - Further recommendations based on clinical course and results of above Pt has been seen and examined by myself and Dr. Mckeon, note is written on his behalf Laurel Nelson December 03, 2017 13:55
[2017-12-03] MEDS: ENOXAPARIN SODIUM 40 MG/0.4 ML SYRINGE SQ SCH (17:47)
[2017-12-03] MEDS ORDERED: IOHEXOL 350 MG/ML 10 ML VIAL (for RAD DIAG) IVCONTRAST ONE (20:26)
--- NOTE | 2017-12-03 20:39 | RADRPT ---
EXAM DATE: 12/03/2017 8:26 PM EDT AGE/SEX: 77 years / Male INDICATIONS: Abdominal distention today. CLINICAL DATA: This is the patient's initial encounter. Patient reports that signs and symptoms have been present for 1 day and indicates a pain score of 5/10. MEDICAL/SURGICAL HISTORY: Carcinoma, testicular. Stroke. None. ORAL CONTRAST: Prescribed oral contrast ingested. RADIATION DOSE: 8.31 CTDI (mGy) COMPARISON: [facility] – [place], CT ABDOMEN & PELVIS W CONTRAST, 11/30/2017. . TECHNIQUE: Multiple contiguous axial images were obtained through the abdomen and pelvis following b olus infusion of 80 ml Omnipaque 350 (iohexol) nonionic water-soluble contrast as a single exam dos e. Prescribed oral contrast ingested. Using automated exposure control and adjustment of the mA and/ or kV according to patient size, the radiation dose was kept as low as reasonably achievable to obtai n optimal diagnostic quality images. FINDINGS: Lower Lungs: Bibasilar airspace disease with small effusions are noted. Liver: A large hypodense area remains within the left hepatic lobe measuring 9.3 x 4.2 cm in size. A drainage catheter was placed into this collection which yielded blood suggesting the presence of a he matoma. Size has decreased. 2 the predrainage film. Liver is otherwise stable. There is no evidence o f biliary duct dilatation. Spleen: Homogeneous density without enlargement. Pancreas: Unremarkable without mass or calcification. Kidneys: Normal in size and shape. No evidence of mass or hydronephrosis. Adrenal Glands: Unremarkable. Aorta: The aorta and proximal iliac vessels are grossly unremarkable without aneurysmal dilation. Bowel/Mesentery: Scattered fluid-filled loops of nondistended small bowel are noted. There is no bill dence of pathologic distention. Contrast is identified within the colon. Multiple diverticula are see n in the descending and sigmoid colon. There are no extra-axial fluid collections. There is no eviden ce of free air Abdominal Wall: Intact. Retroperitoneum: No evidence of adenopathy in the retrocrural, para-aortic, or deep pelvic regions. Bladder: Contours are smooth. Reproductive Organs: Large loculated hydrocele is again identified in the right scrotum. Inguinal: The inguinal region is unremarkable without evidence of adenopathy. Bony Structures: Unremarkable. CONCLUSION: 1. Decreased size of left hepatic lobe hematoma following drainage. 2. No evidence of free or loculated intraperitoneal fluid or free air. 3. Stable intestinal tract without evidence of pathologic distention or inflammatory changes. 4. Uncomplicated colonic diverticulosis. 5. Stable large right hemiscrotal hydrocele 6. Bibasilar airspace disease with small bilateral effusions. Electronically signed by: Caleb Valles MD 12/03/2017 8:37 PM EDT
[2017-12-03] MEDS: PANTOPRAZOLE SOD 40 MG DELAYED RELEASE TAB PO SCH (22:27)
[2017-12-04] VITALS (8 sets, daily range): BP systolic 133–174; BP diastolic 67–92; PULSE 59–68; RESP 17–20; TEMP 97.2–98.5; O2SAT 92–99
[2017-12-04] MEDS: cloNIDine HCL 0.1 MG TAB PO PRN (01:02)
[2017-12-04] MEDS: PIPERACIL-TAZO 4.5 GM PREMIX 100 ML IV SCH ×4 (03:40→20:51)
[2017-12-04] MEDS: METOCLOPRAMIDE HCL 10 MG/2 ML VIAL IV PUSH SCH ×3 (05:22→22:01)
[2017-12-04 07:22] LABS: AUTOMATED NEUTROPHIL # 11.1 TH/MM3 (1.8-7.7); BASOPHIL % 0.1 % (0.0-2.0); EOSINOPHIL % 0.2 % (0.0-4.0); HEMATOCRIT 41.8 % (39.0-51.0); HEMOGLOBIN 14.3 GM/DL (13.0-17.0); LYMPH % 10.3 % (9.0-44.0); LYMPHOCYTE # 1.5 TH/MM3 (1.0-4.8); MEAN CELL VOLUME 94.8 FL (80.0-100.0); MEAN CORPUSCULAR HEMOGLOBIN 32.4 PG (27.0-34.0); MEAN CORPUSCULAR HGB CONC 34.2 % (32.0-36.0); MEAN PLATELET VOLUME 6.8 FL (7.0-11.0); MONO % 11.3 % (0.0-8.0); MONOCYTE # 1.6 TH/MM3 (0-0.9); NEUT % 78.1 % (16.0-70.0); PLATELET COUNT 515 TH/MM3 (150-450); RED BLOOD COUNT 4.41 MIL/MM3 (4.50-5.90); RED CELL DISTRIBUTION WIDTH 13.9 % (11.6-17.2); WHITE BLOOD COUNT 14.2 TH/MM3 (4.0-11.0)
[2017-12-04 07:45] LABS: ALBUMIN 2.7 GM/DL (3.4-5.0); AST (GOT) 48 U/L (15-37); BLOOD UREA NITROGEN 13 MG/DL (7-18); CALCIUM 8.4 MG/DL (8.5-10.1); CHLORIDE 97 MEQ/L (98-107); CREATININE 0.81 MG/DL (0.60-1.30); GLOMERULAR FILTRATION RATE 92 ML/MIN (>89); GLUCOSE,RANDOM 82 MG/DL (74-106); SODIUM (NA) 136 MEQ/L (136-145)
[2017-12-04 07:46] LABS: ALT (GPT) 81 U/L (12-78)
[2017-12-04 07:48] LABS: ALKALINE PHOSPHATASE 85 U/L (45-117); TOTAL BILIRUBIN ADULT 0.7 MG/DL (0.2-1.0); TOTAL PROTEIN 6.1 GM/DL (6.4-8.2)
[2017-12-04] MEDS: SODIUM CHLORIDE 0.9% 10 ML VIAL IRRIGATION SCH ×2 (08:00→20:52)
[2017-12-04] MEDS ORDERED: predniSONE 20 MG TAB PO SCH (09:00)
[2017-12-04] MEDS: DOCUSATE SODIUM 50 MG/SENNA 8.6 MG TAB PO SCH ×2 (09:00→20:54)
[2017-12-04] MEDS: BISACODYL 10 MG SUPP RECTAL SCH (09:00)
[2017-12-04] MEDS: ASPIRIN EC 81 MG TABEC PO SCH (09:30)
[2017-12-04] MEDS: PANTOPRAZOLE SOD 40 MG DELAYED RELEASE TAB PO SCH ×2 (09:30→20:51)
[2017-12-04] MEDS: SODIUM CHLORIDE 0.9% FLUSH 10 ML FLUSH IV FLUSH SCH ×2 (09:31→20:51)
--- NOTE | 2017-12-04 11:54 | HHI.PR ---
Subjective Remarks The patient was resting by the window. He said that his breathing was good. He denied any acute pain. He was happy to hear the drain will be removed soon. Objective Vitals Vital Signs Date Time Temp Pulse Resp B/P (MAP) Pulse Ox O2 Delivery O2 Flow Rate FiO2 12/04/17 08:30 92 12/04/17 08:00 98.5 62 17 144/73 (96) 94 12/04/17 04:00 97.4 62 20 134/71 (92) 93 12/04/17 01:00 97.9 65 20 174/81 (112) 99 12/03/17 21:13 95 Nasal Cannula 3.00 12/03/17 20:00 97.7 74 22 185/84 (117) 93 12/03/17 16:00 97.7 77 17 159/75 (103) 95 12/03/17 14:34 93 21 12/03/17 12:00 97.6 73 17 159/80 (106) 94 I/O 12/03/17 12/03/17 12/03/17 12/04/17 12/04/17 12/04/17 07:00 15:00 23:00 07:00 15:00 23:00 Intake Total 590 ml 525 ml 960 ml 440 ml Output Total 810 ml 390 ml 50 ml Balance -220 ml 525 ml 570 ml 390 ml Intake Oral 240 ml 960 ml 240 ml IV Total 350 ml 525 ml 200 ml Output Urine Total 800 ml 350 ml Drainage Total 10 ml 40 ml 50 ml # Voids 1 2 2 # Bowel Movements 1 5 0 Result Diagram: 12/04/17 0653 12/04/17 0653 Imaging Last Impressions Abdomen/Pelvis CT 12/03/17 0000 Signed Impressions: CONCLUSION: 1. Decreased size of left hepatic lobe hematoma following drainage. 2. No evidence of free or loculated intraperitoneal fluid or free air. 3. Stable intestinal tract without evidence of pathologic distention or inflam matory changes. 4. Uncomplicated colonic diverticulosis. 5. Stable large right hemiscrotal hydrocele 6. Bibasilar airspace disease with small bilateral effusions. Abscess Drainage CT 12/01/17 0000 Signed Impressions: CONCLUSION: 1. Uncomplicated CT guided drainage. 2. Hepatic collection has the appearance of a hematoma which may be infected c onsidering the small bubbles a contains. Specimen sent for culture and sensitiv ity. 3. 12 Naur[place] catheter left in place. Chest X-Ray 11/30/17 Signed Impressions: CONCLUSION: 1. Linear opacities again noted in the left perihilar region and left lung bas e most characteristic of scarring. 2. The left costophrenic angle is mildly blunted consistent with a small effus ion. Abdomen X-Ray 11/29/17 Signed Impressions: CONCLUSION: Nonspecific, nonobstructive bowel gas pattern which may represent a mild ileus and/or gastroenteritis. Abdomen Ultrasound 11/29/17 Signed Impressions: CONCLUSION: 1. Cholelithiasis with a mildly thickened gallbladder wall. 2. Dilatation the common bile duct. On the prior CT examination, there was a f illing defect within the common bile duct. 3. Heterogeneity to the liver with increased echogenicity likely related to he patic steatosis. 4. 1.5 cm echogenic focus in the right lobe of the liver. This could represent an underlying lesion such as a hemangioma. This is not clearly seen on the rec ent CT examination. One could perform a MRI of the abdomen at some point to mor e fully evaluate the liver. This could be performed as an outpatient. Head CT 11/28/17 Signed Impressions: CONCLUSION: 1. No acute abnormality seen. 2. Age-related atrophy and suspected small vessel ischemic change in the white matter. 3. Old lacunar infarct. GI Procedure 11/28/17 Signed Impressions: CONCLUSION: Apparent ERCP stone extraction as detailed above. CBD is now clear. Hepatobiliary Scan Nuclear Medicine 11/26/17 Signed Impressions: Service Date/Time: Sunday, November 26, 2017 17:51 - CONCLUSION: 1. No activity seen in the gallbladder. Delayed imaging will be obtained to confirm cystic duct occlusion. 2. Significantly delayed biliary clearance with bowel activity noted at 90 minutes. This is consistent with partially obstructing distal CBD calculus as noted on CT exam. Nick Miramontes MD ADDENDUM: Delayed images were obtained. There is clear bowel activity on delayed imaging. There is also significant residual hepatic activity. This may be due to partial CBD obstruction or hepatocellular dysfunction. The gallbladder is again not visualized. This is concerning for cystic duct obstruction and cholecystitis in the appropriate clinical setting. Nick Miramontes MD Objective Remarks General: No distress. Heart: Regular rate and rhythm. No murmur. Lungs: CTAB. No W/R/R. Abdomen: Soft, mild tenderness in the epigastric area, distended. Drain in place with bloody drainage. Extremities: No lower extremity edema. Psych: Alert and oriented. Neuro: Normal speech. No focal deficits noted. : Significant scrotal enlargement Procedures None A/P Problem List: (1) Sepsis ICD Code: A41.9 - Sepsis, unspecified organism (2) Choledocholithiasis ICD Code: K80.50 - Calculus of bile duct without cholangitis or cholecystitis without obstruction Status: Acute (3) Alcohol dependence ICD Code: F10.20 - Alcohol dependence Status: Acute (4) Encephalopathy acute ICD Code: G93.40 - Encephalopathy, unspecified (5) Hypertension ICD Code: I10 - Hypertension Status: Acute (6) H/O: CVA (cerebrovascular accident) ICD Code: Z86.73 - Personal history of transient ischemic attack (TIA), and cerebral infarction without residual deficits Assessment and Plan Choledocholithiasis/ Liver abscess Abnormal HIDA scan and US noted. GI and surgical consults appreciated. S/p ERCP which revealed: Choledocholithiasis; Duodenal diverticulum; Duodenal polyps. CT 11/30: Over the last 4 days a large mass has developed in the anterior left lobe of the liver measuring up to 9.6 cm in diameter containing multiple locules of air likely a developing complex liver abscess; Multiple gallstones without significant inflammatory changes identified around the gallbladder. IR consulted for abscess drainage 12/01. Drain still in place. CT 12/03: Decreased size of left hepatic lobe hematoma following drainage; No evidence of free or loculated intraperitoneal fluid or free air; Stable intestinal tract without evidence of pathologic distention or inflammatory changes. Abscess culture with no growth, final. - continue IV Zosyn. Consider discharging on Cipro/ Flagyl. - follow up with GI. - trend LFTs. - consult IR for drain removal. - will need outpt follow-up with surgery to schedule cholecystectomy. Sepsis Source is UTI. Pseudomonas growing. - Continue IV Zosyn. Can change to Cipro upon discharge. Reactive airway disease No further wheezing on exam. - Oxygen and nebs as needed. Started standing nebs. - d/c prednisone. - continue antibiotics. - repeat CXR. - walk test. Leukocytosis Likely exacerbated by steroids. - monitor. Possible right testicular mass Imaging shows cystic mass on right. Evaluated by urology. No surgical intervention planned for hydrocele. Repeat CT: Large loculated hydrocele or cystic testicular mass in the right hemiscrotum measuring up to 13.6 cm in diameter. - Patient to follow-up with urology as outpt. Reconsult as needed. Alcohol abuse No evidence of withdrawal. - CIWA protocol, thiamine, folic acid. - cessation instruction. History of CVA Stable. - Continue aspirin. HTN Blood pressure has been elevated at times. - amlodipine 10 mg daily added. Improved. - Vasotec as needed. Hypokalemia S/t decreased PO intake. - replete and monitor. DVT prophylaxis: Lovenox. Discharge Planning Liver drain to be removed by IR. Await GI clearance. Repeat CXR pending. Will obtain a walk-test prior to d/c. Anticipate d/c with [facility] in 1-2 days Problem Qualifiers (1) Alcohol dependence: Qualified Codes: F10.29 - Alcohol dependence with unspecified alcohol-induced disorder Rj Hilton DO December 04, 2017 11:54
--- NOTE | 2017-12-04 14:39 | RADRPT ---
EXAM DATE: 12/04/2017 2:34 PM EDT AGE/SEX: 77 years / Male INDICATIONS: Dyspnea. CLINICAL DATA: This is the patient's subsequent encounter. Patient reports that signs and symptoms h ave been present for 3 days and indicates a pain score of 0/10. MEDICAL/SURGICAL HISTORY: . Patient states no cardiac history. . None. COMPARISON: [facility] – [place] CHEST SINGLE AP, 11/30/2017. . FINDINGS: A single AP view of the chest demonstrates the minimal bibasilar densities, greater right lower lobe. Heart normal in size. Diminished lung volumes. The cardiomediastinal contours are unremarkable. Oss eous structures are intact. CONCLUSION: Minimal bibasilar densities greater right lower lobe could be atelectasis or infiltrate. Electronically signed by: Medardo Chun MD 12/04/2017 2:37 PM EDT
--- NOTE | 2017-12-04 15:55 | HHI.GIFU ---
Subjective Remarks Pt in bedside chair He is anxious about having drain removed tomorrow Tolerating full liquid diet Pt reports dark liquid stool Denies abdominal pain, nausea, vomiting (Марина Ochoa) Objective Vitals I&O Vital Signs Date Time Temp Pulse Resp B/P (MAP) Pulse Ox O2 Delivery O2 Flow Rate FiO2 12/04/17 12:35 2.00 12/04/17 12:00 98.1 59 17 134/74 (94) 93 12/04/17 08:30 92 12/04/17 08:00 98.5 62 17 144/73 (96) 94 12/04/17 04:00 97.4 62 20 134/71 (92) 93 12/04/17 01:00 97.9 65 20 174/81 (112) 99 12/03/17 21:13 95 Nasal Cannula 3.00 12/03/17 20:00 97.7 74 22 185/84 (117) 93 12/03/17 16:00 97.7 77 17 159/75 (103) 95 I/O 12/03/17 12/03/17 12/03/17 12/04/17 12/04/17 12/04/17 07:00 15:00 23:00 07:00 15:00 23:00 Intake Total 590 ml 525 ml 960 ml 440 ml Output Total 810 ml 390 ml 50 ml Balance -220 ml 525 ml 570 ml 390 ml Intake Oral 240 ml 960 ml 240 ml IV Total 350 ml 525 ml 200 ml Output Urine Total 800 ml 350 ml Drainage Total 10 ml 40 ml 50 ml # Voids 1 2 2 # Bowel Movements 1 5 0 Laboratory Laboratory Tests Test 12/04/17 06:53 White Blood Count 14.2 Red Blood Count 4.41 Hemoglobin 14.3 Hematocrit 41.8 Mean Corpuscular Volume 94.8 Mean Corpuscular Hemoglobin 32.4 Mean Corpuscular Hemoglobin Concent 34.2 Red Cell Distribution Width 13.9 Platelet Count 515 Mean Platelet Volume 6.8 Neutrophils (%) (Auto) 78.1 Lymphocytes (%) (Auto) 10.3 Monocytes (%) (Auto) 11.3 Eosinophils (%) (Auto) 0.2 Basophils (%) (Auto) 0.1 Neutrophils # (Auto) 11.1 Lymphocytes # (Auto) 1.5 Monocytes # (Auto) 1.6 Eosinophils # (Auto) 0.0 Basophils # (Auto) 0.0 CBC Comment DIFF FINAL Differential Comment Blood Urea Nitrogen 13 Creatinine 0.81 Random Glucose 82 Total Protein 6.1 Albumin 2.7 Calcium Level 8.4 Alkaline Phosphatase 85 Aspartate Amino Transf (AST/SGOT) 48 Alanine Aminotransferase (ALT/SGPT) 81 Total Bilirubin 0.7 Sodium Level 136 Potassium Level 3.8 Chloride Level 97 Carbon Dioxide Level 34.0 Anion Gap 5 Estimat Glomerular Filtration Rate 92 Date/Time Source Procedure Growth Status 11/27/17 07:00 Blood Peripheral Aerobic Blood Culture - Final NO GROWTH IN 5 DAYS Complete 11/27/17 07:00 Blood Peripheral Anaerobic Blood Culture - Final NO GROWTH IN 5 DAYS Complete 12/01/17 14:40 Fluid Other Gram Stain - Final Complete 12/01/17 14:40 Fluid Other Body Fluid Culture - Final NO GROWTH IN 72 HRS.--AEROBICALLY OR ... Complete 12/03/17 15:13 Stool Stool Stool Occult Blood (CANDICE) - Final HEMOCCULT POSITIVE Complete 11/26/17 13:37 Urine Catheterized Urine Urine Culture - Final Pseudomonas Aeruginosa Complete Imaging Last Impressions Chest X-Ray 12/04/17 0000 Signed Impressions: CONCLUSION: Minimal bibasilar densities greater right lower lobe could be atelectasis or in filtrate. Abdomen/Pelvis CT 12/03/17 Signed Impressions: CONCLUSION: 1. Decreased size of left hepatic lobe hematoma following drainage. 2. No evidence of free or loculated intraperitoneal fluid or free air. 3. Stable intestinal tract without evidence of pathologic distention or inflam matory changes. 4. Uncomplicated colonic diverticulosis. 5. Stable large right hemiscrotal hydrocele 6. Bibasilar airspace disease with small bilateral effusions. Abscess Drainage CT 12/01/17 0000 Signed Impressions: CONCLUSION: 1. Uncomplicated CT guided drainage. 2. Hepatic collection has the appearance of a hematoma which may be infected c onsidering the small bubbles a contains. Specimen sent for culture and sensitiv ity. 3. 12 [place] catheter left in place. Abdomen X-Ray 11/29/17 Signed Impressions: CONCLUSION: Nonspecific, nonobstructive bowel gas pattern which may represent a mild ileus and/or gastroenteritis. Abdomen Ultrasound 11/29/17 Signed Impressions: CONCLUSION: 1. Cholelithiasis with a mildly thickened gallbladder wall. 2. Dilatation the common bile duct. On the prior CT examination, there was a f illing defect within the common bile duct. 3. Heterogeneity to the liver with increased echogenicity likely related to he patic steatosis. 4. 1.5 cm echogenic focus in the right lobe of the liver. This could represent an underlying lesion such as a hemangioma. This is not clearly seen on the rec ent CT examination. One could perform a MRI of the abdomen at some point to mor e fully evaluate the liver. This could be performed as an outpatient. Head CT 11/28/17 Signed Impressions: CONCLUSION: 1. No acute abnormality seen. 2. Age-related atrophy and suspected small vessel ischemic change in the white matter. 3. Old lacunar infarct. GI Procedure 11/28/17 Signed Impressions: CONCLUSION: Apparent ERCP stone extraction as detailed above. CBD is now clear. Hepatobiliary Scan Nuclear Medicine 11/26/17 Signed Impressions: Service Date/Time: Sunday, November 26, 2017 17:51 - CONCLUSION: 1. No activity seen in the gallbladder. Delayed imaging will be obtained to confirm cystic duct occlusion. 2. Significantly delayed biliary clearance with bowel activity noted at 90 minutes. This is consistent with partially obstructing distal CBD calculus as noted on CT exam. Nick Miramontes MD ADDENDUM: Delayed images were obtained. There is clear bowel activity on delayed imaging. There is also significant residual hepatic activity. This may be due to partial CBD obstruction or hepatocellular dysfunction. The gallbladder is again not visualized. This is concerning for cystic duct obstruction and cholecystitis in the appropriate clinical setting. 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 There is also a focus of air in the gallbladder. Gallbladder does not appear inflamed on CT exam. HIDA scan (11/26) No activity seen in the gallbladder. Significantly delayed biliary clearance with bowel activity noted at 90 minutes. Consistent with partially obstructing distal CBD calculus. Delayed images obtained, clear bowel activity on delayed imaging, also significant residual hepatic activity, may be due to CBD obstruction vs hepatocellular dysfunction. The gallbladder again not visualized, concerning for cystic duct obstruction and cholecystitis in appropriate setting. ERCP (11/28) --> Choledocholithiasis, S/P sphincterotomy and balloon extraction 3 sones, cholangiogram revealed total clearance of filling defects and intrahepatics were unremarkable. Duodenal diverticulum. Duodenal polyps. Pathology (Duodenum) tubulovillous adenoma. GS consult noted HIDA scan findings unreliable in pt with liver dysfunction, they have ordered US gallbladder to further evaluate, not ed pt is not a good surgical candidate at this time - ETOH abuse- reports 3 beers a day- on CIWA protocol - Sepsis- Pt on Zosyn - Encephalopathy - noted to be secondary to sepsis- ammonia < 10 CT assisted abscess drain for liver abscess with Accordion drain placement done on 12/01 Indication "Over the last 4 days a large mass is developed in the anterior left lobe of the liver measuring up to 9.6 cm in diameter containing multiple locules of air likely a developing complex liver abscess" seen on CT on 11/[address] done yesterday revealed decreased size of left hepatic lobe hematoma following drainage (12/04) Hemoccult positive stool, H/H has remained stable. Dark liquid stool reported by patient. Previous EGD on 11/28 as noted above. He reports increase in diarrhea. Will order stool studies for C. Diff LFTs trending down. IR has been reconsulted to removed drain tomorrow. PLAN - IR for drain removal - Monitor H/H - Protonix - Stool cultures - Further recommendations based on clinical course Pt has been seen and examined by myself and Dr. Rodriguez and this note is written on his behalf (Марина Ochoa) Physician Comments Seen and examined with JOSE, IR to remove abscess drain tomorrow. Cholecystectomy as outpt. in [place]. (Singh Rodriguez MD) Марина Ochoa December 04, 2017 15:55 Singh Rodriguez MD December 04, 2017 16:48
[2017-12-04] MEDS: ENOXAPARIN SODIUM 40 MG/0.4 ML SYRINGE SQ SCH (17:44)
[2017-12-04] MEDS: RESP: ALBUTEROL 2.5 MG/IPRATROPIUM 0.5 MG NEB (SCH) NEB (19:56)
[2017-12-05] VITALS: BP 120/87; PULSE 62; RESP 17; TEMP 97; O2SAT 97
[2017-12-05] MEDS: PIPERACIL-TAZO 4.5 GM PREMIX 100 ML IV SCH ×4 (03:08→21:22)
[2017-12-05] MEDS: ACETAMINOPHEN/HYDROcodone 325 MG/5 MG TAB PO PRN (04:20)
[2017-12-05] MEDS: METOCLOPRAMIDE HCL 10 MG/2 ML VIAL IV PUSH SCH ×3 (04:28→21:22)
[2017-12-05 07:21] LABS: AUTOMATED NEUTROPHIL # 12.1 TH/MM3 (1.8-7.7); BASOPHIL % 0.1 % (0.0-2.0); EOSINOPHIL # 0.1 TH/MM3 (0-0.4); EOSINOPHIL % 0.4 % (0.0-4.0); HEMATOCRIT 44.1 % (39.0-51.0); LYMPH % 8.1 % (9.0-44.0); LYMPHOCYTE # 1.2 TH/MM3 (1.0-4.8); MEAN CELL VOLUME 94.6 FL (80.0-100.0); MEAN CORPUSCULAR HEMOGLOBIN 32.1 PG (27.0-34.0); MEAN CORPUSCULAR HGB CONC 33.9 % (32.0-36.0); MEAN PLATELET VOLUME 7.1 FL (7.0-11.0); MONO % 10.2 % (0.0-8.0); MONOCYTE # 1.5 TH/MM3 (0-0.9); NEUT % 81.2 % (16.0-70.0); PLATELET COUNT 515 TH/MM3 (150-450); RED BLOOD COUNT 4.67 MIL/MM3 (4.50-5.90); RED CELL DISTRIBUTION WIDTH 13.5 % (11.6-17.2)
[2017-12-05 08:00] VITALS: BP 133/71; PULSE 62; RESP 17; TEMP 97.3; O2SAT 94
[2017-12-05] MEDS: SODIUM CHLORIDE 0.9% 10 ML VIAL IRRIGATION SCH ×2 (08:00→20:00)
--- NOTE | 2017-12-05 08:44 | HHI.GIFU ---
Subjective Remarks Pt in bedside chair States no BMs yet today Denies abdominal pain Anxious to have his drain removed today States he is planning on going back to [place] as soon as he can Discussed Hemoccult positive stool findings, he states will wait and have a colonoscopy in [place] (Марина Ochoa) Objective Vitals I&O Vital Signs Date Time Temp Pulse Resp B/P (MAP) Pulse Ox O2 Delivery O2 Flow Rate FiO2 12/05/17 04:50 2.00 12/05/17 00:00 97.0 62 17 120/87 (98) 97 12/04/17 20:00 97.8 68 17 138/92 (107) 96 12/04/17 19:56 92 Nasal Cannula 2.00 12/04/17 16:00 97.2 61 17 133/67 (89) 92 12/04/17 12:35 2.00 12/04/17 12:00 98.1 59 17 134/74 (94) 93 I/O 12/04/17 12/04/17 12/04/17 12/05/17 12/05/17 12/05/17 07:00 15:00 23:00 07:00 15:00 23:00 Intake Total 440 ml 100 ml 1160 ml 100 ml Output Total 50 ml 75 ml 1350 ml Balance 390 ml 100 ml 1085 ml -1250 ml Intake Oral 240 ml 960 ml 0 ml IV Total 200 ml 100 ml 200 ml 100 ml Output Urine Total 1350 ml Drainage Total 50 ml 75 ml # Voids 2 5 # Bowel Movements 0 5 Laboratory Laboratory Tests Test 12/04/17 15:45 12/05/17 05:49 Stool C. difficile Toxin (PCR) NEGATIVE Stl C. difficile Toxin Epiderm 027 PRESUMPTIVE NEGATIVE White Blood Count 15.0 Red Blood Count 4.67 Hemoglobin 15.0 Hematocrit 44.1 Mean Corpuscular Volume 94.6 Mean Corpuscular Hemoglobin 32.1 Mean Corpuscular Hemoglobin Concent 33.9 Red Cell Distribution Width 13.5 Platelet Count 515 Mean Platelet Volume 7.1 Neutrophils (%) (Auto) 81.2 Lymphocytes (%) (Auto) 8.1 Monocytes (%) (Auto) 10.2 Eosinophils (%) (Auto) 0.4 Basophils (%) (Auto) 0.1 Neutrophils # (Auto) 12.1 Lymphocytes # (Auto) 1.2 Monocytes # (Auto) 1.5 Eosinophils # (Auto) 0.1 Basophils # (Auto) 0.0 CBC Comment DIFF FINAL Differential Comment Date/Time Source Procedure Growth Status 11/27/17 07:00 Blood Peripheral Aerobic Blood Culture - Final NO GROWTH IN 5 DAYS Complete 11/27/17 07:00 Blood Peripheral Anaerobic Blood Culture - Final NO GROWTH IN 5 DAYS Complete 12/01/17 14:40 Fluid Other Gram Stain - Final Complete 12/01/17 14:40 Fluid Other Body Fluid Culture - Final NO GROWTH IN 72 HRS.--AEROBICALLY OR ... Complete 12/04/17 15:45 Stool Stool Stool Occult Blood (CANDICE) - Final HEMOCCULT POSITIVE Complete 11/26/17 13:37 Urine Catheterized Urine Urine Culture - Final Pseudomonas Aeruginosa Complete Imaging Last Impressions Chest X-Ray 12/04/17 0000 Signed Impressions: CONCLUSION: Minimal bibasilar densities greater right lower lobe could be atelectasis or in filtrate. Abdomen/Pelvis CT 12/03/17 0000 Signed Impressions: CONCLUSION: 1. Decreased size of left hepatic lobe hematoma following drainage. 2. No evidence of free or loculated intraperitoneal fluid or free air. 3. Stable intestinal tract without evidence of pathologic distention or inflam matory changes. 4. Uncomplicated colonic diverticulosis. 5. Stable large right hemiscrotal hydrocele 6. Bibasilar airspace disease with small bilateral effusions. Abscess Drainage CT 12/01/17 0000 Signed Impressions: CONCLUSION: 1. Uncomplicated CT guided drainage. 2. Hepatic collection has the appearance of a hematoma which may be infected c onsidering the small bubbles a contains. Specimen sent for culture and sensitiv ity. 3. 12 Yi catheter left in place. Abdomen X-Ray 11/29/17 0000 Signed Impressions: CONCLUSION: Nonspecific, nonobstructive bowel gas pattern which may represent a mild ileus and/or gastroenteritis. Abdomen Ultrasound 11/29/17 Signed Impressions: CONCLUSION: 1. Cholelithiasis with a mildly thickened gallbladder wall. 2. Dilatation the common bile duct. On the prior CT examination, there was a f illing defect within the common bile duct. 3. Heterogeneity to the liver with increased echogenicity likely related to he patic steatosis. 4. 1.5 cm echogenic focus in the right lobe of the liver. This could represent an underlying lesion such as a hemangioma. This is not clearly seen on the rec ent CT examination. One could perform a MRI of the abdomen at some point to mor e fully evaluate the liver. This could be performed as an outpatient. Head CT 11/28/17 Signed Impressions: CONCLUSION: 1. No acute abnormality seen. 2. Age-related atrophy and suspected small vessel ischemic change in the white matter. 3. Old lacunar infarct. GI Procedure 11/28/17 Signed Impressions: CONCLUSION: Apparent ERCP stone extraction as detailed above. CBD is now clear. Hepatobiliary Scan Nuclear Medicine 11/26/17 Signed Impressions: Service Date/Time: Sunday, November 26, 2017 17:51 - CONCLUSION: 1. No activity seen in the gallbladder. Delayed imaging will be obtained to confirm cystic duct occlusion. 2. Significantly delayed biliary clearance with bowel activity noted at 90 minutes. This is consistent with partially obstructing distal CBD calculus as noted on CT exam. Nick Miramontes MD ADDENDUM: Delayed images were obtained. There is clear bowel activity on delayed imaging. There is also significant residual hepatic activity. This may be due to partial CBD obstruction or hepatocellular dysfunction. The gallbladder is again not visualized. This is concerning for cystic duct obstruction and cholecystitis in the appropriate clinical setting. 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 There is also a focus of air in the gallbladder. Gallbladder does not appear inflamed on CT exam. HIDA scan (11/26) No activity seen in the gallbladder. Significantly delayed biliary clearance with bowel activity noted at 90 minutes. Consistent with partially obstructing distal CBD calculus. Delayed images obtained, clear bowel activity on delayed imaging, also significant residual hepatic activity, may be due to CBD obstruction vs hepatocellular dysfunction. The gallbladder again not visualized, concerning for cystic duct obstruction and cholecystitis in appropriate setting. ERCP (11/28) --> Choledocholithiasis, S/P sphincterotomy and balloon extraction 3 sones, cholangiogram revealed total clearance of filling defects and intrahepatics were unremarkable. Duodenal diverticulum. Duodenal polyps. Pathology (Duodenum) tubulovillous adenoma. GS consult noted HIDA scan findings unreliable in pt with liver dysfunction, they have ordered US gallbladder to further evaluate, not ed pt is not a good surgical candidate at this time - ETOH abuse- reports 3 beers a day- on CIWA protocol - Sepsis- Pt on Zosyn - Encephalopathy - noted to be secondary to sepsis- ammonia < 10 CT assisted abscess drain for liver abscess with Accordion drain placement done on 12/01 Indication "Over the last 4 days a large mass is developed in the anterior left lobe of the liver measuring up to 9.6 cm in diameter containing multiple locules of air likely a developing complex liver abscess" seen on CT on 11/[address] done yesterday revealed decreased size of left hepatic lobe hematoma following drainage (12/04) Hemoccult positive stool, H/H has remained stable. Dark liquid stool reported by patient. Previous EGD on 11/28 as noted above. He reports increase in diarrhea. Will order stool studies for C. Diff LFTs trending down. IR has been reconsulted to removed drain tomorrow. (12/05) Pt reports diarrhea has been slowing down, has not had a BM yet today. C. Diff negative. Discussed the Hemoccult positive stool findings, H/H have remained WNL. He would like to wait to have a colonoscopy when he gets back to [place]. Does think he had one in the past, unsure of findings. Planned to have drain removed by IR today. PLAN - IR for drain removal today - Monitor H/H - Protonix - ETOH cessation - Pt declining further work up of Hemoccult positive stool - GI will sign off, please reconsult as needed - Follow up with GI in [place] as well as GS for cholecystectomy Pt has been seen and examined by myself and Dr. Rodriguez and this note is written on his behalf (Марина Ochoa) Physician Comments Seen and examined with [employer], doing well. Drain to be removed today. Wants to have further mancera in [place]. Needs egd/colonoscopy and cholecystectomy. Gi will sign off. Thank you (Singh Rodriguez MD) Марина Ochoa December 05, 2017 08:44 Singh Rodriguez MD December 05, 2017 12:00
[2017-12-05] MEDS: DOCUSATE SODIUM 50 MG/SENNA 8.6 MG TAB PO SCH ×2 (09:00→21:00)
[2017-12-05] MEDS: BISACODYL 10 MG SUPP RECTAL SCH (09:00)
[2017-12-05] MEDS: ASPIRIN EC 81 MG TABEC PO SCH (09:14)
[2017-12-05] MEDS: PANTOPRAZOLE SOD 40 MG DELAYED RELEASE TAB PO SCH ×2 (09:14→21:22)
[2017-12-05] MEDS: SODIUM CHLORIDE 0.9% FLUSH 10 ML FLUSH IV FLUSH SCH ×2 (09:15→21:22)
[2017-12-05 10:55] VITALS: O2SAT 93
[2017-12-05 12:00] VITALS: BP 111/58; PULSE 63; RESP 17; TEMP 97.7; O2SAT 95
--- NOTE | 2017-12-05 12:46 | RADRPT ---
EXAM DATE: 12/05/2017 11:18 AM EDT AGE/SEX: 77 years / Male INDICATIONS: Removal of liver abscess drain CLINICAL DATA: This is the patient's encounter. Patient reports that signs and symptoms have been pr esent for and indicates a pain score of . MEDICAL/SURGICAL HISTORY: The patient is a 77-year-old who underwent CT-guided drainage of abdominal fluid collection. This returned old blood. Cultures were negative. COMPARISON: [facility] [place] ABDOMEN & PELVIS W CONTRAST, 12/03/2017. . PROCEDURE: 1. Abdominal drain removal. Using aseptic technique the previously placed abdominal drain was easily removed in one piece and ga uze and sterile dressing was applied. CONCLUSION: 1. Uncomplicated abdominal drain removal. Electronically signed by: Scott Dietz MD 12/05/2017 12:44 PM EDT
[2017-12-05 16:00] VITALS: BP 119/58; PULSE 59; RESP 17; TEMP 97.7; O2SAT 94
[2017-12-05] MEDS: ENOXAPARIN SODIUM 40 MG/0.4 ML SYRINGE SQ SCH (16:38)
--- NOTE | 2017-12-05 18:53 | HHI.PR ---
Subjective Remarks The patient denies abdominal pain, nausea, vomiting. States has had diarrhea. Objective Vitals Vital Signs Date Time Temp Pulse Resp B/P (MAP) Pulse Ox O2 Delivery O2 Flow Rate FiO2 12/05/17 16:00 97.7 59 17 119/58 (78) 94 12/05/17 12:00 97.7 63 17 111/58 (75) 95 12/05/17 10:55 93 21 12/05/17 08:00 97.3 62 17 133/71 (91) 94 12/05/17 04:50 2.00 12/05/17 00:00 97.0 62 17 120/87 (98) 97 12/04/17 20:00 97.8 68 17 138/92 (107) 96 12/04/17 19:56 92 Nasal Cannula 2.00 I/O 12/04/17 12/04/17 12/04/17 12/05/17 12/05/17 12/05/17 07:00 15:00 23:00 07:00 15:00 23:00 Intake Total 440 ml 100 ml 1160 ml 100 ml 1160 ml Output Total 50 ml 75 ml 1350 ml 45 ml 900 ml Balance 390 ml 100 ml 1085 ml -1250 ml -45 ml 260 ml Intake Oral 240 ml 960 ml 0 ml 960 ml IV Total 200 ml 100 ml 200 ml 100 ml 200 ml Output Urine Total 1350 ml 900 ml Drainage Total 50 ml 75 ml 45 ml # Voids 2 5 # Bowel Movements 0 5 0 Result Diagram: 12/05/17 0549 12/04/17 0653 Imaging Last Impressions Tube Removal 12/05/17 0000 Signed Impressions: CONCLUSION: 1. Uncomplicated abdominal drain removal. Chest X-Ray 12/04/17 0000 Signed Impressions: CONCLUSION: Minimal bibasilar densities greater right lower lobe could be atelectasis or in filtrate. Abdomen/Pelvis CT 12/03/17 0000 Signed Impressions: CONCLUSION: 1. Decreased size of left hepatic lobe hematoma following drainage. 2. No evidence of free or loculated intraperitoneal fluid or free air. 3. Stable intestinal tract without evidence of pathologic distention or inflam matory changes. 4. Uncomplicated colonic diverticulosis. 5. Stable large right hemiscrotal hydrocele 6. Bibasilar airspace disease with small bilateral effusions. Abscess Drainage CT 5/25/18 0000 Signed Impressions: CONCLUSION: 1. Uncomplicated CT guided drainage. 2. Hepatic collection has the appearance of a hematoma which may be infected c onsidering the small bubbles a contains. Specimen sent for culture and sensitiv ity. 3. [address] catheter [address] Abdomen X-Ray 11/29/17 Signed Impressions: CONCLUSION: Nonspecific, nonobstructive bowel gas pattern which may represent a mild ileus and/or gastroenteritis. Abdomen Ultrasound 11/29/17 Signed Impressions: CONCLUSION: 1. Cholelithiasis with a mildly thickened gallbladder wall. 2. Dilatation the common bile duct. On the prior CT examination, there was a f illing defect within the common bile duct. 3. Heterogeneity to the liver with increased echogenicity likely related to he patic steatosis. 4. 1.5 cm echogenic focus in the right lobe of the liver. This could represent an underlying lesion such as a hemangioma. This is not clearly seen on the rec ent CT examination. One could perform a MRI of the abdomen at some point to mor e fully evaluate the liver. This could be performed as an outpatient. Head CT 11/28/17 Signed Impressions: CONCLUSION: 1. No acute abnormality seen. 2. Age-related atrophy and suspected small vessel ischemic change in the white matter. 3. Old lacunar infarct. GI Procedure 11/28/17 Signed Impressions: CONCLUSION: Apparent ERCP stone extraction as detailed above. CBD is now clear. Hepatobiliary Scan Nuclear Medicine 11/26/17 Signed Impressions: Service Date/Time: Sunday, November 26, 2017 17:51 - CONCLUSION: 1. No activity seen in the gallbladder. Delayed imaging will be obtained to confirm cystic duct occlusion. 2. Significantly delayed biliary clearance with bowel activity noted at 90 minutes. This is consistent with partially obstructing distal CBD calculus as noted on CT exam. Nick Miramontes MD ADDENDUM: Delayed images were obtained. There is clear bowel activity on delayed imaging. There is also significant residual hepatic activity. This may be due to partial CBD obstruction or hepatocellular dysfunction. The gallbladder is again not visualized. This is concerning for cystic duct obstruction and cholecystitis in the appropriate clinical setting. Nick Miramontes MD Objective Remarks General: No distress. Heart: Regular rate and rhythm. No murmur. Lungs: CTAB. No W/R/R. Abdomen: Soft, mild tenderness in the epigastric area, distended. Drain in place with bloody drainage. Extremities: No lower extremity edema. Psych: Alert and oriented. Neuro: Normal speech. No focal deficits noted. : Significant scrotal enlargement Procedures None Medications and IVs Current Medications Medications (Trade) Dose Ordered Sig/Suzette Route Start Time Stop Time Status Last Admin (NS Flush) 2 ml UNSCH PRN IV FLUSH 11/26/17 17:30 12/05/17 03:08 (NS Flush) 2 ml BID IV FLUSH 11/26/17 21:00 12/05/17 09:15 (Tylenol) 650 mg Q4H PRN PO 11/26/17 17:30 (Lovenox Inj) 40 mg Q24H SQ 11/26/17 18:00 12/04/17 17:44 (Narcan Inj) 0.4 mg UNSCH PRN IV PUSH 11/26/17 17:30 (Adele-Colace) 1 tab BID PO 11/26/17 21:00 12/03/17 22:27 (Milk Of Magnesia Liq) 30 ml Q12H PRN PO 11/26/17 17:30 (Senokot) 17.2 mg Q12H PRN PO 11/26/17 17:30 (Dulcolax Supp) 10 mg DAILY PRN RECTAL 11/26/17 17:30 (Lactulose Liq) 30 ml DAILY PRN PO 11/26/17 17:30 12/01/17 16:16 (Ecotrin Ec) 81 mg DAILY PO 11/27/17 09:00 12/05/17 09:14 (Vasotec Inj) 1.25 mg Q6H PRN IV PUSH 11/28/17 12:30 11/29/17 21:12 (Ross 5-325 Mg) 1 tab Q6HR PRN PO 11/28/17 23:45 12/05/17 04:20 (Reglan Inj) 5 mg Q8HR IV PUSH 11/29/17 14:00 12/05/17 13:51 (Catapres) 0.1 mg Q6H PRN PO 11/29/17 21:30 12/04/17 01:02 (Atrovent Neb) 0.5 mg Q2HR NEB PRN NEB 11/29/17 21:30 11/30/17 08:31 (Dulcolax Supp) 10 mg DAILY RECTAL 11/30/17 14:45 12/01/17 08:15 (Duoneb Neb) 1 ampule Q2HR NEB PRN NEB 11/30/17 17:30 Piperacillin Sod/ Tazobactam Sod 100 ml @ 200 mls/hr Q6H IV 11/30/17 20:00 12/05/17 13:51 (Norvasc) 10 mg DAILY PO 12/01/17 09:00 12/05/17 09:14 (NS Inj) 10 ml BID@0800,2000 IRRIGATION 12/01/17 20:00 12/05/17 08:00 (Protonix) 40 mg Q12HR PO 12/03/17 21:00 12/05/17 09:14 A/P Problem List: (1) Sepsis ICD Code: A41.9 - Sepsis, unspecified organism (2) Choledocholithiasis ICD Code: K80.50 - Calculus of bile duct without cholangitis or cholecystitis without obstruction Status: Acute (3) Alcohol dependence ICD Code: F10.20 - Alcohol dependence Status: Acute (4) Encephalopathy acute ICD Code: G93.40 - Encephalopathy, unspecified (5) Hypertension ICD Code: I10 - Hypertension Status: Acute (6) H/O: CVA (cerebrovascular accident) ICD Code: Z86.73 - Personal history of transient ischemic attack (TIA), and cerebral infarction without residual deficits Assessment and Plan Choledocholithiasis/ Liver abscess Abnormal HIDA scan and US noted. GI and surgical consults appreciated. S/p ERCP which revealed: Choledocholithiasis; Duodenal diverticulum; Duodenal polyps. CT 11/30: Over the last 4 days a large mass has developed in the anterior left lobe of the liver measuring up to 9.6 cm in diameter containing multiple locules of air likely a developing complex liver abscess; Multiple gallstones without significant inflammatory changes identified around the gallbladder. IR consulted for abscess drainage 12/01. Drain still in place. CT 12/03: Decreased size of left hepatic lobe hematoma following drainage; No evidence of free or loculated intraperitoneal fluid or free air; Stable intestinal tract without evidence of pathologic distention or inflammatory changes. Abscess culture with no growth, final. - continue IV Zosyn. Consider discharging on Cipro/ Flagyl. - follow up with GI. - trend LFTs. - will need outpt follow-up with surgery to schedule cholecystectomy. 12/05 status post drain removal by IR. Sepsis Source is UTI. Pseudomonas growing. - Continue IV Zosyn. Can change to Cipro upon discharge. Reactive airway disease No further wheezing on exam. - Oxygen and nebs as needed. Started standing nebs. - d/c prednisone. - continue antibiotics. - repeat CXR. - walk test. Leukocytosis Likely due to steroid use. The patient was administered methylprednisolone on on 12/03. Continue to monitor CBC. Possible right testicular mass Imaging shows cystic mass on right. Evaluated by urology. No surgical intervention planned for hydrocele. Repeat CT: Large loculated hydrocele or cystic testicular mass in the right hemiscrotum measuring up to 13.6 cm in diameter. - Patient to follow-up with urology as outpt. Reconsult as needed. Alcohol abuse No evidence of withdrawal. - CIWA protocol, thiamine, folic acid. - cessation instruction. History of CVA Stable. - Continue aspirin. HTN Blood pressure has been elevated at times. - amlodipine 10 mg daily added. Improved. - Vasotec as needed. Hypokalemia S/t decreased PO intake. - replete and monitor. DVT prophylaxis: Lovenox. Discharge Planning Discharge in a.m. Problem Qualifiers (1) Alcohol dependence: Qualified Codes: F10.29 - Alcohol dependence with unspecified alcohol-induced disorder Montrell Robledo MD December 05, 2017 18:53
[2017-12-05] MEDS ORDERED: OXYGENDME NAS.CANULA (18:56)
--- NOTE | 2017-12-05 18:57 | HHI.FF ---
Face to Face Verification Diagnosis: (1) Reactive airway disease (2) Liver abscess (3) H/O: CVA (cerebrovascular accident) (4) Encephalopathy acute (5) Hypertension (6) Sepsis (7) Alcohol dependence (8) Altered mental status (9) Choledocholithiasis (10) Mild diastolic dysfunction Physical Therapy Order: Improve ambulation, Strength and gait training Home Health Nursing Order: Oxygen administration education Nursing assessment with vital signs I have seen patient Remy Chi on 12/05/17. My clinical findings support the need for the requested home health care services because: Patient has SOB Need for psychosocial assistance I certify that my clinical findings support that this patient is homebound because: Unsafe to leave home unassisted Unable to use public transportation Montrell Robledo MD December 05, 2017 18:57
[2017-12-05] MEDS ORDERED: FUROSEMIDE 40 MG TAB PO ONE (19:30)
[2017-12-05 20:00] VITALS: BP 111/63; PULSE 67; RESP 18; TEMP 97.6; O2SAT 94
[2017-12-06] VITALS (12 sets, daily range): BP systolic 66–109; BP diastolic 45–63; PULSE 62–102; RESP 16–26; TEMP 97.2–98.7; O2SAT 93–100
[2017-12-06] MEDS: PIPERACIL-TAZO 4.5 GM PREMIX 100 ML IV SCH ×4 (01:11→20:00)
[2017-12-06] MEDS: METOCLOPRAMIDE HCL 10 MG/2 ML VIAL IV PUSH SCH (05:31)
[2017-12-06 07:20] LABS: BASOPHIL % 0.1 % (0.0-2.0); EOSINOPHIL # 0.2 TH/MM3 (0-0.4); EOSINOPHIL % 1.4 % (0.0-4.0); HEMOGLOBIN 14.2 GM/DL (13.0-17.0); LYMPH % 7.2 % (9.0-44.0); LYMPHOCYTE # 1.1 TH/MM3 (1.0-4.8); MEAN CELL VOLUME 94.3 FL (80.0-100.0); MEAN CORPUSCULAR HEMOGLOBIN 31.9 PG (27.0-34.0); MEAN CORPUSCULAR HGB CONC 33.9 % (32.0-36.0); MEAN PLATELET VOLUME 7.1 FL (7.0-11.0); MONO % 7.4 % (0.0-8.0); MONOCYTE # 1.2 TH/MM3 (0-0.9); NEUT % 83.9 % (16.0-70.0); PLATELET COUNT 529 TH/MM3 (150-450); RED BLOOD COUNT 4.45 MIL/MM3 (4.50-5.90); RED CELL DISTRIBUTION WIDTH 13.6 % (11.6-17.2); WHITE BLOOD COUNT 15.5 TH/MM3 (4.0-11.0)
[2017-12-06] MEDS ORDERED: LACTATED RINGER'S 1000 ML INJ 1,000 ML IV ONE (07:45)
[2017-12-06] MEDS ORDERED: METOCLOPRAMIDE HCL 10 MG/2 ML VIAL IV PUSH PRN (07:45)
--- NOTE | 2017-12-06 07:56 | HHI.PR ---
Addendum to Inpatient Note Addendum Reason: Additional Documentation Additional Information S: Resident team heard overhead page about [employer] in 1718. Patient is a 77- year-old man with a history of CVA and alcohol use who had a [employer] called for a fall with associated lethargy and confusion. Apparently, per nurse report, patient was walking back from the bathroom after attempted bowel movement with his walker when he suddenly seemed to fall backwards at 0708, hitting his head on the bedside table. The nursing staff stood him up and he fell again. He seemed lethargic and confused after the fall. Blood pressure was noted to be 66 /45 at that time. Dark stool was noted at that time, which appears to be baseline for this patient. Then, blood pressure was 80/60. At 0713, patient was put on 2 L/m nasal cannula of oxygen. Blood glucose was noted to be 81. At 07 19, blood pressure was noted to be 103/60. O: Vitals when we entered the room: Pulse 79, blood pressure 103/60, pulse ox 98% on 2 L/m nasal cannula General: Thin, elderly, frail male lying in bed in no acute distress, seems alert, joking with staff HEENT: Dry mouth with white plaque on tongue, bilateral arcus senilis with small pupils about 2 mm Neck: No bruits Cardiovascular: Regular rate and rhythm Respiratory: Clear to auscultation bilaterally Abdomen: Soft, nontender, nondistended : Swollen scrotum to about the size of softball, apparently patient has a history of benign tumor there Extremities: No cyanosis or edema. No calf tenderness. Neuro: Cranial nerves II through XII intact. Motor and sensation intact and equal bilaterally Skin: + skin tenting A/P: Patient is a 77-year-old man with a history of CVA and alcohol use who was admitted for choledocholithiasis had a Hali[employer] called for a syncope, fall, hit head with associated lethargy and confusion. Differential diagnosis includes neurogenic, cardiogenic, neurocardiogenic/vasovagal, orthostatic. Apparently, patient is on a liquid diet and not having good p.o. intake. Also, patient had syncopal episode after recent bowel movement. Thus most likely on the differential is orthostatic hypotension versus vasovagal. Also given his alcohol history, would consider seizure. Also, because patient has refused telemetry since being here, would consider cardiogenic causes as well. -Stat EKG, head CT -Stat chest x-ray -Hemoccult -Troponin -Reviewed today's labs, which show increasing leukocytosis with increasing left shift, CMP not back yet -Consider syncope workup -Orthostatic blood pressure noted by nursing staff and patient appears dry on exam, so bolus of LR IV ordered -Change Reglan/metoclopramide to as needed dosing Rj Maya MD R2 December 06, 2017 07:56
[2017-12-06] MEDS: SODIUM CHLORIDE 0.9% 10 ML VIAL IRRIGATION SCH ×2 (08:00→20:00)
[2017-12-06 08:01] LABS: BICARBONATE 31.9 MEQ/L (21.0-32.0); CALCIUM 8.4 MG/DL (8.5-10.1); CREATININE 1.04 MG/DL (0.60-1.30)
[2017-12-06] MEDS: ASPIRIN EC 81 MG TABEC PO SCH (08:46)
[2017-12-06] MEDS: SODIUM CHLORIDE 0.9% FLUSH 10 ML FLUSH IV FLUSH SCH ×2 (08:46→21:00)
[2017-12-06] MEDS: PANTOPRAZOLE SOD 40 MG DELAYED RELEASE TAB PO SCH (08:46)
[2017-12-06] MEDS: BISACODYL 10 MG SUPP RECTAL SCH (08:49)
[2017-12-06] MEDS: DOCUSATE SODIUM 50 MG/SENNA 8.6 MG TAB PO SCH ×2 (08:49→21:00)
[2017-12-06] MEDS ORDERED: GETGO ROLLING W1 MI1 (10:30)
--- NOTE | 2017-12-06 10:45 | RADRPT ---
EXAM DATE: 12/06/2017 10:41 AM EDT AGE/SEX: 77 years / Male INDICATIONS: Syncope. CLINICAL DATA: This is the patient's initial encounter. Patient reports that signs and symptoms have been present for 1 day and indicates a pain score of 3/10. MEDICAL/SURGICAL HISTORY: Stroke. Hypertension. Carcinoma, testicular. . Testicular mass removed. RADIATION DOSE: 41.70 CTDI (mGy) COMPARISON: [facility] [place], CT BRAIN W/O CONTRAST, 11/28/2017. . TECHNIQUE: CT of the head without contrast. Using automated exposure control and adjustment of the mA and/or kV according to patient size, radiation dose was kept as low as reasonably achievable to ob tain optimal diagnostic quality images. FINDINGS: Cerebrum: Moderate diffuse cerebral atrophy. Redemonstration of small left basal ganglia lacunar inf arcts. Moderate periventricular white matter hypodensities. The ventricles are normal for degree of a trophy. No evidence of midline shift, mass lesion, hemorrhage or acute infarction. No extraaxial flu id collections are seen. Posterior Fossa: The cerebellum and brainstem are intact. The 4th ventricle is midline. The cerebe llopontine angle is unremarkable. Extracranial: The visualized portion of the orbits is intact. Skull: The calvaria is intact. No evidence of skull fracture. CONCLUSION: 1. No acute intracranial abnormality. 2. Senescent changes with moderate periventricular ischemic white matter demyelination and old left lacunar infarcts. Electronically signed by: Nick Miramontes MD 12/06/2017 10:43 AM EDT
[2017-12-06] MEDS ORDERED: POTASSIUM CHLORIDE 10 MEQ CONTROLLED RELEASE TAB PO ONE (11:45)
[2017-12-06] MEDS ORDERED: PROPOFOL 200 MG/20 ML AMP IV ONE (12:00)
[2017-12-06] MEDS ORDERED: LIDOCAINE HCL 1% PF 5 ML SYRINGE OTHER ONE (12:00)
[2017-12-06] MEDS ORDERED: SUCCINYLCHOLINE CHLORIDE 100 MG/5 ML SYRINGE IV PUSH ONE (12:00)
[2017-12-06] MEDS ORDERED: ONDANSETRON HCL 4 MG/2 ML VIAL IV PUSH ONE (12:00)
[2017-12-06] MEDS ORDERED: PHENYLEPH/NS 1000 MCG/10 ML SYR IV ONE (12:00)
[2017-12-06] MEDS ORDERED: DEXAMETHASONE SOD PHOS 4 MG/ML VIAL IV ONE (12:00)
[2017-12-06] MEDS: NS + KCL 20 MEQ INJ 1,000 ML IV SCH (12:20)
[2017-12-06] MEDS: DIPHENOXYLATE/ATROPINE 2.5 MG/0.025 MG TAB PO SCH ×2 (13:06→18:00)
[2017-12-06] MEDS: LIPASE/PROTEASE/AMYLASE (12,000/38,000/60,000) CAP PO SCH ×2 (13:06→18:00)
[2017-12-06] MEDS ORDERED: SODIUM CHLORID 0.9% 500 ML INJ 500 ML IV ONE (15:30)
--- NOTE | 2017-12-06 15:37 | HHI.PR ---
Subjective Remarks Patient actively vomiting vomiting blood at the time of my exam. Coffee grounds emesis observed. The patient denies chest pain or shortness of breath. Patient is a febrile. Earlier patient fell to the ground and hit his head after episode of orthostatic hypotension when standing up. Reported diarrhea Objective Vitals Vital Signs Date Time Temp Pulse Resp B/P (MAP) Pulse Ox O2 Delivery O2 Flow Rate FiO2 12/06/17 12:00 97.3 83 17 88/54 (65) 95 12/06/17 11:16 96 12/06/17 11:00 97.3 88 17 104/60 (75) 95 12/06/17 10:00 97.2 80 17 95/56 (69) 96 12/06/17 08:54 97.6 83 16 102/55 (71) 94 12/06/17 08:00 97.2 74 17 90/56 (67) 93 12/06/17 07:02 97.2 81 17 66/45 (52) 98 12/06/17 00:00 97.4 62 18 108/61 (77) 95 12/05/17 21:30 Room Air 12/05/17 20:00 97.6 67 18 111/63 (79) 94 12/05/17 16:00 97.7 59 17 119/58 (78) 94 I/O 12/05/17 12/05/17 12/05/17 12/06/17 12/06/17 12/06/17 07:00 15:00 23:00 07:00 15:00 23:00 Intake Total 100 ml 1260 ml 340 ml Output Total 1350 ml 45 ml 900 ml 1350 ml Balance -1250 ml -45 ml 360 ml -1010 ml Intake Oral 0 ml 960 ml 240 ml IV Total 100 ml 300 ml 100 ml Output Urine Total 1350 ml 900 ml 1250 ml Stool Total 100 ml Drainage Total 45 ml # Bowel Movements 0 Result Diagram: 12/06/17 0652 12/06/17 0652 Imaging Last Impressions Head CT 12/06/17 0000 Signed Impressions: CONCLUSION: 1. No acute intracranial abnormality. 2. 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 Tube Removal 12/05/17 0000 Signed Impressions: CONCLUSION: 1. Uncomplicated abdominal drain removal. Chest X-Ray 5/28/18 0000 Signed Impressions: CONCLUSION: Minimal bibasilar densities greater right lower lobe could be atelectasis or in filtrate. Abdomen/Pelvis CT 12/03/17 Signed Impressions: CONCLUSION: 1. Decreased size of left hepatic lobe hematoma following drainage. 2. No evidence of free or loculated intraperitoneal fluid or free air. 3. Stable intestinal tract without evidence of pathologic distention or inflam matory changes. 4. Uncomplicated colonic diverticulosis. 5. Stable large right hemiscrotal hydrocele 6. Bibasilar airspace disease with small bilateral effusions. Abscess Drainage CT 12/01/17 Signed Impressions: CONCLUSION: 1. Uncomplicated CT guided drainage. 2. Hepatic collection has the appearance of a hematoma which may be infected c onsidering the small bubbles a contains. Specimen sent for culture and sensitiv ity. 3. 12 [place] catheter left in place. Abdomen X-Ray 11/29/17 Signed Impressions: CONCLUSION: Nonspecific, nonobstructive bowel gas pattern which may represent a mild ileus and/or gastroenteritis. Abdomen Ultrasound 11/29/17 Signed Impressions: CONCLUSION: 1. Cholelithiasis with a mildly thickened gallbladder wall. 2. Dilatation the common bile duct. On the prior CT examination, there was a f illing defect within the common bile duct. 3. Heterogeneity to the liver with increased echogenicity likely related to he patic steatosis. 4. 1.5 cm echogenic focus in the right lobe of the liver. This could represent an underlying lesion such as a hemangioma. This is not clearly seen on the rec ent CT examination. One could perform a MRI of the abdomen at some point to mor e fully evaluate the liver. This could be performed as an outpatient. GI Procedure 11/28/17 Signed Impressions: CONCLUSION: Apparent ERCP stone extraction as detailed above. CBD is now clear. Hepatobiliary Scan Nuclear Medicine 11/26/17 Signed Impressions: Service Date/Time: Sunday, November 26, 2017 17:51 - CONCLUSION: 1. No activity seen in the gallbladder. Delayed imaging will be obtained to confirm cystic duct occlusion. 2. Significantly delayed biliary clearance with bowel activity noted at 90 minutes. This is consistent with partially obstructing distal CBD calculus as noted on CT exam. Nick Miramontes MD ADDENDUM: Delayed images were obtained. There is clear bowel activity on delayed imaging. There is also significant residual hepatic activity. This may be due to partial CBD obstruction or hepatocellular dysfunction. The gallbladder is again not visualized. This is concerning for cystic duct obstruction and cholecystitis in the appropriate clinical setting. Nick Miramontes MD Objective Remarks General: No distress. Heart: Regular rate and rhythm. No murmur. Lungs: CTAB. No W/R/R. Abdomen: Soft, mild tenderness in the epigastric area, distended. Drain in place with bloody drainage. Extremities: No lower extremity edema. Psych: Alert and oriented. Neuro: Normal speech. No focal deficits noted. : Significant scrotal enlargement Procedures None A/P Problem List: (1) Sepsis ICD Code: A41.9 - Sepsis, unspecified organism (2) Choledocholithiasis ICD Code: K80.50 - Calculus of bile duct without cholangitis or cholecystitis without obstruction Status: Acute (3) Alcohol dependence ICD Code: F10.20 - Alcohol dependence Status: Acute (4) Encephalopathy acute ICD Code: G93.40 - Encephalopathy, unspecified (5) Hypertension ICD Code: I10 - Hypertension Status: Acute (6) H/O: CVA (cerebrovascular accident) ICD Code: Z86.73 - Personal history of transient ischemic attack (TIA), and cerebral infarction without residual deficits Assessment and Plan 1. Choledocholithiasis/ Liver abscess Abnormal HIDA scan and US noted. GI and surgical consults appreciated. S/p ERCP which revealed: Choledocholithiasis; Duodenal diverticulum; Duodenal polyps. CT 11/30: Over the last 4 days a large mass has developed in the anterior left lobe of the liver measuring up to 9.6 cm in diameter containing multiple locules of air likely a developing complex liver abscess; Multiple gallstones without significant inflammatory changes identified around the gallbladder. IR consulted for abscess drainage 12/01. Drain still in place. CT 12/03: Decreased size of left hepatic lobe hematoma following drainage; No evidence of free or loculated intraperitoneal fluid or free air; Stable intestinal tract without evidence of pathologic distention or inflammatory changes. Abscess culture with no growth, final. - continue IV Zosyn. Consider discharging on Cipro/ Flagyl. - follow up with GI. - trend LFTs. - will need outpt follow-up with surgery to schedule cholecystectomy. 12/05 status post drain removal by IR. Sepsis Source is UTI. Pseudomonas growing. - Continue IV Zosyn. Can change to Cipro upon discharge. Sepsis seems to be resolving. Reactive airway disease No further wheezing on exam. - Oxygen and nebs as needed. Started standing nebs. - d/c prednisone. - continue antibiotics. - repeat CXR. - will need home o2 Leukocytosis Leukocytosis possibly secondary to steroid use and now reactive distress due to active GI bleed and hypotension. Continue to monitor CBC. Continue to monitor vital signs for fevers. There is a question of a right lower lobe infiltrate, continue to monitor. Possible right testicular mass Imaging shows cystic mass on right. Evaluated by urology. No surgical intervention planned for hydrocele. Repeat CT: Large loculated hydrocele or cystic testicular mass in the right hemiscrotum measuring up to 13.6 cm in diameter. - Patient to follow-up with urology as outpt. Reconsult as needed. Alcohol abuse No evidence of withdrawal. - CIWA protocol, thiamine, folic acid. - cessation instruction. History of CVA Stable. - Continue aspirin. HTN Hold all antihypertensive medications due to current hypovolemic shock. We will give IV normal saline bolus. Hypokalemia S/t decreased PO intake. - replete and monitor. GI bleed with hypovolemic shock. Patient having coffee-ground emesis and melena. We will give 1 L normal saline IV bolus. Patient also hypotensive with hypovolemic shock. Check a stat CBC, transferred to the intensive care unit. GI informed. Марина Ochoa eyewear. Discussed the case for EGD in a.m. Transfuse for hemoglobin less than 8 to keep hemoglobin more than 9. Insert NG tube. DVT prophylaxis: DC Lovenox for DVT prophylaxis. Discharge Planning Transfer the patient to the intensive care unit due to acute GI bleed with hypovolemic shock. Problem Qualifiers (1) Alcohol dependence: Qualified Codes: F10.29 - Alcohol dependence with unspecified alcohol-induced disorder Montrell Robledo MD December 06, 2017 15:37
[2017-12-06] MEDS ORDERED: SODIUM CHLOR 0.9% 250 ML INJ 250 ML IV ONE (15:45)
--- NOTE | 2017-12-06 15:48 | HHI.GIFU ---
Subjective Remarks Our service signed off yesterday However, Dr. Hernandez notified us that patient is having coffee ground emesis and melena Per RN pt has had approximately 6 episodes of melena and 1 episode of coffee ground emesis Pt reports some abdominal bloating but denies any abdominal pain Pt is hypotensive and being transferred to C for closer monitoring (Марина Ochoa) Objective Vitals I&O Vital Signs Date Time Temp Pulse Resp B/P (MAP) Pulse Ox O2 Delivery O2 Flow Rate FiO2 12/06/17 12:00 97.3 83 17 88/54 (65) 95 12/06/17 11:16 96 12/06/17 11:00 97.3 88 17 104/60 (75) 95 12/06/17 10:00 97.2 80 17 95/56 (69) 96 12/06/17 08:54 97.6 83 16 102/55 (71) 94 12/06/17 08:00 97.2 74 17 90/56 (67) 93 12/06/17 07:02 97.2 81 17 66/45 (52) 98 12/06/17 00:00 97.4 62 18 108/61 (77) 95 12/05/17 21:30 Room Air 12/05/17 20:00 97.6 67 18 111/63 (79) 94 12/05/17 16:00 97.7 59 17 119/58 (78) 94 I/O 12/05/17 12/05/17 12/05/17 12/06/17 12/06/17 12/06/17 07:00 15:00 23:00 07:00 15:00 23:00 Intake Total 100 ml 1260 ml 340 ml Output Total 1350 ml 45 ml 900 ml 1350 ml Balance -1250 ml -45 ml 360 ml -1010 ml Intake Oral 0 ml 960 ml 240 ml IV Total 100 ml 300 ml 100 ml Output Urine Total 1350 ml 900 ml 1250 ml Stool Total 100 ml Drainage Total 45 ml # Bowel Movements 0 Laboratory Laboratory Tests Test 12/06/17 06:52 White Blood Count 15.5 Red Blood Count 4.45 Hemoglobin 14.2 Hematocrit 42.0 Mean Corpuscular Volume 94.3 Mean Corpuscular Hemoglobin 31.9 Mean Corpuscular Hemoglobin Concent 33.9 Red Cell Distribution Width 13.6 Platelet Count 529 Mean Platelet Volume 7.1 Neutrophils (%) (Auto) 83.9 Lymphocytes (%) (Auto) 7.2 Monocytes (%) (Auto) 7.4 Eosinophils (%) (Auto) 1.4 Basophils (%) (Auto) 0.1 Neutrophils # (Auto) 13.0 Lymphocytes # (Auto) 1.1 Monocytes # (Auto) 1.2 Eosinophils # (Auto) 0.2 Basophils # (Auto) 0.0 CBC Comment DIFF FINAL Differential Comment Blood Urea Nitrogen 26 Creatinine 1.04 Random Glucose 84 Calcium Level 8.4 Sodium Level 134 Potassium Level 3.4 Chloride Level 94 Carbon Dioxide Level 31.9 Anion Gap 8 Estimat Glomerular Filtration Rate 69 Troponin I LESS THAN 0.02 Date/Time Source Procedure Growth Status 11/27/17 07:00 Blood Peripheral Aerobic Blood Culture - Final NO GROWTH IN 5 DAYS Complete 11/27/17 07:00 Blood Peripheral Anaerobic Blood Culture - Final NO GROWTH IN 5 DAYS Complete 12/01/17 14:40 Fluid Other Gram Stain - Final Complete 12/01/17 14:40 Fluid Other Body Fluid Culture - Final NO GROWTH IN 72 HRS.--AEROBICALLY OR ... Complete 12/06/17 05:26 Stool Stool Stool Occult Blood (CANDICE) - Final HEMOCCULT POSITIVE Complete 11/26/17 13:37 Urine Catheterized Urine Urine Culture - Final Pseudomonas Aeruginosa Complete Imaging Last Impressions Head CT 12/06/17 0000 Signed Impressions: CONCLUSION: 1. No acute intracranial abnormality. 2. 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 Tube Removal 12/05/17 0000 Signed Impressions: CONCLUSION: 1. Uncomplicated abdominal drain removal. Chest X-Ray 12/04/17 0000 Signed Impressions: CONCLUSION: Minimal bibasilar densities greater right lower lobe could be atelectasis or in filtrate. Abdomen/Pelvis CT 12/03/17 0000 Signed Impressions: CONCLUSION: 1. Decreased size of left hepatic lobe hematoma following drainage. 2. No evidence of free or loculated intraperitoneal fluid or free air. 3. Stable intestinal tract without evidence of pathologic distention or inflam matory changes. 4. Uncomplicated colonic diverticulosis. 5. Stable large right hemiscrotal hydrocele 6. Bibasilar airspace disease with small bilateral effusions. Abscess Drainage CT 5/25/18 0000 Signed Impressions: CONCLUSION: 1. Uncomplicated CT guided drainage. 2. Hepatic collection has the appearance of a hematoma which may be infected c onsidering the small bubbles a contains. Specimen sent for culture and sensitiv ity. 3. 12 Pashto catheter left in place. Abdomen X-Ray 11/29/17 Signed Impressions: CONCLUSION: Nonspecific, nonobstructive bowel gas pattern which may represent a mild ileus and/or gastroenteritis. Abdomen Ultrasound 11/29/17 Signed Impressions: CONCLUSION: 1. Cholelithiasis with a mildly thickened gallbladder wall. 2. Dilatation the common bile duct. On the prior CT examination, there was a f illing defect within the common bile duct. 3. Heterogeneity to the liver with increased echogenicity likely related to he patic steatosis. 4. 1.5 cm echogenic focus in the right lobe of the liver. This could represent an underlying lesion such as a hemangioma. This is not clearly seen on the rec ent CT examination. One could perform a MRI of the abdomen at some point to mor e fully evaluate the liver. This could be performed as an outpatient. GI Procedure 11/28/17 Signed Impressions: CONCLUSION: Apparent ERCP stone extraction as detailed above. CBD is now clear. Hepatobiliary Scan Nuclear Medicine 11/26/17 Signed Impressions: Service Date/Time: Sunday, November 26, 2017 17:51 - CONCLUSION: 1. No activity seen in the gallbladder. Delayed imaging will be obtained to confirm cystic duct occlusion. 2. Significantly delayed biliary clearance with bowel activity noted at 90 minutes. This is consistent with partially obstructing distal CBD calculus as noted on CT exam. Nick Miramontes MD ADDENDUM: Delayed images were obtained. There is clear bowel activity on delayed imaging. There is also significant residual hepatic activity. This may be due to partial CBD obstruction or hepatocellular dysfunction. The gallbladder is again not visualized. This is concerning for cystic duct obstruction and cholecystitis in the appropriate clinical setting. Nick Miramontes MD Physical Exam HEENT: Normocephalic; atraumatic CHEST: Even/unlabored CARDIAC: RRR ABDOMEN: Distended, soft, bowel sounds active, bowel sounds active LATHE SETUP OPERATOR: Alert and oriented (Марина Ochoa) Assessment and Plan Plan ASSESSMENT - Choledocholithiasis with elevated LFTs On admission (11/26) AST-402 ALT-182 Alk phos-278 T bili-3 CT abdomen and pelvis W IV contrast (11/26) Choledocholithiasis with prominent common bile duct measuring up to 11 mm. There is also a focus of air in the gallbladder. Gallbladder does not appear inflamed on CT exam. HIDA scan (11/26) No activity seen in the gallbladder. Significantly delayed biliary clearance with bowel activity noted at 90 minutes. Consistent with partially obstructing distal CBD calculus. Delayed images obtained, clear bowel activity on delayed imaging, also significant residual hepatic activity, may be due to CBD obstruction vs hepatocellular dysfunction. The gallbladder again not visualized, concerning for cystic duct obstruction and cholecystitis in appropriate setting. ERCP (11/28) --> Choledocholithiasis, S/P sphincterotomy and balloon extraction 3 sones, cholangiogram revealed total clearance of filling defects and intrahepatics were unremarkable. Duodenal diverticulum. Duodenal polyps. Pathology (Duodenum) tubulovillous adenoma. GS consult noted HIDA scan findings unreliable in pt with liver dysfunction, they have ordered US gallbladder to further evaluate, not ed pt is not a good surgical candidate at this time - ETOH abuse- reports 3 beers a day- on CIWA protocol - Sepsis- Pt on Zosyn - Encephalopathy - noted to be secondary to sepsis- ammonia < 10 CT assisted abscess drain for liver abscess with Accordion drain placement done on 12/01 Indication "Over the last 4 days a large mass is developed in the anterior left lobe of the liver measuring up to 9.6 cm in diameter containing multiple locules of air likely a developing complex liver abscess" seen on CT on 11/[address] done yesterday revealed decreased size of left hepatic lobe hematoma following drainage (12/04) Hemoccult positive stool, H/H has remained stable. Dark liquid stool reported by patient. Previous EGD on 11/28 as noted above. He reports increase in diarrhea. Will order stool studies for C. Diff LFTs trending down. IR has been reconsulted to removed drain tomorrow. (12/05) Pt reports diarrhea has been slowing down, has not had a BM yet today. C. Diff negative. Discussed the Hemoccult positive stool findings, H/H have remained WNL. He would like to wait to have a colonoscopy when he gets back to [place]. Does think he had one in the past, unsure of findings. Liver drain removed by IR (12/06) Initially signed off yesterday, however, per Dr. Hernandez pt began vomiting blood today, he witnessed this at bedside, coffee ground emesis. Per RN pt has also had 6 episodes of melena today. Pt complaining of abdominal bloating but denies any pain. PLAN - NPO now - NGT to [facility] - EGD today - Obtain consent - Stat H/H and then serial H/H - Protonix gtt - ETOH cessation - Further recommendations based on clinical course and results of above Pt has been seen and examined by myself and Dr. Rodriguez and this note is written on his behalf (Марина Ochoa) Physician Comments Seen and examined with JOSE, reconsulted for acute gibleed. Transfer to icu, Stat labs and Type and screen ordered. Emergent EGD today. Discussed with Dr. Blas. (Singh Rodriguez MD) Марина Ochoa December 06, 2017 15:48 Singh Rodriguez MD December 06, 2017 17:54
--- NOTE | 2017-12-06 17:23 | EKG ---
Date Performed: 12/06/2017 Time Performed: 07:53:28 PTAGE: 77 years EKG: Sinus rhythm PATTERN CONSISTENT WITH PULMONARY DISEASE INFERIOR MYOCARDIAL INFARCTION , PROBABLY OLD ABNORMAL ECG Since PREVIOUS TRACING , no significant change noted PREVIOUS TRACIN11/26/2017 13.14 DOCTOR: Yadira Fritz Interpretating Date/Time 12/06/2017 17:22:40
--- NOTE | 2017-12-06 17:28 | GIPROC ---
[facility] [address] [facility]. [facility], [id number] EGD PROCEDURE REPORT EXAM DATE: 12/06/2017 PATIENT NAME: Remy Chi MR #: [id number] BIRTHDATE: 1940 ATTENDING: Singh Rodriguez MD ORDER #: [id number] ASSISTANT WAREHOUSE MANAGER: Marie Gunderson and Claudia You STATUS: inpatient INDICATIONS: The patient is a 77 yr old male here for an EGD due to hematemesis and melena PROCEDURE PERFORMED: EGD w/ directed submucosal injection(s), any substance MEDICATIONS: None and Per Anesthesia. TOPICAL ANESTHETIC: CONSENT: The patient understands the risks and benefits of the procedure and understands that these risks include, but are not limited to: sedation, allergic reaction, infection, perforation and/or bleeding. Alternative means of evaluation and treatment include, among others: physical exam, x-rays, and/or surgical intervention. The patient elects to proceed with this endoscopic procedure. medical equipment was checked for proper function. Hand hygiene and appropriate measures for infection prevention was taken. After the risks, benefits and alternatives of the procedure were thoroughly explained, Informed consent was verified, confirmed and timeout was successfully executed by the treatment team. The patient was anesthetized with topical anesthesia and the Pentax EG-[id number] endoscope was introduced through the mouth and advanced to the second portion of the duodenum. Retroflexed views revealed no abnormalities The gastroscope was then slowly withdrawn and removed. ESOPHAGUS: Old blood. STOMACH: Coffee grounds. DUODENUM: Significant inflammation and swelling around the bryan ampullary area. Multiple polyps in this area. Clear bile seen coming intermittently from this area. This was an area of inflammation arounfd 3 x 3.5 cm in size with very friable mucosa and oozing of blood. ? bleed from previous sphincterotomy vs. polyp biopsy site. Injected a total of 5 cc of epinephrine with good hemostasis. clipping/cautery not done as this appeared to be right around the ampulla. ADVERSE EVENTS: There were no complications. IMPRESSIONS: 1. Old blood 2. Coffee grounds 3. Significant inflammation and swelling around the bryan ampullary area. Multiple polyps in this area. Clear bile seen coming intermittently from this area. This was an area of inflammation arounfd 3 x 3.5 cm in size with very friable mucosa and oozing of blood. ? bleed from previous sphincterotomy vs. polyp biopsy site. Injected a total of 5 cc of epinephrine with good hemostasis. clipping/cautery not done as this appeared to be right around the ampulla 4. Retroflexed views revealed no abnormalities RECOMMENDATIONS: ICU monitoring. NG to L.I.S. Monitor H/H closely, bleeding scan and embolization if rebleeds. Call placed to Dr. Hernandez. PATIENT CONDITION: stable DISPOSITION: Inpatient REPEAT EXAM: Return 1 day EGD Singh Rodriguez MD eSigned: Singh Rodriguez MD 12/06/2017 5:28 PM cc: PATIENT NAME: Remy Chi MR#: [id number]
[2017-12-06] MEDS: PANTOPRAZOLE INJ 80 MG in SODIUM CHLORIDE 0.9% INJ 100 ML IV SCH (18:00)
[2017-12-06] MEDS ORDERED: DO NOT ADM ANY ANTICOAGULANT DRUGS PRN (18:00)
[2017-12-06 19:35] LABS: HEMATOCRIT 36.4 % (39.0-51.0); HEMOGLOBIN 12.4 GM/DL (13.0-17.0); MEAN CELL VOLUME 94.5 FL (80.0-100.0); MEAN CORPUSCULAR HEMOGLOBIN 32.2 PG (27.0-34.0); MEAN CORPUSCULAR HGB CONC 34.1 % (32.0-36.0); MEAN PLATELET VOLUME 7.5 FL (7.0-11.0); PLATELET COUNT 600 TH/MM3 (150-450); RED BLOOD COUNT 3.86 MIL/MM3 (4.50-5.90); RED CELL DISTRIBUTION WIDTH 13.7 % (11.6-17.2); WHITE BLOOD COUNT 25.9 TH/MM3 (4.0-11.0)
[2017-12-06 20:36] LABS: INTERNATIONAL NORMALIZED RATIO 1.1 RATIO; PROTHROMBIN TIME - PATIENT 11.2 SEC (9.8-11.6)
[2017-12-06 20:46] LABS: ALBUMIN 2.6 GM/DL (3.4-5.0); ALT (GPT) 198 U/L (12-78); AST (GOT) 73 U/L (15-37); BICARBONATE 27.4 MEQ/L (21.0-32.0); BLOOD UREA NITROGEN 60 MG/DL (7-18); CALCIUM 7.9 MG/DL (8.5-10.1); CHLORIDE 97 MEQ/L (98-107); GLOMERULAR FILTRATION RATE 53 ML/MIN (>89); GLUCOSE,RANDOM 135 MG/DL (74-106); SODIUM (NA) 136 MEQ/L (136-145)
[2017-12-06 20:50] LABS: ALKALINE PHOSPHATASE 161 U/L (45-117); TOTAL BILIRUBIN ADULT 0.8 MG/DL (0.2-1.0); TOTAL PROTEIN 5.8 GM/DL (6.4-8.2)
--- NOTE | 2017-12-06 21:40 | RADRPT ---
EXAM DATE: 12/06/2017 9:34 PM EDT AGE/SEX: 77 years / Male INDICATIONS: Cough and shortness of breath. CLINICAL DATA: This is the patient's initial encounter. Patient reports that signs and symptoms have been present for 3 days and indicates a pain score of Nonresponsive. MEDICAL/SURGICAL HISTORY: None. None. COMPARISON: [facility] [place], CHEST SINGLE AP, 12/04/2017. . FINDINGS: A single AP view of the chest demonstrates the lungs to be symmetrically aerated without evidence of mass, infiltrate or effusion. Stable scarring in the left midlung. The cardiomediastinal contours are unremarkable. Osseous structures are intact. There is a nasogastric tube with the tip in the lower cervical esophagus. The nasogastric tube may be coiled in the patient's mouth. CONCLUSION: 1. No new or acute intrathoracic disease. 2. Tip of the nasogastric tube is in the lower cervical esophagus. The tube may be coiled in the pat ient's mouth. Electronically signed by: Alex Jay MD 12/06/2017 9:38 PM EDT
--- NOTE | 2017-12-06 23:46 | PD.CONS ---
[facility] Service Critical Care Medicine Consult Requested By Dr. Rodriguez Reason for Consult active upper GI bleeding Primary Care Physician Unknown History of Present Illness 77yM with history of choledocholithiasis course complicated by liver abscess and percutaneous drainage. today was on the hospital floor when he had acute onset coffee grounds emesis and melanotic stool with hypotension. taken emergently to GI for EGD where he had active bleeding coming from around the ampulla of Vater. this was injected and was hemostatic at the end of the procedure. he was extubated and taken to ICU for close observation. patient currently denies any complaints other than diarrhea. hgb stable. blood pressure stable. ROS otherwise negative. Review of Systems Constitutional: DENIES: Diaphoretic episodes, Fatigue, Fever Respiratory: DENIES: Apneas, Cough, Hemoptysis, Sputum production, Shortness of breath Cardiovascular: DENIES: Chest pain, Palpitations, Syncope, Lower Extremity Edema, Orthopnea Gastrointestinal: COMPLAINS OF: Black stools, Diarrhea, DENIES: Abdominal pain , Bloody stools, Constipation, Nausea, Vomiting Neurologic: DENIES: Abnormal gait, Headache Past Family Social History Allergies: Coded Allergies: No Known Allergies (Unverified Adverse Reaction, Unknown, 11/26/17) Past Medical History Testicular mass. History of CVA as per medical records. Hypertension. Past Surgical History this admission: percutaneous liver drain ERCP EGD Reported Medications Walker Rolling/GetGo (Device) 1 Mis Mis Ea .XX DIRECTED Oxygen (O2) Device Liter DOMENICA.CANULA CONTINUOUS Oxygen Concentrator Portable Gaseous 2 L/min via Nasal Canula Continuous For 99 months Active Ordered Medications See MAR Family History Grandmother had diabetes. Denies any family history of cancer. Social History denies tob. drinks 4 beers daily. Physical Exam Vital Signs Vital Signs Date Time Temp Pulse Resp B/P (MAP) Pulse Ox O2 Delivery O2 Flow Rate FiO2 12/06/17 18:46 98.0 84 26 93/56 (68) 100 12/06/17 17:45 97.6 80 16 107/64 (78) 96 Nasal Cannula 3 12/06/17 17:30 82 16 106/67 (80) 95 Nasal Cannula 3 12/06/17 17:25 97.5 87 16 109/85 (93) 100 Nasal Cannula 4 12/06/17 15:00 98.0 102 16 109/63 (78) 98 12/06/17 12:00 97.3 83 17 88/54 (65) 95 12/06/17 11:16 96 12/06/17 11:00 97.3 88 17 104/60 (75) 95 12/06/17 10:00 97.2 80 17 95/56 (69) 96 12/06/17 08:54 97.6 83 16 102/55 (71) 94 12/06/17 08:00 97.2 74 17 90/56 (67) 93 12/06/17 07:02 97.2 81 17 66/45 (52) 98 12/06/17 00:00 97.4 62 18 108/61 (77) 95 Physical Exam gen: elderly male, lying in bed, no acute distress. heent: nc. at. perrl. mmm. neck: no jvd. trachea midline. chest: unlabored. 2l nc o2. equal chest rise. cv: normal rate, regular rhythm. sinus. abd: soft, nontender nondistended. no guarding. rectal bag in place with liquid dark melanotic stool. extr: no peripheral edema. warm, well perfused. distal pulses 2+ neuro: RASS 0. CAM -. GCS 15. follows commands. no focal deficits. Laboratory Laboratory Tests Test 12/06/17 06:52 12/06/17 18:42 12/06/17 20:05 White Blood Count 15.5 25.9 Red Blood Count 4.45 3.86 Hemoglobin 14.2 12.4 Hematocrit 42.0 36.4 Mean Corpuscular Volume 94.3 94.5 Mean Corpuscular Hemoglobin 31.9 32.2 Mean Corpuscular Hemoglobin Concent 33.9 34.1 Red Cell Distribution Width 13.6 13.7 Platelet Count 529 600 Mean Platelet Volume 7.1 7.5 Neutrophils (%) (Auto) 83.9 Lymphocytes (%) (Auto) 7.2 Monocytes (%) (Auto) 7.4 Eosinophils (%) (Auto) 1.4 Basophils (%) (Auto) 0.1 Neutrophils # (Auto) 13.0 Lymphocytes # (Auto) 1.1 Monocytes # (Auto) 1.2 Eosinophils # (Auto) 0.2 Basophils # (Auto) 0.0 CBC Comment DIFF FINAL Differential Comment Blood Urea Nitrogen 26 60 Creatinine 1.04 1.30 Random Glucose 84 135 Calcium Level 8.4 7.9 Sodium Level 134 136 Potassium Level 3.4 3.8 Chloride Level 94 97 Carbon Dioxide Level 31.9 27.4 Anion Gap 8 12 Estimat Glomerular Filtration Rate 69 53 Troponin I LESS THAN 0.02 Prothrombin Time 11.2 Prothromb Time International Ratio 1.1 Activated Partial Thromboplast Time 24.6 Total Protein 5.8 Albumin 2.6 Alkaline Phosphatase 161 Aspartate Amino Transf (AST/SGOT) 73 Alanine Aminotransferase (ALT/SGPT) 198 Total Bilirubin 0.8 Lactic Acid Level 1.1 Date/Time Source Procedure Growth Status 11/27/17 07:00 Blood Peripheral Aerobic Blood Culture - Final NO GROWTH IN 5 DAYS Complete 11/27/17 07:00 Blood Peripheral Anaerobic Blood Culture - Final NO GROWTH IN 5 DAYS Complete 12/01/17 14:40 Fluid Other Gram Stain - Final Complete 12/01/17 14:40 Fluid Other Body Fluid Culture - Final NO GROWTH IN 72 HRS.--AEROBICALLY OR ... Complete 12/06/17 05:26 Stool Stool Stool Occult Blood (CANDICE) - Final HEMOCCULT POSITIVE Complete 11/26/17 13:37 Urine Catheterized Urine Urine Culture - Final Pseudomonas Aeruginosa Complete Result Diagram: 12/06/17 1842 12/06/172004 Imaging Last Impressions Head CT 12/06/17 Signed Impressions: CONCLUSION: 1. No acute intracranial abnormality. 2. 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 Chest X-Ray 12/06/17 Signed Impressions: CONCLUSION: 1. No new or acute intrathoracic disease. 2. Tip of the nasogastric tube is in the lower cervical esophagus. The tube ma y be coiled in the patient's mouth. Tube Removal 12/05/17 Signed Impressions: CONCLUSION: 1. Uncomplicated abdominal drain removal. Abdomen/Pelvis CT 12/03/17 Signed Impressions: CONCLUSION: 1. Decreased size of left hepatic lobe hematoma following drainage. 2. No evidence of free or loculated intraperitoneal fluid or free air. 3. Stable intestinal tract without evidence of pathologic distention or inflam matory changes. 4. Uncomplicated colonic diverticulosis. 5. Stable large right hemiscrotal hydrocele 6. Bibasilar airspace disease with small bilateral effusions. Abscess Drainage CT 12/01/17 Signed Impressions: CONCLUSION: 1. Uncomplicated CT guided drainage. 2. Hepatic collection has the appearance of a hematoma which may be infected c onsidering the small bubbles a contains. Specimen sent for culture and sensitiv ity. 3. [address] catheter [address] in place. Abdomen X-Ray 11/29/17 Signed Impressions: CONCLUSION: Nonspecific, nonobstructive bowel gas pattern which may represent a mild ileus and/or gastroenteritis. Abdomen Ultrasound 11/29/17 Addendum Impressions: CONCLUSION: 1. Cholelithiasis with a mildly thickened gallbladder wall. 2. Dilatation the common bile duct. On the prior CT examination, there was a f illing defect within the common bile duct. 3. Heterogeneity to the liver with increased echogenicity likely related to he patic steatosis. 4. 1.5 cm echogenic focus in the right lobe of the liver. This could represent an underlying lesion such as a hemangioma. This is not clearly seen on the rec ent CT examination. One could perform a MRI of the abdomen at some point to mor e fully evaluate the liver. This could be performed as an outpatient. GI Procedure 11/28/17 0000 Signed Impressions: CONCLUSION: Apparent ERCP stone extraction as detailed above. CBD is now clear. Hepatobiliary Scan Nuclear Medicine 11/26/17 0000 Signed Impressions: Service Date/Time: Sunday, November 26, 2017 17:51 - CONCLUSION: 1. No activity seen in the gallbladder. Delayed imaging will be obtained to confirm cystic duct occlusion. 2. Significantly delayed biliary clearance with bowel activity noted at 90 minutes. This is consistent with partially obstructing distal CBD calculus as noted on CT exam. Nick Miramontes MD ADDENDUM: Delayed images were obtained. There is clear bowel activity on delayed imaging. There is also significant residual hepatic activity. This may be due to partial CBD obstruction or hepatocellular dysfunction. The gallbladder is again not visualized. This is concerning for cystic duct obstruction and cholecystitis in the appropriate clinical setting. Nick Miramontes MD Assessment and Plan Assessment and Plan Assessment: 77yM with active upper GI bleeding s/p EGD and intervention. now hemodynamically stable. will trend H&H. keep in ICU. close monitoring. NPO. protonix drip. Active Upper GI bleeding - serial H&H - mivf - protonix drip - GI following will monitor in ICU setting. if he continues to remain stable, will ask hospitalist service to re-assume care. can likely transfer out of ICU in 24h if stable. David Yeung MD December 06, 2017 23:46
[2017-12-07] VITALS (9 sets, daily range): BP systolic 108–148; BP diastolic 57–78; PULSE 69–97; RESP 12–19; TEMP 97.5–98.4; O2SAT 95–100
[2017-12-07] MEDS: PIPERACIL-TAZO 4.5 GM PREMIX 100 ML IV SCH ×4 (02:02→23:49)
[2017-12-07] MEDS: NS + KCL 20 MEQ INJ 1,000 ML IV SCH ×3 (03:58→15:14)
[2017-12-07] MEDS: PANTOPRAZOLE INJ 80 MG in SODIUM CHLORIDE 0.9% INJ 100 ML IV SCH ×3 (03:58→23:49)
[2017-12-07] MEDS: DIPHENOXYLATE/ATROPINE 2.5 MG/0.025 MG TAB PO SCH ×5 (05:15→23:49)
[2017-12-07] MEDS: SODIUM CHLORIDE 0.9% 10 ML VIAL IRRIGATION SCH ×2 (08:00→20:00)
[2017-12-07 08:11] LABS: AUTOMATED NEUTROPHIL # 17.8 TH/MM3 (1.8-7.7); BASOPHIL # 0.1 TH/MM3 (0-0.2); BASOPHIL % 0.5 % (0.0-2.0); EOSINOPHIL # 0.1 TH/MM3 (0-0.4); LYMPHOCYTE # 1.5 TH/MM3 (1.0-4.8); MONOCYTE # 1.5 TH/MM3 (0-0.9)
[2017-12-07 08:18] LABS: PROTHROMBIN TIME - PATIENT 10.5 SEC (9.8-11.6)
[2017-12-07] MEDS: ASPIRIN EC 81 MG TABEC PO SCH (08:33)
[2017-12-07] MEDS: SODIUM CHLORIDE 0.9% FLUSH 10 ML FLUSH IV FLUSH SCH ×2 (08:33→21:00)
[2017-12-07] MEDS: DOCUSATE SODIUM 50 MG/SENNA 8.6 MG TAB PO SCH ×2 (08:34→21:00)
[2017-12-07] MEDS: BISACODYL 10 MG SUPP RECTAL SCH (08:34)
[2017-12-07] MEDS: LIPASE/PROTEASE/AMYLASE (12,000/38,000/60,000) CAP PO SCH ×3 (08:42→15:14)
[2017-12-07 08:43] LABS: ALBUMIN 2.9 GM/DL (3.4-5.0); ALKALINE PHOSPHATASE 153 U/L (45-117); ALT (GPT) 195 U/L (12-78); AST (GOT) 75 U/L (15-37); BICARBONATE 28.8 MEQ/L (21.0-32.0); BLOOD UREA NITROGEN 42 MG/DL (7-18); CALCIUM 8.3 MG/DL (8.5-10.1); CHLORIDE 104 MEQ/L (98-107); CREATININE 1.12 MG/DL (0.60-1.30); GLOMERULAR FILTRATION RATE 63 ML/MIN (>89); GLUCOSE,RANDOM 100 MG/DL (74-106); MAGNESIUM 2.5 MG/DL (1.5-2.5); PHOSPHORUS 2.9 MG/DL (2.5-4.9); SODIUM (NA) 141 MEQ/L (136-145); TOTAL BILIRUBIN ADULT 0.9 MG/DL (0.2-1.0); TOTAL PROTEIN 6.4 GM/DL (6.4-8.2)
--- NOTE | 2017-12-07 10:30 | HHI.GIFU ---
Subjective Remarks Pt has rectal bag to [facility] with melena Complaining of epigastric pain Denies nausea, vomiting Labs pending, multiple unsuccessful attempts at drawing blood Transport at bedside preparing to take pt down for bleeding scan (Марина Ochoa) Objective Vitals I&O Vital Signs Date Time Temp Pulse Resp B/P (MAP) Pulse Ox O2 Delivery O2 Flow Rate FiO2 12/07/17 06:00 82 12/07/17 04:00 69 12/07/17 04:00 98.4 69 12 129/62 (84) 95 12/07/17 02:00 100 Room Air 12/07/17 02:00 80 12/07/17 00:00 98.4 80 14 108/57 (74) 100 12/07/17 00:00 100 Nasal Cannula 2.00 12/07/17 00:00 80 12/06/17 22:00 84 12/06/17 20:00 94 Nasal Cannula 4.00 12/06/17 20:00 82 12/06/17 20:00 98.7 82 20 109/60 (76) 94 12/06/17 18:46 98.0 84 26 93/56 (68) 100 12/06/17 17:45 97.6 80 16 107/64 (78) 96 Nasal Cannula 3 12/06/17 17:30 82 16 106/67 (80) 95 Nasal Cannula 3 12/06/17 17:25 97.5 87 16 109/85 (93) 100 Nasal Cannula 4 12/06/17 15:00 98.0 102 16 109/63 (78) 98 12/06/17 12:00 97.3 83 17 88/54 (65) 95 12/06/17 11:16 96 12/06/17 11:00 97.3 88 17 104/60 (75) 95 I/O 12/06/17 12/06/17 12/06/17 12/07/17 12/07/17 12/07/17 07:00 15:00 23:00 07:00 15:00 23:00 Intake Total 340 ml 400 ml 1200 ml Output Total 1350 ml 0 ml 900 ml Balance -1010 ml 400 ml 300 ml Intake Oral 240 ml 0 ml IV Total 100 ml 100 ml 1200 ml Other 300 ml Output Urine Total 1250 ml 700 ml Stool Total 100 ml 0 ml 200 ml # Voids 0 2 # Bowel Movements 2 Laboratory Laboratory Tests Test 12/06/17 18:42 12/06/17 20:05 12/07/17 07:57 White Blood Count 25.9 Red Blood Count 3.86 Hemoglobin 12.4 Hematocrit 36.4 Mean Corpuscular Volume 94.5 Mean Corpuscular Hemoglobin 32.2 Mean Corpuscular Hemoglobin Concent 34.1 Red Cell Distribution Width 13.7 Platelet Count 600 Mean Platelet Volume 7.5 Prothrombin Time 11.2 10.5 Prothromb Time International Ratio 1.1 1.0 Activated Partial Thromboplast Time 24.6 22.4 Blood Urea Nitrogen 60 42 Creatinine 1.30 1.12 Random Glucose 135 100 Total Protein 5.8 6.4 Albumin 2.6 2.9 Calcium Level 7.9 8.3 Alkaline Phosphatase 161 153 Aspartate Amino Transf (AST/SGOT) 73 75 Alanine Aminotransferase (ALT/SGPT) 198 195 Total Bilirubin 0.8 0.9 Sodium Level 136 141 Potassium Level 3.8 4.3 Chloride Level 97 104 Carbon Dioxide Level 27.4 28.8 Anion Gap 12 8 Estimat Glomerular Filtration Rate 53 63 Lactic Acid Level 1.1 Corrected White Blood Count Neutrophils (%) (Auto) Lymphocytes (%) (Auto) Monocytes (%) (Auto) Eosinophils (%) (Auto) Basophils (%) (Auto) 0.5 Neutrophils # (Auto) 17.8 Lymphocytes # (Auto) 1.5 Monocytes # (Auto) 1.5 Eosinophils # (Auto) 0.1 Basophils # (Auto) 0.1 CBC Comment Differential Comment Phosphorus Level 2.9 Magnesium Level 2.5 Date/Time Source Procedure Growth Status 11/27/17 07:00 Blood Peripheral Aerobic Blood Culture - Final NO GROWTH IN 5 DAYS Complete 11/27/17 07:00 Blood Peripheral Anaerobic Blood Culture - Final NO GROWTH IN 5 DAYS Complete 12/01/17 14:40 Fluid Other Gram Stain - Final Complete 12/01/17 14:40 Fluid Other Body Fluid Culture - Final NO GROWTH IN 72 HRS.--AEROBICALLY OR ... Complete 12/06/17 05:26 Stool Stool Stool Occult Blood (CANDICE) - Final HEMOCCULT POSITIVE Complete 11/26/17 13:37 Urine Catheterized Urine Urine Culture - Final Pseudomonas Aeruginosa Complete Imaging Last Impressions Head CT 12/06/17 0000 Signed Impressions: CONCLUSION: 1. No acute intracranial abnormality. 2. 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 Chest X-Ray 12/06/17 Signed Impressions: CONCLUSION: 1. No new or acute intrathoracic disease. 2. Tip of the nasogastric tube is in the lower cervical esophagus. The tube ma y be coiled in the patient's mouth. Tube Removal 12/05/17 Signed Impressions: CONCLUSION: 1. Uncomplicated abdominal drain removal. Abdomen/Pelvis CT 12/03/17 Signed Impressions: CONCLUSION: 1. Decreased size of left hepatic lobe hematoma following drainage. 2. No evidence of free or loculated intraperitoneal fluid or free air. 3. Stable intestinal tract without evidence of pathologic distention or inflam matory changes. 4. Uncomplicated colonic diverticulosis. 5. Stable large right hemiscrotal hydrocele 6. Bibasilar airspace disease with small bilateral effusions. Abscess Drainage CT 12/01/17 Signed Impressions: CONCLUSION: 1. Uncomplicated CT guided drainage. 2. Hepatic collection has the appearance of a hematoma which may be infected c onsidering the small bubbles a contains. Specimen sent for culture and sensitiv ity. 3. 12 Tu[place] catheter left in place. Abdomen X-Ray 11/29/17 Signed Impressions: CONCLUSION: Nonspecific, nonobstructive bowel gas pattern which may represent a mild ileus and/or gastroenteritis. Abdomen Ultrasound 11/29/17 Signed Impressions: CONCLUSION: 1. Cholelithiasis with a mildly thickened gallbladder wall. 2. Dilatation the common bile duct. On the prior CT examination, there was a f illing defect within the common bile duct. 3. Heterogeneity to the liver with increased echogenicity likely related to he patic steatosis. 4. 1.5 cm echogenic focus in the right lobe of the liver. This could represent an underlying lesion such as a hemangioma. This is not clearly seen on the rec ent CT examination. One could perform a MRI of the abdomen at some point to mor e fully evaluate the liver. This could be performed as an outpatient. GI Procedure 11/28/17 Signed Impressions: CONCLUSION: Apparent ERCP stone extraction as detailed above. CBD is now clear. Hepatobiliary Scan Nuclear Medicine 11/26/17 Signed Impressions: Service Date/Time: Sunday, November 26, 2017 17:51 - CONCLUSION: 1. No activity seen in the gallbladder. Delayed imaging will be obtained to confirm cystic duct occlusion. 2. Significantly delayed biliary clearance with bowel activity noted at 90 minutes. This is consistent with partially obstructing distal CBD calculus as noted on CT exam. Nick Miramontes MD ADDENDUM: Delayed images were obtained. There is clear bowel activity on delayed imaging. There is also significant residual hepatic activity. This may be due to partial CBD obstruction or hepatocellular dysfunction. The gallbladder is again not visualized. This is concerning for cystic duct obstruction and cholecystitis in the appropriate clinical setting. 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 There is also a focus of air in the gallbladder. Gallbladder does not appear inflamed on CT exam. HIDA scan (11/26) No activity seen in the gallbladder. Significantly delayed biliary clearance with bowel activity noted at 90 minutes. Consistent with partially obstructing distal CBD calculus. Delayed images obtained, clear bowel activity on delayed imaging, also significant residual hepatic activity, may be due to CBD obstruction vs hepatocellular dysfunction. The gallbladder again not visualized, concerning for cystic duct obstruction and cholecystitis in appropriate setting. ERCP (11/28) --> Choledocholithiasis, S/P sphincterotomy and balloon extraction 3 sones, cholangiogram revealed total clearance of filling defects and intrahepatics were unremarkable. Duodenal diverticulum. Duodenal polyps. Pathology (Duodenum) tubulovillous adenoma. GS consult noted HIDA scan findings unreliable in pt with liver dysfunction, they have ordered US gallbladder to further evaluate, not ed pt is not a good surgical candidate at this time - ETOH abuse- reports 3 beers a day- on CIWA protocol - Sepsis- Pt on Zosyn - Encephalopathy - noted to be secondary to sepsis- ammonia < 10 CT assisted abscess drain for liver abscess with Accordion drain placement done on 5/25 Indication "Over the last 4 days a large mass is developed in the anterior left lobe of the liver measuring up to 9.6 cm in diameter containing multiple locules of air likely a developing complex liver abscess" seen on CT on 11/[address] done yesterday revealed decreased size of left hepatic lobe hematoma following drainage (12/04) Hemoccult positive stool, H/H has remained stable. Dark liquid stool reported by patient. Previous EGD on 11/28 as noted above. He reports increase in diarrhea. Will order stool studies for C. Diff LFTs trending down. IR has been reconsulted to removed drain tomorrow. (12/05) Pt reports diarrhea has been slowing down, has not had a BM yet today. C. Diff negative. Discussed the Hemoccult positive stool findings, H/H have remained WNL. He would like to wait to have a colonoscopy when he gets back to [place]. Does think he had one in the past, unsure of findings. Liver drain removed by IR (12/06) Initially signed off yesterday, however, per Dr. Hernandez pt began vomiting blood today, he witnessed this at bedside, coffee ground emesis. Per RN pt has also had 6 episodes of melena today. Pt complaining of abdominal bloating but denies any pain. Pt taken for emergent EGD and transferred to ICU. (12/07) Pt S/P EGD transferred to ICU, extubated and NG tube has been removed. Rectal bag to [facility]adez with melena. Repeat labs pending, multiple unsuccessful blood draws. Transport at bedside preparing to take pt down for NM bleeding scan. Pt denies nausea, vomiting. Complaining of epigastric pain. EGD --> Old blood, coffee ground, significant inflammation and swelling around the bryan ampullary area. Multiple polyp in this area. Clear bile seen coming intermittently from this area. This was an area of inflammation around 3 x 3.5 cm in size with very friable mucosa and oozing of blood. Possible bleed from previous sphincterotomy vs polyp biopsy site. Injected a total of 5 cc of epi with good hemostasis. Clipping.cautery not done as this appeared to be right around the ampulla. PLAN - NM bleeding scan now - May need CT angio with embolization - Continue Protonix gtt - Serial H/H - Monitor stool output - Further recommendations based on findings of above Pt has been seen and examined by jordanelf and Dr. Rodriguez and this note is written on his behalf (Марина Ochoa) Physician Comments Seen and examined with JOSE, continued bleeding /melena. Bleeding scan +ve for bleeding in the cecum?. Colonoscopy tomorrow. Liquid diet. Monitor labs (Singh Rodriguez MD) Марина Ochoa December 07, 2017 10:30 Singh Rodriguez MD December 07, 2017 15:52
[2017-12-07 11:14] LABS: AUTOMATED NEUTROPHIL # 17.7 TH/MM3 (1.8-7.7); BASOPHIL % 0.2 % (0.0-2.0); EOSINOPHIL # 0.1 TH/MM3 (0-0.4); EOSINOPHIL % 0.6 % (0.0-4.0); HEMATOCRIT 32.1 % (39.0-51.0); HEMOGLOBIN 10.7 GM/DL (13.0-17.0); LYMPH % 8.4 % (9.0-44.0); LYMPHOCYTE # 1.8 TH/MM3 (1.0-4.8); MEAN CORPUSCULAR HEMOGLOBIN 32.1 PG (27.0-34.0); MEAN CORPUSCULAR HGB CONC 33.4 % (32.0-36.0); MEAN PLATELET VOLUME 7.4 FL (7.0-11.0); MONO % 7.9 % (0.0-8.0); MONOCYTE # 1.7 TH/MM3 (0-0.9); NEUT % 82.9 % (16.0-70.0); PLATELET COUNT 503 TH/MM3 (150-450); RED BLOOD COUNT 3.35 MIL/MM3 (4.50-5.90); RED CELL DISTRIBUTION WIDTH 13.6 % (11.6-17.2); WHITE BLOOD COUNT 21.4 TH/MM3 (4.0-11.0)
--- NOTE | 2017-12-07 14:53 | RADRPT ---
EXAM DATE: 12/07/2017 2:17 PM EDT AGE/SEX: 77 years / Male INDICATIONS: Hemorrhage. Rectal bleeding for one day with blood in stool. CLINICAL DATA: This is the patient's initial encounter. Patient reports that signs and symptoms have been present for 1 day and indicates a pain score of 0/10. MEDICAL/SURGICAL HISTORY: Hypertension. Carcinoma, testicular. . Testicular tumor removed. COMPARISON: [facility] [place], CT ABDOMEN & PELVIS W CONTRAST, 12/03/2017. . No external comparison. TECHNIQUE: Following the modified in vitro labeling of autologous red cells, dynamic continuous image s were acquired for two hours. ?? DOSE: 21.2 mCi Tc 99m Ultratag Labeled Red Blood Cells IV IMAGING TIME: 2 hr FINDINGS: Biodistribution: There is a very good labeling of red cells without significant uptake in the gastri c wall. There is good delineation of the blood pool of the spleen and abdominal vessels. Bleeding: There is very slow stationary accumulation of radiotracer in the right lower quadrant in the region of the cecum. CONCLUSION: 1. Findings concerning for very slow rate of hemorrhage in the region of the cecum. Doubtful this is sufficient for angiographic visualization. Electronically signed by: Nick Miramontes MD 12/07/2017 2:51 PM EDT
[2017-12-07] MEDS: PEG (High)/E-LYTE SOLN 4000 ML BTL PO SCH ×2 (15:55→23:30)
[2017-12-08] VITALS (12 sets, daily range): BP systolic 114–173; BP diastolic 59–74; PULSE 58–86; RESP 14–23; TEMP 97.3–98.2; O2SAT 95–100
[2017-12-08] MEDS: PIPERACIL-TAZO 4.5 GM PREMIX 100 ML IV SCH ×4 (02:30→20:00)
[2017-12-08] MEDS: NS + KCL 20 MEQ INJ 1,000 ML IV SCH ×3 (04:52→19:59)
[2017-12-08] MEDS: DIPHENOXYLATE/ATROPINE 2.5 MG/0.025 MG TAB PO SCH ×3 (06:11→19:59)
[2017-12-08] MEDS: ASPIRIN EC 81 MG TABEC PO SCH (07:48)
[2017-12-08] MEDS: DOCUSATE SODIUM 50 MG/SENNA 8.6 MG TAB PO SCH ×2 (07:50→20:00)
[2017-12-08] MEDS: LIPASE/PROTEASE/AMYLASE (12,000/38,000/60,000) CAP PO SCH ×3 (07:50→19:59)
[2017-12-08] MEDS: BISACODYL 10 MG SUPP RECTAL SCH (07:50)
[2017-12-08] MEDS: SODIUM CHLORIDE 0.9% 10 ML VIAL IRRIGATION SCH ×2 (08:00→20:00)
[2017-12-08] MEDS: SODIUM CHLORIDE 0.9% FLUSH 10 ML FLUSH IV FLUSH SCH ×2 (08:56→20:59)
[2017-12-08] MEDS: PANTOPRAZOLE INJ 80 MG in SODIUM CHLORIDE 0.9% INJ 100 ML IV SCH ×2 (08:57→20:59)
--- NOTE | 2017-12-08 11:39 | GIPROC ---
[facility] [address] [facility]. [facility], [address] COLONOSCOPY PROCEDURE REPORT EXAM DATE: 12/08/2017 PATIENT NAME: Remy Chi MR #: [id number] BIRTHDATE: 1940 ENDOSCOPIST: Cesar Escalera MD ORDER #: [id number] WET PROCESS ASSISTANT HEAD MILLER: Wicho Jaffe and Claudia You STATUS: inpatient INDICATIONS: The patient is a 77 yr old male here for a colonoscopy due to anal bleeding PROCEDURE PERFORMED: Colonoscopy with polypectomy Colonoscopy with ablation MEDICATIONS: None and Per Anesthesia. PREP QUALITY: fair PREP TYPE:GoLytely ESTIMATED BLOOD LOSS: None CONSENT: The patient understands the risks and benefits of the procedure and understands that these risks include, but are not limited to: sedation, allergic reaction, infection, perforation and/or bleeding. Alternative means of evaluation and treatment include, among others: physical exam, x-rays, and/or surgical intervention. The patient elects to proceed with this endoscopic procedure. medical equipment was checked for proper function. Hand hygiene and appropriate measures for infection prevention was taken. After the risks, benefits and alternatives of the procedure were thoroughly explained, Informed consent was verified, confirmed and timeout was successfully executed by the treatment team. A digital exam revealed no abnormalities of the rectum The Pentax [id number] endoscope was introduced through the anus and advanced to the cecum, which was identified by both the appendix and ileocecal valve. The instrument was then slowly withdrawn as the colon was fully examined. COLON FINDINGS: A sessile polyp ranging between 3-5mm in size with a friable surface was found in the sigmoid colon. A polypectomy was performed with cold forceps. The resection was complete and the polyp tissue was completely retrieved. Diverticulum was found in the sigmoid colon, descending colon, and ascending colon with associated colonic spasm. The opening was large. 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 Argon plasma coagulation was applied to the sites. With complete hemostasis achieved. Retroflexed views revealed no abnormalities The scope was then completely withdrawn from the patient and the procedure terminated. PROCEDURE WITHDRAWAL TIME:10minutes ADVERSE EVENTS: There were no complications. IMPRESSIONS: 1. A sessile polyp ranging between 3-5mm in size was found in the sigmoid colon; polypectomy was performed with cold forceps 2. Diverticulum in the sigmoid colon, descending colon, and ascending colon 3. Multiple small arteriovenous malformations were found in the ascending colon and at the cecum; Argon plasma coagulation was applied to the sites; with complete hemostasis achieved 4. Retroflexed views revealed no abnormalities RECOMMENDATIONS: 1. Await biopsy results. Biopsy results will not be ready for 7-10 days. If you don't hear from us in two weeks, call our office for results. 2. Benefiber 2 tsp daily 3. High fiber diet. Avoid nuts, seeds, and popcorn. Chew your food well. RECALL: Return 1 year Colonoscopy Cesar Escalera MD eSigned: Cesar Escalera MD 12/08/2017 11:39 AM cc: PATIENT NAME: Remy Chi MR#: [id number]
[2017-12-08] MEDS ORDERED: DO NOT ADM ANY ANTICOAGULANT DRUGS PRN (11:40)
[2017-12-08] MEDS ORDERED: LIDOCAINE HCL 1% PF 5 ML SYRINGE OTHER ONE (12:00)
[2017-12-08] MEDS ORDERED: PHENYLEPH/NS 1000 MCG/10 ML SYR IV ONE (12:00)
[2017-12-08] MEDS ORDERED: PROPOFOL 200 MG/20 ML AMP IV ONE (12:00)
--- NOTE | 2017-12-08 16:41 | HHI.PR ---
Subjective Remarks Deferred entry - patient seen on 12/07 Patient denies abdominal pain nausea or vomiting. Objective Vitals Vital Signs Date Time Temp Pulse Resp B/P (MAP) Pulse Ox O2 Delivery O2 Flow Rate FiO2 12/08/17 14:00 86 12/08/17 12:00 98.0 69 15 114/63 (80) 100 12/08/17 12:00 65 15 135/72 (93) 98 12/08/17 12:00 69 12/08/17 11:45 70 14 135/69 (91) 100 Nasal Cannula 2 12/08/17 11:39 97.6 68 14 150/76 (100) 100 12/08/17 10:30 70 12 148/70 (96) 98 12/08/17 10:15 97.8 80 15 164/72 (102) 93 Room Air 12/08/17 10:15 97.8 80 15 180/77 (111) 93 12/08/17 10:00 73 12/08/17 08:00 98.0 60 14 173/74 (107) 98 12/08/17 08:00 60 12/08/17 07:00 97 Room Air 12/08/17 06:00 79 12/08/17 04:00 97.3 64 18 166/71 (102) 95 12/08/17 04:00 64 12/08/17 02:00 62 12/08/17 00:00 97.9 68 23 148/70 (96) 97 12/08/17 00:00 68 12/07/17 22:00 74 12/07/17 20:59 95 21 12/07/17 20:00 97.5 78 16 148/78 (101) 96 12/07/17 20:00 81 12/07/17 19:00 98 Room Air I/O 12/07/17 12/07/17 12/07/17 12/08/17 12/08/17 12/08/17 07:00 15:00 23:00 07:00 15:00 23:00 Intake Total 1200 ml 720 ml 1420 ml 400 ml Output Total 900 ml 1000 ml 1100 ml Balance 300 ml -280 ml 320 ml 400 ml Intake Oral 0 ml 720 ml 120 ml IV Total 1200 ml 1300 ml Other 400 ml Output Urine Total 700 ml 1000 ml 1100 ml Stool Total 200 ml # Voids 2 # Bowel Movements 3 5 Result Diagram: 12/07/17 1033 12/07/17 0757 Objective Remarks General: No distress. Heart: Regular rate and rhythm. No murmur. Lungs: CTAB. No W/R/R. Abdomen: Soft, mild tenderness in the epigastric area, distended. Drain in place with bloody drainage. Extremities: No lower extremity edema. Psych: Alert and oriented. Neuro: Normal speech. No focal deficits noted. : Significant scrotal enlargement Procedures None A/P Problem List: (1) Sepsis ICD Code: A41.9 - Sepsis, unspecified organism (2) Choledocholithiasis ICD Code: K80.50 - Calculus of bile duct without cholangitis or cholecystitis without obstruction Status: Acute (3) Alcohol dependence ICD Code: F10.20 - Alcohol dependence Status: Acute (4) Encephalopathy acute ICD Code: G93.40 - Encephalopathy, unspecified (5) Hypertension ICD Code: I10 - Hypertension Status: Acute (6) H/O: CVA (cerebrovascular accident) ICD Code: Z86.73 - Personal history of transient ischemic attack (TIA), and cerebral infarction without residual deficits Assessment and Plan 1. Choledocholithiasis/ Liver abscess Abnormal HIDA scan and US noted. GI and surgical consults appreciated. S/p ERCP which revealed: Choledocholithiasis; Duodenal diverticulum; Duodenal polyps. CT 11/30: Over the last 4 days a large mass has developed in the anterior left lobe of the liver measuring up to 9.6 cm in diameter containing multiple locules of air likely a developing complex liver abscess; Multiple gallstones without significant inflammatory changes identified around the gallbladder. IR consulted for abscess drainage 12/01. Drain still in place. CT 12/03: Decreased size of left hepatic lobe hematoma following drainage; No evidence of free or loculated intraperitoneal fluid or free air; Stable intestinal tract without evidence of pathologic distention or inflammatory changes. Abscess culture with no growth, final. - continue IV Zosyn. Consider discharging on Cipro/ Flagyl. - follow up with GI. - trend LFTs. - will need outpt follow-up with surgery to schedule cholecystectomy. 12/05 status post drain removal by IR. Sepsis Source is UTI. Pseudomonas growing. - Continue IV Zosyn. Can change to Cipro upon discharge. Sepsis seems to be resolving. Reactive airway disease No further wheezing on exam. - Oxygen and nebs as needed. Started standing nebs. - d/c prednisone. - continue antibiotics. - repeat CXR. - will need home o2 Leukocytosis Leukocytosis possibly secondary to steroid use and now reactive distress due to active GI bleed and hypotension. Continue to monitor CBC. Continue to monitor vital signs for fevers. There is a question of a right lower lobe infiltrate, continue to monitor. Possible right testicular mass Imaging shows cystic mass on right. Evaluated by urology. No surgical intervention planned for hydrocele. Repeat CT: Large loculated hydrocele or cystic testicular mass in the right hemiscrotum measuring up to 13.6 cm in diameter. - Patient to follow-up with urology as outpt. Reconsult as needed. Alcohol abuse No evidence of withdrawal. - [facility] protocol, thiamine, folic acid. - cessation instruction. History of CVA Stable. - Continue aspirin. HTN Hypotension Hold all antihypertensive medications due to current hypovolemic shock. 12/07 BP improved after IV fluid bolus. Continue to monitor vital signs. Hypokalemia S/t decreased PO intake. - replete and monitor. GI bleed with hypovolemic shock. The patient had coffee-ground emesis and melanotic stools on 12/07/17. The patient was immediately given a liter of normal saline bolus since the patient' s blood pressure was down. Hemoglobin was noted to drop down to 10.7. Continue to monitor CBC. Patient was transferred to the intensive care unit. Critical care consulted. GI was informed of the acute bleed. The case was discussed with them. GI recommended a bleeding scan which showed findings concerning for very slow rate of hemorrhage in the region of the cecum. The patient for repeat EGD/colonoscopy in a.m. DVT prophylaxis: DC Lovenox for DVT prophylaxis. Discharge Planning Transfer the patient to the intensive care unit due to acute GI bleed with hypovolemic shock. Problem Qualifiers (1) Alcohol dependence: Qualified Codes: F10.29 - Alcohol dependence with unspecified alcohol-induced disorder Montrell Robledo MD Dec 08, 2017 16:41
--- NOTE | 2017-12-08 23:59 | HHI.PR ---
Subjective Remarks Late entry - patient seen at 17:30 hrs Patient denies hematemesis, melena Denies abdominal pain, nausea or vomiting. Objective Vitals Vital Signs Date Time Temp Pulse Resp B/P (MAP) Pulse Ox O2 Delivery O2 Flow Rate FiO2 12/08/17 22:00 60 12/08/17 20:00 98.2 68 17 165/74 (104) 100 12/08/17 20:00 72 12/08/17 19:00 100 Room Air 12/08/17 18:00 79 12/08/17 16:00 58 12/08/17 16:00 98.0 58 16 131/59 (83) 100 12/08/17 14:00 86 12/08/17 12:00 98.0 69 15 114/63 (80) 100 12/08/17 12:00 65 15 135/72 (93) 98 12/08/17 12:00 69 12/08/17 11:45 70 14 135/69 (91) 100 Nasal Cannula 2 12/08/17 11:39 97.6 68 14 150/76 (100) 100 12/08/17 10:30 70 12 148/70 (96) 98 12/08/17 10:15 97.8 80 15 164/72 (102) 93 Room Air 12/08/17 10:15 97.8 80 15 180/77 (111) 93 12/08/17 10:00 73 12/08/17 08:00 98.0 60 14 173/74 (107) 98 12/08/17 08:00 60 12/08/17 07:00 97 Room Air 12/08/17 06:00 79 12/08/17 04:00 97.3 64 18 166/71 (102) 95 12/08/17 04:00 64 12/08/17 02:00 62 12/08/17 00:00 97.9 68 23 148/70 (96) 97 12/08/17 00:00 68 I/O 12/08/17 12/08/17 12/08/17 12/09/17 12/09/17 12/09/17 07:00 15:00 23:00 07:00 15:00 23:00 Intake Total 1420 ml 400 ml 480 ml Output Total 1100 ml 1000 ml Balance 320 ml 400 ml -520 ml Intake Oral 120 ml 480 ml IV Total 1300 ml Other 400 ml Output Urine Total 1100 ml 700 ml Stool Total 300 ml # Bowel Movements 5 Result Diagram: 12/07/17 1033 12/07/17 0757 Objective Remarks General: No distress. Heart: Regular rate and rhythm. No murmur. Lungs: CTAB. No W/R/R. Abdomen: soft, non tender, non distended. Extremities: No lower extremity edema. Psych: Alert and oriented. Neuro: Normal speech. No focal deficits noted. : Significant scrotal enlargement Procedures None A/P Problem List: (1) Sepsis ICD Code: A41.9 - Sepsis, unspecified organism (2) Choledocholithiasis ICD Code: K80.50 - Calculus of bile duct without cholangitis or cholecystitis without obstruction Status: Acute (3) Alcohol dependence ICD Code: F10.20 - Alcohol dependence Status: Acute (4) Encephalopathy acute ICD Code: G93.40 - Encephalopathy, unspecified (5) Hypertension ICD Code: I10 - Hypertension Status: Acute (6) H/O: CVA (cerebrovascular accident) ICD Code: Z86.73 - Personal history of transient ischemic attack (TIA), and cerebral infarction without residual deficits Assessment and Plan 1. Choledocholithiasis/ Liver abscess Abnormal HIDA scan and US noted. GI and surgical consults appreciated. S/p ERCP which revealed: Choledocholithiasis; Duodenal diverticulum; Duodenal polyps. CT 11/30: Over the last 4 days a large mass has developed in the anterior left lobe of the liver measuring up to 9.6 cm in diameter containing multiple locules of air likely a developing complex liver abscess; Multiple gallstones without significant inflammatory changes identified around the gallbladder. IR consulted for abscess drainage 12/01. Drain still in place. CT 12/03: Decreased size of left hepatic lobe hematoma following drainage; No evidence of free or loculated intraperitoneal fluid or free air; Stable intestinal tract without evidence of pathologic distention or inflammatory changes. Abscess culture with no growth, final. - continue IV Zosyn. Consider discharging on Cipro/ Flagyl. - follow up with GI. - trend LFTs. - will need outpt follow-up with surgery to schedule cholecystectomy. 12/05 status post drain removal by IR. Sepsis Source is UTI. Pseudomonas growing. - Continue IV Zosyn. Can change to Cipro upon discharge. Sepsis seems to be resolving. Reactive airway disease No further wheezing on exam. - Oxygen and nebs as needed. Started standing nebs. - d/c prednisone. - continue antibiotics. - repeat CXR. - will need home o2 Leukocytosis Leukocytosis possibly secondary to steroid use and now reactive distress due to active GI bleed and hypotension. Continue to monitor CBC. Continue to monitor vital signs for fevers. There is a question of a right lower lobe infiltrate, continue to monitor. Possible right testicular mass Imaging shows cystic mass on right. Evaluated by urology. No surgical intervention planned for hydrocele. Repeat CT: Large loculated hydrocele or cystic testicular mass in the right hemiscrotum measuring up to 13.6 cm in diameter. - Patient to follow-up with urology as outpt. Reconsult as needed. Alcohol abuse No evidence of withdrawal. - CIWA protocol, thiamine, folic acid. - cessation instruction. History of CVA Stable. - Continue aspirin. HTN Hypotension Hold all antihypertensive medications due to current hypovolemic shock. 12/07 BP improved after IV fluid bolus. Continue to monitor vital signs. 12/08 BP stable, continue to hold antihypertensives. Hypokalemia S/t decreased PO intake. - replete and monitor. GI bleed with hypovolemic shock. The patient had coffee-ground emesis and melanotic stools on 12/07/17. The patient was immediately given a liter of normal saline bolus since the patient' s blood pressure was down. Hemoglobin was noted to drop down to 10.7. Continue to monitor CBC. Patient was transferred to the intensive care unit. Critical care consulted. GI was informed of the acute bleed. The case was discussed with them. GI recommended a bleeding scan which showed findings concerning for very slow rate of hemorrhage in the region of the cecum. 12/08 sp EGD/Colonoscopy - EGD showed duodenal ulcer which was treatedw Argon Plasma. Colonoscopy showed: 1. A sessile polyp ranging between 3-5mm in size was found in the sigmoid colon; polypectomy was performed with cold forceps 2. Diverticulum in the sigmoid colon, descending colon, and ascending colon 3. 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 Transfuse for hb less than 8 if active bleeding present. DVT prophylaxis: DSCD's, no chemoprophylaxis due to GI bleeding. Discharge Planning Possible dc in am. Problem Qualifiers (1) Alcohol dependence: Qualified Codes: F10.29 - Alcohol dependence with unspecified alcohol-induced disorder Montrell Robledo MD Dec 08, 2017 23:59
[2017-12-09] VITALS (11 sets, daily range): BP systolic 84–152; BP diastolic 58–68; PULSE 55–76; RESP 11–22; TEMP 97.6–98.4; O2SAT 96–100
[2017-12-09] MEDS: PIPERACIL-TAZO 4.5 GM PREMIX 100 ML IV SCH ×2 (01:24→08:55)
[2017-12-09] MEDS: DIPHENOXYLATE/ATROPINE 2.5 MG/0.025 MG TAB PO SCH ×4 (01:24→18:00)
[2017-12-09 04:54] LABS: HEMATOCRIT 26.9 % (39.0-51.0); HEMOGLOBIN 9.3 GM/DL (13.0-17.0); MEAN CELL VOLUME 95.6 FL (80.0-100.0); MEAN CORPUSCULAR HEMOGLOBIN 33.2 PG (27.0-34.0); MEAN CORPUSCULAR HGB CONC 34.7 % (32.0-36.0); MEAN PLATELET VOLUME 7.3 FL (7.0-11.0); PLATELET COUNT 442 TH/MM3 (150-450); RED BLOOD COUNT 2.82 MIL/MM3 (4.50-5.90); RED CELL DISTRIBUTION WIDTH 13.6 % (11.6-17.2); WHITE BLOOD COUNT 13.2 TH/MM3 (4.0-11.0)
[2017-12-09] MEDS: PANTOPRAZOLE INJ 80 MG in SODIUM CHLORIDE 0.9% INJ 100 ML IV SCH (05:03)
[2017-12-09 05:31] LABS: BICARBONATE 26.7 MEQ/L (21.0-32.0); CALCIUM 7.7 MG/DL (8.5-10.1); CREATININE 0.75 MG/DL (0.60-1.30)
[2017-12-09] MEDS: SODIUM CHLORIDE 0.9% 10 ML VIAL IRRIGATION SCH ×2 (08:00→20:00)
[2017-12-09] MEDS: SODIUM CHLORIDE 0.9% FLUSH 10 ML FLUSH IV FLUSH SCH ×2 (08:55→20:36)
[2017-12-09] MEDS: LIPASE/PROTEASE/AMYLASE (12,000/38,000/60,000) CAP PO SCH ×3 (08:55→18:00)
[2017-12-09] MEDS: BISACODYL 10 MG SUPP RECTAL SCH (08:56)
[2017-12-09] MEDS: DOCUSATE SODIUM 50 MG/SENNA 8.6 MG TAB PO SCH ×2 (08:56→20:40)
[2017-12-09] MEDS: ASPIRIN EC 81 MG TABEC PO SCH (08:56)
[2017-12-09] MEDS: NS + KCL 20 MEQ INJ 1,000 ML IV SCH (08:57)
[2017-12-09] MEDS ORDERED: CREON12 PO (10:31)
[2017-12-09] MEDS ORDERED: AMLO10 PO (10:31)
[2017-12-09] MEDS ORDERED: PANT40TA3 PO (10:31)
--- NOTE | 2017-12-09 10:35 | HHI.FF ---
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 My clinical findings support the need for the requested home health care services because: Need for psychosocial assistance High risk of falls I certify that my clinical findings support that this patient is homebound because: Unsafe to leave home unassisted Unable to use public transportation Montrell Robledo MD Dec 09, 2017 10:35
--- NOTE | 2017-12-09 10:36 | HHI.DS ---
Discharge Summary Admission Date November 26, 2017 at 16:39 Discharge Date: Dec 12, 2017 Admitting Diagnosis choledocholithiasis (1) Sepsis ICD Code: A41.9 - Sepsis, unspecified organism Diagnosis: Principal Status: Resolved (2) Choledocholithiasis ICD Code: K80.50 - Calculus of bile duct without cholangitis or cholecystitis without obstruction Diagnosis: Principal Status: Acute (3) Alcohol dependence ICD Code: F10.20 - Alcohol dependence Diagnosis: Principal Status: Acute (4) Encephalopathy acute ICD Code: G93.40 - Encephalopathy, unspecified Diagnosis: Principal Status: Resolved (5) Hypertension ICD Code: I10 - Hypertension Diagnosis: Principal Status: Resolved (6) H/O: CVA (cerebrovascular accident) ICD Code: Z86.73 - Personal history of transient ischemic attack (TIA), and cerebral infarction without residual deficits Diagnosis: Principal Status: Chronic Procedures None Brief History - From Admission This is a 77-year-old male with past medical history significant for alcohol dependence and abuse, history of CVA, hypertension who presents to [facility] complaining of dizziness and shaking. The patient presented to the emergency department via EMS for evaluation of confusion. The patient had told the ER physician that he has been confused since yesterday. The patient stated to me that he felt dizzy and had severe shaking. The patient denies abdominal pain, denies nausea, denies vomiting, denies dysuria. As per ED physician's note the patient was alert and oriented to person and place only and thought he was in the year 1977. The patient states he takes no medications at home. The patient denies chest pain or shortness of breath, appears jaundiced. Patient is a poor historian. During my interview the patient is awake alert and oriented 3 and does not present any tremors. Patient also is noted to have a large right testicular mass. He states that he was seen by a physician in [place] who recommended to have the mass removed but he refused. CBC/BMP: 12/09/17 0340 12/09/17 0340 Significant Findings Laboratory Tests Test 12/06/17 18:42 12/06/17 20:05 12/07/17 07:57 12/07/17 10:33 White Blood Count 25.9 TH/MM3 (4.0-11.0) 21.4 TH/MM3 (4.0-11.0) Red Blood Count 3.86 MIL/MM3 (4.50-5.90) 3.35 MIL/MM3 (4.50-5.90) Hemoglobin 12.4 GM/DL (13.0-17.0) 10.7 GM/DL (13.0-17.0) Hematocrit 36.4 % (39.0-51.0) 32.1 % (39.0-51.0) Platelet Count 600 TH/MM3 (150-450) 503 TH/MM3 (150-450) Blood Urea Nitrogen 60 MG/DL (7-18) 42 MG/DL (7-18) Random Glucose 135 MG/DL (74-106) Total Protein 5.8 GM/DL (6.4-8.2) Albumin 2.6 GM/DL (3.4-5.0) 2.9 GM/DL (3.4-5.0) Calcium Level 7.9 MG/DL (8.5-10.1) 8.3 MG/DL (8.5-10.1) Alkaline Phosphatase 161 U/L (45-117) 153 U/L (45-117) Aspartate Amino Transf (AST/SGOT) 73 U/L (15-37) 75 U/L (15-37) Alanine Aminotransferase (ALT/SGPT) 198 U/L (12-78) 195 U/L (12-78) Chloride Level 97 MEQ/L (98-107) Estimat Glomerular Filtration Rate 53 ML/MIN (>89) 63 ML/MIN (>89) Neutrophils # (Auto) 17.8 TH/MM3 (1.8-7.7) 17.7 TH/MM3 (1.8-7.7) Monocytes # (Auto) 1.5 TH/MM3 (0-0.9) 1.7 TH/MM3 (0-0.9) Activated Partial Thromboplast Time 22.4 SEC (24.3-30.1) Neutrophils (%) (Auto) 82.9 % (16.0-70.0) Lymphocytes (%) (Auto) 8.4 % (9.0-44.0) Test 6/2/18 03:40 White Blood Count 13.2 TH/MM3 (4.0-11.0) Red Blood Count 2.82 MIL/MM3 (4.50-5.90) Hemoglobin 9.3 GM/DL (13.0-17.0) Hematocrit 26.9 % (39.0-51.0) Random Glucose 67 MG/DL (74-106) Calcium Level 7.7 MG/DL (8.5-10.1) Imaging Last Impressions GI Bleed Scan Nuclear Medicine 12/07/17 Signed Impressions: CONCLUSION: 1. Findings concerning for very slow rate of hemorrhage in the region of the c ecum. Doubtful this is sufficient for angiographic visualization. Head CT 12/06/17 Signed Impressions: CONCLUSION: 1. No acute intracranial abnormality. 2. 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 Chest X-Ray 12/06/17 Signed Impressions: CONCLUSION: 1. No new or acute intrathoracic disease. 2. Tip of the nasogastric tube is in the lower cervical esophagus. The tube ma y be coiled in the patient's mouth. Tube Removal 12/05/17 Signed Impressions: CONCLUSION: 1. Uncomplicated abdominal drain removal. Abdomen/Pelvis CT 12/03/17 Signed Impressions: CONCLUSION: 1. Decreased size of left hepatic lobe hematoma following drainage. 2. No evidence of free or loculated intraperitoneal fluid or free air. 3. Stable intestinal tract without evidence of pathologic distention or inflam matory changes. 4. Uncomplicated colonic diverticulosis. 5. Stable large right hemiscrotal hydrocele 6. Bibasilar airspace disease with small bilateral effusions. Abscess Drainage CT 12/01/17 Signed Impressions: CONCLUSION: 1. Uncomplicated CT guided drainage. 2. Hepatic collection has the appearance of a hematoma which may be infected c onsidering the small bubbles a contains. Specimen sent for culture and sensitiv ity. 3. 12 [place] catheter left in place. Abdomen X-Ray 11/29/17 Signed Impressions: CONCLUSION: Nonspecific, nonobstructive bowel gas pattern which may represent a mild ileus and/or gastroenteritis. Abdomen Ultrasound 11/29/17 Signed Impressions: CONCLUSION: 1. Cholelithiasis with a mildly thickened gallbladder wall. 2. Dilatation the common bile duct. On the prior CT examination, there was a f illing defect within the common bile duct. 3. Heterogeneity to the liver with increased echogenicity likely related to he patic steatosis. 4. 1.5 cm echogenic focus in the right lobe of the liver. This could represent an underlying lesion such as a hemangioma. This is not clearly seen on the rec ent CT examination. One could perform a MRI of the abdomen at some point to mor e fully evaluate the liver. This could be performed as an outpatient. GI Procedure 11/28/17 0000 Signed Impressions: CONCLUSION: Apparent ERCP stone extraction as detailed above. CBD is now clear. Hepatobiliary Scan Nuclear Medicine 11/26/17 0000 Signed Impressions: Service Date/Time: Sunday, November 26, 2017 17:51 - CONCLUSION: 1. No activity seen in the gallbladder. Delayed imaging will be obtained to confirm cystic duct occlusion. 2. Significantly delayed biliary clearance with bowel activity noted at 90 minutes. This is consistent with partially obstructing distal CBD calculus as noted on CT exam. Nick Miramontes MD ADDENDUM: Delayed images were obtained. There is clear bowel activity on delayed imaging. There is also significant residual hepatic activity. This may be due to partial CBD obstruction or hepatocellular dysfunction. The gallbladder is again not visualized. This is concerning for cystic duct obstruction and cholecystitis in the appropriate clinical setting. Nick Miramontes MD PE at Discharge General: No distress. Heart: Regular rate and rhythm. No murmur. Lungs: CTAB. No W/R/R. Abdomen: soft, non tender, non distended. Extremities: No lower extremity edema. Psych: Alert and oriented. Neuro: Normal speech. No focal deficits noted. : Significant scrotal enlargement Pt update on day of discharge Patient denies any melena or hematochezia. Patient is tolerating diet. As per RN the patient is orthostatic, however the patient is not symptomatic. Pt Condition on Discharge: Stable Discharge Disposition: Disch w/ Home Health Serv Discharge Time: > 30 minutes Discharge Instructions DIET: Follow Instructions for: As Tolerated, No Restrictions Activities you can perform: Regular-No Restrictions Follow up Referrals: Gastroenterology - 3 Weeks with Cesar Escalera MD PCP Follow-up - 2 Weeks Urology - 1 Week New Medications: Oxygen (O2) (Oxygen (O2)) Device LITER DOMENICA.CANULA CONTINUOUS for Prevent Hypoxemia, #2 Oxygen Concentrator Portable Gaseous 2 L/min via Nasal Canula Continuous For 99 months Walker Rolling/GetGo (Walker Rolling/GetGo) 1 Mis Mis EA .XX DIRECTED, #1 Amlodipine (Norvasc) 10 Mg Tab 10 MG PO DAILY for Blood Pressure Management, #30 TAB Pancrelipase (Creon) 12,000-38,000-60,000 Units Cap 1 CAP PO TID for Diarrhea, #90 CAP Pantoprazole (Pantoprazole) 40 Mg Tab 40 MG PO Q12HR for GI bleed/PUD, #62 TAB Montrell Robledo MD Dec 09, 2017 10:36
--- NOTE | 2017-12-09 12:30 | HHI.GIFU ---
Subjective Remarks Pt resting in bed States planned for DC today Denies any GI complaints at this time 1 BM documented from yesterday, denies any blood (Марина Ochoa) Objective Vitals I&O Vital Signs Date Time Temp Pulse Resp B/P (MAP) Pulse Ox O2 Delivery O2 Flow Rate FiO2 12/09/17 12:00 98.4 66 22 152/68 (96) 96 12/09/17 12:00 66 12/09/17 10:00 66 12/09/17 08:00 97.6 60 14 133/63 (86) 99 12/09/17 08:00 60 12/09/17 07:32 100 21 12/09/17 07:00 100 Room Air 12/09/17 06:00 76 12/09/17 04:00 97.6 60 13 137/65 (89) 99 12/09/17 04:00 60 12/09/17 02:00 60 12/09/17 00:00 55 12/09/17 00:00 98.3 68 11 147/65 (92) 100 12/08/17 22:00 60 12/08/17 20:00 98.2 68 17 165/74 (104) 100 12/08/17 20:00 72 12/08/17 19:00 100 Room Air 12/08/17 18:00 79 12/08/17 16:00 58 12/08/17 16:00 98.0 58 16 131/59 (83) 100 12/08/17 14:00 86 I/O 12/08/17 12/08/17 12/08/17 12/09/17 12/09/17 12/09/17 07:00 15:00 23:00 07:00 15:00 23:00 Intake Total 1420 ml 400 ml 580 ml 320 ml 270 ml Output Total 1100 ml 1000 ml 900 ml Balance 320 ml 400 ml -420 ml -580 ml 270 ml Intake Oral 120 ml 480 ml 120 ml IV Total 1300 ml 100 ml 200 ml 270 ml Other 400 ml Output Urine Total 1100 ml 700 ml 900 ml Stool Total 300 ml # Bowel Movements 5 1 Laboratory Laboratory Tests Test 12/09/17 03:40 White Blood Count 13.2 Red Blood Count 2.82 Hemoglobin 9.3 Hematocrit 26.9 Mean Corpuscular Volume 95.6 Mean Corpuscular Hemoglobin 33.2 Mean Corpuscular Hemoglobin Concent 34.7 Red Cell Distribution Width 13.6 Platelet Count 442 Mean Platelet Volume 7.3 Blood Urea Nitrogen 16 Creatinine 0.75 Random Glucose 67 Calcium Level 7.7 Sodium Level 139 Potassium Level 4.0 Chloride Level 103 Carbon Dioxide Level 26.7 Anion Gap 9 Estimat Glomerular Filtration Rate 101 Date/Time Source Procedure Growth Status 11/27/17 07:00 Blood Peripheral Aerobic Blood Culture - Final NO GROWTH IN 5 DAYS Complete 11/27/17 07:00 Blood Peripheral Anaerobic Blood Culture - Final NO GROWTH IN 5 DAYS Complete 12/01/17 14:40 Fluid Other Gram Stain - Final Complete 12/01/17 14:40 Fluid Other Body Fluid Culture - Final NO GROWTH IN 72 HRS.--AEROBICALLY OR ... Complete 12/06/17 05:26 Stool Stool Stool Occult Blood (CANDICE) - Final HEMOCCULT POSITIVE Complete 11/26/17 13:37 Urine Catheterized Urine Urine Culture - Final Pseudomonas Aeruginosa Complete Imaging Last Impressions GI Bleed Scan Nuclear Medicine 12/07/17 0000 Signed Impressions: CONCLUSION: 1. Findings concerning for very slow rate of hemorrhage in the region of the c ecum. Doubtful this is sufficient for angiographic visualization. Head CT 12/06/17 0000 Signed Impressions: CONCLUSION: 1. No acute intracranial abnormality. 2. 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 Chest X-Ray 12/06/17 0000 Signed Impressions: CONCLUSION: 1. No new or acute intrathoracic disease. 2. Tip of the nasogastric tube is in the lower cervical esophagus. The tube ma y be coiled in the patient's mouth. Tube Removal 12/05/17 0000 Signed Impressions: CONCLUSION: 1. Uncomplicated abdominal drain removal. Abdomen/Pelvis CT 12/03/17 0000 Signed Impressions: CONCLUSION: 1. Decreased size of left hepatic lobe hematoma following drainage. 2. No evidence of free or loculated intraperitoneal fluid or free air. 3. Stable intestinal tract without evidence of pathologic distention or inflam matory changes. 4. Uncomplicated colonic diverticulosis. 5. Stable large right hemiscrotal hydrocele 6. Bibasilar airspace disease with small bilateral effusions. Abscess Drainage CT 12/01/17 0000 Signed Impressions: CONCLUSION: 1. Uncomplicated CT guided drainage. 2. Hepatic collection has the appearance of a hematoma which may be infected c onsidering the small bubbles a contains. Specimen sent for culture and sensitiv ity. 3. 12 [place] catheter left in place. Abdomen X-Ray 11/29/17 Signed Impressions: CONCLUSION: Nonspecific, nonobstructive bowel gas pattern which may represent a mild ileus and/or gastroenteritis. Abdomen Ultrasound 11/29/17 Signed Impressions: CONCLUSION: 1. Cholelithiasis with a mildly thickened gallbladder wall. 2. Dilatation the common bile duct. On the prior CT examination, there was a f illing defect within the common bile duct. 3. Heterogeneity to the liver with increased echogenicity likely related to he patic steatosis. 4. 1.5 cm echogenic focus in the right lobe of the liver. This could represent an underlying lesion such as a hemangioma. This is not clearly seen on the rec ent CT examination. One could perform a MRI of the abdomen at some point to mor e fully evaluate the liver. This could be performed as an outpatient. GI Procedure 11/28/17 Signed Impressions: CONCLUSION: Apparent ERCP stone extraction as detailed above. CBD is now clear. Hepatobiliary Scan Nuclear Medicine 11/26/17 Signed Impressions: Service Date/Time: Sunday, November 26, 2017 17:51 - CONCLUSION: 1. No activity seen in the gallbladder. Delayed imaging will be obtained to confirm cystic duct occlusion. 2. Significantly delayed biliary clearance with bowel activity noted at 90 minutes. This is consistent with partially obstructing distal CBD calculus as noted on CT exam. Nick Miramontes MD ADDENDUM: Delayed images were obtained. There is clear bowel activity on delayed imaging. There is also significant residual hepatic activity. This may be due to partial CBD obstruction or hepatocellular dysfunction. The gallbladder is again not visualized. This is concerning for cystic duct obstruction and cholecystitis in the appropriate clinical setting. Nick Miramontes MD Physical Exam HEENT: Normocephalic; atraumatic CHEST: Even/unlabored CARDIAC: RRR ABDOMEN: Distended, soft, epigastric tenderness, bowel sounds active TRAINER: Alert and oriented (Марина Ochoa) Assessment and Plan Plan ASSESSMENT - Choledocholithiasis with elevated LFTs On admission (11/26) AST-402 ALT-182 Alk phos-278 T bili-3 CT abdomen and pelvis W IV contrast (11/26) Choledocholithiasis with prominent common bile duct measuring up to 11 mm. There is also a focus of air in the gallbladder. Gallbladder does not appear inflamed on CT exam. HIDA scan (11/26) No activity seen in the gallbladder. Significantly delayed biliary clearance with bowel activity noted at 90 minutes. Consistent with partially obstructing distal CBD calculus. Delayed images obtained, clear bowel activity on delayed imaging, also significant residual hepatic activity, may be due to CBD obstruction vs hepatocellular dysfunction. The gallbladder again not visualized, concerning for cystic duct obstruction and cholecystitis in appropriate setting. ERCP (11/28) --> Choledocholithiasis, S/P sphincterotomy and balloon extraction 3 sones, cholangiogram revealed total clearance of filling defects and intrahepatics were unremarkable. Duodenal diverticulum. Duodenal polyps. Pathology (Duodenum) tubulovillous adenoma. GS consult noted HIDA scan findings unreliable in pt with liver dysfunction, they have ordered US gallbladder to further evaluate, not ed pt is not a good surgical candidate at this time - ETOH abuse- reports 3 beers a day- on CIWA protocol - Sepsis- Pt on Zosyn - Encephalopathy - noted to be secondary to sepsis- ammonia < 10 CT assisted abscess drain for liver abscess with Accordion drain placement done on 12/01 Indication "Over the last 4 days a large mass is developed in the anterior left lobe of the liver measuring up to 9.6 cm in diameter containing multiple locules of air likely a developing complex liver abscess" seen on CT on 11/[address] done yesterday revealed decreased size of left hepatic lobe hematoma following drainage (12/04) Hemoccult positive stool, H/H has remained stable. Dark liquid stool reported by patient. Previous EGD on 11/28 as noted above. He reports increase in diarrhea. Will order stool studies for C. Diff LFTs trending down. IR has been reconsulted to removed drain tomorrow. (12/05) Pt reports diarrhea has been slowing down, has not had a BM yet today. C. Diff negative. Discussed the Hemoccult positive stool findings, H/H have remained WNL. He would like to wait to have a colonoscopy when he gets back to [place]. Does think he had one in the past, unsure of findings. Liver drain removed by IR (12/06) Initially signed off yesterday, however, per Dr. Hernandez pt began vomiting blood today, he witnessed this at bedside, coffee ground emesis. Per RN pt has also had 6 episodes of melena today. Pt complaining of abdominal bloating but denies any pain. Pt taken for emergent EGD and transferred to ICU. (12/07) Pt S/P EGD transferred to ICU, extubated and NG tube has been removed. Rectal bag to [facility] with melena. Repeat labs pending, multiple unsuccessful blood draws. Transport at bedside preparing to take pt down for NM bleeding scan. Pt denies nausea, vomiting. Complaining of epigastric pain. EGD --> Old blood, coffee ground, significant inflammation and swelling around the bryan ampullary area. Multiple polyp in this area. Clear bile seen coming intermittently from this area. This was an area of inflammation around 3 x 3.5 cm in size with very friable mucosa and oozing of blood. Possible bleed from previous sphincterotomy vs polyp biopsy site. Injected a total of 5 cc of epi with good hemostasis. Clipping.cautery not done as this appeared to be right around the ampulla. (12/09) S/P positive bleeding scan and colonoscopy yesterday to further evaluate. Bleeding scan (12/07) Findings concerning for very slow rate of hemorrhage in the region of the cecum. Doubtful this is sufficient for angiographic visualization. Colonoscopy (12/08) --> Sessile polyp ranging between 3-5 mm in size was found in the sigmoid colon, polypectomy. Diverticulum in the sigmoid colon, descending colon, and ascending colon. Multiple small AVMs in the ascending colon and at the cecum, argon plasma coagulation was applied to the site with complete hemostasis. PLAN - GI will sign off, please reconsult as needed - Pt is going back to [place] and will follow up with his GI doctor there Pt has been seen and examined by myself and Dr. Escalera and this note is written on his behalf (Марина Ochoa) Physician Comments AQs above, stable from GI point of view for discharge. (Cesar Escalera MD) Марина Ochoa Dec 09, 2017 12:30 Cesar Escalera MD Dec 09, 2017 17:06
--- NOTE | 2017-12-09 15:19 | HHI.PR ---
Subjective Remarks Patient seen earlier today at 10:30 AM. The patient denies nausea, vomiting, hematemesis, melena. Vital signs seems to be stable. The patient is asking when he can go home. The patient denies any chest pain or shortness of breath. Objective Vitals Vital Signs Date Time Temp Pulse Resp B/P (MAP) Pulse Ox O2 Delivery O2 Flow Rate FiO2 12/09/17 12:00 98.4 66 22 152/68 (96) 96 12/09/17 12:00 66 12/09/17 10:00 66 12/09/17 08:00 97.6 60 14 133/63 (86) 99 12/09/17 08:00 60 12/09/17 07:32 100 21 12/09/17 07:00 100 Room Air 12/09/17 06:00 76 12/09/17 04:00 97.6 60 13 137/65 (89) 99 12/09/17 04:00 60 12/09/17 02:00 60 12/09/17 00:00 55 12/09/17 00:00 98.3 68 11 147/65 (92) 100 12/08/17 22:00 60 12/08/17 20:00 98.2 68 17 165/74 (104) 100 12/08/17 20:00 72 12/08/17 19:00 100 Room Air 12/08/17 18:00 79 12/08/17 16:00 58 12/08/17 16:00 98.0 58 16 131/59 (83) 100 I/O 12/08/17 12/08/17 12/08/17 12/09/17 12/09/17 12/09/17 07:00 15:00 23:00 07:00 15:00 23:00 Intake Total 1420 ml 400 ml 580 ml 320 ml 270 ml Output Total 1100 ml 1000 ml 900 ml Balance 320 ml 400 ml -420 ml -580 ml 270 ml Intake Oral 120 ml 480 ml 120 ml IV Total 1300 ml 100 ml 200 ml 270 ml Other 400 ml Output Urine Total 1100 ml 700 ml 900 ml Stool Total 300 ml # Bowel Movements 5 1 Result Diagram: 12/09/17 0340 12/09/17 0340 Imaging Last 72 hours Impressions GI Bleed Scan Nuclear Medicine 12/07/17 0000 Signed Impressions: CONCLUSION: 1. Findings concerning for very slow rate of hemorrhage in the region of the c ecum. Doubtful this is sufficient for angiographic visualization. Objective Remarks General: No distress. Heart: Regular rate and rhythm. No murmur. Lungs: CTAB. No W/R/R. Abdomen: soft, non tender, non distended. Extremities: No lower extremity edema. Psych: Alert and oriented. Neuro: Normal speech. No focal deficits noted. : Significant scrotal enlargement Procedures None A/P Problem List: (1) Sepsis ICD Code: A41.9 - Sepsis, unspecified organism (2) Choledocholithiasis ICD Code: K80.50 - Calculus of bile duct without cholangitis or cholecystitis without obstruction Status: Acute (3) Alcohol dependence ICD Code: F10.20 - Alcohol dependence Status: Acute (4) Encephalopathy acute ICD Code: G93.40 - Encephalopathy, unspecified (5) Hypertension ICD Code: I10 - Hypertension Status: Acute (6) H/O: CVA (cerebrovascular accident) ICD Code: Z86.73 - Personal history of transient ischemic attack (TIA), and cerebral infarction without residual deficits Assessment and Plan 1. Choledocholithiasis/ Liver abscess Abnormal HIDA scan and US noted. GI and surgical consults appreciated. S/p ERCP which revealed: Choledocholithiasis; Duodenal diverticulum; Duodenal polyps. CT 11/30: Over the last 4 days a large mass has developed in the anterior left lobe of the liver measuring up to 9.6 cm in diameter containing multiple locules of air likely a developing complex liver abscess; Multiple gallstones without significant inflammatory changes identified around the gallbladder. IR consulted for abscess drainage 12/01. Drain still in place. CT 12/03: Decreased size of left hepatic lobe hematoma following drainage; No evidence of free or loculated intraperitoneal fluid or free air; Stable intestinal tract without evidence of pathologic distention or inflammatory changes. Abscess culture with no growth, final. - continue IV Zosyn. Consider discharging on Cipro/ Flagyl. - follow up with GI. - trend LFTs. - will need outpt follow-up with surgery to schedule cholecystectomy. 12/05 status post drain removal by IR. Sepsis Source is UTI. Pseudomonas growing. - Continue IV Zosyn. Can change to Cipro upon discharge. Sepsis seems to be resolving. Reactive airway disease No further wheezing on exam. - Oxygen and nebs as needed. Started standing nebs. - d/c prednisone. - continue antibiotics. - repeat CXR. - will need home o2 Leukocytosis Leukocytosis possibly secondary to steroid use and now reactive distress due to active GI bleed and hypotension. Continue to monitor CBC. Continue to monitor vital signs for fevers. There is a question of a right lower lobe infiltrate, continue to monitor. 12/09 leukocytosis greatly improved trending down from 21.4-13.2. Leukocytosis likely reactive and trending down. Continue to monitor CBC. Right testicular mass Imaging shows cystic mass on right. Evaluated by urology. No surgical intervention planned for hydrocele. Repeat CT: Large loculated hydrocele or cystic testicular mass in the right hemiscrotum measuring up to 13.6 cm in diameter. - Patient to follow-up with urology as outpt. Reconsult as needed. Alcohol abuse No evidence of withdrawal. - CIWA protocol, thiamine, folic acid. - cessation instruction. No evidence of alcohol withdrawal. History of CVA Stable. - Continue aspirin. HTN Hypotension Hold all antihypertensive medications due to current hypovolemic shock. 12/07 BP improved after IV fluid bolus. Continue to monitor vital signs. 12/08 BP stable, continue to hold antihypertensives. 12/09 to resume antihypertensive medications. Hypokalemia S/t decreased PO intake. - replete and monitor. GI bleed with hypovolemic shock. The patient had coffee-ground emesis and melanotic stools on 12/07/17. The patient was immediately given a liter of normal saline bolus since the patient' s blood pressure was down. Hemoglobin was noted to drop down to 10.7. Continue to monitor CBC. Patient was transferred to the intensive care unit. Critical care consulted. GI was informed of the acute bleed. The case was discussed with them. GI recommended a bleeding scan which showed findings concerning for very slow rate of hemorrhage in the region of the cecum. 12/08 sp EGD/Colonoscopy - EGD showed duodenal ulcer which was treatedw Argon Plasma. Colonoscopy showed: 1. A sessile polyp ranging between 3-5mm in size was found in the sigmoid colon; polypectomy was performed with cold forceps 2. Diverticulum in the sigmoid colon, descending colon, and ascending colon 3. 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 Transfuse for hb less than 8 if active bleeding present. DVT prophylaxis: DSCD's, no chemoprophylaxis due to GI bleeding. Discharge Planning Discharge pending [facility] arrangements. Problem Qualifiers (1) Sepsis: Qualified Codes: A41.9 - Sepsis, unspecified organism (2) Alcohol dependence: Qualified Codes: F10.29 - Alcohol dependence with unspecified alcohol-induced disorder Montrell Robledo MD Dec 09, 2017 15:18
--- NOTE | 2017-12-09 18:16 | HHI.FPPN ---
Addendum to progress note ADDENDUM Reason for addendum: Additonal documentation Additional information I was called by RN after the patient passed out. As per RN report the patient was sitting waiting to be discharged and to get the paperwork. The nurse found him unresponsive with a systolic blood pressure in the 60s as per report. The patient was placed in bed and blood pressure started to go up and the patient started to wake up. The patient initially was very combative to the point where he had to be placed on restraints, however slowly recovered and now is calm. The patient denies any abdominal pain, nausea, vomiting, melena, hematemesis. Discharge was canceled. I will get a stat CBC and transfuse as needed. Will start on gentle IV fluids and continue to monitor vital signs. If hemoglobin remains stable and there is no evidence of active bleeding then will possibly discharge in a.m. after orthostatic vital signs have been obtained. Hold antihypertensive medications as well. Will write for as needed clonidine for hypertension. Montrell Robledo MD Dec 09, 2017 18:16
[2017-12-09 19:12] LABS: HEMATOCRIT 26.4 % (39.0-51.0); HEMOGLOBIN 9.4 GM/DL (13.0-17.0); MEAN CELL VOLUME 93.5 FL (80.0-100.0); MEAN CORPUSCULAR HEMOGLOBIN 33.3 PG (27.0-34.0); MEAN CORPUSCULAR HGB CONC 35.6 % (32.0-36.0); MEAN PLATELET VOLUME 7.4 FL (7.0-11.0); PLATELET COUNT 457 TH/MM3 (150-450); RED BLOOD COUNT 2.82 MIL/MM3 (4.50-5.90); RED CELL DISTRIBUTION WIDTH 13.3 % (11.6-17.2); WHITE BLOOD COUNT 16.3 TH/MM3 (4.0-11.0)
[2017-12-09] MEDS: SODIUM CHLOR 0.9% 1000 ML INJ 1,000 ML IV SCH (20:30)
[2017-12-09] MEDS: PANTOPRAZOLE SOD 40 MG DELAYED RELEASE TAB PO SCH (20:40)
[2017-12-10] VITALS (19 sets, daily range): BP systolic 118–172; BP diastolic 57–77; PULSE 62–98; RESP 12–26; TEMP 97.6–98.7; O2SAT 95–100
[2017-12-10] MEDS: DIPHENOXYLATE/ATROPINE 2.5 MG/0.025 MG TAB PO SCH ×4 (01:08→17:16)
[2017-12-10 04:41] LABS: HEMATOCRIT 24.7 % (39.0-51.0); HEMOGLOBIN 8.6 GM/DL (13.0-17.0); MEAN CELL VOLUME 94.1 FL (80.0-100.0); MEAN CORPUSCULAR HEMOGLOBIN 32.7 PG (27.0-34.0); MEAN CORPUSCULAR HGB CONC 34.8 % (32.0-36.0); MEAN PLATELET VOLUME 7.6 FL (7.0-11.0); PLATELET COUNT 499 TH/MM3 (150-450); RED BLOOD COUNT 2.63 MIL/MM3 (4.50-5.90); RED CELL DISTRIBUTION WIDTH 13.4 % (11.6-17.2)
[2017-12-10] MEDS: SODIUM CHLOR 0.9% 1000 ML INJ 1,000 ML IV SCH ×2 (06:32→18:20)
[2017-12-10] MEDS: SODIUM CHLORIDE 0.9% 10 ML VIAL IRRIGATION SCH ×2 (08:00→20:00)
[2017-12-10] MEDS: BISACODYL 10 MG SUPP RECTAL SCH (09:00)
[2017-12-10] MEDS: SODIUM CHLORIDE 0.9% FLUSH 10 ML FLUSH IV FLUSH SCH ×2 (09:00→20:59)
[2017-12-10] MEDS: PANTOPRAZOLE SOD 40 MG DELAYED RELEASE TAB PO SCH ×2 (10:08→21:00)
[2017-12-10] MEDS: DOCUSATE SODIUM 50 MG/SENNA 8.6 MG TAB PO SCH ×3 (10:08→21:00)
[2017-12-10] MEDS: LIPASE/PROTEASE/AMYLASE (12,000/38,000/60,000) CAP PO SCH ×3 (10:08→17:16)
--- NOTE | 2017-12-10 12:06 | HHI.PR ---
Subjective Remarks The patient still having melanotic stools. Patient hypotensive yesterday. BP much improved today. The patient denies nausea or abdominal pain. Objective Vitals Vital Signs Date Time Temp Pulse Resp B/P (MAP) Pulse Ox O2 Delivery O2 Flow Rate FiO2 12/10/17 10:00 86 12/10/17 08:00 98.0 72 12 141/65 (90) 100 12/10/17 08:00 72 12/10/17 07:22 100 21 12/10/17 07:00 100 Room Air 12/10/17 06:00 71 12/10/17 06:00 98.1 62 16 141/65 (90) 100 12/10/17 04:00 62 12/10/17 02:00 62 12/10/17 00:00 98.0 78 13 172/74 (106) 100 12/10/17 00:00 78 12/09/17 22:00 63 12/09/17 20:00 98.1 63 21 125/64 (84) 100 12/09/17 20:00 63 12/09/17 19:00 100 Room Air 12/09/17 16:00 58 12/09/17 16:00 97.9 58 18 84/58 (67) 97 I/O 12/09/17 12/09/17 12/09/17 12/10/17 12/10/17 12/10/17 07:00 15:00 23:00 07:00 15:00 23:00 Intake Total 320 ml 270 ml 240 ml 1120 ml Output Total 900 ml 700 ml 700 ml Balance -580 ml 270 ml -460 ml 420 ml Intake Oral 120 ml 240 ml 120 ml IV Total 200 ml 270 ml 1000 ml Output Urine Total 900 ml 700 ml 700 ml # Bowel Movements 1 1 Result Diagram: 12/10/17 0243 12/09/17 0340 Imaging Last Impressions GI Bleed Scan Nuclear Medicine 12/07/17 0000 Signed Impressions: CONCLUSION: 1. Findings concerning for very slow rate of hemorrhage in the region of the c ecum. Doubtful this is sufficient for angiographic visualization. Head CT 12/06/17 0000 Signed Impressions: CONCLUSION: 1. No acute intracranial abnormality. 2. 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 Chest X-Ray 12/06/17 0000 Signed Impressions: CONCLUSION: 1. No new or acute intrathoracic disease. 2. Tip of the nasogastric tube is in the lower cervical esophagus. The tube ma y be coiled in the patient's mouth. Tube Removal 12/05/17 Signed Impressions: CONCLUSION: 1. Uncomplicated abdominal drain removal. Abdomen/Pelvis CT 12/03/17 Signed Impressions: CONCLUSION: 1. Decreased size of left hepatic lobe hematoma following drainage. 2. No evidence of free or loculated intraperitoneal fluid or free air. 3. Stable intestinal tract without evidence of pathologic distention or inflam matory changes. 4. Uncomplicated colonic diverticulosis. 5. Stable large right hemiscrotal hydrocele 6. Bibasilar airspace disease with small bilateral effusions. Abscess Drainage CT 12/01/17 Signed Impressions: CONCLUSION: 1. Uncomplicated CT guided drainage. 2. Hepatic collection has the appearance of a hematoma which may be infected c onsidering the small bubbles a contains. Specimen sent for culture and sensitiv ity. 3. 12 [place] catheter left in place. Abdomen X-Ray 11/29/17 Signed Impressions: CONCLUSION: Nonspecific, nonobstructive bowel gas pattern which may represent a mild ileus and/or gastroenteritis. Abdomen Ultrasound 11/29/17 Signed Impressions: CONCLUSION: 1. Cholelithiasis with a mildly thickened gallbladder wall. 2. Dilatation the common bile duct. On the prior CT examination, there was a f illing defect within the common bile duct. 3. Heterogeneity to the liver with increased echogenicity likely related to he patic steatosis. 4. 1.5 cm echogenic focus in the right lobe of the liver. This could represent an underlying lesion such as a hemangioma. This is not clearly seen on the rec ent CT examination. One could perform a MRI of the abdomen at some point to mor e fully evaluate the liver. This could be performed as an outpatient. GI Procedure 11/28/17 Signed Impressions: CONCLUSION: Apparent ERCP stone extraction as detailed above. CBD is now clear. Hepatobiliary Scan Nuclear Medicine 11/26/17 Signed Impressions: Service Date/Time: Sunday, November 26, 2017 17:51 - CONCLUSION: 1. No activity seen in the gallbladder. Delayed imaging will be obtained to confirm cystic duct occlusion. 2. Significantly delayed biliary clearance with bowel activity noted at 90 minutes. This is consistent with partially obstructing distal CBD calculus as noted on CT exam. Nick Miramontes MD ADDENDUM: Delayed images were obtained. There is clear bowel activity on delayed imaging. There is also significant residual hepatic activity. This may be due to partial CBD obstruction or hepatocellular dysfunction. The gallbladder is again not visualized. This is concerning for cystic duct obstruction and cholecystitis in the appropriate clinical setting. Nick Miramontes MD Objective Remarks General: No distress. Heart: Regular rate and rhythm. No murmur. Lungs: CTAB. No W/R/R. Abdomen: soft, non tender, non distended. Extremities: No lower extremity edema. Psych: Alert and oriented. Neuro: Normal speech. No focal deficits noted. : Significant scrotal enlargement Procedures None A/P Problem List: (1) Sepsis ICD Code: A41.9 - Sepsis, unspecified organism (2) Choledocholithiasis ICD Code: K80.50 - Calculus of bile duct without cholangitis or cholecystitis without obstruction Status: Acute (3) Alcohol dependence ICD Code: F10.20 - Alcohol dependence Status: Acute (4) Encephalopathy acute ICD Code: G93.40 - Encephalopathy, unspecified (5) Hypertension ICD Code: I10 - Hypertension Status: Acute (6) H/O: CVA (cerebrovascular accident) ICD Code: Z86.73 - Personal history of transient ischemic attack (TIA), and cerebral infarction without residual deficits Assessment and Plan 1. Choledocholithiasis/ Liver abscess Abnormal HIDA scan and US noted. GI and surgical consults appreciated. S/p ERCP which revealed: Choledocholithiasis; Duodenal diverticulum; Duodenal polyps. CT 11/30: Over the last 4 days a large mass has developed in the anterior left lobe of the liver measuring up to 9.6 cm in diameter containing multiple locules of air likely a developing complex liver abscess; Multiple gallstones without significant inflammatory changes identified around the gallbladder. IR consulted for abscess drainage 12/01. Drain still in place. CT 12/03: Decreased size of left hepatic lobe hematoma following drainage; No evidence of free or loculated intraperitoneal fluid or free air; Stable intestinal tract without evidence of pathologic distention or inflammatory changes. Abscess culture with no growth, final. - continue IV Zosyn. Consider discharging on Cipro/ Flagyl. - follow up with GI. - trend LFTs. - will need outpt follow-up with surgery to schedule cholecystectomy. 12/05 status post drain removal by IR. Sepsis Source is UTI. Pseudomonas growing. - Continue IV Zosyn. Can change to Cipro upon discharge. Sepsis seems to be resolving. Reactive airway disease No further wheezing on exam. - Oxygen and nebs as needed. Started standing nebs. - d/c prednisone. - continue antibiotics. - repeat CXR. - will need home o2 Leukocytosis Leukocytosis possibly secondary to steroid use and now reactive distress due to active GI bleed and hypotension. Continue to monitor CBC. Continue to monitor vital signs for fevers. There is a question of a right lower lobe infiltrate, continue to monitor. 12/10 Leukocytosis likely reactive. WBC slightly went up yesterday after GI bleed. However, it is downtrending now. Continue to monitor CBC. Right testicular mass Imaging shows cystic mass on right. Evaluated by urology. No surgical intervention planned for hydrocele. Repeat CT: Large loculated hydrocele or cystic testicular mass in the right hemiscrotum measuring up to 13.6 cm in diameter. - Patient to follow-up with urology as outpt. Reconsult as needed. Alcohol abuse No evidence of withdrawal. - [facility] protocol, thiamine, folic acid. - cessation instruction. No evidence of alcohol withdrawal. History of CVA Stable. - Continue aspirin. HTN Hypotension Hold all antihypertensive medications due to current hypovolemic shock. 12/07 BP improved after IV fluid bolus. Continue to monitor vital signs. 12/08 BP stable, continue to hold antihypertensives. 12/09 to resume antihypertensive medications. Hypokalemia S/t decreased PO intake. - replete and monitor. GI bleed with hypovolemic shock. The patient had coffee-ground emesis and melanotic stools on 12/07/17. The patient was immediately given a liter of normal saline bolus since the patient' s blood pressure was down. Hemoglobin was noted to drop down to 10.7. Continue to monitor CBC. Patient was transferred to the intensive care unit. Critical care consulted. GI was informed of the acute bleed. The case was discussed with them. GI recommended a bleeding scan which showed findings concerning for very slow rate of hemorrhage in the region of the cecum. 12/08 sp EGD/Colonoscopy - EGD showed duodenal ulcer which was treated with argon Plasma. Colonoscopy showed: 1. A sessile polyp ranging between 3-5mm in size was found in the sigmoid colon; polypectomy was performed with cold forceps 2. Diverticulum in the sigmoid colon, descending colon, and ascending colon 3. 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 Transfuse for hb less than 8 if active bleeding present. 12/10 patient had a syncopal episode and an episode of severe hypotension with a systolic blood pressure in the 50s yesterday afternoon. Today the patient has melanotic stools. Contacted GI and discussed the case. GI recommends stat IR for CT angiogram with possible embolization. Continue to monitor CBC and vital signs. DVT prophylaxis: DSCD's, no chemoprophylaxis due to GI bleeding. Discharge Planning Continue to monitor in the intensive care unit. Problem Qualifiers (1) Sepsis: Qualified Codes: A41.9 - Sepsis, unspecified organism (2) Alcohol dependence: Qualified Codes: F10.29 - Alcohol dependence with unspecified alcohol-induced disorder Montrell Robledo MD Dec 10, 2017 12:06
[2017-12-10 12:44] LABS: HEMATOCRIT 26.3 % (39.0-51.0); MEAN CELL VOLUME 95.3 FL (80.0-100.0); MEAN CORPUSCULAR HEMOGLOBIN 32.7 PG (27.0-34.0); MEAN CORPUSCULAR HGB CONC 34.4 % (32.0-36.0); MEAN PLATELET VOLUME 7.5 FL (7.0-11.0); PLATELET COUNT 534 TH/MM3 (150-450); RED BLOOD COUNT 2.76 MIL/MM3 (4.50-5.90); RED CELL DISTRIBUTION WIDTH 13.5 % (11.6-17.2); WHITE BLOOD COUNT 14.9 TH/MM3 (4.0-11.0)
[2017-12-10] MEDS ORDERED: LORazepam 2 MG/ML VIAL ONE (13:17)
[2017-12-10] MEDS ORDERED: ceFAZolin 2 GM PREMIX 50 ML ONE (15:14)
[2017-12-10] MEDS ORDERED: SODIUM CHLOR 0.9% 1000 ML INJ 1,000 ML IV SCH (15:18)
--- NOTE | 2017-12-10 15:19 | HHI.GIFU ---
Subjective Remarks Pt off floor in IR for CT angio with possible embolization Per Dr. Hernandez pt continued to have melanotic stools (Марина Ochoa) Objective Vitals I&O Vital Signs Date Time Temp Pulse Resp B/P (MAP) Pulse Ox O2 Delivery O2 Flow Rate FiO2 12/10/17 12:00 78 12/10/17 12:00 98.2 78 16 145/65 (91) 100 12/10/17 10:00 86 12/10/17 08:00 98.0 72 12 141/65 (90) 100 12/10/17 08:00 72 12/10/17 07:22 100 21 12/10/17 07:00 100 Room Air 12/10/17 06:00 71 12/10/17 06:00 98.1 62 16 141/65 (90) 100 12/10/17 04:00 62 12/10/17 02:00 62 12/10/17 00:00 98.0 78 13 172/74 (106) 100 12/10/17 00:00 78 12/09/17 22:00 63 12/09/17 20:00 98.1 63 21 125/64 (84) 100 12/09/17 20:00 63 12/09/17 19:00 100 Room Air 12/09/17 16:00 58 12/09/17 16:00 97.9 58 18 84/58 (67) 97 I/O 12/09/17 12/09/17 12/09/17 12/10/17 12/10/17 12/10/17 07:00 15:00 23:00 07:00 15:00 23:00 Intake Total 320 ml 270 ml 240 ml 1120 ml Output Total 900 ml 700 ml 700 ml Balance -580 ml 270 ml -460 ml 420 ml Intake Oral 120 ml 240 ml 120 ml IV Total 200 ml 270 ml 1000 ml Output Urine Total 900 ml 700 ml 700 ml # Bowel Movements 1 1 Laboratory Laboratory Tests Test 12/09/17 18:46 12/10/17 02:43 12/10/17 12:13 White Blood Count 16.3 14.0 14.9 Red Blood Count 2.82 2.63 2.76 Hemoglobin 9.4 8.6 9.0 Hematocrit 26.4 24.7 26.3 Mean Corpuscular Volume 93.5 94.1 95.3 Mean Corpuscular Hemoglobin 33.3 32.7 32.7 Mean Corpuscular Hemoglobin Concent 35.6 34.8 34.4 Red Cell Distribution Width 13.3 13.4 13.5 Platelet Count 457 499 534 Mean Platelet Volume 7.4 7.6 7.5 Date/Time Source Procedure Growth Status 11/27/17 07:00 Blood Peripheral Aerobic Blood Culture - Final NO GROWTH IN 5 DAYS Complete 11/27/17 07:00 Blood Peripheral Anaerobic Blood Culture - Final NO GROWTH IN 5 DAYS Complete 12/01/17 14:40 Fluid Other Gram Stain - Final Complete 12/01/17 14:40 Fluid Other Body Fluid Culture - Final NO GROWTH IN 72 HRS.--AEROBICALLY OR ... Complete 12/06/17 05:26 Stool Stool Stool Occult Blood (CANDICE) - Final HEMOCCULT POSITIVE Complete 11/26/17 13:37 Urine Catheterized Urine Urine Culture - Final Pseudomonas Aeruginosa Complete Imaging Last Impressions GI Bleed Scan Nuclear Medicine 12/07/17 0000 Signed Impressions: CONCLUSION: 1. Findings concerning for very slow rate of hemorrhage in the region of the c ecum. Doubtful this is sufficient for angiographic visualization. Head CT 12/06/17 0000 Signed Impressions: CONCLUSION: 1. No acute intracranial abnormality. 2. 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 Chest X-Ray 12/06/17 0000 Signed Impressions: CONCLUSION: 1. No new or acute intrathoracic disease. 2. Tip of the nasogastric tube is in the lower cervical esophagus. The tube ma y be coiled in the patient's mouth. Tube Removal 12/05/17 0000 Signed Impressions: CONCLUSION: 1. Uncomplicated abdominal drain removal. Abdomen/Pelvis CT 12/03/17 0000 Signed Impressions: CONCLUSION: 1. Decreased size of left hepatic lobe hematoma following drainage. 2. No evidence of free or loculated intraperitoneal fluid or free air. 3. Stable intestinal tract without evidence of pathologic distention or inflam matory changes. 4. Uncomplicated colonic diverticulosis. 5. Stable large right hemiscrotal hydrocele 6. Bibasilar airspace disease with small bilateral effusions. Abscess Drainage CT 12/01/17 0000 Signed Impressions: CONCLUSION: 1. Uncomplicated CT guided drainage. 2. Hepatic collection has the appearance of a hematoma which may be infected c onsidering the small bubbles a contains. Specimen sent for culture and sensitiv ity. 3. 12 [place] catheter left in place. Abdomen X-Ray 11/29/17 Signed Impressions: CONCLUSION: Nonspecific, nonobstructive bowel gas pattern which may represent a mild ileus and/or gastroenteritis. Abdomen Ultrasound 11/29/17 Signed Impressions: CONCLUSION: 1. Cholelithiasis with a mildly thickened gallbladder wall. 2. Dilatation the common bile duct. On the prior CT examination, there was a f illing defect within the common bile duct. 3. Heterogeneity to the liver with increased echogenicity likely related to he patic steatosis. 4. 1.5 cm echogenic focus in the right lobe of the liver. This could represent an underlying lesion such as a hemangioma. This is not clearly seen on the rec ent CT examination. One could perform a MRI of the abdomen at some point to mor e fully evaluate the liver. This could be performed as an outpatient. GI Procedure 11/28/17 Signed Impressions: CONCLUSION: Apparent ERCP stone extraction as detailed above. CBD is now clear. Hepatobiliary Scan Nuclear Medicine 11/26/17 Signed Impressions: Service Date/Time: Sunday, November 26, 2017 17:51 - CONCLUSION: 1. No activity seen in the gallbladder. Delayed imaging will be obtained to confirm cystic duct occlusion. 2. Significantly delayed biliary clearance with bowel activity noted at 90 minutes. This is consistent with partially obstructing distal CBD calculus as noted on CT exam. Nick Miramontes MD ADDENDUM: Delayed images were obtained. There is clear bowel activity on delayed imaging. There is also significant residual hepatic activity. This may be due to partial CBD obstruction or hepatocellular dysfunction. The gallbladder is again not visualized. This is concerning for cystic duct obstruction and cholecystitis in the appropriate clinical setting. Nick Miramontes MD (Марина Ochoa [facility]) Assessment and Plan Plan ASSESSMENT - Choledocholithiasis with elevated LFTs On admission (11/26) AST-402 ALT-182 Alk phos-278 T bili-3 CT abdomen and pelvis W IV contrast (11/26) Choledocholithiasis with prominent common bile duct measuring up to 11 mm. There is also a focus of air in the gallbladder. Gallbladder does not appear inflamed on CT exam. HIDA scan (11/26) No activity seen in the gallbladder. Significantly delayed biliary clearance with bowel activity noted at 90 minutes. Consistent with partially obstructing distal CBD calculus. Delayed images obtained, clear bowel activity on delayed imaging, also significant residual hepatic activity, may be due to CBD obstruction vs hepatocellular dysfunction. The gallbladder again not visualized, concerning for cystic duct obstruction and cholecystitis in appropriate setting. ERCP (11/28) --> Choledocholithiasis, S/P sphincterotomy and balloon extraction 3 sones, cholangiogram revealed total clearance of filling defects and intrahepatics were unremarkable. Duodenal diverticulum. Duodenal polyps. Pathology (Duodenum) tubulovillous adenoma. GS consult noted HIDA scan findings unreliable in pt with liver dysfunction, they have ordered US gallbladder to further evaluate, not ed pt is not a good surgical candidate at this time - ETOH abuse- reports 3 beers a day- on CIWA protocol - Sepsis- Pt on Zosyn - Encephalopathy - noted to be secondary to sepsis- ammonia < 10 CT assisted abscess drain for liver abscess with Accordion drain placement done on 12/01 Indication "Over the last 4 days a large mass is developed in the anterior left lobe of the liver measuring up to 9.6 cm in diameter containing multiple locules of air likely a developing complex liver abscess" seen on CT on 11/[address] done yesterday revealed decreased size of left hepatic lobe hematoma following drainage (12/04) Hemoccult positive stool, H/H has remained stable. Dark liquid stool reported by patient. Previous EGD on 11/28 as noted above. He reports increase in diarrhea. Will order stool studies for C. Diff LFTs trending down. IR has been reconsulted to removed drain tomorrow. (12/05) Pt reports diarrhea has been slowing down, has not had a BM yet today. C. Diff negative. Discussed the Hemoccult positive stool findings, H/H have remained WNL. He would like to wait to have a colonoscopy when he gets back to [place]. Does think he had one in the past, unsure of findings. Liver drain removed by IR (12/06) Initially signed off yesterday, however, per Dr. Hernandez pt began vomiting blood today, he witnessed this at bedside, coffee ground emesis. Per RN pt has also had 6 episodes of melena today. Pt complaining of abdominal bloating but denies any pain. Pt taken for emergent EGD and transferred to ICU. (12/07) Pt S/P EGD transferred to ICU, extubated and NG tube has been removed. Rectal bag to Val[facility]z with melena. Repeat labs pending, multiple unsuccessful blood draws. Transport at bedside preparing to take pt down for NM bleeding scan. Pt denies nausea, vomiting. Complaining of epigastric pain. EGD --> Old blood, coffee ground, significant inflammation and swelling around the bryan ampullary area. Multiple polyp in this area. Clear bile seen coming intermittently from this area. This was an area of inflammation around 3 x 3.5 cm in size with very friable mucosa and oozing of blood. Possible bleed from previous sphincterotomy vs polyp biopsy site. Injected a total of 5 cc of epi with good hemostasis. Clipping.cautery not done as this appeared to be right around the ampulla. (12/09) S/P positive bleeding scan and colonoscopy yesterday to further evaluate. Bleeding scan (12/07) Findings concerning for very slow rate of hemorrhage in the region of the cecum. Doubtful this is sufficient for angiographic visualization. Colonoscopy (12/08) --> Sessile polyp ranging between 3-5 mm in size was found in the sigmoid colon, polypectomy. Diverticulum in the sigmoid colon, descending colon, and ascending colon. Multiple small AVMs in the ascending colon and at the cecum, argon plasma coagulation was applied to the site with complete hemostasis. (12/10) Per Dr. Hernandez pt continues to have melanotic stools, STAT IR consult placed for IR CT angio with embolization, case discussed with Dr. Dietz. Pt off floor in IR, will check back if pt is in room later PLAN - STAT IR consult placed for CT angio with possible embolization Discussed with Dr. Dietz Pt has been seen and examined by myself and Dr. Escalera and this note is written on his behalf (Марина Ochoa) Physician Comments Seen with shama Parish as above. Will check angio results. Further recommendations to follow. (Cesar Escalera MD) Марина Ochoa Dec 10, 2017 15:19 Cesar Escalera MD Dec 10, 2017 23:55
--- NOTE | 2017-12-10 15:24 | PD.RAD ---
Post Procedure Progress Note Pre Procedure Diagnosis: (1) GI bleed Post Procedure Diagnosis: (1) GI bleed Procedure Date: Dec 10, 2017 Supervising Radiologist: Scott Dietz Anesthesia: Local, Analgesia Plan of Activity Patient to Unit: Nursing Unit Patient Condition: Fair Additional Comments: Angio completed with selective injections of the celiac, GDA, SMA and JANET. Angio completed with selective injection of the celiac, GDA, SMA, and JANET. Celiac, GDA and SMA are unremarkable. Small bleed evident arising from a distal branch of the JANET. Subselective gel foam administration and coil placement preformed with occlusion of the distal most branch of the artery. complete occlusion of the distal branch on follow up angio. Remainder of the JANET remains widely patent. Pt. tolerated the procedure well. Full dictated report to follow See PACS Report for procedural detail/treatment Scott Diezt MD Dec 10, 2017 15:24
[2017-12-10] MEDS ORDERED: IODIXANOL 320 MG/ML 50 ML VIAL (for RAD SPEC) I-ARTERIAL ONE (15:44)
[2017-12-11] VITALS (13 sets, daily range): BP systolic 63–142; BP diastolic 53–63; PULSE 67–90; RESP 12–19; TEMP 98–98.4; O2SAT 94–100
[2017-12-11] MEDS: DIPHENOXYLATE/ATROPINE 2.5 MG/0.025 MG TAB PO SCH ×4 (01:14→18:38)
[2017-12-11] MEDS: SODIUM CHLOR 0.9% 1000 ML INJ 1,000 ML IV SCH (05:56)
[2017-12-11] MEDS: SODIUM CHLORIDE 0.9% 10 ML VIAL IRRIGATION SCH ×2 (09:13→20:00)
[2017-12-11] MEDS: PANTOPRAZOLE SOD 40 MG DELAYED RELEASE TAB PO SCH ×2 (09:14→19:56)
[2017-12-11] MEDS: LIPASE/PROTEASE/AMYLASE (12,000/38,000/60,000) CAP PO SCH ×3 (09:14→18:38)
[2017-12-11] MEDS: DOCUSATE SODIUM 50 MG/SENNA 8.6 MG TAB PO SCH ×3 (09:14→21:00)
[2017-12-11] MEDS: BISACODYL 10 MG SUPP RECTAL SCH ×2 (09:14→09:28)
[2017-12-11] MEDS: SODIUM CHLORIDE 0.9% FLUSH 10 ML FLUSH IV FLUSH SCH ×2 (09:14→21:46)
[2017-12-11 10:54] LABS: AUTOMATED NEUTROPHIL # 12.8 TH/MM3 (1.8-7.7); BASOPHIL # 0.1 TH/MM3 (0-0.2); BASOPHIL % 0.7 % (0.0-2.0); EOSINOPHIL # 0.2 TH/MM3 (0-0.4); HEMATOCRIT 26.7 % (39.0-51.0); HEMOGLOBIN 9.1 GM/DL (13.0-17.0); LYMPH % 7.7 % (9.0-44.0); LYMPHOCYTE # 1.2 TH/MM3 (1.0-4.8); MEAN CELL VOLUME 94.3 FL (80.0-100.0); MEAN CORPUSCULAR HEMOGLOBIN 32.1 PG (27.0-34.0); MEAN CORPUSCULAR HGB CONC 34.1 % (32.0-36.0); MEAN PLATELET VOLUME 7.3 FL (7.0-11.0); MONO % 8.2 % (0.0-8.0); MONOCYTE # 1.3 TH/MM3 (0-0.9); NEUT % 82.4 % (16.0-70.0); PLATELET COUNT 587 TH/MM3 (150-450); RED BLOOD COUNT 2.83 MIL/MM3 (4.50-5.90); RED CELL DISTRIBUTION WIDTH 13.4 % (11.6-17.2); WHITE BLOOD COUNT 15.6 TH/MM3 (4.0-11.0)
[2017-12-11 11:30] LABS: ALBUMIN 2.6 GM/DL (3.4-5.0); ALKALINE PHOSPHATASE 110 U/L (45-117); ALT (GPT) 65 U/L (12-78); AST (GOT) 35 U/L (15-37); BICARBONATE 27.2 MEQ/L (21.0-32.0); BLOOD UREA NITROGEN 8 MG/DL (7-18); CHLORIDE 96 MEQ/L (98-107); CREATININE 0.79 MG/DL (0.60-1.30); GLOMERULAR FILTRATION RATE 95 ML/MIN (>89); GLUCOSE,RANDOM 179 MG/DL (74-106); SODIUM (NA) 133 MEQ/L (136-145); TOTAL BILIRUBIN ADULT 0.6 MG/DL (0.2-1.0); TOTAL PROTEIN 6.1 GM/DL (6.4-8.2)
--- NOTE | 2017-12-11 13:41 | HHI.GIFU ---
Subjective Remarks Pt is sitting up in bed eating lunch Per RN one small BM at 8 am this morning, green with small amount of black Pt with mild epigastric pain Denies nausea, vomiting (Марина Ochoa) Objective Vitals I&O Vital Signs Date Time Temp Pulse Resp B/P (MAP) Pulse Ox O2 Delivery O2 Flow Rate FiO2 12/11/17 12:00 98.0 74 12 122/60 (80) 100 12/11/17 12:00 74 12/11/17 10:00 88 12/11/17 08:09 100 12/11/17 08:00 98.2 84 19 142/63 (89) 100 12/11/17 08:00 84 12/11/17 07:00 100 Room Air 12/11/17 06:00 77 12/11/17 04:00 98.2 90 18 111/55 (73) 97 12/11/17 04:00 74 12/11/17 02:00 72 12/11/17 00:00 98.2 90 18 111/55 (73) 97 12/11/17 00:00 90 12/10/17 22:00 77 12/10/17 20:00 98.2 76 15 144/76 (98) 96 12/10/17 20:00 76 12/10/17 19:04 98.7 98 26 155/74 (101) 96 12/10/17 19:00 98 Room Air 2.00 21 12/10/17 18:04 97.6 76 13 150/77 (101) 96 12/10/17 18:00 90 12/10/17 17:34 97.9 74 17 133/63 (86) 95 12/10/17 17:04 97.9 75 14 140/63 (88) 97 12/10/17 16:34 97.9 68 14 118/57 (77) 97 12/10/17 16:04 97.9 69 14 128/60 (82) 97 12/10/17 16:00 75 12/10/17 16:00 97.9 69 14 128/60 (82) 97 12/10/17 15:34 97.9 69 13 126/65 (85) 100 I/O 12/10/17 12/10/17 12/10/17 12/11/17 12/11/17 12/11/17 07:00 15:00 23:00 07:00 15:00 23:00 Intake Total 1120 ml 120 ml Output Total 700 ml 900 ml 1050 ml 650 ml Balance 420 ml -900 ml -1050 ml -530 ml Intake Oral 120 ml 120 ml IV Total 1000 ml Output Urine Total 700 ml 900 ml 1050 ml 650 ml # Bowel Movements 0 1 Laboratory Laboratory Tests Test 12/10/17 17:41 12/11/17 10:27 Hemoglobin 9.1 9.1 White Blood Count 15.6 Red Blood Count 2.83 Hematocrit 26.7 Mean Corpuscular Volume 94.3 Mean Corpuscular Hemoglobin 32.1 Mean Corpuscular Hemoglobin Concent 34.1 Red Cell Distribution Width 13.4 Platelet Count 587 Mean Platelet Volume 7.3 Neutrophils (%) (Auto) 82.4 Lymphocytes (%) (Auto) 7.7 Monocytes (%) (Auto) 8.2 Eosinophils (%) (Auto) 1.0 Basophils (%) (Auto) 0.7 Neutrophils # (Auto) 12.8 Lymphocytes # (Auto) 1.2 Monocytes # (Auto) 1.3 Eosinophils # (Auto) 0.2 Basophils # (Auto) 0.1 CBC Comment DIFF FINAL Differential Comment Blood Urea Nitrogen 8 Creatinine 0.79 Random Glucose 179 Total Protein 6.1 Albumin 2.6 Calcium Level 8.0 Alkaline Phosphatase 110 Aspartate Amino Transf (AST/SGOT) 35 Alanine Aminotransferase (ALT/SGPT) 65 Total Bilirubin 0.6 Sodium Level 133 Potassium Level 3.6 Chloride Level 96 Carbon Dioxide Level 27.2 Anion Gap 10 Estimat Glomerular Filtration Rate 95 Date/Time Source Procedure Growth Status 11/27/17 07:00 Blood Peripheral Aerobic Blood Culture - Final NO GROWTH IN 5 DAYS Complete 11/27/17 07:00 Blood Peripheral Anaerobic Blood Culture - Final NO GROWTH IN 5 DAYS Complete 12/01/17 14:40 Fluid Other Gram Stain - Final Complete 12/01/17 14:40 Fluid Other Body Fluid Culture - Final NO GROWTH IN 72 HRS.--AEROBICALLY OR ... Complete 12/06/17 05:26 Stool Stool Stool Occult Blood (CANDICE) - Final HEMOCCULT POSITIVE Complete 11/26/17 13:37 Urine Catheterized Urine Urine Culture - Final Pseudomonas Aeruginosa Complete Imaging Last Impressions GI Bleed Scan Nuclear Medicine 12/07/17 0000 Signed Impressions: CONCLUSION: 1. Findings concerning for very slow rate of hemorrhage in the region of the c ecum. Doubtful this is sufficient for angiographic visualization. Head CT 12/06/17 Signed Impressions: CONCLUSION: 1. No acute intracranial abnormality. 2. 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 Chest X-Ray 12/06/17 Signed Impressions: CONCLUSION: 1. No new or acute intrathoracic disease. 2. Tip of the nasogastric tube is in the lower cervical esophagus. The tube ma y be coiled in the patient's mouth. Tube Removal 12/05/17 Signed Impressions: CONCLUSION: 1. Uncomplicated abdominal drain removal. Abdomen/Pelvis CT 12/03/17 Signed Impressions: CONCLUSION: 1. Decreased size of left hepatic lobe hematoma following drainage. 2. No evidence of free or loculated intraperitoneal fluid or free air. 3. Stable intestinal tract without evidence of pathologic distention or inflam matory changes. 4. Uncomplicated colonic diverticulosis. 5. Stable large right hemiscrotal hydrocele 6. Bibasilar airspace disease with small bilateral effusions. Abscess Drainage CT 12/01/17 Signed Impressions: CONCLUSION: 1. Uncomplicated CT guided drainage. 2. Hepatic collection has the appearance of a hematoma which may be infected c onsidering the small bubbles a contains. Specimen sent for culture and sensitiv ity. 3. 12 Upper Sorbian catheter left in place. Abdomen X-Ray 11/29/17 Signed Impressions: CONCLUSION: Nonspecific, nonobstructive bowel gas pattern which may represent a mild ileus and/or gastroenteritis. Abdomen Ultrasound 11/29/17 Signed Impressions: CONCLUSION: 1. Cholelithiasis with a mildly thickened gallbladder wall. 2. Dilatation the common bile duct. On the prior CT examination, there was a f illing defect within the common bile duct. 3. Heterogeneity to the liver with increased echogenicity likely related to he patic steatosis. 4. 1.5 cm echogenic focus in the right lobe of the liver. This could represent an underlying lesion such as a hemangioma. This is not clearly seen on the rec ent CT examination. One could perform a MRI of the abdomen at some point to mor e fully evaluate the liver. This could be performed as an outpatient. GI Procedure 11/28/17 Signed Impressions: CONCLUSION: Apparent ERCP stone extraction as detailed above. CBD is now clear. Hepatobiliary Scan Nuclear Medicine 11/26/17 0000 Signed Impressions: Service Date/Time: Sunday, November 26, 2017 17:51 - CONCLUSION: 1. No activity seen in the gallbladder. Delayed imaging will be obtained to confirm cystic duct occlusion. 2. Significantly delayed biliary clearance with bowel activity noted at 90 minutes. This is consistent with partially obstructing distal CBD calculus as noted on CT exam. Nick Miramontes MD ADDENDUM: Delayed images were obtained. There is clear bowel activity on delayed imaging. There is also significant residual hepatic activity. This may be due to partial CBD obstruction or hepatocellular dysfunction. The gallbladder is again not visualized. This is concerning for cystic duct obstruction and cholecystitis in the appropriate clinical setting. 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 There is also a focus of air in the gallbladder. Gallbladder does not appear inflamed on CT exam. HIDA scan (11/26) No activity seen in the gallbladder. Significantly delayed biliary clearance with bowel activity noted at 90 minutes. Consistent with partially obstructing distal CBD calculus. Delayed images obtained, clear bowel activity on delayed imaging, also significant residual hepatic activity, may be due to CBD obstruction vs hepatocellular dysfunction. The gallbladder again not visualized, concerning for cystic duct obstruction and cholecystitis in appropriate setting. ERCP (11/28) --> Choledocholithiasis, S/P sphincterotomy and balloon extraction 3 sones, cholangiogram revealed total clearance of filling defects and intrahepatics were unremarkable. Duodenal diverticulum. Duodenal polyps. Pathology (Duodenum) tubulovillous adenoma. GS consult noted HIDA scan findings unreliable in pt with liver dysfunction, they have ordered US gallbladder to further evaluate, not ed pt is not a good surgical candidate at this time - ETOH abuse- reports 3 beers a day- on CIWA protocol - Sepsis- Pt on Zosyn - Encephalopathy - noted to be secondary to sepsis- ammonia < 10 CT assisted abscess drain for liver abscess with Accordion drain placement done on 12/01 Indication "Over the last 4 days a large mass is developed in the anterior left lobe of the liver measuring up to 9.6 cm in diameter containing multiple locules of air likely a developing complex liver abscess" seen on CT on 11/[address] done yesterday revealed decreased size of left hepatic lobe hematoma following drainage (12/04) Hemoccult positive stool, H/H has remained stable. Dark liquid stool reported by patient. Previous EGD on 11/28 as noted above. He reports increase in diarrhea. Will order stool studies for C. Diff LFTs trending down. IR has been reconsulted to removed drain tomorrow. (12/05) Pt reports diarrhea has been slowing down, has not had a BM yet today. C. Diff negative. Discussed the Hemoccult positive stool findings, H/H have remained WNL. He would like to wait to have a colonoscopy when he gets back to [place]. Does think he had one in the past, unsure of findings. Liver drain removed by IR (12/06) Initially signed off yesterday, however, per Dr. Hernandez pt began vomiting blood today, he witnessed this at bedside, coffee ground emesis. Per RN pt has also had 6 episodes of melena today. Pt complaining of abdominal bloating but denies any pain. Pt taken for emergent EGD and transferred to ICU. (12/07) Pt S/P EGD transferred to ICU, extubated and NG tube has been removed. Rectal bag to [facility] with melena. Repeat labs pending, multiple unsuccessful blood draws. Transport at bedside preparing to take pt down for NM bleeding scan. Pt denies nausea, vomiting. Complaining of epigastric pain. EGD --> Old blood, coffee ground, significant inflammation and swelling around the bryan ampullary area. Multiple polyp in this area. Clear bile seen coming intermittently from this area. This was an area of inflammation around 3 x 3.5 cm in size with very friable mucosa and oozing of blood. Possible bleed from previous sphincterotomy vs polyp biopsy site. Injected a total of 5 cc of epi with good hemostasis. Clipping.cautery not done as this appeared to be right around the ampulla. (12/09) S/P positive bleeding scan and colonoscopy yesterday to further evaluate. Bleeding scan (12/07) Findings concerning for very slow rate of hemorrhage in the region of the cecum. Doubtful this is sufficient for angiographic visualization. Colonoscopy (12/08) --> Sessile polyp ranging between 3-5 mm in size was found in the sigmoid colon, polypectomy. Diverticulum in the sigmoid colon, descending colon, and ascending colon. Multiple small AVMs in the ascending colon and at the cecum, argon plasma coagulation was applied to the site with complete hemostasis. (12/10) Per Dr. Hernandez pt continues to have melanotic stools, STAT IR consult placed for IR CT angio with embolization, case discussed with Dr. Dietz. Pt off floor in IR, will check back if pt is in room later (12/11) H/H remains stable over night. Per RN small BM this morning was green with small speckles of black. S/O CT angio with embolization by IR yesterday --> Small bleed evident arising from a distal branch of the JANET. Subselective gel foam administration and coil placement performed with occlusion of the distal most branch of the artery. Complete occlusion of the distal branch following up angio. Remained of the JANET remains widely patent. PLAN - SIDDHARTH - Monitor H/H - Notify GI if any further bleeding - Protonix - GI will sign off, please reconsult as needed - Have pt follow up with GI after DC Pt has been seen and examined by myself and Dr. Escalera and this note is written on his behalf (Марина Ochoa) Physician Comments Agree with above assessment and plan. Please notify us if needed again. (Cesar Escalera MD) Марина Ochoa Dec 11, 2017 13:41 Cesar Escalera MD Dec 11, 2017 15:58
--- NOTE | 2017-12-11 14:02 | HHI.PR ---
Subjective Remarks Deferred entry, the patient was seen earlier at 10:30 AM. Case discussed with RN, the patient still having some loose dark stools. Patient denies abdominal pain, nausea vomiting. Objective Vitals Vital Signs Date Time Temp Pulse Resp B/P (MAP) Pulse Ox O2 Delivery O2 Flow Rate FiO2 12/11/17 12:00 98.0 74 12 122/60 (80) 100 12/11/17 12:00 74 12/11/17 10:00 88 12/11/17 08:09 100 12/11/17 08:00 98.2 84 19 142/63 (89) 100 12/11/17 08:00 84 12/11/17 07:00 100 Room Air 12/11/17 06:00 77 12/11/17 04:00 98.2 90 18 111/55 (73) 97 12/11/17 04:00 74 12/11/17 02:00 72 12/11/17 00:00 98.2 90 18 111/55 (73) 97 12/11/17 00:00 90 12/10/17 22:00 77 12/10/17 20:00 98.2 76 15 144/76 (98) 96 12/10/17 20:00 76 12/10/17 19:04 98.7 98 26 155/74 (101) 96 12/10/17 19:00 98 Room Air 2.00 21 12/10/17 18:04 97.6 76 13 150/77 (101) 96 12/10/17 18:00 90 12/10/17 17:34 97.9 74 17 133/63 (86) 95 12/10/17 17:04 97.9 75 14 140/63 (88) 97 12/10/17 16:34 97.9 68 14 118/57 (77) 97 12/10/17 16:04 97.9 69 14 128/60 (82) 97 12/10/17 16:00 75 12/10/17 16:00 97.9 69 14 128/60 (82) 97 12/10/17 15:34 97.9 69 13 126/65 (85) 100 I/O 12/10/17 12/10/17 12/10/17 12/11/17 12/11/17 12/11/17 07:00 15:00 23:00 07:00 15:00 23:00 Intake Total 1120 ml 120 ml Output Total 700 ml 900 ml 1050 ml 650 ml Balance 420 ml -900 ml -1050 ml -530 ml Intake Oral 120 ml 120 ml IV Total 1000 ml Output Urine Total 700 ml 900 ml 1050 ml 650 ml # Bowel Movements 0 1 Result Diagram: 12/11/17 1027 12/11/17 1027 Objective Remarks General: No distress. Heart: Regular rate and rhythm. No murmur. Lungs: CTAB. No W/R/R. Abdomen: soft, non tender, non distended. Extremities: No lower extremity edema. Psych: Alert and oriented. Neuro: Normal speech. No focal deficits noted. : Significant scrotal enlargement Procedures None A/P Problem List: (1) Sepsis ICD Code: A41.9 - Sepsis, unspecified organism (2) Choledocholithiasis ICD Code: K80.50 - Calculus of bile duct without cholangitis or cholecystitis without obstruction Status: Acute (3) Alcohol dependence ICD Code: F10.20 - Alcohol dependence Status: Acute (4) Encephalopathy acute ICD Code: G93.40 - Encephalopathy, unspecified (5) Hypertension ICD Code: I10 - Hypertension Status: Acute (6) H/O: CVA (cerebrovascular accident) ICD Code: Z86.73 - Personal history of transient ischemic attack (TIA), and cerebral infarction without residual deficits Assessment and Plan 1. Choledocholithiasis/ Liver abscess Abnormal HIDA scan and US noted. GI and surgical consults appreciated. S/p ERCP which revealed: Choledocholithiasis; Duodenal diverticulum; Duodenal polyps. CT 11/30: Over the last 4 days a large mass has developed in the anterior left lobe of the liver measuring up to 9.6 cm in diameter containing multiple locules of air likely a developing complex liver abscess; Multiple gallstones without significant inflammatory changes identified around the gallbladder. IR consulted for abscess drainage 12/01. Drain still in place. CT 12/03: Decreased size of left hepatic lobe hematoma following drainage; No evidence of free or loculated intraperitoneal fluid or free air; Stable intestinal tract without evidence of pathologic distention or inflammatory changes. Abscess culture with no growth, final. - continue IV Zosyn. Consider discharging on Cipro/ Flagyl. - follow up with GI. - trend LFTs. - will need outpt follow-up with surgery to schedule cholecystectomy. 12/05 status post drain removal by IR. Sepsis Source is UTI. Pseudomonas growing. - Continue IV Zosyn. Can change to Cipro upon discharge. Sepsis seems to be resolving. Reactive airway disease No further wheezing on exam. - Oxygen and nebs as needed. Started standing nebs. - d/c prednisone. - continue antibiotics. - repeat CXR. - will need home o2 Leukocytosis Leukocytosis possibly secondary to steroid use and now reactive distress due to active GI bleed and hypotension. Continue to monitor CBC. Continue to monitor vital signs for fevers. There is a question of a right lower lobe infiltrate, continue to monitor. 12/10 Leukocytosis likely reactive. WBC slightly went up yesterday after GI bleed. However, it is downtrending now. Continue to monitor CBC. 12/11 WBC still elevated at 15.6. Hemoglobin stable at 9.1. This could be reactive to iron deficiency anemia. There are no signs of infection observed this patient is afebrile and is not tachycardic. Patient is satting very well 100% on room air. Right testicular mass Imaging shows cystic mass on right. Evaluated by urology. No surgical intervention planned for hydrocele. Repeat CT: Large loculated hydrocele or cystic testicular mass in the right hemiscrotum measuring up to 13.6 cm in diameter. - Patient to follow-up with urology as outpt. Reconsult as needed. Alcohol abuse No evidence of withdrawal. - CIWA protocol, thiamine, folic acid. - cessation instruction. No evidence of alcohol withdrawal. History of CVA Stable. - Continue aspirin. HTN Hypotension Hold all antihypertensive medications due to current hypovolemic shock. 12/07 BP improved after IV fluid bolus. Continue to monitor vital signs. 12/11 blood pressure stable, continue to hold antihypertensive medications for now. Hypokalemia S/t decreased PO intake. - replete and monitor. GI bleed with hypovolemic shock. The patient had coffee-ground emesis and melanotic stools on 12/07/17. The patient was immediately given a liter of normal saline bolus since the patient' s blood pressure was down. Hemoglobin was noted to drop down to 10.7. Continue to monitor CBC. Patient was transferred to the intensive care unit. Critical care consulted. GI was informed of the acute bleed. The case was discussed with them. GI recommended a bleeding scan which showed findings concerning for very slow rate of hemorrhage in the region of the cecum. 12/08 sp EGD/Colonoscopy - EGD showed duodenal ulcer which was treated with argon Plasma. Colonoscopy showed: 1. A sessile polyp ranging between 3-5mm in size was found in the sigmoid colon; polypectomy was performed with cold forceps 2. Diverticulum in the sigmoid colon, descending colon, and ascending colon 3. 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 Transfuse for hb less than 8 if active bleeding present. 12/10 patient had a syncopal episode and an episode of severe hypotension with a systolic blood pressure in the 50s yesterday afternoon. Today the patient has melanotic stools. Contacted GI and discussed the case. GI recommends stat IR for CT angiogram with possible embolization. Continue to monitor CBC and vital signs. 12/11 the patient underwent angiogram with selective injection of the celiac, GDA , SMA, and JANET. As per interventional radiology report celiac, GDA and SMA were unremarkable. There was a small bleed evident arising from the distal branch of the JANET. Subselective gel foam administration and coil placement performed with occlusion of the distal most branch of the artery. Complete occlusion of the distal branch following up angio. Remained of the JANET remains widely patent. DVT prophylaxis: DSCD's, no chemoprophylaxis due to GI bleeding. Discharge Planning Okay to transfer out of the intensive care unit. I will monitor overnight and plan to see in a.m. if no further GI bleeding and hemoglobin remained stable. We consulted physical therapy for evaluation of appropriate disposition. Problem Qualifiers (1) Sepsis: Qualified Codes: A41.9 - Sepsis, unspecified organism (2) Alcohol dependence: Qualified Codes: F10.29 - Alcohol dependence with unspecified alcohol-induced disorder Montrell Robledo MD Dec 11, 2017 14:02
[2017-12-11] MEDS: cloNIDine HCL 0.1 MG TAB PO PRN (18:38)
[2017-12-11] MEDS: ACETAMINOPHEN 325 MG TAB PO PRN (19:56)
[2017-12-12] VITALS (13 sets, daily range): BP systolic 120–145; BP diastolic 58–68; PULSE 60–82; RESP 11–23; TEMP 97.7–98.5; O2SAT 96–100
[2017-12-12] MEDS: DIPHENOXYLATE/ATROPINE 2.5 MG/0.025 MG TAB PO SCH ×4 (00:51→18:16)
[2017-12-12] MEDS: SODIUM CHLOR 0.9% 1000 ML INJ 1,000 ML IV SCH ×2 (06:05→14:00)
[2017-12-12] MEDS: SODIUM CHLORIDE 0.9% 10 ML VIAL IRRIGATION SCH ×2 (07:29→20:00)
[2017-12-12] MEDS: LIPASE/PROTEASE/AMYLASE (12,000/38,000/60,000) CAP PO SCH ×3 (08:56→18:16)
[2017-12-12] MEDS: PANTOPRAZOLE SOD 40 MG DELAYED RELEASE TAB PO SCH ×2 (08:56→20:11)
[2017-12-12] MEDS: SODIUM CHLORIDE 0.9% FLUSH 10 ML FLUSH IV FLUSH SCH ×2 (08:56→20:11)
[2017-12-12] MEDS: DOCUSATE SODIUM 50 MG/SENNA 8.6 MG TAB PO SCH ×2 (08:57→20:12)
[2017-12-12] MEDS: BISACODYL 10 MG SUPP RECTAL SCH (08:57)
[2017-12-12 09:12] LABS: HEMATOCRIT 26.9 % (39.0-51.0); HEMOGLOBIN 9.2 GM/DL (13.0-17.0); MEAN CELL VOLUME 94.9 FL (80.0-100.0); MEAN CORPUSCULAR HEMOGLOBIN 32.6 PG (27.0-34.0); MEAN CORPUSCULAR HGB CONC 34.3 % (32.0-36.0); MEAN PLATELET VOLUME 6.9 FL (7.0-11.0); PLATELET COUNT 643 TH/MM3 (150-450); RED BLOOD COUNT 2.84 MIL/MM3 (4.50-5.90); RED CELL DISTRIBUTION WIDTH 13.6 % (11.6-17.2); WHITE BLOOD COUNT 14.6 TH/MM3 (4.0-11.0)
[2017-12-12 09:42] LABS: CALCIUM 8.4 MG/DL (8.5-10.1); CREATININE 0.67 MG/DL (0.60-1.30)
[2017-12-12] MEDS ORDERED: SODIUM CHLOR 0.9% 250 ML INJ 250 ML IV ONE (11:00)
--- NOTE | 2017-12-12 14:51 | HHI.DS ---
Discharge Summary Admission Date November 26, 2017 at 16:39 Discharge Date: Dec 12, 2017 Admitting Diagnosis choledocholithiasis (1) Sepsis ICD Code: A41.9 - Sepsis, unspecified organism Diagnosis: Principal Status: Resolved (2) Choledocholithiasis ICD Code: K80.50 - Calculus of bile duct without cholangitis or cholecystitis without obstruction Diagnosis: Principal Status: Acute (3) Alcohol dependence ICD Code: F10.20 - Alcohol dependence Diagnosis: Principal Status: Chronic (4) Encephalopathy acute ICD Code: G93.40 - Encephalopathy, unspecified Diagnosis: Principal Status: Resolved (5) Hypertension ICD Code: I10 - Hypertension Diagnosis: Principal Status: Resolved (6) H/O: CVA (cerebrovascular accident) ICD Code: Z86.73 - Personal history of transient ischemic attack (TIA), and cerebral infarction without residual deficits Status: Chronic Procedures None Brief History - From Admission This is a 77-year-old male with past medical history significant for alcohol dependence and abuse, history of CVA, hypertension who presents to [facility] complaining of dizziness and shaking. The patient presented to the emergency department via EMS for evaluation of confusion. The patient had told the ER physician that he has been confused since yesterday. The patient stated to me that he felt dizzy and had severe shaking. The patient denies abdominal pain, denies nausea, denies vomiting, denies dysuria. As per ED physician's note the patient was alert and oriented to person and place only and thought he was in the year 1977. The patient states he takes no medications at home. The patient denies chest pain or shortness of breath, appears jaundiced. Patient is a poor historian. During my interview the patient is awake alert and oriented 3 and does not present any tremors. Patient also is noted to have a large right testicular mass. He states that he was seen by a physician in [place] who recommended to have the mass removed but he refused. CBC/BMP: 12/12/17 0857 12/12/17 0857 Significant Findings Laboratory Tests Test 12/09/17 18:46 12/10/17 02:43 12/10/17 12:13 12/10/17 17:41 White Blood Count 16.3 TH/MM3 (4.0-11.0) 14.0 TH/MM3 (4.0-11.0) 14.9 TH/MM3 (4.0-11.0) Red Blood Count 2.82 MIL/MM3 (4.50-5.90) 2.63 MIL/MM3 (4.50-5.90) 2.76 MIL/MM3 (4.50-5.90) Hemoglobin 9.4 GM/DL (13.0-17.0) 8.6 GM/DL (13.0-17.0) 9.0 GM/DL (13.0-17.0) 9.1 GM/DL (13.0-17.0) Hematocrit 26.4 % (39.0-51.0) 24.7 % (39.0-51.0) 26.3 % (39.0-51.0) Platelet Count 457 TH/MM3 (150-450) 499 TH/MM3 (150-450) 534 TH/MM3 (150-450) Test 12/11/17 10:27 12/11/17 17:30 12/12/17 08:57 White Blood Count 15.6 TH/MM3 (4.0-11.0) 14.6 TH/MM3 (4.0-11.0) Red Blood Count 2.83 MIL/MM3 (4.50-5.90) 2.84 MIL/MM3 (4.50-5.90) Hemoglobin 9.1 GM/DL (13.0-17.0) 8.4 GM/DL (13.0-17.0) 9.2 GM/DL (13.0-17.0) Hematocrit 26.7 % (39.0-51.0) 26.9 % (39.0-51.0) Platelet Count 587 TH/MM3 (150-450) 643 TH/MM3 (150-450) Neutrophils (%) (Auto) 82.4 % (16.0-70.0) Lymphocytes (%) (Auto) 7.7 % (9.0-44.0) Monocytes (%) (Auto) 8.2 % (0.0-8.0) Neutrophils # (Auto) 12.8 TH/MM3 (1.8-7.7) Monocytes # (Auto) 1.3 TH/MM3 (0-0.9) Random Glucose 179 MG/DL (74-106) Total Protein 6.1 GM/DL (6.4-8.2) Albumin 2.6 GM/DL (3.4-5.0) Calcium Level 8.0 MG/DL (8.5-10.1) 8.4 MG/DL (8.5-10.1) Sodium Level 133 MEQ/L (136-145) 135 MEQ/L (136-145) Chloride Level 96 MEQ/L (98-107) Mean Platelet Volume 6.9 FL (7.0-11.0) Blood Urea Nitrogen 6 MG/DL (7-18) Imaging Last Impressions GI Bleed Scan Nuclear Medicine 12/07/17 Signed Impressions: CONCLUSION: 1. Findings concerning for very slow rate of hemorrhage in the region of the c ecum. Doubtful this is sufficient for angiographic visualization. Head CT 12/06/17 Signed Impressions: CONCLUSION: 1. No acute intracranial abnormality. 2. 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 Chest X-Ray 12/06/17 Signed Impressions: CONCLUSION: 1. No new or acute intrathoracic disease. 2. Tip of the nasogastric tube is in the lower cervical esophagus. The tube ma y be coiled in the patient's mouth. Tube Removal 12/05/17 Signed Impressions: CONCLUSION: 1. Uncomplicated abdominal drain removal. Abdomen/Pelvis CT 12/03/17 Signed Impressions: CONCLUSION: 1. Decreased size of left hepatic lobe hematoma following drainage. 2. No evidence of free or loculated intraperitoneal fluid or free air. 3. Stable intestinal tract without evidence of pathologic distention or inflam matory changes. 4. Uncomplicated colonic diverticulosis. 5. Stable large right hemiscrotal hydrocele 6. Bibasilar airspace disease with small bilateral effusions. Abscess Drainage CT 12/01/17 Signed Impressions: CONCLUSION: 1. Uncomplicated CT guided drainage. 2. Hepatic collection has the appearance of a hematoma which may be infected c onsidering the small bubbles a contains. Specimen sent for culture and sensitiv ity. 3. 12 Anguillan catheter left in place. Abdomen X-Ray 5/23/18 0000 Signed Impressions: CONCLUSION: Nonspecific, nonobstructive bowel gas pattern which may represent a mild ileus and/or gastroenteritis. Abdomen Ultrasound 11/29/17 Signed Impressions: CONCLUSION: 1. Cholelithiasis with a mildly thickened gallbladder wall. 2. Dilatation the common bile duct. On the prior CT examination, there was a f illing defect within the common bile duct. 3. Heterogeneity to the liver with increased echogenicity likely related to he patic steatosis. 4. 1.5 cm echogenic focus in the right lobe of the liver. This could represent an underlying lesion such as a hemangioma. This is not clearly seen on the rec ent CT examination. One could perform a MRI of the abdomen at some point to mor e fully evaluate the liver. This could be performed as an outpatient. GI Procedure 11/28/17 0000 Signed Impressions: CONCLUSION: Apparent ERCP stone extraction as detailed above. CBD is now clear. Hepatobiliary Scan Nuclear Medicine 11/26/17 0000 Signed Impressions: Service Date/Time: Sunday, November 26, 2017 17:51 - CONCLUSION: 1. No activity seen in the gallbladder. Delayed imaging will be obtained to confirm cystic duct occlusion. 2. Significantly delayed biliary clearance with bowel activity noted at 90 minutes. This is consistent with partially obstructing distal CBD calculus as noted on CT exam. Nick Miramontes MD ADDENDUM: Delayed images were obtained. There is clear bowel activity on delayed imaging. There is also significant residual hepatic activity. This may be due to partial CBD obstruction or hepatocellular dysfunction. The gallbladder is again not visualized. This is concerning for cystic duct obstruction and cholecystitis in the appropriate clinical setting. Nick Miramontes MD PE at Discharge General: No distress. Heart: Regular rate and rhythm. No murmur. Lungs: CTAB. No W/R/R. Abdomen: soft, non tender, non distended. Extremities: No lower extremity edema. Psych: Alert and oriented. Neuro: Normal speech. No focal deficits noted. : Significant scrotal enlargement Pt update on day of discharge The patient denies any further melena or hematochezia. Ge also did not report any further melena. Patient's vital signs stable. The patient is orthostatic however asymptomatic. Ordered bolus of 250 mL's IV before discharge. Hospital Course 1. Choledocholithiasis/ Liver abscess Abnormal HIDA scan and US noted. GI and surgical consults appreciated. S/p ERCP which revealed: Choledocholithiasis; Duodenal diverticulum; Duodenal polyps. CT 11/30: Over the last 4 days a large mass has developed in the anterior left lobe of the liver measuring up to 9.6 cm in diameter containing multiple locules of air likely a developing complex liver abscess; Multiple gallstones without significant inflammatory changes identified around the gallbladder. IR consulted for abscess drainage 12/01. Drain still in place. CT 12/03: Decreased size of left hepatic lobe hematoma following drainage; No evidence of free or loculated intraperitoneal fluid or free air; Stable intestinal tract without evidence of pathologic distention or inflammatory changes. Abscess culture with no growth, final. Treated with IV Zosyn. GI consulted. LFTs trended. The patient will need outpatient follow-up to schedule cholecystectomy. Status post drain removal on 12/05 by IR. Sepsis Sepsis secondary to urinary tract infection. Urine culture grew Pseudomonas. Treated with IV Zosyn. Discharge home on oral antibiotics. Reactive airway disease Patient noted to be wheezing on exam. Treated with oxygen and nebs as needed. Treated also with prednisone which was discontinued. Antibiotics as above Leukocytosis Leukocytosis possibly secondary to steroid use and now reactive distress due to active GI bleed and hypotension. Continue to monitor CBC. Continue to monitor vital signs for fevers. There is a question of a right lower lobe infiltrate, continue to monitor. 6/3 Leukocytosis likely reactive. WBC slightly went up yesterday after GI bleed. However, it is downtrending now. Continue to monitor CBC. 6/4 WBC still elevated at 15.6. Hemoglobin stable at 9.1. This could be reactive to iron deficiency anemia. There are no signs of infection observed this patient is afebrile and is not tachycardic. Patient is satting very well 100% on room air. Right testicular mass Imaging shows cystic mass on right. Evaluated by urology. No surgical intervention planned for hydrocele. Repeat CT: Large loculated hydrocele or cystic testicular mass in the right hemiscrotum measuring up to 13.6 cm in diameter. - Patient to follow-up with urology as outpt. Reconsult as needed. Alcohol abuse No evidence of withdrawal. - CIWA protocol, thiamine, folic acid. - cessation instruction. No evidence of alcohol withdrawal. History of CVA Stable. - Continue aspirin. HTN Hypotension On 12/06 the patient was noted to have severe hypotension. All antihypertensive medications were discontinued. The patient was treated with IV fluid bolus on blood pressure was improved. Hypotension likely secondary to GI bleeding as detailed below. Hypokalemia Due to decreased oral intake. Potassium was replaced and BMP monitored throughout her hospital stay. GI bleed with hypovolemic shock. The patient had coffee-ground emesis and melanotic stools on 12/07/17. The patient was immediately given a liter of normal saline bolus since the patient' s blood pressure was down. Hemoglobin was noted to drop down to 10.7. Continue to monitor CBC. Patient was transferred to the intensive care unit. Critical care consulted. GI was informed of the acute bleed. The case was discussed with them. GI recommended a bleeding scan which showed findings concerning for very slow rate of hemorrhage in the region of the cecum. 12/08 sp EGD/Colonoscopy - EGD showed duodenal ulcer which was treated with argon Plasma. Colonoscopy showed: 1. A sessile polyp ranging between 3-5mm in size was found in the sigmoid colon; polypectomy was performed with cold forceps 2. Diverticulum in the sigmoid colon, descending colon, and ascending colon 3. 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 12/10 patient had a syncopal episode and an episode of severe hypotension with a systolic blood pressure in the 50s yesterday afternoon. Today the patient has melanotic stools. Contacted GI and discussed the case. GI recommends stat IR for CT angiogram with possible embolization. Continue to monitor CBC and vital signs. 12/11 the patient underwent angiogram with selective injection of the celiac, GDA , SMA, and JANET. As per interventional radiology report celiac, GDA and SMA were unremarkable. There was a small bleed evident arising from the distal branch of the JANET. Subselective gel foam administration and coil placement performed with occlusion of the distal most branch of the artery. Complete occlusion of the distal branch following up angio. Remained of the JANET remains widely patent. DVT prophylaxis: DSCD's, no chemoprophylaxis due to GI bleeding. Pt Condition on Discharge: Stable Discharge Disposition: Discharge to SNF Discharge Time: > 30 minutes Discharge Instructions DIET: Follow Instructions for: As Tolerated, No Restrictions Activities you can perform: Regular-No Restrictions, See Additionl Instruction Other Activity Instructions: oob with assistance As per PT Follow up Referrals: Gastroenterology - 3 Weeks with Cesar Escalera MD PCP Follow-up - 2 Weeks Urology - 1 Week New Medications: Oxygen (O2) (Oxygen (O2)) Device LITER DOMENICA.CANULA CONTINUOUS for Prevent Hypoxemia, #2 Oxygen Concentrator Portable Gaseous 2 L/min via Nasal Canula Continuous For 99 months Walker Rolling/GetGo (Walker Rolling/GetGo) 1 Mis Mis EA .XX DIRECTED, #1 Pancrelipase (Creon) 12,000-38,000-60,000 Units Cap 1 CAP PO TID for Diarrhea, #90 CAP Pantoprazole (Pantoprazole) 40 Mg Tab 40 MG PO Q12HR for GI bleed/PUD, #62 TAB Montrell Robledo MD Dec 12, 2017 14:51
[2017-12-12] MEDS: ACETAMINOPHEN 325 MG TAB PO PRN (17:56)
[2017-12-13] VITALS (8 sets, daily range): BP systolic 126–159; BP diastolic 62–76; PULSE 68–80; RESP 18–19; TEMP 97.4–98.3; O2SAT 94–99
[2017-12-13] MEDS: SODIUM CHLOR 0.9% 1000 ML INJ 1,000 ML IV SCH ×2 (02:03→17:54)
[2017-12-13] MEDS: DIPHENOXYLATE/ATROPINE 2.5 MG/0.025 MG TAB PO SCH ×4 (06:00→16:45)
[2017-12-13] MEDS: SODIUM CHLORIDE 0.9% 10 ML VIAL IRRIGATION SCH ×2 (07:52→20:00)
[2017-12-13] MEDS: BISACODYL 10 MG SUPP RECTAL SCH (08:03)
[2017-12-13] MEDS: LIPASE/PROTEASE/AMYLASE (12,000/38,000/60,000) CAP PO SCH ×3 (08:04→16:45)
[2017-12-13] MEDS: DOCUSATE SODIUM 50 MG/SENNA 8.6 MG TAB PO SCH ×2 (08:04→21:00)
[2017-12-13] MEDS: PANTOPRAZOLE SOD 40 MG DELAYED RELEASE TAB PO SCH ×2 (08:04→21:26)
[2017-12-13] MEDS: SODIUM CHLORIDE 0.9% FLUSH 10 ML FLUSH IV FLUSH SCH ×2 (08:05→21:00)
--- NOTE | 2017-12-13 09:30 | HHI.PR ---
Subjective Remarks in no acute distress. denies pain, nausea. no fever or any other complaints. Objective Vitals Vital Signs Date Time Temp Pulse Resp B/P (MAP) Pulse Ox O2 Delivery O2 Flow Rate FiO2 12/13/17 08:52 97.7 74 19 159/74 (102) 98 12/13/17 04:00 97.5 71 18 126/62 (83) 94 12/13/17 00:00 97.6 68 18 159/74 (102) 95 12/12/17 21:45 98.0 69 18 145/68 (93) 96 12/12/17 20:00 97.8 72 16 140/67 (91) 99 12/12/17 20:00 72 12/12/17 19:38 98 12/12/17 19:00 97 Room Air 12/12/17 16:00 97.7 79 14 120/59 (79) 100 12/12/17 16:00 79 12/12/17 14:00 82 12/12/17 12:00 73 12/12/17 12:00 97.9 73 15 133/58 (83) 100 12/12/17 10:00 74 I/O 12/12/17 12/12/17 12/12/17 12/13/17 12/13/17 12/13/17 07:00 15:00 23:00 07:00 15:00 23:00 Intake Total 250 ml 240 ml 1322 ml Output Total 850 ml 1000 ml 900 ml 650 ml Balance -850 ml 250 ml -760 ml 422 ml -650 ml Intake Oral 240 ml IV Total 250 ml 1322 ml Output Urine Total 850 ml 1000 ml 900 ml 650 ml # Bowel Movements 1 1 Result Diagram: 12/12/17 0857 12/12/17 0857 Imaging Last Impressions GI Bleed Scan Nuclear Medicine 12/07/17 0000 Signed Impressions: CONCLUSION: 1. Findings concerning for very slow rate of hemorrhage in the region of the c ecum. Doubtful this is sufficient for angiographic visualization. Head CT 12/06/17 0000 Signed Impressions: CONCLUSION: 1. No acute intracranial abnormality. 2. 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 Chest X-Ray 12/06/17 0000 Signed Impressions: CONCLUSION: 1. No new or acute intrathoracic disease. 2. Tip of the nasogastric tube is in the lower cervical esophagus. The tube ma y be coiled in the patient's mouth. Tube Removal 12/05/17 Signed Impressions: CONCLUSION: 1. Uncomplicated abdominal drain removal. Abdomen/Pelvis CT 12/03/17 Signed Impressions: CONCLUSION: 1. Decreased size of left hepatic lobe hematoma following drainage. 2. No evidence of free or loculated intraperitoneal fluid or free air. 3. Stable intestinal tract without evidence of pathologic distention or inflam matory changes. 4. Uncomplicated colonic diverticulosis. 5. Stable large right hemiscrotal hydrocele 6. Bibasilar airspace disease with small bilateral effusions. Abscess Drainage CT 12/01/17 Signed Impressions: CONCLUSION: 1. Uncomplicated CT guided drainage. 2. Hepatic collection has the appearance of a hematoma which may be infected c onsidering the small bubbles a contains. Specimen sent for culture and sensitiv ity. 3. 12 Irish catheter left in place. Abdomen X-Ray 11/29/17 Signed Impressions: CONCLUSION: Nonspecific, nonobstructive bowel gas pattern which may represent a mild ileus and/or gastroenteritis. Abdomen Ultrasound 11/29/17 Signed Impressions: CONCLUSION: 1. Cholelithiasis with a mildly thickened gallbladder wall. 2. Dilatation the common bile duct. On the prior CT examination, there was a f illing defect within the common bile duct. 3. Heterogeneity to the liver with increased echogenicity likely related to he patic steatosis. 4. 1.5 cm echogenic focus in the right lobe of the liver. This could represent an underlying lesion such as a hemangioma. This is not clearly seen on the rec ent CT examination. One could perform a MRI of the abdomen at some point to mor e fully evaluate the liver. This could be performed as an outpatient. GI Procedure 11/28/17 Signed Impressions: CONCLUSION: Apparent ERCP stone extraction as detailed above. CBD is now clear. Hepatobiliary Scan Nuclear Medicine 11/26/17 Signed Impressions: Service Date/Time: Sunday, November 26, 2017 17:51 - CONCLUSION: 1. No activity seen in the gallbladder. Delayed imaging will be obtained to confirm cystic duct occlusion. 2. Significantly delayed biliary clearance with bowel activity noted at 90 minutes. This is consistent with partially obstructing distal CBD calculus as noted on CT exam. Nick Miramontes MD ADDENDUM: Delayed images were obtained. There is clear bowel activity on delayed imaging. There is also significant residual hepatic activity. This may be due to partial CBD obstruction or hepatocellular dysfunction. The gallbladder is again not visualized. This is concerning for cystic duct obstruction and cholecystitis in the appropriate clinical setting. Nick Miramontes MD Objective Remarks GENERAL: This is a well-nourished, well-developed patient, in no apparent distress. CARDIOVASCULAR: Regular rate and regular rhythm without murmurs, gallops, or rubs. RESPIRATORY: Clear to auscultation. Breath sounds equal bilaterally. No wheezes , rales, or rhonchi. GASTROINTESTINAL: Abdomen soft, non-tender, nondistended. Normal, active bowel sounds MUSCULOSKELETAL: Extremities without clubbing, cyanosis, or edema. NEURO: Alert & Oriented x4 to person, place, time, situation. Moves all ext x4 Procedures ERCP/drainage of the liver collection/ angiogram with selective injection of the celiac, GDA, SMA, and JANET Medications and IVs Inpatient Medications Acetaminophen (Tylenol) 650 mg Q4H PRN PO PAIN SCALE 1 TO 10 Last administered on 12/12/17 17:56; Start 12/10/17 at 15:30 Acetaminophen/ Hydrocodone Bitart ([place]omer 5-325 Mg) 1 tab Q6HR PRN PO pain>5 Last administered on 12/05/17at 04:20; Start 11/28/17 at 23:45; Stop 12/10/17 at 15:21; Status DC Albuterol/ Ipratropium (Duoneb Neb) 1 ampule Q2HR NEB PRN NEB dyspnea; Start at 17:30 Alprazolam (Xanax) 0.25 mg ONCE ONCE PO Last administered on 11/30/17at 00:45; Start 11/30/17 at 00:45; Stop 11/30/17 at 00:46; Status DC Amlodipine Besylate (Norvasc) 5 mg ONCE ONCE PO Last administered on at 18:58; Start 11/30/17 at 17:45; Stop 11/30/17 at 18:28; Status DC Amylase/Lipase/ Protease (Creon 12-38-60) 1 cap TID PO Last administered on 12/13at 08:04; Start 12/06/17 at 13:00 Aspirin (Ecotrin Ec) 81 mg DAILY PO Last administered on 12/05/17at 09:14; Start 11/27/17 at 09:00; Status Future Hold Bisacodyl (Dulcolax Supp) 10 mg DAILY RECTAL Last administered on 12/01/17at 08: 15; Start 11/30/17 at 14:45 Chlorhexidine Gluconate (Chlorhexidine 2% Cloth) 3 pack JEWELRY DIPPER PRN TOPICAL SEE LABEL COMMENTS; Start 11/28/17 at 07:00; Stop 12/01/17 at 06:59; Status DC Clonidine (Catapres) 0.1 mg Q6H PRN PO SYS BP GREATER THAN 170 MMHG Last administered on 12/11/17at 18:38; Start 12/09/17 at 18:30 Diatrizoate Meglum/ Diatrizoate Sod ( Gastroview Liq) 18 ml ONCE ONCE PO Last administered on 12/03/17at 13:28; Start 12/03/17 at 13:15; Stop 12/03/17 at 13:16; Status DC Diphenoxylate HCl/ Atropine (Lomotil Tab) 1 tab Q6HR PO Last administered on 12/12/17at 18:16; Start 12/06/17 at 12:00 Enalaprilat (Vasotec Inj) 1.25 mg Q6H PRN IV PUSH SBP> OR = 170, DBP> OR = 100 Last administered on 11/29/17at 21:12; Start 11/28/17 at 12:30; Stop 12/06/17 at 21:04; Status DC Enoxaparin Sodium (Lovenox Inj) 40 mg Q24H SQ Last administered on 12/04/17at 17 :44; Start 11/26/17 at 18:00; Stop 12/06/17 at 15:46; Status DC Furosemide (Lasix) 40 mg ONCE ONCE PO Last administered on 12/05/17at 21:22; Start 12/05/17 at 19:30; Stop 12/05/17 at 19:31; Status DC Iohexol (Omnipaque 350 Inj) 50 ml ONCE ONCE OTHER Last administered on at 14:24; Start 11/28/17 at 14:24; Stop 11/28/17 at 14:25; Status DC Ipratropium [place] (Atrovent Neb) 0.5 mg Q2HR NEB PRN NEB wheezing Last administered on 11/30/17at 08:31; Start 11/29/17 at 21:30 Lactated Ringer's 1,000 ml @ 999 mls/hr BOLUS ONCE IV Last administered on at 08:46; Start 12/06/17 at 07:45; Stop 12/06/17 at 08:45; Status DC Lactulose (Lactulose Liq) 30 ml DAILY PRN PO SEVERE CONSITIPATION Last administered on 12/01/17at 16:16; Start 11/26/17 at 17:30; Status Future Hold Levofloxacin/ Dextrose 150 ml @ 100 mls/hr Q24H IV Last administered on at 13:36; Start 11/29/17 at 15:00; Stop 11/30/17 at 17:30; Status DC Magnesium Hydroxide (Milk Of Magnesia Liq) 30 ml Q12H PRN PO Mild constipation ; Start 11/26/17 at 17:30 Methylprednisolone Sodium Succinate (SoluMEDROL INJ) 40 mg BID IV PUSH Last administered on 12/03/17at 08:59; Start 12/02/17 at 21:00; Stop 12/03/17 at 12:28 ; Status DC Metoclopramide HCl (Reglan Inj) 5 mg Q8HR PRN IV PUSH NAUSEA OR VOMITING; Start 12/06/17 at 07:45 Miscellaneous Information [place] [place] [facility] ALL NURSING DEPARTME... UNSCH PRN .XX SEE LABEL COMMENTS; Start 12/08/17 at 11:40; Stop 12/09/17 at 11:39 ; Status DC Morphine Sulfate (Morphine Inj) 2 mg ONCE ONCE IV PUSH Last administered on at 00:46; Start 11/30/17 at 00:45; Stop 11/30/17 at 00:46; Status DC Naloxone HCl (Narcan Inj) 0.4 mg UNSCH PRN IV PUSH SEE LABEL COMMENTS; Start at 17:30 Pantoprazole Sodium (Protonix) 40 mg Q12HR PO Last administered on 12/13/17at 08: 04; Start 12/09/17 at 21:00 Pantoprazole Sodium 80 mg/ Sodium Chloride 100 ml @ 10 mls/hr Q10H IV Last administered on 12/09/17at 05:03; Start 12/06/17 at 18:00; Stop 12/09/17 at 10:24; Status DC Piperacillin Sod/ Tazobactam Sod 100 ml @ 200 mls/hr Q6H IV Last administered on 12/09/17at 08:55; Start 11/30/17 at 20:00; Stop 12/09/17 at 10:24; Status DC Polyethylene Glycol/ Electrolytes (Colyte Liq) 2,000 ml Q8H PO Last administered on 12/07/17at 23:30; Start 12/07/17 at 15:30; Stop 12/07/17 at 23:31 ; Status DC Potassium Chloride 30 meq/ Dextrose/Sodium Chloride 1,015 ml @ 50 mls/hr [id number] IV Last administered on 12/03/17at 00:21; Start 11/29/17 at 15:00; Stop 12/03/17 at 12:31; Status DC Potassium Chloride/Sodium Chloride 1,000 ml @ 100 mls/hr Q10H IV Last administered on 12/09/17at 08:57; Start 12/06/17 at 11:45; Stop 12/09/17 at 10:24; Status DC Potassium Bicarb/ Potassium Chloride (K-Lyte Cl Eff) 50 meq ONCE ONCE PO Last administered on 12/02/17at 15:01; Start 12/02/17 at 14:15; Stop 12/02/17 at 14:16; Status DC Potassium Chloride (KCl) 40 meq ONCE ONCE PO Last administered on 12/06/17at 12 :20; Start 12/06/17 at 11:45; Stop 12/06/17 at 12:09; Status DC Prednisone (Deltasone) 20 mg DAILY PO Last administered on 12/04/17at 09:30; Start 12/04/17 at 09:00; Stop 12/04/17 at 11:40; Status DC Senna/Docusate Sodium (Adele-Colace) 1 tab BID PO Last administered on 12/13/17at 08:04; Start 11/26/17 at 21:00 Sennosides (Senokot) 17.2 mg Q12H PRN PO Moderate constipation; Start 11/26/17 at 17:30 Sodium Chloride 250 ml @ 250 mls/hr BOLUS ONCE IV Last administered on at 11:00; Start 12/12/17 at 11:00; Stop 12/12/17 at 11:59; Status DC Sodium Chloride (NS Flush) 2 ml BID IV FLUSH Last administered on 12/13/17at 08: 05; Start 11/26/17 at 21:00 Sodium Chloride (NS Inj) 10 ml BID@0800,2000 IRRIGATION Last administered on 12/09/17at 20:00; Start 12/01/17 at 20:00 A/P Problem List: (1) Sepsis ICD Code: A41.9 - Sepsis, unspecified organism Status: Resolved (2) Choledocholithiasis ICD Code: K80.50 - Calculus of bile duct without cholangitis or cholecystitis without obstruction Status: Acute (3) Alcohol dependence ICD Code: F10.20 - Alcohol dependence Status: Chronic (4) Encephalopathy acute ICD Code: G93.40 - Encephalopathy, unspecified Status: Resolved (5) Hypertension ICD Code: I10 - Hypertension Status: Resolved (6) H/O: CVA (cerebrovascular accident) ICD Code: Z86.73 - Personal history of transient ischemic attack (TIA), and cerebral infarction without residual deficits Status: Chronic Assessment and Plan 1. Choledocholithiasis/ Liver abscess Abnormal HIDA scan and US noted. GI and surgical consults appreciated. S/p ERCP which revealed: Choledocholithiasis; Duodenal diverticulum; Duodenal polyps. CT 11/30: Over the last 4 days a large mass has developed in the anterior left lobe of the liver measuring up to 9.6 cm in diameter containing multiple locules of air likely a developing complex liver abscess; Multiple gallstones without significant inflammatory changes identified around the gallbladder. IR consulted for abscess drainage 12/01. CT 12/03: Decreased size of left hepatic lobe hematoma following drainage; No evidence of free or loculated intraperitoneal fluid or free air; Stable intestinal tract without evidence of pathologic distention or inflammatory changes. Abscess culture with no growth, final. - follow up with GI. - will need outpt follow-up with surgery to schedule cholecystectomy. Sepsis Source is UTI. Pseudomonas growing. - treated. Reactive airway disease No further wheezing on exam. - Oxygen and nebs as needed. Started standing nebs. - will need home o2 Right testicular mass Imaging shows cystic mass on right. Evaluated by urology. No surgical intervention planned for hydrocele. Repeat CT: Large loculated hydrocele or cystic testicular mass in the right hemiscrotum measuring up to 13.6 cm in diameter. - Patient to follow-up with urology as outpt. Reconsult as needed. Alcohol abuse No evidence of withdrawal. - CIWA protocol, thiamine, folic acid. - cessation instruction. No evidence of alcohol withdrawal. History of CVA Stable. - Continue aspirin. HTN Hypotension continue to hold antihypertensive medications for now. Hypokalemia S/t decreased PO intake. GI bleed with hypovolemic shock. The patient had coffee-ground emesis and melanotic stools on 12/07/17. The patient was immediately given a liter of normal saline bolus since the patient' s blood pressure was down. Patient was transferred to the intensive care unit. Critical care consulted. GI was informed of the acute bleed. The case was discussed with them. GI recommended a bleeding scan which showed findings concerning for very slow rate of hemorrhage in the region of the cecum. 12/08 sp EGD/Colonoscopy - EGD showed duodenal ulcer which was treated with argon Plasma. Colonoscopy showed: 1. A sessile polyp ranging between 3-5mm in size was found in the sigmoid colon; polypectomy was performed with cold forceps 2. Diverticulum in the sigmoid colon, descending colon, and ascending colon 3. 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 Today the patient has melanotic stools. Contacted GI and discussed the case. GI recommends stat IR for CT angiogram with possible embolization. Continue to monitor CBC and vital signs. 12/11 the patient underwent angiogram with selective injection of the celiac, GDA , SMA, and JANET. As per interventional radiology report celiac, GDA and SMA were unremarkable. There was a small bleed evident arising from the distal branch of the JANET. Subselective gel foam administration and coil placement performed with occlusion of the distal most branch of the artery. Complete occlusion of the distal branch following up angio. Remained of the JANET remains widely patent. DVT prophylaxis: DSCD's, no chemoprophylaxis due to GI bleeding. Discharge Planning awaiting transfer to SNF. Problem Qualifiers (1) Sepsis: Qualified Codes: A41.9 - Sepsis, unspecified organism (2) Alcohol dependence: Qualified Codes: F10.29 - Alcohol dependence with unspecified alcohol-induced disorder Brittanie Garza MD Dec 13, 2017 09:30
[2017-12-13] MEDS: ACETAMINOPHEN 325 MG TAB PO PRN (16:45)
[2017-12-14] VITALS: BP 156/70; PULSE 89; RESP 18; TEMP 97.3; O2SAT 98
[2017-12-14] MEDS: DIPHENOXYLATE/ATROPINE 2.5 MG/0.025 MG TAB PO SCH ×5 (00:14→22:42)
[2017-12-14] MEDS: ACETAMINOPHEN 325 MG TAB PO PRN (01:50)
[2017-12-14 04:00] VITALS: BP 155/70; PULSE 69; RESP 18; TEMP 97.9; O2SAT 98
[2017-12-14] MEDS: SODIUM CHLOR 0.9% 1000 ML INJ 1,000 ML IV SCH ×2 (05:45→17:40)
[2017-12-14 08:00] VITALS: BP 179/80; PULSE 18; RESP 18; TEMP 98.4; O2SAT 92
[2017-12-14] MEDS: SODIUM CHLORIDE 0.9% 10 ML VIAL IRRIGATION SCH ×2 (08:00→19:29)
[2017-12-14] MEDS: BISACODYL 10 MG SUPP RECTAL SCH (09:00)
[2017-12-14] MEDS: DOCUSATE SODIUM 50 MG/SENNA 8.6 MG TAB PO SCH ×2 (09:00→21:00)
[2017-12-14] MEDS: LIPASE/PROTEASE/AMYLASE (12,000/38,000/60,000) CAP PO SCH ×3 (09:14→17:13)
[2017-12-14] MEDS: PANTOPRAZOLE SOD 40 MG DELAYED RELEASE TAB PO SCH ×2 (09:14→21:00)
[2017-12-14] MEDS: SODIUM CHLORIDE 0.9% FLUSH 10 ML FLUSH IV FLUSH SCH ×2 (09:15→21:00)
--- NOTE | 2017-12-14 11:06 | HHI.PR ---
Subjective Remarks in no acute distress. no new complaints. looks comfortable. Objective Vitals Vital Signs Date Time Temp Pulse Resp B/P (MAP) Pulse Ox O2 Delivery O2 Flow Rate FiO2 12/14/17 08:00 98.4 18 18 179/80 (113) 92 12/14/17 04:00 97.9 69 18 155/70 (98) 98 12/14/17 00:00 97.3 89 18 156/70 (98) 98 12/13/17 20:01 95 Room Air 12/13/17 20:00 97.4 70 18 149/72 (97) 97 12/13/17 19:47 98 Room Air 12/13/17 17:50 16 12/13/17 16:00 98.3 76 18 134/69 (90) 99 12/13/17 12:20 70 12/13/17 12:00 97.9 80 18 142/76 (98) 99 I/O 12/13/17 12/13/17 12/13/17 12/14/17 12/14/17 12/14/17 07:00 15:00 23:00 07:00 15:00 23:00 Intake Total 1322 ml Output Total 900 ml 650 ml 500 ml Balance 422 ml -650 ml -500 ml IV Total 1322 ml Output Urine Total 900 ml 650 ml 500 ml # Voids 1 Result Diagram: 12/12/17 0857 12/12/17 0857 Imaging Last Impressions GI Bleed Scan Nuclear Medicine 12/07/17 0000 Signed Impressions: CONCLUSION: 1. Findings concerning for very slow rate of hemorrhage in the region of the c ecum. Doubtful this is sufficient for angiographic visualization. Head CT 12/06/17 0000 Signed Impressions: CONCLUSION: 1. No acute intracranial abnormality. 2. 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 Chest X-Ray 12/06/17 0000 Signed Impressions: CONCLUSION: 1. No new or acute intrathoracic disease. 2. Tip of the nasogastric tube is in the lower cervical esophagus. The tube ma y be coiled in the patient's mouth. Tube Removal 12/05/17 0000 Signed Impressions: CONCLUSION: 1. Uncomplicated abdominal drain removal. Abdomen/Pelvis CT 12/03/17 0000 Signed Impressions: CONCLUSION: 1. Decreased size of left hepatic lobe hematoma following drainage. 2. No evidence of free or loculated intraperitoneal fluid or free air. 3. Stable intestinal tract without evidence of pathologic distention or inflam matory changes. 4. Uncomplicated colonic diverticulosis. 5. Stable large right hemiscrotal hydrocele 6. Bibasilar airspace disease with small bilateral effusions. Abscess Drainage CT 12/01/17 Signed Impressions: CONCLUSION: 1. Uncomplicated CT guided drainage. 2. Hepatic collection has the appearance of a hematoma which may be infected c onsidering the small bubbles a contains. Specimen sent for culture and sensitiv ity. 3. 12 [place] catheter left in place. Abdomen X-Ray 11/29/17 Signed Impressions: CONCLUSION: Nonspecific, nonobstructive bowel gas pattern which may represent a mild ileus and/or gastroenteritis. Abdomen Ultrasound 11/29/17 Signed Impressions: CONCLUSION: 1. Cholelithiasis with a mildly thickened gallbladder wall. 2. Dilatation the common bile duct. On the prior CT examination, there was a f illing defect within the common bile duct. 3. Heterogeneity to the liver with increased echogenicity likely related to he patic steatosis. 4. 1.5 cm echogenic focus in the right lobe of the liver. This could represent an underlying lesion such as a hemangioma. This is not clearly seen on the rec ent CT examination. One could perform a MRI of the abdomen at some point to mor e fully evaluate the liver. This could be performed as an outpatient. GI Procedure 11/28/17 Signed Impressions: CONCLUSION: Apparent ERCP stone extraction as detailed above. CBD is now clear. Hepatobiliary Scan Nuclear Medicine 11/26/17 Signed Impressions: Service Date/Time: Sunday, November 26, 2017 17:51 - CONCLUSION: 1. No activity seen in the gallbladder. Delayed imaging will be obtained to confirm cystic duct occlusion. 2. Significantly delayed biliary clearance with bowel activity noted at 90 minutes. This is consistent with partially obstructing distal CBD calculus as noted on CT exam. Nick Miramontes MD ADDENDUM: Delayed images were obtained. There is clear bowel activity on delayed imaging. There is also significant residual hepatic activity. This may be due to partial CBD obstruction or hepatocellular dysfunction. The gallbladder is again not visualized. This is concerning for cystic duct obstruction and cholecystitis in the appropriate clinical setting. Nick Miramontes MD Objective Remarks GENERAL: This is a well-nourished, well-developed patient, in no apparent distress. CARDIOVASCULAR: Regular rate and regular rhythm without murmurs, gallops, or rubs. RESPIRATORY: Clear to auscultation. Breath sounds equal bilaterally. No wheezes , rales, or rhonchi. GASTROINTESTINAL: Abdomen soft, non-tender, nondistended. Normal, active bowel sounds MUSCULOSKELETAL: Extremities without clubbing, cyanosis, or edema. NEURO: Alert & Oriented x4 to person, place, time, situation. Moves all ext x4 Procedures ERCP/drainage of the liver collection/ angiogram with selective injection of the celiac, GDA, SMA, and JANET Medications and IVs Inpatient Medications Acetaminophen (Tylenol) 650 mg Q4H PRN PO PAIN SCALE 1 TO 10 Last administered on 12/14/17 01:50; Start 12/10/17 at 15:30 Acetaminophen/ Hydrocodone Bitart ([place] 5-325 Mg) 1 tab Q6HR PRN PO pain>5 Last administered on 12/05/17 04:20; Start 11/28/17 at 23:45; Stop 12/10/17 at 15:21; Status DC Albuterol/ Ipratropium (Duoneb Neb) 1 ampule Q2HR NEB PRN NEB dyspnea; Start at 17:30 Alprazolam (Xanax) 0.25 mg ONCE ONCE PO Last administered on 11/30/17 00:45; Start 11/30/17 at 00:45; Stop 11/30/17 at 00:46; Status DC Amlodipine Besylate (Norvasc) 5 mg ONCE ONCE PO Last administered on 18:58; Start 11/30/17 at 17:45; Stop 11/30/17 at 18:28; Status DC Amylase/Lipase/ Protease ([place] 12-38-60) 1 cap TID PO Last administered on 12/14 09:14; Start 12/06/17 at 13:00 Aspirin (Ecotrin Ec) 81 mg DAILY PO Last administered on 12/05/17 09:14; Start 11/27/17 at 09:00; Status Future Hold Bisacodyl (Dulcolax Supp) 10 mg DAILY RECTAL Last administered on 5/25/18at 08: 15; Start 11/30/17 at 14:45 Chlorhexidine Gluconate (Chlorhexidine 2% Cloth) 3 pack RELIABILITY TECHNICIAN PRN TOPICAL SEE LABEL COMMENTS; Start 11/28/17 at 07:00; Stop 12/01/17 at 06:59; Status DC Clonidine (Catapres) 0.1 mg Q6H PRN PO SYS BP GREATER THAN 170 MMHG Last administered on 12/11/17at 18:38; Start 12/09/17 at 18:30 Diatrizoate Meglum/ Diatrizoate Sod ( Gastroview Liq) 18 ml ONCE ONCE PO Last administered on 12/03/17at 13:28; Start 12/03/17 at 13:15; Stop 12/03/17 at 13:16; Status DC Diphenoxylate HCl/ Atropine (Lomotil Tab) 1 tab Q6HR PO Last administered on 12/14/17at 00:14; Start 12/06/17 at 12:00 Enalaprilat (Vasotec Inj) 1.25 mg Q6H PRN IV PUSH SBP> OR = 170, DBP> OR = 100 Last administered on 11/29/17at 21:12; Start 11/28/17 at 12:30; Stop 12/06/17 at 21:04; Status DC Enoxaparin Sodium (Lovenox Inj) 40 mg Q24H SQ Last administered on 12/04/17at 17 :44; Start 11/26/17 at 18:00; Stop 12/06/17 at 15:46; Status DC Furosemide (Lasix) 40 mg ONCE ONCE PO Last administered on 12/05/17at 21:22; Start 12/05/17 at 19:30; Stop 12/05/17 at 19:31; Status DC Iohexol (Omnipaque 350 Inj) 50 ml ONCE ONCE OTHER Last administered on at 14:24; Start 11/28/17 at 14:24; Stop 11/28/17 at 14:25; Status DC Ipratropium [place] (Atrovent Neb) 0.5 mg Q2HR NEB PRN NEB wheezing Last administered on 11/30/17at 08:31; Start 11/29/17 at 21:30 Lactated Ringer's 1,000 ml @ 999 mls/hr BOLUS ONCE IV Last administered on at 08:46; Start 12/06/17 at 07:45; Stop 12/06/17 at 08:45; Status DC Lactulose (Lactulose Liq) 30 ml DAILY PRN PO SEVERE CONSITIPATION Last administered on 12/01/17at 16:16; Start 11/26/17 at 17:30; Status Future Hold Levofloxacin/ Dextrose 150 ml @ 100 mls/hr Q24H IV Last administered on at 13:36; Start 11/29/17 at 15:00; Stop 11/30/17 at 17:30; Status DC Magnesium Hydroxide (Milk Of Magnesia Liq) 30 ml Q12H PRN PO Mild constipation ; Start 11/26/17 at 17:30 Methylprednisolone Sodium Succinate (SoluMEDROL INJ) 40 mg BID IV PUSH Last administered on 12/03/17at 08:59; Start 12/02/17 at 21:00; Stop 12/03/17 at 12:28 ; Status DC Metoclopramide HCl (Reglan Inj) 5 mg Q8HR PRN IV PUSH NAUSEA OR VOMITING Last administered on 12/14/17at 01:41; Start 12/06/17 at 07:45 Miscellaneous Information ([facility] Nursing Information) ALL NURSING DEPARTME... UNSCH PRN .XX SEE LABEL COMMENTS; Start 12/08/17 at 11:40; Stop 12/09/17 at 11:39 ; Status DC Morphine Sulfate (Morphine Inj) 2 mg ONCE ONCE IV PUSH Last administered on at 00:46; Start 11/30/17 at 00:45; Stop 11/30/17 at 00:46; Status DC Naloxone HCl (Narcan Inj) 0.4 mg UNSCH PRN IV PUSH SEE LABEL COMMENTS; Start at 17:30 Pantoprazole Sodium (Protonix) 40 mg Q12HR PO Last administered on 12/14/17at 09: 14; Start 12/09/17 at 21:00 Pantoprazole Sodium 80 mg/ Sodium Chloride 100 ml @ 10 mls/hr Q10H IV Last administered on 12/09/17at 05:03; Start 12/06/17 at 18:00; Stop 12/09/17 at 10:24; Status DC Piperacillin Sod/ Tazobactam Sod 100 ml @ 200 mls/hr Q6H IV Last administered on 12/09/17at 08:55; Start 11/30/17 at 20:00; Stop 12/09/17 at 10:24; Status DC Polyethylene Glycol/ Electrolytes (Colyte Liq) 2,000 ml Q8H PO Last administered on 12/07/17at 23:30; Start 12/07/17 at 15:30; Stop 12/07/17 at 23:31 ; Status DC Potassium Chloride 30 meq/ Dextrose/Sodium Chloride 1,015 ml @ 50 mls/hr [id number] IV Last administered on 12/03/17at 00:21; Start 11/29/17 at 15:00; Stop 12/03/17 at 12:31; Status DC Potassium Chloride/Sodium Chloride 1,000 ml @ 100 mls/hr Q10H IV Last administered on 12/09/17at 08:57; Start 12/06/17 at 11:45; Stop 12/09/17 at 10:24; Status DC Potassium Bicarb/ Potassium Chloride (K-Lyte Cl Eff) 50 meq ONCE ONCE PO Last administered on 12/02/17at 15:01; Start 12/02/17 at 14:15; Stop 12/02/17 at 14:16; Status DC Potassium Chloride (KCl) 40 meq ONCE ONCE PO Last administered on 12/06/17at 12 :20; Start 12/06/17 at 11:45; Stop 12/06/17 at 12:09; Status DC Prednisone (Deltasone) 20 mg DAILY PO Last administered on 12/04/17at 09:30; Start 12/04/17 at 09:00; Stop 12/04/17 at 11:40; Status DC Senna/Docusate Sodium (Adele-Colace) 1 tab BID PO Last administered on 12/13/17at 08:04; Start 11/26/17 at 21:00 Sennosides (Senokot) 17.2 mg Q12H PRN PO Moderate constipation; Start 11/26/17 at 17:30 Sodium Chloride 250 ml @ 250 mls/hr BOLUS ONCE IV Last administered on at 11:00; Start 12/12/17 at 11:00; Stop 12/12/17 at 11:59; Status DC Sodium Chloride (NS Flush) 2 ml BID IV FLUSH Last administered on 12/14/17at 09: 15; Start 11/26/17 at 21:00 Sodium Chloride (NS Inj) 10 ml BID@0800,2000 IRRIGATION Last administered on 12/09/17at 20:00; Start 12/01/17 at 20:00 A/P Problem List: (1) Sepsis ICD Code: A41.9 - Sepsis, unspecified organism Status: Resolved (2) Choledocholithiasis ICD Code: K80.50 - Calculus of bile duct without cholangitis or cholecystitis without obstruction Status: Acute (3) Alcohol dependence ICD Code: F10.20 - Alcohol dependence Status: Chronic (4) Encephalopathy acute ICD Code: G93.40 - Encephalopathy, unspecified Status: Resolved (5) Hypertension ICD Code: I10 - Hypertension Status: Resolved (6) H/O: CVA (cerebrovascular accident) ICD Code: Z86.73 - Personal history of transient ischemic attack (TIA), and cerebral infarction without residual deficits Status: Chronic Assessment and Plan 1. Choledocholithiasis/ Liver abscess Abnormal HIDA scan and US noted. GI and surgical consults appreciated. S/p ERCP which revealed: Choledocholithiasis; Duodenal diverticulum; Duodenal polyps. CT 11/30: Over the last 4 days a large mass has developed in the anterior left lobe of the liver measuring up to 9.6 cm in diameter containing multiple locules of air likely a developing complex liver abscess; Multiple gallstones without significant inflammatory changes identified around the gallbladder. IR consulted for abscess drainage 12/01. CT 12/03: Decreased size of left hepatic lobe hematoma following drainage; No evidence of free or loculated intraperitoneal fluid or free air; Stable intestinal tract without evidence of pathologic distention or inflammatory changes. Abscess culture with no growth, final. - follow up with GI. - will need outpt follow-up with surgery to schedule cholecystectomy. Sepsis Source is UTI. Pseudomonas growing. - treated. Reactive airway disease No further wheezing on exam. - Oxygen and nebs as needed. Started standing nebs. - will need home o2 Right testicular mass Imaging shows cystic mass on right. Evaluated by urology. No surgical intervention planned for hydrocele. Repeat CT: Large loculated hydrocele or cystic testicular mass in the right hemiscrotum measuring up to 13.6 cm in diameter. - Patient to follow-up with urology as outpt. Reconsult as needed. Alcohol abuse No evidence of withdrawal. - CIWA protocol, thiamine, folic acid. - cessation instruction. No evidence of alcohol withdrawal. History of CVA Stable. - Continue aspirin. HTN resume amlodipine and continue to monitor. Hypokalemia S/t decreased PO intake. GI bleed with hypovolemic shock. The patient had coffee-ground emesis and melanotic stools on 12/07/17. The patient was immediately given a liter of normal saline bolus since the patient' s blood pressure was down. Patient was transferred to the intensive care unit. Critical care consulted. GI was informed of the acute bleed. The case was discussed with them. GI recommended a bleeding scan which showed findings concerning for very slow rate of hemorrhage in the region of the cecum. 12/08 sp EGD/Colonoscopy - EGD showed duodenal ulcer which was treated with argon Plasma. Colonoscopy showed: 1. A sessile polyp ranging between 3-5mm in size was found in the sigmoid colon; polypectomy was performed with cold forceps 2. Diverticulum in the sigmoid colon, descending colon, and ascending colon 3. 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 Today the patient has melanotic stools. Contacted GI and discussed the case. GI recommends stat IR for CT angiogram with possible embolization. Continue to monitor CBC and vital signs. 12/11 the patient underwent angiogram with selective injection of the celiac, GDA , SMA, and JANET. As per interventional radiology report celiac, GDA and SMA were unremarkable. There was a small bleed evident arising from the distal branch of the JANET. Subselective gel foam administration and coil placement performed with occlusion of the distal most branch of the artery. Complete occlusion of the distal branch following up angio. Remained of the JANET remains widely patent. DVT prophylaxis: DSCD's, no chemoprophylaxis due to GI bleeding. Discharge Planning awaiting transfer to SNF. Problem Qualifiers (1) Sepsis: Qualified Codes: A41.9 - Sepsis, unspecified organism (2) Alcohol dependence: Qualified Codes: F10.29 - Alcohol dependence with unspecified alcohol-induced disorder Brittanie Garza MD Dec 14, 2017 11:06
[2017-12-14] MEDS: amLODIPine BESYLATE 5 MG TAB PO SCH (11:52)
[2017-12-14 12:00] VITALS: BP 190/86; PULSE 67; RESP 18; TEMP 98; O2SAT 99
[2017-12-14] MEDS ORDERED: AMLO5 PO (13:30)
[2017-12-14] MEDS: cloNIDine HCL 0.1 MG TAB PO PRN (15:24)
[2017-12-14 16:00] VITALS: BP 141/66; PULSE 77; RESP 18; TEMP 97.5; O2SAT 98
[2017-12-14 20:00] VITALS: BP 159/73; PULSE 76; RESP 15; TEMP 97.1; O2SAT 97
[2017-12-15] VITALS: BP 151/72; PULSE 72; RESP 16; TEMP 98.1; O2SAT 96
[2017-12-15] MEDS: ACETAMINOPHEN 325 MG TAB PO PRN (00:50)
[2017-12-15 04:00] VITALS: BP 158/77; PULSE 67; RESP 16; TEMP 98.1; O2SAT 96
[2017-12-15] MEDS: DIPHENOXYLATE/ATROPINE 2.5 MG/0.025 MG TAB PO SCH ×2 (05:11→18:00)
[2017-12-15] MEDS: SODIUM CHLOR 0.9% 1000 ML INJ 1,000 ML IV SCH (05:11)
[2017-12-15 08:00] VITALS: BP_SYST 127; BP_SYST 160; BP_DIAS 60; BP_DIAS 70; PULSE 65; RESP 18; TEMP 97.5; O2SAT 94
[2017-12-15] MEDS: SODIUM CHLORIDE 0.9% 10 ML VIAL IRRIGATION SCH ×2 (08:00→20:00)
[2017-12-15] MEDS: amLODIPine BESYLATE 5 MG TAB PO SCH (08:45)
[2017-12-15] MEDS: PANTOPRAZOLE SOD 40 MG DELAYED RELEASE TAB PO SCH ×2 (08:45→20:54)
[2017-12-15] MEDS: LIPASE/PROTEASE/AMYLASE (12,000/38,000/60,000) CAP PO SCH ×3 (08:45→18:00)
[2017-12-15] MEDS: SODIUM CHLORIDE 0.9% FLUSH 10 ML FLUSH IV FLUSH SCH ×2 (08:47→20:54)
[2017-12-15] MEDS: DOCUSATE SODIUM 50 MG/SENNA 8.6 MG TAB PO SCH ×2 (08:47→20:54)
[2017-12-15] MEDS: BISACODYL 10 MG SUPP RECTAL SCH (08:48)
--- NOTE | 2017-12-15 11:35 | HHI.PR ---
Subjective Remarks in no acute distress. has mild pain to the right lower back. otherwise no other complaints. Objective Vitals Vital Signs Date Time Temp Pulse Resp B/P (MAP) Pulse Ox O2 Delivery O2 Flow Rate FiO2 12/15/17 08:00 97.5 65 18 160/70 (100) 94 12/15/17 04:00 98.1 67 16 158/77 (104) 96 12/15/17 00:00 98.1 72 16 151/72 (98) 96 12/14/17 21:58 97 Room Air 12/14/17 20:00 97.1 76 15 159/73 (101) 97 12/14/17 16:00 97.5 77 18 141/66 (91) 98 12/14/17 12:00 98.0 67 18 190/86 (120) 99 I/O 12/14/17 12/14/17 12/14/17 12/15/17 12/15/17 12/15/17 07:00 15:00 23:00 07:00 15:00 23:00 Intake Total 240 ml Output Total 500 ml 1100 ml Balance -500 ml -860 ml Intake Oral 240 ml Output Urine Total 500 ml 1100 ml Result Diagram: 12/12/17 0857 12/12/17 0857 Imaging Last Impressions GI Bleed Scan Nuclear Medicine 12/07/17 Signed Impressions: CONCLUSION: 1. Findings concerning for very slow rate of hemorrhage in the region of the c ecum. Doubtful this is sufficient for angiographic visualization. Head CT 12/06/17 Signed Impressions: CONCLUSION: 1. No acute intracranial abnormality. 2. 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 Chest X-Ray 12/06/17 Signed Impressions: CONCLUSION: 1. No new or acute intrathoracic disease. 2. Tip of the nasogastric tube is in the lower cervical esophagus. The tube ma y be coiled in the patient's mouth. Tube Removal 12/05/17 0000 Signed Impressions: CONCLUSION: 1. Uncomplicated abdominal drain removal. Abdomen/Pelvis CT 12/03/17 Signed Impressions: CONCLUSION: 1. Decreased size of left hepatic lobe hematoma following drainage. 2. No evidence of free or loculated intraperitoneal fluid or free air. 3. Stable intestinal tract without evidence of pathologic distention or inflam matory changes. 4. Uncomplicated colonic diverticulosis. 5. Stable large right hemiscrotal hydrocele 6. Bibasilar airspace disease with small bilateral effusions. Abscess Drainage CT 12/01/17 Signed Impressions: CONCLUSION: 1. Uncomplicated CT guided drainage. 2. Hepatic collection has the appearance of a hematoma which may be infected c onsidering the small bubbles a contains. Specimen sent for culture and sensitiv ity. 3. 12 [place] catheter left in place. Abdomen X-Ray 11/29/17 Signed Impressions: CONCLUSION: Nonspecific, nonobstructive bowel gas pattern which may represent a mild ileus and/or gastroenteritis. Abdomen Ultrasound 11/29/17 Signed Impressions: CONCLUSION: 1. Cholelithiasis with a mildly thickened gallbladder wall. 2. Dilatation the common bile duct. On the prior CT examination, there was a f illing defect within the common bile duct. 3. Heterogeneity to the liver with increased echogenicity likely related to he patic steatosis. 4. 1.5 cm echogenic focus in the right lobe of the liver. This could represent an underlying lesion such as a hemangioma. This is not clearly seen on the rec ent CT examination. One could perform a MRI of the abdomen at some point to mor e fully evaluate the liver. This could be performed as an outpatient. GI Procedure 11/28/17 Signed Impressions: CONCLUSION: Apparent ERCP stone extraction as detailed above. CBD is now clear. Hepatobiliary Scan Nuclear Medicine 11/26/17 Signed Impressions: Service Date/Time: Sunday, November 26, 2017 17:51 - CONCLUSION: 1. No activity seen in the gallbladder. Delayed imaging will be obtained to confirm cystic duct occlusion. 2. Significantly delayed biliary clearance with bowel activity noted at 90 minutes. This is consistent with partially obstructing distal CBD calculus as noted on CT exam. Nick Miramontes MD ADDENDUM: Delayed images were obtained. There is clear bowel activity on delayed imaging. There is also significant residual hepatic activity. This may be due to partial CBD obstruction or hepatocellular dysfunction. The gallbladder is again not visualized. This is concerning for cystic duct obstruction and cholecystitis in the appropriate clinical setting. Nick Miramontes MD Objective Remarks GENERAL: This is a well-nourished, well-developed patient, in no apparent distress. CARDIOVASCULAR: Regular rate and regular rhythm without murmurs, gallops, or rubs. RESPIRATORY: Clear to auscultation. Breath sounds equal bilaterally. No wheezes , rales, or rhonchi. GASTROINTESTINAL: Abdomen soft, non-tender, nondistended. Normal, active bowel sounds MUSCULOSKELETAL: Extremities without clubbing, cyanosis, or edema. NEURO: Alert & Oriented x4 to person, place, time, situation. Moves all ext x4 Procedures ERCP/drainage of the liver collection/ angiogram with selective injection of the celiac, GDA, SMA, and JANET Medications and IVs Inpatient Medications Acetaminophen (Tylenol) 650 mg Q4H PRN PO PAIN SCALE 1 TO 10 Last administered on 12/15/17 00:50; Start 12/10/17 at 15:30 Acetaminophen/ Hydrocodone Bitart ([place] 5-325 Mg) 1 tab Q6HR PRN PO pain>5 Last administered on 12/05/17 04:20; Start 11/28/17 at 23:45; Stop 12/10/17 at 15:21; Status DC Albuterol/ Ipratropium (Duoneb Neb) 1 ampule Q2HR NEB PRN NEB dyspnea; Start at 17:30 Alprazolam (Xanax) 0.25 mg ONCE ONCE PO Last administered on 11/30/17 00:45; Start 11/30/17 at 00:45; Stop 11/30/17 at 00:46; Status DC Amlodipine Besylate (Norvasc) 5 mg DAILY PO Last administered on 12/15/17 08:45 ; Start 12/14/17 at 11:15 Amylase/Lipase/ Protease ([place] 12-38-60) 1 cap TID PO Last administered on 12/15 08:45; Start 12/06/17 at 13:00 Aspirin (Ecotrin Ec) 81 mg DAILY PO Last administered on 12/05/17 09:14; Start 11/27/17 at 09:00; Status Future Hold Bisacodyl (Dulcolax Supp) 10 mg DAILY RECTAL Last administered on 12/01/17 08: 15; Start 11/30/17 at 14:45 Chlorhexidine Gluconate (Chlorhexidine 2% Cloth) 3 pack [employer] PRN TOPICAL SEE LABEL COMMENTS; Start 11/28/17 at 07:00; Stop 12/01/17 at 06:59; Status DC Clonidine (Catapres) 0.1 mg Q6H PRN PO SYS BP GREATER THAN 170 MMHG Last administered on 12/14/17at 15:24; Start 12/09/17 at 18:30 Diatrizoate Meglum/ Diatrizoate Sod ( Gastroview Liq) 18 ml ONCE ONCE PO Last administered on 12/03/17at 13:28; Start 12/03/17 at 13:15; Stop 12/03/17 at 13:16; Status DC Diphenoxylate HCl/ Atropine (Lomotil Tab) 1 tab Q6HR PO Last administered on 12/14/17at 00:14; Start 12/06/17 at 12:00 Enalaprilat (Vasotec Inj) 1.25 mg Q6H PRN IV PUSH SBP> OR = 170, DBP> OR = 100 Last administered on 11/29/17at 21:12; Start 11/28/17 at 12:30; Stop 12/06/17 at 21:04; Status DC Enoxaparin Sodium (Lovenox Inj) 40 mg Q24H SQ Last administered on 12/04/17at 17 :44; Start 11/26/17 at 18:00; Stop 12/06/17 at 15:46; Status DC Furosemide (Lasix) 40 mg ONCE ONCE PO Last administered on 12/05/17at 21:22; Start 12/05/17 at 19:30; Stop 12/05/17 at 19:31; Status DC Iohexol (Omnipaque 350 Inj) 50 ml ONCE ONCE OTHER Last administered on at 14:24; Start 11/28/17 at 14:24; Stop 11/28/17 at 14:25; Status DC Ipratropium [place] (Atrovent Neb) 0.5 mg Q2HR NEB PRN NEB wheezing Last administered on 11/30/17at 08:31; Start 11/29/17 at 21:30 Lactated Ringer's 1,000 ml @ 999 mls/hr BOLUS ONCE IV Last administered on at 08:46; Start 12/06/17 at 07:45; Stop 12/06/17 at 08:45; Status DC Lactulose (Lactulose Liq) 30 ml DAILY PRN PO SEVERE CONSITIPATION Last administered on 12/01/17at 16:16; Start 11/26/17 at 17:30; Status Future Hold Levofloxacin/ Dextrose 150 ml @ 100 mls/hr Q24H IV Last administered on at 13:36; Start 11/29/17 at 15:00; Stop 11/30/17 at 17:30; Status DC Magnesium Hydroxide (Milk Of Magnesia Liq) 30 ml Q12H PRN PO Mild constipation ; Start 11/26/17 at 17:30 Methylprednisolone Sodium Succinate (SoluMEDROL INJ) 40 mg BID IV PUSH Last administered on 12/03/17at 08:59; Start 12/02/17 at 21:00; Stop 12/03/17 at 12:28 ; Status DC Metoclopramide HCl (Reglan Inj) 5 mg Q8HR PRN IV PUSH NAUSEA OR VOMITING Last administered on 12/14/17at 01:41; Start 12/06/17 at 07:45 Miscellaneous Information ([facility] [place] Nursing Information) ALL NURSING DEPARTME... UNSCH PRN .XX SEE LABEL COMMENTS; Start 12/08/17 at 11:40; Stop 12/09/17 at 11:39 ; Status DC Morphine Sulfate (Morphine Inj) 2 mg ONCE ONCE IV PUSH Last administered on at 00:46; Start 11/30/17 at 00:45; Stop 11/30/17 at 00:46; Status DC Naloxone HCl (Narcan Inj) 0.4 mg UNSCH PRN IV PUSH SEE LABEL COMMENTS; Start at 17:30 Pantoprazole Sodium (Protonix) 40 mg Q12HR PO Last administered on 12/15/17at 08: 45; Start 12/09/17 at 21:00 Pantoprazole Sodium 80 mg/ Sodium Chloride 100 ml @ 10 mls/hr Q10H IV Last administered on 12/09/17at 05:03; Start 12/06/17 at 18:00; Stop 12/09/17 at 10:24; Status DC Piperacillin Sod/ Tazobactam Sod 100 ml @ 200 mls/hr Q6H IV Last administered on 12/09/17at 08:55; Start 11/30/17 at 20:00; Stop 12/09/17 at 10:24; Status DC Polyethylene Glycol/ Electrolytes (Colyte Liq) 2,000 ml Q8H PO Last administered on 12/07/17at 23:30; Start 12/07/17 at 15:30; Stop 12/07/17 at 23:31 ; Status DC Potassium Chloride 30 meq/ Dextrose/Sodium Chloride 1,015 ml @ 50 mls/hr [id number] IV Last administered on 12/03/17at 00:21; Start 11/29/17 at 15:00; Stop 12/03/17 at 12:31; Status DC Potassium Chloride/Sodium Chloride 1,000 ml @ 100 mls/hr Q10H IV Last administered on 12/09/17at 08:57; Start 12/06/17 at 11:45; Stop 12/09/17 at 10:24; Status DC Potassium Bicarb/ Potassium Chloride (K-Lyte Cl Eff) 50 meq ONCE ONCE PO Last administered on 12/02/17at 15:01; Start 12/02/17 at 14:15; Stop 12/02/17 at 14:16; Status DC Potassium Chloride (KCl) 40 meq ONCE ONCE PO Last administered on 12/06/17at 12 :20; Start 12/06/17 at 11:45; Stop 12/06/17 at 12:09; Status DC Prednisone (Deltasone) 20 mg DAILY PO Last administered on 12/04/17at 09:30; Start 12/04/17 at 09:00; Stop 12/04/17 at 11:40; Status DC Senna/Docusate Sodium ([place]le-Colace) 1 tab BID PO Last administered on 12/13/17at 08:04; Start 11/26/17 at 21:00 Sennosides (Senokot) 17.2 mg Q12H PRN PO Moderate constipation; Start 11/26/17 at 17:30 Sodium Chloride 250 ml @ 250 mls/hr BOLUS ONCE IV Last administered on at 11:00; Start 12/12/17 at 11:00; Stop 12/12/17 at 11:59; Status DC Sodium Chloride (NS Flush) 2 ml BID IV FLUSH Last administered on 12/15/17at 08: 47; Start 11/26/17 at 21:00 Sodium Chloride (NS Inj) 10 ml BID@0800,2000 IRRIGATION Last administered on 12/09/17at 20:00; Start 12/01/17 at 20:00 A/P Problem List: (1) Sepsis ICD Code: A41.9 - Sepsis, unspecified organism Status: Resolved (2) Choledocholithiasis ICD Code: K80.50 - Calculus of bile duct without cholangitis or cholecystitis without obstruction Status: Acute (3) Alcohol dependence ICD Code: F10.20 - Alcohol dependence Status: Chronic (4) Encephalopathy acute ICD Code: G93.40 - Encephalopathy, unspecified Status: Resolved (5) Hypertension ICD Code: I10 - Hypertension Status: Resolved (6) H/O: CVA (cerebrovascular accident) ICD Code: Z86.73 - Personal history of transient ischemic attack (TIA), and cerebral infarction without residual deficits Status: Chronic Assessment and Plan 1. Choledocholithiasis/ Liver abscess Abnormal HIDA scan and US noted. GI and surgical consults appreciated. S/p ERCP which revealed: Choledocholithiasis; Duodenal diverticulum; Duodenal polyps. CT 11/30: Over the last 4 days a large mass has developed in the anterior left lobe of the liver measuring up to 9.6 cm in diameter containing multiple locules of air likely a developing complex liver abscess; Multiple gallstones without significant inflammatory changes identified around the gallbladder. IR consulted for abscess drainage 12/01. CT 12/03: Decreased size of left hepatic lobe hematoma following drainage; No evidence of free or loculated intraperitoneal fluid or free air; Stable intestinal tract without evidence of pathologic distention or inflammatory changes. Abscess culture with no growth, final. - follow up with GI. - will need outpt follow-up with surgery to schedule cholecystectomy. Sepsis Source is UTI. Pseudomonas growing. - treated. Reactive airway disease No further wheezing on exam. - Oxygen and nebs as needed. Started standing nebs. - will need home o2 Right testicular mass Imaging shows cystic mass on right. Evaluated by urology. No surgical intervention planned for hydrocele. Repeat CT: Large loculated hydrocele or cystic testicular mass in the right hemiscrotum measuring up to 13.6 cm in diameter. - Patient to follow-up with urology as outpt. Reconsult as needed. Alcohol abuse No evidence of withdrawal. - CIWA protocol, thiamine, folic acid. - cessation instruction. No evidence of alcohol withdrawal. History of CVA Stable. - Continue aspirin. HTN resumed amlodipine and continue to monitor. Hypokalemia S/t decreased PO intake. GI bleed with hypovolemic shock. The patient had coffee-ground emesis and melanotic stools on 12/07/17. The patient was immediately given a liter of normal saline bolus since the patient' s blood pressure was down. Patient was transferred to the intensive care unit. Critical care consulted. GI was informed of the acute bleed. The case was discussed with them. GI recommended a bleeding scan which showed findings concerning for very slow rate of hemorrhage in the region of the cecum. 12/08 sp EGD/Colonoscopy - EGD showed duodenal ulcer which was treated with argon Plasma. Colonoscopy showed: 1. A sessile polyp ranging between 3-5mm in size was found in the sigmoid colon; polypectomy was performed with cold forceps 2. Diverticulum in the sigmoid colon, descending colon, and ascending colon 3. 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 Today the patient has melanotic stools. Contacted GI and discussed the case. GI recommends stat IR for CT angiogram with possible embolization. Continue to monitor CBC and vital signs. 12/11 the patient underwent angiogram with selective injection of the celiac, GDA , SMA, and JANET. As per interventional radiology report celiac, GDA and SMA were unremarkable. There was a small bleed evident arising from the distal branch of the JANET. Subselective gel foam administration and coil placement performed with occlusion of the distal most branch of the artery. Complete occlusion of the distal branch following up angio. Remained of the JANET remains widely patent. DVT prophylaxis: DSCD's, no chemoprophylaxis due to GI bleeding. Discharge Planning awaiting transfer to SNF. d/w case management. time spent 35 min. Problem Qualifiers (1) Sepsis: Qualified Codes: A41.9 - Sepsis, unspecified organism (2) Alcohol dependence: Qualified Codes: F10.29 - Alcohol dependence with unspecified alcohol-induced disorder Brittanie Garza MD Dec 15, 2017 11:35
[2017-12-15 12:00] VITALS: BP 167/82; PULSE 75; RESP 16; TEMP 97.8; O2SAT 99
--- NOTE | 2017-12-15 13:56 | HHI.DS ---
Discharge Summary Admission Date November 26, 2017 at 16:39 Discharge Date: Dec 15, 2017 Admitting Diagnosis choledocholithiasis (1) Sepsis ICD Code: A41.9 - Sepsis, unspecified organism Diagnosis: Principal Status: Resolved (2) Choledocholithiasis ICD Code: K80.50 - Calculus of bile duct without cholangitis or cholecystitis without obstruction Diagnosis: Principal Status: Acute (3) Alcohol dependence ICD Code: F10.20 - Alcohol dependence Diagnosis: Principal Status: Chronic (4) Encephalopathy acute ICD Code: G93.40 - Encephalopathy, unspecified Diagnosis: Principal Status: Resolved (5) Hypertension ICD Code: I10 - Hypertension Diagnosis: Principal Status: Resolved (6) H/O: CVA (cerebrovascular accident) ICD Code: Z86.73 - Personal history of transient ischemic attack (TIA), and cerebral infarction without residual deficits Status: Chronic Procedures ERCP/drainage of the liver collection/ angiogram with selective injection of the celiac, GDA, SMA, and JANET Brief History - From Admission This is a 77-year-old male with past medical history significant for alcohol dependence and abuse, history of CVA, hypertension who presents to [facility] complaining of dizziness and shaking. The patient presented to the emergency department via EMS for evaluation of confusion. The patient had told the ER physician that he has been confused since yesterday. The patient stated to me that he felt dizzy and had severe shaking. The patient denies abdominal pain, denies nausea, denies vomiting, denies dysuria. As per ED physician's note the patient was alert and oriented to person and place only and thought he was in the year 1977. The patient states he takes no medications at home. The patient denies chest pain or shortness of breath, appears jaundiced. Patient is a poor historian. During my interview the patient is awake alert and oriented 3 and does not present any tremors. Patient also is noted to have a large right testicular mass. He states that he was seen by a physician in [place] who recommended to have the mass removed but he refused. CBC/BMP: 12/12/17 0857 12/12/17 0857 Imaging Last Impressions GI Bleed Scan Nuclear Medicine 12/07/17 Signed Impressions: CONCLUSION: 1. Findings concerning for very slow rate of hemorrhage in the region of the c ecum. Doubtful this is sufficient for angiographic visualization. Head CT 12/06/17 Signed Impressions: CONCLUSION: 1. No acute intracranial abnormality. 2. 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 Chest X-Ray 12/06/17 Signed Impressions: CONCLUSION: 1. No new or acute intrathoracic disease. 2. Tip of the nasogastric tube is in the lower cervical esophagus. The tube ma y be coiled in the patient's mouth. Tube Removal 12/05/17 Signed Impressions: CONCLUSION: 1. Uncomplicated abdominal drain removal. Abdomen/Pelvis CT 12/03/17 Signed Impressions: CONCLUSION: 1. Decreased size of left hepatic lobe hematoma following drainage. 2. No evidence of free or loculated intraperitoneal fluid or free air. 3. Stable intestinal tract without evidence of pathologic distention or inflam matory changes. 4. Uncomplicated colonic diverticulosis. 5. Stable large right hemiscrotal hydrocele 6. Bibasilar airspace disease with small bilateral effusions. Abscess Drainage CT 12/01/17 Signed Impressions: CONCLUSION: 1. Uncomplicated CT guided drainage. 2. Hepatic collection has the appearance of a hematoma which may be infected c onsidering the small bubbles a contains. Specimen sent for culture and sensitiv ity. 3. [address] Y[address] catheter left in place. Abdomen X-Ray 11/29/17 Signed Impressions: CONCLUSION: Nonspecific, nonobstructive bowel gas pattern which may represent a mild ileus and/or gastroenteritis. Abdomen Ultrasound 11/29/17 Signed Impressions: CONCLUSION: 1. Cholelithiasis with a mildly thickened gallbladder wall. 2. Dilatation the common bile duct. On the prior CT examination, there was a f illing defect within the common bile duct. 3. Heterogeneity to the liver with increased echogenicity likely related to he patic steatosis. 4. 1.5 cm echogenic focus in the right lobe of the liver. This could represent an underlying lesion such as a hemangioma. This is not clearly seen on the rec ent CT examination. One could perform a MRI of the abdomen at some point to mor e fully evaluate the liver. This could be performed as an outpatient. GI Procedure 11/28/17 0000 Signed Impressions: CONCLUSION: Apparent ERCP stone extraction as detailed above. CBD is now clear. Hepatobiliary Scan Nuclear Medicine 11/26/17 0000 Signed Impressions: Service Date/Time: Sunday, November 26, 2017 17:51 - CONCLUSION: 1. No activity seen in the gallbladder. Delayed imaging will be obtained to confirm cystic duct occlusion. 2. Significantly delayed biliary clearance with bowel activity noted at 90 minutes. This is consistent with partially obstructing distal CBD calculus as noted on CT exam. Nick Miramontes MD ADDENDUM: Delayed images were obtained. There is clear bowel activity on delayed imaging. There is also significant residual hepatic activity. This may be due to partial CBD obstruction or hepatocellular dysfunction. The gallbladder is again not visualized. This is concerning for cystic duct obstruction and cholecystitis in the appropriate clinical setting. Nick Miramontes MD PE at Discharge GENERAL: This is a well-nourished, well-developed patient, in no apparent distress. CARDIOVASCULAR: Regular rate and regular rhythm without murmurs, gallops, or rubs. RESPIRATORY: Clear to auscultation. Breath sounds equal bilaterally. No wheezes , rales, or rhonchi. GASTROINTESTINAL: Abdomen soft, non-tender, nondistended. Normal, active bowel sounds MUSCULOSKELETAL: Extremities without clubbing, cyanosis, or edema. NEURO: Alert & Oriented x4 to person, place, time, situation. Moves all ext x4 Hospital Course 1. Choledocholithiasis/ Liver abscess Abnormal HIDA scan and US noted. GI and surgical consults appreciated. S/p ERCP which revealed: Choledocholithiasis; Duodenal diverticulum; Duodenal polyps. CT 11/30: Over the last 4 days a large mass has developed in the anterior left lobe of the liver measuring up to 9.6 cm in diameter containing multiple locules of air likely a developing complex liver abscess; Multiple gallstones without significant inflammatory changes identified around the gallbladder. IR consulted for abscess drainage 12/01. CT 12/03: Decreased size of left hepatic lobe hematoma following drainage; No evidence of free or loculated intraperitoneal fluid or free air; Stable intestinal tract without evidence of pathologic distention or inflammatory changes. Abscess culture with no growth, final. - follow up with GI. - will need outpt follow-up with surgery to schedule cholecystectomy. Sepsis Source is UTI. Pseudomonas growing. - treated. Reactive airway disease No further wheezing on exam. - Oxygen and nebs as needed. Started standing nebs. - will need home o2 Right testicular mass Imaging shows cystic mass on right. Evaluated by urology. No surgical intervention planned for hydrocele. Repeat CT: Large loculated hydrocele or cystic testicular mass in the right hemiscrotum measuring up to 13.6 cm in diameter. - Patient to follow-up with urology as outpt. Reconsult as needed. Alcohol abuse No evidence of withdrawal. - CIWA protocol, thiamine, folic acid. - cessation instruction. No evidence of alcohol withdrawal. History of CVA Stable. - Continue aspirin. HTN resumed amlodipine and continue to monitor. Hypokalemia S/t decreased PO intake. GI bleed with hypovolemic shock. The patient had coffee-ground emesis and melanotic stools on 12/07/17. The patient was immediately given a liter of normal saline bolus since the patient' s blood pressure was down. Patient was transferred to the intensive care unit. Critical care consulted. GI was informed of the acute bleed. The case was discussed with them. GI recommended a bleeding scan which showed findings concerning for very slow rate of hemorrhage in the region of the cecum. 12/08 sp EGD/Colonoscopy - EGD showed duodenal ulcer which was treated with argon Plasma. Colonoscopy showed: 1. A sessile polyp ranging between 3-5mm in size was found in the sigmoid colon; polypectomy was performed with cold forceps 2. Diverticulum in the sigmoid colon, descending colon, and ascending colon 3. 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 Today the patient has melanotic stools. Contacted GI and discussed the case. GI recommends stat IR for CT angiogram with possible embolization. Continue to monitor CBC and vital signs. 12/11 the patient underwent angiogram with selective injection of the celiac, GDA , SMA, and JANET. As per interventional radiology report celiac, GDA and SMA were unremarkable. There was a small bleed evident arising from the distal branch of the JANET. Subselective gel foam administration and coil placement performed with occlusion of the distal most branch of the artery. Complete occlusion of the distal branch following up angio. Remained of the JANET remains widely patent. Pt Condition on Discharge: Stable Discharge Disposition: Discharge to SNF Discharge Time: > 30 minutes Discharge Instructions DIET: Follow Instructions for: As Tolerated, No Restrictions Activities you can perform: Regular-No Restrictions, See Additionl Instruction Other Activity Instructions: oob with assistance As per PT Brittanie Garza MD Dec 15, 2017 13:56
[2017-12-15 16:00] VITALS: BP 150/80; PULSE 68; RESP 18; TEMP 97.8; O2SAT 98
[2017-12-15 20:00] VITALS: BP 128/62; PULSE 91; RESP 18; TEMP 97.1; O2SAT 97
[2017-12-16] VITALS: BP 135/64; PULSE 80; RESP 17; TEMP 97.6; O2SAT 96
[2017-12-16 04:00] VITALS: BP 131/61; PULSE 82; RESP 18; TEMP 97.8; O2SAT 96
[2017-12-16] MEDS: DIPHENOXYLATE/ATROPINE 2.5 MG/0.025 MG TAB PO SCH ×4 (05:02→16:34)
[2017-12-16] MEDS: SODIUM CHLORIDE 0.9% 10 ML VIAL IRRIGATION SCH ×2 (07:50→20:00)
[2017-12-16] MEDS: BISACODYL 10 MG SUPP RECTAL SCH (07:51)
[2017-12-16 07:54] VITALS: BP 118/60; PULSE 89; RESP 18; TEMP 97.4; O2SAT 97
[2017-12-16] MEDS: DOCUSATE SODIUM 50 MG/SENNA 8.6 MG TAB PO SCH ×2 (07:54→20:40)
[2017-12-16] MEDS: LIPASE/PROTEASE/AMYLASE (12,000/38,000/60,000) CAP PO SCH ×3 (07:54→17:54)
[2017-12-16] MEDS: SODIUM CHLORIDE 0.9% FLUSH 10 ML FLUSH IV FLUSH SCH ×2 (07:54→20:40)
[2017-12-16] MEDS: PANTOPRAZOLE SOD 40 MG DELAYED RELEASE TAB PO SCH ×2 (07:54→20:40)
[2017-12-16] MEDS: amLODIPine BESYLATE 5 MG TAB PO SCH (07:54)
--- NOTE | 2017-12-16 10:32 | HHI.PR ---
Subjective Remarks in no distress. looks comfortable. no new complaints. Objective Vitals Vital Signs Date Time Temp Pulse Resp B/P (MAP) Pulse Ox O2 Delivery O2 Flow Rate FiO2 12/16/17 07:54 97.4 89 18 118/60 (79) 97 12/16/17 04:00 97.8 82 18 131/61 (84) 96 12/16/17 00:00 97.6 80 17 135/64 (87) 96 12/15/17 20:00 97.1 91 18 128/62 (84) 97 12/15/17 16:00 97.8 68 18 150/80 (103) 98 12/15/17 12:00 97.8 75 16 167/82 (110) 99 I/O 12/15/17 12/15/17 12/15/17 12/16/17 12/16/17 12/16/17 07:00 15:00 23:00 07:00 15:00 23:00 Intake Total 240 ml Output Total 1100 ml 600 ml Balance -860 ml -600 ml Intake Oral 240 ml Output Urine Total 1100 ml 600 ml Result Diagram: 12/12/17 0857 12/12/17 0857 Imaging Last Impressions GI Bleed Scan Nuclear Medicine 12/07/17 0000 Signed Impressions: CONCLUSION: 1. Findings concerning for very slow rate of hemorrhage in the region of the c ecum. Doubtful this is sufficient for angiographic visualization. Head CT 12/06/17 0000 Signed Impressions: CONCLUSION: 1. No acute intracranial abnormality. 2. 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 Chest X-Ray 12/06/17 Signed Impressions: CONCLUSION: 1. No new or acute intrathoracic disease. 2. Tip of the nasogastric tube is in the lower cervical esophagus. The tube ma y be coiled in the patient's mouth. Tube Removal 12/05/17 Signed Impressions: CONCLUSION: 1. Uncomplicated abdominal drain removal. Abdomen/Pelvis CT 12/03/17 0000 Signed Impressions: CONCLUSION: 1. Decreased size of left hepatic lobe hematoma following drainage. 2. No evidence of free or loculated intraperitoneal fluid or free air. 3. Stable intestinal tract without evidence of pathologic distention or inflam matory changes. 4. Uncomplicated colonic diverticulosis. 5. Stable large right hemiscrotal hydrocele 6. Bibasilar airspace disease with small bilateral effusions. Abscess Drainage CT 12/01/17 Signed Impressions: CONCLUSION: 1. Uncomplicated CT guided drainage. 2. Hepatic collection has the appearance of a hematoma which may be infected c onsidering the small bubbles a contains. Specimen sent for culture and sensitiv ity. 3. [address] catheter [address] Abdomen X-Ray 11/29/17 Signed Impressions: CONCLUSION: Nonspecific, nonobstructive bowel gas pattern which may represent a mild ileus and/or gastroenteritis. Abdomen Ultrasound 11/29/17 Signed Impressions: CONCLUSION: 1. Cholelithiasis with a mildly thickened gallbladder wall. 2. Dilatation the common bile duct. On the prior CT examination, there was a f illing defect within the common bile duct. 3. Heterogeneity to the liver with increased echogenicity likely related to he patic steatosis. 4. 1.5 cm echogenic focus in the right lobe of the liver. This could represent an underlying lesion such as a hemangioma. This is not clearly seen on the rec ent CT examination. One could perform a MRI of the abdomen at some point to mor e fully evaluate the liver. This could be performed as an outpatient. GI Procedure 11/28/17 Signed Impressions: CONCLUSION: Apparent ERCP stone extraction as detailed above. CBD is now clear. Hepatobiliary Scan Nuclear Medicine 11/26/17 Signed Impressions: Service Date/Time: Sunday, November 26, 2017 17:51 - CONCLUSION: 1. No activity seen in the gallbladder. Delayed imaging will be obtained to confirm cystic duct occlusion. 2. Significantly delayed biliary clearance with bowel activity noted at 90 minutes. This is consistent with partially obstructing distal CBD calculus as noted on CT exam. Nick Miramontes MD ADDENDUM: Delayed images were obtained. There is clear bowel activity on delayed imaging. There is also significant residual hepatic activity. This may be due to partial CBD obstruction or hepatocellular dysfunction. The gallbladder is again not visualized. This is concerning for cystic duct obstruction and cholecystitis in the appropriate clinical setting. Nick Miramontes MD Objective Remarks GENERAL: This is a well-nourished, well-developed patient, in no apparent distress. CARDIOVASCULAR: Regular rate and regular rhythm without murmurs, gallops, or rubs. RESPIRATORY: Clear to auscultation. Breath sounds equal bilaterally. No wheezes , rales, or rhonchi. GASTROINTESTINAL: Abdomen soft, non-tender, nondistended. Normal, active bowel sounds MUSCULOSKELETAL: Extremities without clubbing, cyanosis, or edema. NEURO: Alert & Oriented x4 to person, place, time, situation. Moves all ext x4 Procedures ERCP/drainage of the liver collection/ angiogram with selective injection of the celiac, GDA, SMA, and JANET Medications and IVs Inpatient Medications Acetaminophen (Tylenol) 650 mg Q4H PRN PO PAIN SCALE 1 TO 10 Last administered on 12/15/17 00:50; Start 12/10/17 at 15:30 Acetaminophen/ Hydrocodone Bitart (Op[place]ke 5-325 Mg) 1 tab Q6HR PRN PO pain>5 Last administered on 12/05/17 04:20; Start 11/28/17 at 23:45; Stop 12/10/17 at 15:21; Status DC Albuterol/ Ipratropium (Duoneb Neb) 1 ampule Q2HR NEB PRN NEB dyspnea; Start at 17:30 Alprazolam (Xanax) 0.25 mg ONCE ONCE PO Last administered on 11/30/17at 00:45; Start 11/30/17 at 00:45; Stop 11/30/17 at 00:46; Status DC Amlodipine Besylate (Norvasc) 5 mg DAILY PO Last administered on 12/16/17 07:54 ; Start 12/14/17 at 11:15 Amylase/Lipase/ Protease (Creon 12-38-60) 1 cap TID PO Last administered on 12/16at 07:54; Start 12/06/17 at 13:00 Aspirin (Ecotrin Ec) 81 mg DAILY PO Last administered on 12/05/17at 09:14; Start 11/27/17 at 09:00; Status Future Hold Bisacodyl (Dulcolax Supp) 10 mg DAILY RECTAL Last administered on 12/01/17at 08: 15; Start 11/30/17 at 14:45 Chlorhexidine Gluconate (Chlorhexidine 2% Cloth) 3 pack [employer] PRN TOPICAL SEE LABEL COMMENTS; Start 11/28/17 at 07:00; Stop 12/01/17 at 06:59; Status DC Clonidine (Catapres) 0.1 mg Q6H PRN PO SYS BP GREATER THAN 170 MMHG Last administered on 12/14/17 15:24; Start 12/09/17 at 18:30 Diatrizoate Meglum/ Diatrizoate Sod ( Gastroview Liq) 18 ml ONCE ONCE PO Last administered on 12/03/17 13:28; Start 12/03/17 at 13:15; Stop 12/03/17 at 13:16; Status DC Diphenoxylate HCl/ Atropine (Lomotil Tab) 1 tab Q6HR PO Last administered on 00:14; Start 12/06/17 at 12:00 Enalaprilat (Vasotec Inj) 1.25 mg Q6H PRN IV PUSH SBP> OR = 170, DBP> OR = 100 Last administered on 11/29/17 21:12; Start 11/28/17 at 12:30; Stop 12/06/17 at 21:04; Status DC Enoxaparin Sodium (Lovenox Inj) 40 mg Q24H SQ Last administered on 12/04/17 17 :44; Start 11/26/17 at 18:00; Stop 12/06/17 at 15:46; Status DC Furosemide (Lasix) 40 mg ONCE ONCE PO Last administered on 12/05/17 21:22; Start 12/05/17 at 19:30; Stop 12/05/17 at 19:31; Status DC Iohexol (Omnipaque 350 Inj) 50 ml ONCE ONCE OTHER Last administered on 14:24; Start 11/28/17 at 14:24; Stop 11/28/17 at 14:25; Status DC Ipratropium [place] (Atrovent Neb) 0.5 mg Q2HR NEB PRN NEB wheezing Last administered on 11/30/17 08:31; Start 11/29/17 at 21:30 Lactated Ringer's 1,000 ml @ 999 mls/hr BOLUS ONCE IV Last administered on at 08:46; Start 12/06/17 at 07:45; Stop 12/06/17 at 08:45; Status DC Lactulose (Lactulose Liq) 30 ml DAILY PRN PO SEVERE CONSITIPATION Last administered on 5/25/18at 16:16; Start 11/26/17 at 17:30; Status Future Hold Levofloxacin/ Dextrose 150 ml @ 100 mls/hr Q24H IV Last administered on at 13:36; Start 11/29/17 at 15:00; Stop 11/30/17 at 17:30; Status DC Magnesium Hydroxide (Milk Of Magnesia Liq) 30 ml Q12H PRN PO Mild constipation ; Start 11/26/17 at 17:30 Methylprednisolone Sodium Succinate (SoluMEDROL INJ) 40 mg BID IV PUSH Last administered on 12/03/17at 08:59; Start 12/02/17 at 21:00; Stop 12/03/17 at 12:28 ; Status DC Metoclopramide HCl (Reglan Inj) 5 mg Q8HR PRN IV PUSH NAUSEA OR VOMITING Last administered on 12/14/17at 01:41; Start 12/06/17 at 07:45 Miscellaneous Information ([facility] [place] Nursing Information) ALL NURSING DEPARTME... UNSCH PRN .XX SEE LABEL COMMENTS; Start 12/08/17 at 11:40; Stop 12/09/17 at 11:39 ; Status DC Morphine Sulfate (Morphine Inj) 2 mg ONCE ONCE IV PUSH Last administered on at 00:46; Start 11/30/17 at 00:45; Stop 11/30/17 at 00:46; Status DC Naloxone HCl (Narcan Inj) 0.4 mg UNSCH PRN IV PUSH SEE LABEL COMMENTS; Start at 17:30 Pantoprazole Sodium (Protonix) 40 mg Q12HR PO Last administered on 12/16/17at 07: 54; Start 12/09/17 at 21:00 Pantoprazole Sodium 80 mg/ Sodium Chloride 100 ml @ 10 mls/hr Q10H IV Last administered on 12/09/17at 05:03; Start 12/06/17 at 18:00; Stop 12/09/17 at 10:24; Status DC Piperacillin Sod/ Tazobactam Sod 100 ml @ 200 mls/hr Q6H IV Last administered on 12/09/17at 08:55; Start 11/30/17 at 20:00; Stop 12/09/17 at 10:24; Status DC Polyethylene Glycol/ Electrolytes (Colyte Liq) 2,000 ml Q8H PO Last administered on 12/07/17at 23:30; Start 12/07/17 at 15:30; Stop 12/07/17 at 23:31 ; Status DC Potassium Chloride 30 meq/ Dextrose/Sodium Chloride 1,015 ml @ 50 mls/hr [id number] IV Last administered on 12/03/17at 00:21; Start 11/29/17 at 15:00; Stop 12/03/17 at 12:31; Status DC Potassium Chloride/Sodium Chloride 1,000 ml @ 100 mls/hr Q10H IV Last administered on 12/09/17at 08:57; Start 12/06/17 at 11:45; Stop 12/09/17 at 10:24; Status DC Potassium Bicarb/ Potassium Chloride (K-Lyte Cl Eff) 50 meq ONCE ONCE PO Last administered on 12/02/17at 15:01; Start 12/02/17 at 14:15; Stop 12/02/17 at 14:16; Status DC Potassium Chloride (KCl) 40 meq ONCE ONCE PO Last administered on 12/06/17at 12 :20; Start 12/06/17 at 11:45; Stop 12/06/17 at 12:09; Status DC Prednisone (Deltasone) 20 mg DAILY PO Last administered on 12/04/17at 09:30; Start 12/04/17 at 09:00; Stop 12/04/17 at 11:40; Status DC Senna/Docusate Sodium (Adele-Colace) 1 tab BID PO Last administered on 12/16/17at 07:54; Start 11/26/17 at 21:00 Sennosides (Senokot) 17.2 mg Q12H PRN PO Moderate constipation; Start 11/26/17 at 17:30 Sodium Chloride 250 ml @ 250 mls/hr BOLUS ONCE IV Last administered on at 11:00; Start 12/12/17 at 11:00; Stop 12/12/17 at 11:59; Status DC Sodium Chloride (NS Flush) 2 ml BID IV FLUSH Last administered on 12/16/17at 07: 54; Start 11/26/17 at 21:00 Sodium Chloride (NS Inj) 10 ml BID@0800,2000 IRRIGATION Last administered on 12/09/17at 20:00; Start 5/25/18 at 20:00 A/P Problem List: (1) Sepsis ICD Code: A41.9 - Sepsis, unspecified organism Status: Resolved (2) Choledocholithiasis ICD Code: K80.50 - Calculus of bile duct without cholangitis or cholecystitis without obstruction Status: Acute (3) Alcohol dependence ICD Code: F10.20 - Alcohol dependence Status: Chronic (4) Encephalopathy acute ICD Code: G93.40 - Encephalopathy, unspecified Status: Resolved (5) Hypertension ICD Code: I10 - Hypertension Status: Resolved (6) H/O: CVA (cerebrovascular accident) ICD Code: Z86.73 - Personal history of transient ischemic attack (TIA), and cerebral infarction without residual deficits Status: Chronic Assessment and Plan 1. Choledocholithiasis/ Liver abscess Abnormal HIDA scan and US noted. GI and surgical consults appreciated. S/p ERCP which revealed: Choledocholithiasis; Duodenal diverticulum; Duodenal polyps. CT 11/30: Over the last 4 days a large mass has developed in the anterior left lobe of the liver measuring up to 9.6 cm in diameter containing multiple locules of air likely a developing complex liver abscess; Multiple gallstones without significant inflammatory changes identified around the gallbladder. IR consulted for abscess drainage 12/01. CT 12/03: Decreased size of left hepatic lobe hematoma following drainage; No evidence of free or loculated intraperitoneal fluid or free air; Stable intestinal tract without evidence of pathologic distention or inflammatory changes. Abscess culture with no growth, final. - follow up with GI. - will need outpt follow-up with surgery to schedule cholecystectomy. Sepsis Source is UTI. Pseudomonas growing. - treated. Reactive airway disease - Oxygen and nebs as needed. - will need home o2 Right testicular mass Imaging shows cystic mass on right. Evaluated by urology. No surgical intervention planned for hydrocele. Repeat CT: Large loculated hydrocele or cystic testicular mass in the right hemiscrotum measuring up to 13.6 cm in diameter. - Patient to follow-up with urology as outpt. Reconsult as needed. Alcohol abuse No evidence of withdrawal. - CIWA protocol, thiamine, folic acid. - cessation instruction. No evidence of alcohol withdrawal. History of CVA Stable. - Continue aspirin. HTN resumed amlodipine and continue to monitor. Hypokalemia replaced. GI bleed with hypovolemic shock. The patient had coffee-ground emesis and melanotic stools on 12/07/17. The patient was immediately given a liter of normal saline bolus since the patient' s blood pressure was down. Patient was transferred to the intensive care unit. Critical care consulted. GI was informed of the acute bleed. The case was discussed with them. GI recommended a bleeding scan which showed findings concerning for very slow rate of hemorrhage in the region of the cecum. 12/08 sp EGD/Colonoscopy - EGD showed duodenal ulcer which was treated with argon Plasma. Colonoscopy showed: 1. A sessile polyp ranging between 3-5mm in size was found in the sigmoid colon; polypectomy was performed with cold forceps 2. Diverticulum in the sigmoid colon, descending colon, and ascending colon 3. 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 As per interventional radiology report celiac, GDA and SMA were unremarkable. There was a small bleed evident arising from the distal branch of the JANET. Subselective gel foam administration and coil placement performed with occlusion of the distal most branch of the artery. Complete occlusion of the distal branch following up angio. Remained of the JANET remains widely patent. DVT prophylaxis: SCD's, no chemoprophylaxis due to GI bleeding. Discharge Planning awaiting transfer to SNF. Problem Qualifiers (1) Sepsis: Qualified Codes: A41.9 - Sepsis, unspecified organism (2) Alcohol dependence: Qualified Codes: F10.29 - Alcohol dependence with unspecified alcohol-induced disorder Brittanie Garza MD Dec 16, 2017 10:32
[2017-12-16 11:47] VITALS: BP 123/56; PULSE 76; RESP 18; TEMP 98.5; O2SAT 98
[2017-12-16 15:52] VITALS: BP 136/67; PULSE 77; RESP 18; TEMP 98.5; O2SAT 97
[2017-12-16 20:00] VITALS: BP 122/65; PULSE 78; RESP 16; TEMP 97.2; O2SAT 97
[2017-12-17 00:18] VITALS: BP 112/56; PULSE 76; RESP 18; TEMP 98.3; O2SAT 97
[2017-12-17 04:57] VITALS: BP 124/60; PULSE 76; RESP 18; TEMP 97.4; O2SAT 96
[2017-12-17] MEDS: DIPHENOXYLATE/ATROPINE 2.5 MG/0.025 MG TAB PO SCH ×4 (06:00→13:04)
[2017-12-17] MEDS: SODIUM CHLORIDE 0.9% 10 ML VIAL IRRIGATION SCH ×2 (07:37→20:00)
[2017-12-17] MEDS: amLODIPine BESYLATE 5 MG TAB PO SCH (07:37)
[2017-12-17] MEDS: BISACODYL 10 MG SUPP RECTAL SCH (07:37)
[2017-12-17] MEDS: LIPASE/PROTEASE/AMYLASE (12,000/38,000/60,000) CAP PO SCH ×3 (07:39→17:22)
[2017-12-17] MEDS: PANTOPRAZOLE SOD 40 MG DELAYED RELEASE TAB PO SCH ×2 (07:39→21:23)
[2017-12-17] MEDS: DOCUSATE SODIUM 50 MG/SENNA 8.6 MG TAB PO SCH ×2 (07:39→21:00)
[2017-12-17] MEDS: SODIUM CHLORIDE 0.9% FLUSH 10 ML FLUSH IV FLUSH SCH ×2 (07:41→21:24)
[2017-12-17 08:00] VITALS: BP 106/57; PULSE 76; RESP 18; TEMP 97.8; O2SAT 98
[2017-12-17 12:29] VITALS: BP 101/54; PULSE 81; RESP 18; TEMP 97.7; O2SAT 97
--- NOTE | 2017-12-17 14:01 | HHI.PR ---
Subjective Remarks no major overnight events Denies cp/sob Denies melena or hematochezia. Stable vital signs. Objective Vitals Vital Signs Date Time Temp Pulse Resp B/P (MAP) Pulse Ox O2 Delivery O2 Flow Rate FiO2 12/17/17 12:29 97.7 81 18 101/54 (70) 97 12/17/17 08:00 97.8 76 18 106/57 (73) 98 12/17/17 04:57 97.4 76 18 124/60 (81) 96 12/17/17 00:18 98.3 76 18 112/56 (74) 97 12/16/17 20:00 97.2 78 16 122/65 (84) 97 12/16/17 15:52 98.5 77 18 136/67 (90) 97 I/O 12/16/17 12/16/17 12/16/17 12/17/17 12/17/17 12/17/17 07:00 15:00 23:00 07:00 15:00 23:00 Output Total 600 ml 600 ml Balance -600 ml -600 ml Output Urine Total 600 ml 600 ml Objective Remarks General: No distress. Heart: Regular rate and rhythm. No murmur. Lungs: CTAB. No W/R/R. Abdomen: soft, non tender, non distended. Extremities: No lower extremity edema. Psych: Alert and oriented. Neuro: Normal speech. No focal deficits noted. : Significant scrotal enlargement Procedures ERCP/drainage of the liver collection/ angiogram with selective injection of the celiac, GDA, SMA, and JANET A/P Problem List: (1) Sepsis ICD Code: A41.9 - Sepsis, unspecified organism Status: Resolved (2) Choledocholithiasis ICD Code: K80.50 - Calculus of bile duct without cholangitis or cholecystitis without obstruction Status: Acute (3) Alcohol dependence ICD Code: F10.20 - Alcohol dependence Status: Chronic (4) Encephalopathy acute ICD Code: G93.40 - Encephalopathy, unspecified Status: Resolved (5) Hypertension ICD Code: I10 - Hypertension Status: Resolved (6) H/O: CVA (cerebrovascular accident) ICD Code: Z86.73 - Personal history of transient ischemic attack (TIA), and cerebral infarction without residual deficits Status: Chronic Assessment and Plan 1. Choledocholithiasis/ Liver abscess Abnormal HIDA scan and US noted. GI and surgical consults appreciated. S/p ERCP which revealed: Choledocholithiasis; Duodenal diverticulum; Duodenal polyps. CT 11/30: Over the last 4 days a large mass has developed in the anterior left lobe of the liver measuring up to 9.6 cm in diameter containing multiple locules of air likely a developing complex liver abscess; Multiple gallstones without significant inflammatory changes identified around the gallbladder. IR consulted for abscess drainage 12/01. Drain still in place. CT 12/03: Decreased size of left hepatic lobe hematoma following drainage; No evidence of free or loculated intraperitoneal fluid or free air; Stable intestinal tract without evidence of pathologic distention or inflammatory changes. Abscess culture with no growth, final. - continue IV Zosyn. Consider discharging on Cipro/ Flagyl. - follow up with GI. - trend LFTs. - will need outpt follow-up with surgery to schedule cholecystectomy. 12/05 status post drain removal by IR. Sepsis Source is UTI. Pseudomonas growing. - Continue IV Zosyn. Can change to Cipro upon discharge. Sepsis seems to be resolving. Reactive airway disease No further wheezing on exam. - Oxygen and nebs as needed. Started standing nebs. - d/c prednisone. - continue antibiotics. - repeat CXR. - will need home o2 Leukocytosis Leukocytosis possibly secondary to steroid use and now reactive distress due to active GI bleed and hypotension. Continue to monitor CBC. Continue to monitor vital signs for fevers. There is a question of a right lower lobe infiltrate, continue to monitor. / Leukocytosis likely reactive. WBC slightly went up yesterday after GI bleed. However, it is downtrending now. Continue to monitor CBC. 12/11 WBC still elevated at 15.6. Hemoglobin stable at 9.1. This could be reactive to iron deficiency anemia. There are no signs of infection observed this patient is afebrile and is not tachycardic. Patient is satting very well 100% on room air. Right testicular mass Imaging shows cystic mass on right. Evaluated by urology. No surgical intervention planned for hydrocele. Repeat CT: Large loculated hydrocele or cystic testicular mass in the right hemiscrotum measuring up to 13.6 cm in diameter. - Patient to follow-up with urology as outpt. Reconsult as needed. Alcohol abuse No evidence of withdrawal. - [facility] protocol, thiamine, folic acid. - cessation instruction. No evidence of alcohol withdrawal. History of CVA Stable. - Continue aspirin. HTN Hypotension Hold all antihypertensive medications due to current hypovolemic shock. 12/07 BP improved after IV fluid bolus. Continue to monitor vital signs. 12/11 blood pressure stable, continue to hold antihypertensive medications for now. Hypokalemia S/t decreased PO intake. - replete and monitor. GI bleed with hypovolemic shock. The patient had coffee-ground emesis and melanotic stools on 12/07/17. The patient was immediately given a liter of normal saline bolus since the patient' s blood pressure was down. Hemoglobin was noted to drop down to 10.7. Continue to monitor CBC. Patient was transferred to the intensive care unit. Critical care consulted. GI was informed of the acute bleed. The case was discussed with them. GI recommended a bleeding scan which showed findings concerning for very slow rate of hemorrhage in the region of the cecum. 12/08 sp EGD/Colonoscopy - EGD showed duodenal ulcer which was treated with argon Plasma. Colonoscopy showed: 1. A sessile polyp ranging between 3-5mm in size was found in the sigmoid colon; polypectomy was performed with cold forceps 2. Diverticulum in the sigmoid colon, descending colon, and ascending colon 3. 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 Transfuse for hb less than 8 if active bleeding present. 12/10 patient had a syncopal episode and an episode of severe hypotension with a systolic blood pressure in the 50s yesterday afternoon. Today the patient has melanotic stools. Contacted GI and discussed the case. GI recommends stat IR for CT angiogram with possible embolization. Continue to monitor CBC and vital signs. 12/11 the patient underwent angiogram with selective injection of the celiac, GDA , SMA, and JANET. As per interventional radiology report celiac, GDA and SMA were unremarkable. There was a small bleed evident arising from the distal branch of the JANET. Subselective gel foam administration and coil placement performed with occlusion of the distal most branch of the artery. Complete occlusion of the distal branch following up angio. Remained of the JANET remains widely patent. DVT prophylaxis: DSCD's, no chemoprophylaxis due to GI bleeding. Problem Qualifiers (1) Sepsis: Qualified Codes: A41.9 - Sepsis, unspecified organism (2) Alcohol dependence: Qualified Codes: F10.29 - Alcohol dependence with unspecified alcohol-induced disorder Montrell Robledo MD Dec 17, 2017 14:01
[2017-12-17 16:00] VITALS: BP 124/61; PULSE 80; RESP 18; TEMP 97.5; O2SAT 99
[2017-12-17 20:41] VITALS: BP 103/51; PULSE 80; RESP 18; TEMP 99; O2SAT 96
[2017-12-18 00:29] VITALS: BP 108/56; PULSE 68; RESP 18; TEMP 97.9; O2SAT 95
[2017-12-18 05:10] VITALS: BP 118/58; PULSE 71; RESP 18; TEMP 97.7; O2SAT 97
[2017-12-18] MEDS: DIPHENOXYLATE/ATROPINE 2.5 MG/0.025 MG TAB PO SCH ×5 (06:00→23:21)
[2017-12-18 07:00] VITALS: BP 106/55; PULSE 70; RESP 16; TEMP 97.6; O2SAT 97
[2017-12-18] MEDS: SODIUM CHLORIDE 0.9% 10 ML VIAL IRRIGATION SCH ×2 (08:00→20:38)
[2017-12-18] MEDS: amLODIPine BESYLATE 5 MG TAB PO SCH (08:21)
[2017-12-18] MEDS: DOCUSATE SODIUM 50 MG/SENNA 8.6 MG TAB PO SCH ×2 (08:21→20:38)
[2017-12-18] MEDS: PANTOPRAZOLE SOD 40 MG DELAYED RELEASE TAB PO SCH ×2 (08:22→20:36)
[2017-12-18] MEDS: LIPASE/PROTEASE/AMYLASE (12,000/38,000/60,000) CAP PO SCH ×3 (08:22→16:08)
[2017-12-18] MEDS: SODIUM CHLORIDE 0.9% FLUSH 10 ML FLUSH IV FLUSH SCH ×2 (08:22→20:39)
[2017-12-18] MEDS: BISACODYL 10 MG SUPP RECTAL SCH (08:24)
[2017-12-18 11:52] VITALS: BP 117/58; PULSE 73; RESP 20; TEMP 98.1; O2SAT 95
--- NOTE | 2017-12-18 14:00 | HHI.PR ---
Subjective Remarks No major overnight events. The patient denies chest pain or shortness of breath. A febrile. Denies abdominal pain, nausea vomiting. Denies melena or hematochezia. Objective Vitals Vital Signs Date Time Temp Pulse Resp B/P (MAP) Pulse Ox O2 Delivery O2 Flow Rate FiO2 12/18/17 11:52 98.1 73 20 117/58 (77) 95 12/18/17 07:00 97.6 70 16 106/55 (72) 97 12/18/17 05:10 97.7 71 18 118/58 (78) 97 12/18/17 00:29 97.9 68 18 108/56 (73) 95 12/17/17 20:41 99.0 80 18 103/51 (68) 96 12/17/17 16:00 97.5 80 18 124/61 (82) 99 I/O 12/17/17 12/17/17 12/17/17 12/18/17 12/18/17 12/18/17 07:00 15:00 23:00 07:00 15:00 23:00 Intake Total 240 ml Output Total 600 ml 300 ml 200 ml Balance -600 ml -60 ml -200 ml Intake Oral 240 ml Output Urine Total 600 ml 300 ml 200 ml Objective Remarks General: No distress. Heart: Regular rate and rhythm. No murmur. Lungs: CTAB. No W/R/R. Abdomen: soft, non tender, non distended. Extremities: No lower extremity edema. Psych: Alert and oriented. Neuro: Normal speech. No focal deficits noted. : Significant scrotal enlargement Procedures ERCP/drainage of the liver collection/ angiogram with selective injection of the celiac, GDA, SMA, and JANET A/P Problem List: (1) Sepsis ICD Code: A41.9 - Sepsis, unspecified organism Status: Resolved (2) Choledocholithiasis ICD Code: K80.50 - Calculus of bile duct without cholangitis or cholecystitis without obstruction Status: Acute (3) Alcohol dependence ICD Code: F10.20 - Alcohol dependence Status: Chronic (4) Encephalopathy acute ICD Code: G93.40 - Encephalopathy, unspecified Status: Resolved (5) Hypertension ICD Code: I10 - Hypertension Status: Resolved (6) H/O: CVA (cerebrovascular accident) ICD Code: Z86.73 - Personal history of transient ischemic attack (TIA), and cerebral infarction without residual deficits Status: Chronic Assessment and Plan 1. Choledocholithiasis/ Liver abscess Abnormal HIDA scan and US noted. GI and surgical consults appreciated. S/p ERCP which revealed: Choledocholithiasis; Duodenal diverticulum; Duodenal polyps. CT 11/30: Over the last 4 days a large mass has developed in the anterior left lobe of the liver measuring up to 9.6 cm in diameter containing multiple locules of air likely a developing complex liver abscess; Multiple gallstones without significant inflammatory changes identified around the gallbladder. IR consulted for abscess drainage 12/01. Drain still in place. CT 12/03: Decreased size of left hepatic lobe hematoma following drainage; No evidence of free or loculated intraperitoneal fluid or free air; Stable intestinal tract without evidence of pathologic distention or inflammatory changes. Abscess culture with no growth, final. - continue IV Zosyn. Consider discharging on Cipro/ Flagyl. - follow up with GI. - trend LFTs. - will need outpt follow-up with surgery to schedule cholecystectomy. 12/05 status post drain removal by IR. Sepsis Source is UTI. Pseudomonas growing. - Continue IV Zosyn. Can change to Cipro upon discharge. Sepsis seems to be resolving. Reactive airway disease No further wheezing on exam. - Oxygen and nebs as needed. Started standing nebs. - d/c prednisone. - continue antibiotics. - repeat CXR. - will need home o2 Leukocytosis Leukocytosis possibly secondary to steroid use and now reactive distress due to active GI bleed and hypotension. Continue to monitor CBC. Continue to monitor vital signs for fevers. There is a question of a right lower lobe infiltrate, continue to monitor. 12/10 Leukocytosis likely reactive. WBC slightly went up yesterday after GI bleed. However, it is downtrending now. Continue to monitor CBC. 12/11 WBC still elevated at 15.6. Hemoglobin stable at 9.1. This could be reactive to iron deficiency anemia. There are no signs of infection observed this patient is afebrile and is not tachycardic. Patient is satting very well 100% on room air. 12/18 monitor CBC. Right testicular mass Imaging shows cystic mass on right. Evaluated by urology. No surgical intervention planned for hydrocele. Repeat CT: Large loculated hydrocele or cystic testicular mass in the right hemiscrotum measuring up to 13.6 cm in diameter. - Patient to follow-up with urology as outpt. Reconsult as needed. Alcohol abuse No evidence of withdrawal. - [facility] protocol, thiamine, folic acid. - cessation instruction. No evidence of alcohol withdrawal. History of CVA Stable. - Continue aspirin. HTN Hypotension Hold all antihypertensive medications due to current hypovolemic shock. 12/07 BP improved after IV fluid bolus. Continue to monitor vital signs. 12/18 blood pressure stable, continue to hold antihypertensive medications for now. Hypokalemia S/t decreased PO intake. - replete and monitor. GI bleed with hypovolemic shock. The patient had coffee-ground emesis and melanotic stools on 12/07/17. The patient was immediately given a liter of normal saline bolus since the patient' s blood pressure was down. Hemoglobin was noted to drop down to 10.7. Continue to monitor CBC. Patient was transferred to the intensive care unit. Critical care consulted. GI was informed of the acute bleed. The case was discussed with them. GI recommended a bleeding scan which showed findings concerning for very slow rate of hemorrhage in the region of the cecum. 12/08 sp EGD/Colonoscopy - EGD showed duodenal ulcer which was treated with argon Plasma. Colonoscopy showed: 1. A sessile polyp ranging between 3-5mm in size was found in the sigmoid colon; polypectomy was performed with cold forceps 2. Diverticulum in the sigmoid colon, descending colon, and ascending colon 3. 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 Transfuse for hb less than 8 if active bleeding present. 12/10 patient had a syncopal episode and an episode of severe hypotension with a systolic blood pressure in the 50s yesterday afternoon. Today the patient has melanotic stools. Contacted GI and discussed the case. GI recommends stat IR for CT angiogram with possible embolization. Continue to monitor CBC and vital signs. 12/11 the patient underwent angiogram with selective injection of the celiac, GDA , SMA, and JANET. As per interventional radiology report celiac, GDA and SMA were unremarkable. There was a small bleed evident arising from the distal branch of the JANET. Subselective gel foam administration and coil placement performed with occlusion of the distal most branch of the artery. Complete occlusion of the distal branch following up angio. Remained of the JANET remains widely patent. DVT prophylaxis: DSCD's, no chemoprophylaxis due to GI bleeding. Discharge Planning Discharge pending placement. Problem Qualifiers (1) Sepsis: Qualified Codes: A41.9 - Sepsis, unspecified organism (2) Alcohol dependence: Qualified Codes: F10.29 - Alcohol dependence with unspecified alcohol-induced disorder Montrell Robledo MD Dec 18, 2017 14:00
[2017-12-18 14:12] LABS: HEMATOCRIT 29.2 % (39.0-51.0); MEAN CELL VOLUME 92.9 FL (80.0-100.0); MEAN CORPUSCULAR HEMOGLOBIN 31.7 PG (27.0-34.0); MEAN CORPUSCULAR HGB CONC 34.1 % (32.0-36.0); MEAN PLATELET VOLUME 6.6 FL (7.0-11.0); PLATELET COUNT 508 TH/MM3 (150-450); RED BLOOD COUNT 3.14 MIL/MM3 (4.50-5.90); RED CELL DISTRIBUTION WIDTH 13.9 % (11.6-17.2); WHITE BLOOD COUNT 6.7 TH/MM3 (4.0-11.0)
[2017-12-18 16:11] VITALS: BP 122/67; PULSE 78; RESP 18; TEMP 98.2; O2SAT 95
[2017-12-18 20:00] VITALS: BP 138/75; PULSE 76; RESP 18; TEMP 98.1; O2SAT 97
[2017-12-19] VITALS: BP 111/58; PULSE 70; RESP 18; TEMP 98.2; O2SAT 96
[2017-12-19 04:00] VITALS: BP 117/58; PULSE 78; RESP 18; TEMP 97.7; O2SAT 96
[2017-12-19] MEDS: DIPHENOXYLATE/ATROPINE 2.5 MG/0.025 MG TAB PO SCH ×3 (05:09→16:45)
[2017-12-19 08:00] VITALS: BP 114/56; PULSE 85; RESP 19; TEMP 97.8; O2SAT 98
[2017-12-19] MEDS: SODIUM CHLORIDE 0.9% 10 ML VIAL IRRIGATION SCH ×2 (08:00→20:49)
[2017-12-19] MEDS: LIPASE/PROTEASE/AMYLASE (12,000/38,000/60,000) CAP PO SCH ×3 (08:35→16:45)
[2017-12-19] MEDS: SODIUM CHLORIDE 0.9% FLUSH 10 ML FLUSH IV FLUSH SCH ×2 (08:35→20:49)
[2017-12-19] MEDS: PANTOPRAZOLE SOD 40 MG DELAYED RELEASE TAB PO SCH ×2 (08:36→20:49)
[2017-12-19] MEDS: DOCUSATE SODIUM 50 MG/SENNA 8.6 MG TAB PO SCH ×2 (08:37→20:49)
[2017-12-19] MEDS: amLODIPine BESYLATE 5 MG TAB PO SCH (08:39)
[2017-12-19] MEDS: BISACODYL 10 MG SUPP RECTAL SCH (08:42)
[2017-12-19 12:00] VITALS: BP 112/62; PULSE 79; RESP 18; TEMP 97.8; O2SAT 99
--- NOTE | 2017-12-19 13:15 | HHI.PR ---
Subjective Remarks no major overnight events Denies cp/sob stable hemoglobin Denies melena or hematochezia. Objective Vitals Vital Signs Date Time Temp Pulse Resp B/P (MAP) Pulse Ox O2 Delivery O2 Flow Rate FiO2 12/19/17 08:00 97.8 85 19 114/56 (75) 98 12/19/17 04:00 97.7 78 18 117/58 (77) 96 12/19/17 00:00 98.2 70 18 111/58 (75) 96 12/18/17 20:00 98.1 76 18 138/75 (96) 97 12/18/17 16:11 98.2 78 18 122/67 (85) 95 I/O 12/18/17 12/18/17 12/18/17 12/19/17 12/19/17 12/19/17 07:00 15:00 23:00 07:00 15:00 23:00 Output Total 200 ml 200 ml 140 ml Balance -200 ml -200 ml -140 ml Output Urine Total 200 ml 200 ml 140 ml # Voids 1 # Bowel Movements 1 1 Result Diagram: 12/18/17 1340 Objective Remarks General: No distress. Heart: Regular rate and rhythm. No murmur. Lungs: CTAB. No W/R/R. Abdomen: soft, non tender, non distended. Extremities: No lower extremity edema. Psych: Alert and oriented. Neuro: Normal speech. No focal deficits noted. : Significant scrotal enlargement Procedures ERCP/drainage of the liver collection/ angiogram with selective injection of the celiac, GDA, SMA, and JANET A/P Problem List: (1) Sepsis ICD Code: A41.9 - Sepsis, unspecified organism Status: Resolved (2) Choledocholithiasis ICD Code: K80.50 - Calculus of bile duct without cholangitis or cholecystitis without obstruction Status: Acute (3) Alcohol dependence ICD Code: F10.20 - Alcohol dependence Status: Chronic (4) Encephalopathy acute ICD Code: G93.40 - Encephalopathy, unspecified Status: Resolved (5) Hypertension ICD Code: I10 - Hypertension Status: Resolved (6) H/O: CVA (cerebrovascular accident) ICD Code: Z86.73 - Personal history of transient ischemic attack (TIA), and cerebral infarction without residual deficits Status: Chronic Assessment and Plan 1. Choledocholithiasis/ Liver abscess Abnormal HIDA scan and US noted. GI and surgical consults appreciated. S/p ERCP which revealed: Choledocholithiasis; Duodenal diverticulum; Duodenal polyps. CT 11/30: Over the last 4 days a large mass has developed in the anterior left lobe of the liver measuring up to 9.6 cm in diameter containing multiple locules of air likely a developing complex liver abscess; Multiple gallstones without significant inflammatory changes identified around the gallbladder. IR consulted for abscess drainage 12/01. Drain still in place. CT 12/03: Decreased size of left hepatic lobe hematoma following drainage; No evidence of free or loculated intraperitoneal fluid or free air; Stable intestinal tract without evidence of pathologic distention or inflammatory changes. Abscess culture with no growth, final. - continue IV Zosyn. Consider discharging on Cipro/ Flagyl. - follow up with GI. - trend LFTs. - will need outpt follow-up with surgery to schedule cholecystectomy. SP drain removal by IR on 12/05 Sepsis - resolved Source is UTI. Pseudomonas growing. - Continue IV Zosyn. Can change to Cipro upon discharge. Sepsis seems to be resolving. Reactive airway disease - resolved No further wheezing on exam. - Oxygen and nebs as needed. Started standing nebs. - d/c prednisone. - continue antibiotics. - repeat CXR. - will need home o2 12/19 Patient tolerating room air Leukocytosis - resolved Leukocytosis possibly secondary to steroid use and now reactive distress due to active GI bleed and hypotension. Continue to monitor CBC. Continue to monitor vital signs for fevers. There is a question of a right lower lobe infiltrate, continue to monitor. 12/10 Leukocytosis likely reactive. WBC slightly went up yesterday after GI bleed. However, it is downtrending now. Continue to monitor CBC. 12/11 WBC still elevated at 15.6. Hemoglobin stable at 9.1. This could be reactive to iron deficiency anemia. There are no signs of infection observed this patient is afebrile and is not tachycardic. Patient is satting very well 100% on room air. 12/18 monitor CBC. 12/19 WBC within normal range. Right testicular mass Imaging shows cystic mass on right. Evaluated by urology. No surgical intervention planned for hydrocele. Repeat CT: Large loculated hydrocele or cystic testicular mass in the right hemiscrotum measuring up to 13.6 cm in diameter. - Patient to follow-up with urology as outpt. Reconsult as needed. Alcohol abuse No evidence of withdrawal. - [facility] protocol, thiamine, folic acid. - cessation instruction. No evidence of alcohol withdrawal. History of CVA Stable. - Continue aspirin. HTN Hypotension Hold all antihypertensive medications due to current hypovolemic shock. 12/07 BP improved after IV fluid bolus. Continue to monitor vital signs. 12/18 blood pressure stable, continue to hold antihypertensive medications for now. 12/19 BP stable off antihypertensive medications. Continue to hold bp meds. Monitor BP. Hypokalemia S/t decreased PO intake. - replete and monitor. GI bleed with hypovolemic shock. The patient had coffee-ground emesis and melanotic stools on 12/07/17. The patient was immediately given a liter of normal saline bolus since the patient' s blood pressure was down. Hemoglobin was noted to drop down to 10.7. Continue to monitor CBC. Patient was transferred to the intensive care unit. Critical care consulted. GI was informed of the acute bleed. The case was discussed with them. GI recommended a bleeding scan which showed findings concerning for very slow rate of hemorrhage in the region of the cecum. 12/08 sp EGD/Colonoscopy - EGD showed duodenal ulcer which was treated with argon Plasma. Colonoscopy showed: 1. A sessile polyp ranging between 3-5mm in size was found in the sigmoid colon; polypectomy was performed with cold forceps 2. Diverticulum in the sigmoid colon, descending colon, and ascending colon 3. 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 Transfuse for hb less than 8 if active bleeding present. 12/10 patient had a syncopal episode and an episode of severe hypotension with a systolic blood pressure in the 50s yesterday afternoon. Today the patient has melanotic stools. Contacted GI and discussed the case. GI recommends stat IR for CT angiogram with possible embolization. Continue to monitor CBC and vital signs. 12/11 the patient underwent angiogram with selective injection of the celiac, GDA , SMA, and JANET. As per interventional radiology report celiac, GDA and SMA were unremarkable. There was a small bleed evident arising from the distal branch of the JANET. Subselective gel foam administration and coil placement performed with occlusion of the distal most branch of the artery. Complete occlusion of the distal branch following up angio. Remained of the JANET remains widely patent. 12/19 hemoglobin stable. Monitor cbc periodically. DVT prophylaxis: DSCD's, no chemoprophylaxis due to GI bleeding. Discharge Planning Discharge pending placement. Problem Qualifiers (1) Sepsis: Qualified Codes: A41.9 - Sepsis, unspecified organism (2) Alcohol dependence: Qualified Codes: F10.29 - Alcohol dependence with unspecified alcohol-induced disorder Montrell Robledo MD Dec 19, 2017 13:14
[2017-12-19 16:00] VITALS: BP 115/59; PULSE 81; RESP 18; TEMP 97.5; O2SAT 99
[2017-12-19 20:00] VITALS: BP 128/60; PULSE 77; RESP 18; TEMP 97.6; O2SAT 97
[2017-12-20] VITALS: BP 120/57; PULSE 73; RESP 19; TEMP 97.3; O2SAT 96
[2017-12-20 04:00] VITALS: BP 108/55; PULSE 73; RESP 20; TEMP 97.9; O2SAT 98
[2017-12-20] MEDS: DIPHENOXYLATE/ATROPINE 2.5 MG/0.025 MG TAB PO SCH ×4 (06:37→18:30)
[2017-12-20 08:00] VITALS: BP 92/52; PULSE 77; RESP 18; TEMP 97.2; O2SAT 97
[2017-12-20] MEDS: SODIUM CHLORIDE 0.9% 10 ML VIAL IRRIGATION SCH ×2 (08:00→20:00)
[2017-12-20] MEDS: BISACODYL 10 MG SUPP RECTAL SCH (09:00)
[2017-12-20] MEDS: amLODIPine BESYLATE 5 MG TAB PO SCH (09:00)
[2017-12-20] MEDS: DOCUSATE SODIUM 50 MG/SENNA 8.6 MG TAB PO SCH ×2 (09:00→20:03)
[2017-12-20] MEDS: PANTOPRAZOLE SOD 40 MG DELAYED RELEASE TAB PO SCH ×2 (10:27→20:03)
[2017-12-20] MEDS: LIPASE/PROTEASE/AMYLASE (12,000/38,000/60,000) CAP PO SCH ×3 (10:27→18:00)
[2017-12-20] MEDS: SODIUM CHLORIDE 0.9% FLUSH 10 ML FLUSH IV FLUSH SCH ×2 (10:28→20:03)
--- NOTE | 2017-12-20 10:54 | HHI.PR ---
Subjective Remarks No major overnight events, patient denies chest pain or shortness of breath. Patient denies melena or hematochezia. Objective Vitals Vital Signs Date Time Temp Pulse Resp B/P (MAP) Pulse Ox O2 Delivery O2 Flow Rate FiO2 12/20/17 08:00 97.2 77 18 92/52 (65) 97 12/20/17 04:00 97.9 73 20 108/55 (72) 98 12/20/17 00:00 97.3 73 19 120/57 (78) 96 12/19/17 20:00 97.6 77 18 128/60 (82) 97 12/19/17 16:00 97.5 81 18 115/59 (77) 99 12/19/17 12:00 97.8 79 18 112/62 (79) 99 I/O 12/19/17 12/19/17 12/19/17 12/20/17 12/20/17 12/20/17 07:00 15:00 23:00 07:00 15:00 23:00 Intake Total 240 ml Output Total 200 ml 140 ml 250 ml Balance -200 ml -140 ml -10 ml Intake Oral 240 ml Output Urine Total 200 ml 140 ml 250 ml # Voids 1 # Bowel Movements 1 1 Result Diagram: 12/18/17 1340 Objective Remarks General: No distress. Heart: Regular rate and rhythm. No murmur. Lungs: CTAB. No W/R/R. Abdomen: soft, non tender, non distended. Extremities: No lower extremity edema. Psych: Alert and oriented. Neuro: Normal speech. No focal deficits noted. : Significant scrotal enlargement Procedures ERCP/drainage of the liver collection/ angiogram with selective injection of the celiac, GDA, SMA, and JANET A/P Problem List: (1) Sepsis ICD Code: A41.9 - Sepsis, unspecified organism Status: Resolved (2) Choledocholithiasis ICD Code: K80.50 - Calculus of bile duct without cholangitis or cholecystitis without obstruction Status: Acute (3) Alcohol dependence ICD Code: F10.20 - Alcohol dependence Status: Chronic (4) Encephalopathy acute ICD Code: G93.40 - Encephalopathy, unspecified Status: Resolved (5) Hypertension ICD Code: I10 - Hypertension Status: Resolved (6) H/O: CVA (cerebrovascular accident) ICD Code: Z86.73 - Personal history of transient ischemic attack (TIA), and cerebral infarction without residual deficits Status: Chronic Assessment and Plan 1. Choledocholithiasis/ Liver abscess Abnormal HIDA scan and US noted. GI and surgical consults appreciated. S/p ERCP which revealed: Choledocholithiasis; Duodenal diverticulum; Duodenal polyps. CT 11/30: Over the last 4 days a large mass has developed in the anterior left lobe of the liver measuring up to 9.6 cm in diameter containing multiple locules of air likely a developing complex liver abscess; Multiple gallstones without significant inflammatory changes identified around the gallbladder. IR consulted for abscess drainage 12/01. Drain still in place. CT 12/03: Decreased size of left hepatic lobe hematoma following drainage; No evidence of free or loculated intraperitoneal fluid or free air; Stable intestinal tract without evidence of pathologic distention or inflammatory changes. Abscess culture with no growth, final. - continue IV Zosyn. Consider discharging on Cipro/ Flagyl. - follow up with GI. - trend LFTs. - will need outpt follow-up with surgery to schedule cholecystectomy. SP drain removal by IR on 12/05 Sepsis - resolved Source is UTI. Pseudomonas growing. - Continue IV Zosyn. Can change to Cipro upon discharge. Sepsis seems to be resolving. Reactive airway disease - resolved No further wheezing on exam. - Oxygen and nebs as needed. Started standing nebs. - d/c prednisone. - continue antibiotics. - repeat CXR. - will need home o2 12/19 Patient tolerating room air Leukocytosis - resolved Leukocytosis possibly secondary to steroid use and now reactive distress due to active GI bleed and hypotension. Continue to monitor CBC. Continue to monitor vital signs for fevers. There is a question of a right lower lobe infiltrate, continue to monitor. 12/10 Leukocytosis likely reactive. WBC slightly went up yesterday after GI bleed. However, it is downtrending now. Continue to monitor CBC. 12/11 WBC still elevated at 15.6. Hemoglobin stable at 9.1. This could be reactive to iron deficiency anemia. There are no signs of infection observed this patient is afebrile and is not tachycardic. Patient is satting very well 100% on room air. 12/18 monitor CBC. 12/19 WBC within normal range. Right testicular mass Imaging shows cystic mass on right. Evaluated by urology. No surgical intervention planned for hydrocele. Repeat CT: Large loculated hydrocele or cystic testicular mass in the right hemiscrotum measuring up to 13.6 cm in diameter. - Patient to follow-up with urology as outpt. Reconsult as needed. Alcohol abuse No evidence of withdrawal. - CIWA protocol, thiamine, folic acid. - cessation instruction. No evidence of alcohol withdrawal. History of CVA Stable. - Continue aspirin. HTN Hypotension Hold all antihypertensive medications due to current hypovolemic shock. 12/07 BP improved after IV fluid bolus. Continue to monitor vital signs. 12/18 blood pressure stable, continue to hold antihypertensive medications for now. 12/19 BP stable off antihypertensive medications. Continue to hold bp meds. Monitor BP. Hypokalemia S/t decreased PO intake. - replete and monitor. GI bleed with hypovolemic shock. The patient had coffee-ground emesis and melanotic stools on 12/07/17. The patient was immediately given a liter of normal saline bolus since the patient' s blood pressure was down. Hemoglobin was noted to drop down to 10.7. Continue to monitor CBC. Patient was transferred to the intensive care unit. Critical care consulted. GI was informed of the acute bleed. The case was discussed with them. GI recommended a bleeding scan which showed findings concerning for very slow rate of hemorrhage in the region of the cecum. 12/08 sp EGD/Colonoscopy - EGD showed duodenal ulcer which was treated with argon Plasma. Colonoscopy showed: 1. A sessile polyp ranging between 3-5mm in size was found in the sigmoid colon; polypectomy was performed with cold forceps 2. Diverticulum in the sigmoid colon, descending colon, and ascending colon 3. 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 Transfuse for hb less than 8 if active bleeding present. 12/10 patient had a syncopal episode and an episode of severe hypotension with a systolic blood pressure in the 50s yesterday afternoon. Today the patient has melanotic stools. Contacted GI and discussed the case. GI recommends stat IR for CT angiogram with possible embolization. Continue to monitor CBC and vital signs. 12/11 the patient underwent angiogram with selective injection of the celiac, GDA , SMA, and JANET. As per interventional radiology report celiac, GDA and SMA were unremarkable. There was a small bleed evident arising from the distal branch of the JANET. Subselective gel foam administration and coil placement performed with occlusion of the distal most branch of the artery. Complete occlusion of the distal branch following up angio. Remained of the JANET remains widely patent. 12/19 hemoglobin stable. Monitor cbc periodically. DVT prophylaxis: DSCD's, no chemoprophylaxis due to GI bleeding. Discharge Planning Discharge pending insurance authorization. Problem Qualifiers (1) Sepsis: Qualified Codes: A41.9 - Sepsis, unspecified organism (2) Alcohol dependence: Qualified Codes: F10.29 - Alcohol dependence with unspecified alcohol-induced disorder Montrell Robledo MD Dec 20, 2017 10:54
[2017-12-20 12:22] VITALS: BP 99/58; PULSE 73; RESP 18; TEMP 97.5; O2SAT 99
[2017-12-20 16:00] VITALS: BP 114/69; PULSE 69; RESP 18; TEMP 97.5; O2SAT 99
--- NOTE | 2017-12-20 16:07 | RADRPT ---
EXAM DATE: 12/10/2017 4:06 PM EDT AGE/SEX: 77 years / Male INDICATIONS: Patient with GI bleed. CLINICAL DATA: This is the patient's initial encounter. Patient reports that signs and symptoms have been present for 2 weeks and indicates a pain score of 0/10. MEDICAL/SURGICAL HISTORY: Hypertension. CVATESTICULAR MASSGALL STONES COLONOSCOPYGALL BLADDER D RAIN PLACED AND REMOVED COMPARISON: No prior exams available for comparison. FLUORO TIME (min): 31 IMAGE SERIES: 20 ACCESS SITE: Right femoral artery CONTRAST (cc): 150 Visipaque (iodixanol) MEDICATION(S): 2 MG lorazepam (Ativan) IV 150 MCG fentanyl (Sublimaze) IV DEVICE(S): Inferior mesenteric artery embolic coil(s) [id number]-18-1.0-0- HILAL Right common femoral artery Angio-Seal 6 FR . . PROCEDURE : 1. Ultrasound-guided puncture of the access site. 2. Conscious sedation with continuous EKG and Oximetry monitoring. 3. Angiography of the celiac axis 4. Angiography of the SMA 5. Angiography of the JANET 6. Subselective embolization of a branch of the JANET. The risks, benefits and alternatives to the procedure were explained and verbal and written consent w as obtained. The site was prepped in sterile fashion. Full sterile technique was used, including ca p, mask, sterile gloves and gown and a large sterile sheet. Hand hygiene and 2% chlorhexidine and/or betadine/alcohol prep was utilized per protocol for cutaneous antisepsis. Sterile gel and sterile p robe cover were utilized for ultrasound guidance. The skin and subcutaneous tissues were infiltrated with local anesthetic solution. With ultrasound and fluoroscopic guidance the selected artery was punctured and a vascular sheath was placed. A 4 Finnish hook catheter was advanced into the abdominal aorta. The celiac origin was selected. Selec tive injection of the celiac was performed. Evaluation of the celiac axis demonstrated normal anatomi c branching of the vessels. No active bleeding was identified. The catheter was withdrawn. The SMA was selected. The SMA distribution was evaluated in multiple pro jections. No active bleeding was identified. The catheter was withdrawn. The JANET was selected. Selective injection of the JANET demonstrate a small area of contrast pooling down near the level of the rectum. A 0.035 C1 vertebral glide catheter and Glidewire were advanced into the proximal JANET. A renegade hig h flow catheter was advanced through the glide catheter and down into the distal JANET branch. The area of bleeding was selectively embolized with approximately 1 cc of Gelfoam and a 1 mm x 3 mm embolizat ion coil. Following embolization there was complete occlusion of the abnormal vessel. The puncture site was closed with manual pressure and hemostasis was obtained. The patient tolerated the procedure well and there were no complications. Conscious sedation was performed with the prescribed dosages and duration as above in the presence of an independent trained radiology nurse to assist in the monitoring of the patient. EKG and oximetry remained stable throughout the procedure. CONCLUSION: 1. Successful embolization of an area of bleeding feeding off of the JANET distribution down near the rectum. The patient tolerated the procedure well. Electronically signed by: Scott Dietz MD 12/20/2017 3:44 PM EDT
[2017-12-20 20:00] VITALS: BP 128/60; PULSE 69; RESP 17; TEMP 98.1; O2SAT 98
[2017-12-21] VITALS: BP 113/59; PULSE 87; RESP 16; TEMP 98; O2SAT 96
[2017-12-21] MEDS: DIPHENOXYLATE/ATROPINE 2.5 MG/0.025 MG TAB PO SCH ×6 (06:00→20:49)
[2017-12-21] MEDS: SODIUM CHLORIDE 0.9% 10 ML VIAL IRRIGATION SCH ×3 (08:00→20:49)
[2017-12-21] MEDS: LIPASE/PROTEASE/AMYLASE (12,000/38,000/60,000) CAP PO SCH ×3 (08:25→17:01)
[2017-12-21] MEDS: BISACODYL 10 MG SUPP RECTAL SCH (08:26)
[2017-12-21] MEDS: amLODIPine BESYLATE 5 MG TAB PO SCH (08:26)
[2017-12-21] MEDS: DOCUSATE SODIUM 50 MG/SENNA 8.6 MG TAB PO SCH ×2 (08:26→20:46)
[2017-12-21] MEDS: PANTOPRAZOLE SOD 40 MG DELAYED RELEASE TAB PO SCH ×2 (08:26→20:46)
[2017-12-21] MEDS: SODIUM CHLORIDE 0.9% FLUSH 10 ML FLUSH IV FLUSH SCH ×2 (08:27→20:46)
[2017-12-21 08:32] VITALS: BP 119/56; PULSE 67; RESP 18; TEMP 98.4; O2SAT 97
[2017-12-21 12:00] VITALS: BP 112/59; PULSE 75; RESP 18; TEMP 98; O2SAT 100
--- NOTE | 2017-12-21 14:06 | HHI.PR ---
Subjective Remarks no major overnight events denies cp/sob Denies melena Objective Vitals Vital Signs Date Time Temp Pulse Resp B/P (MAP) Pulse Ox O2 Delivery O2 Flow Rate FiO2 12/21/17 12:00 98.0 75 18 112/59 (76) 100 12/21/17 08:32 98.4 67 18 119/56 (77) 97 12/21/17 00:00 98.0 87 16 113/59 (77) 96 12/20/17 20:00 98.1 69 17 128/60 (82) 98 12/20/17 16:00 97.5 69 18 114/69 (84) 99 I/O 12/20/17 12/20/17 12/20/17 12/21/17 12/21/17 12/21/17 06:59 14:59 22:59 06:59 14:59 22:59 Intake Total 240 ml 240 ml Output Total 250 ml 150 ml Balance -10 ml 90 ml Intake Oral 240 ml 240 ml Output Urine Total 250 ml 150 ml # Voids 2 Result Diagram: 12/18/17 1340 Objective Remarks General: No distress. Heart: Regular rate and rhythm. No murmur. Lungs: CTAB. No W/R/R. Abdomen: soft, non tender, non distended. Extremities: No lower extremity edema. Psych: Alert and oriented. Neuro: Normal speech. No focal deficits noted. : Significant scrotal enlargement Procedures ERCP/drainage of the liver collection/ angiogram with selective injection of the celiac, GDA, SMA, and JANET A/P Problem List: (1) Sepsis ICD Code: A41.9 - Sepsis, unspecified organism Status: Resolved (2) Choledocholithiasis ICD Code: K80.50 - Calculus of bile duct without cholangitis or cholecystitis without obstruction Status: Acute (3) Alcohol dependence ICD Code: F10.20 - Alcohol dependence Status: Chronic (4) Encephalopathy acute ICD Code: G93.40 - Encephalopathy, unspecified Status: Resolved (5) Hypertension ICD Code: I10 - Hypertension Status: Resolved (6) H/O: CVA (cerebrovascular accident) ICD Code: Z86.73 - Personal history of transient ischemic attack (TIA), and cerebral infarction without residual deficits Status: Chronic Assessment and Plan 1. Choledocholithiasis/ Liver abscess Abnormal HIDA scan and US noted. GI and surgical consults appreciated. S/p ERCP which revealed: Choledocholithiasis; Duodenal diverticulum; Duodenal polyps. CT 11/30: Over the last 4 days a large mass has developed in the anterior left lobe of the liver measuring up to 9.6 cm in diameter containing multiple locules of air likely a developing complex liver abscess; Multiple gallstones without significant inflammatory changes identified around the gallbladder. IR consulted for abscess drainage 12/01. Drain still in place. CT 12/03: Decreased size of left hepatic lobe hematoma following drainage; No evidence of free or loculated intraperitoneal fluid or free air; Stable intestinal tract without evidence of pathologic distention or inflammatory changes. Abscess culture with no growth, final. - continue IV Zosyn. Consider discharging on Cipro/ Flagyl. - follow up with GI. - trend LFTs. - will need outpt follow-up with surgery to schedule cholecystectomy. SP drain removal by IR on 12/05 Sepsis - resolved Source is UTI. Pseudomonas growing. - Continue IV Zosyn. Can change to Cipro upon discharge. Sepsis seems to be resolving. Reactive airway disease - resolved No further wheezing on exam. - Oxygen and nebs as needed. Started standing nebs. - d/c prednisone. - continue antibiotics. - repeat CXR. - will need home o2 12/19 Patient tolerating room air Leukocytosis - resolved Leukocytosis possibly secondary to steroid use and now reactive distress due to active GI bleed and hypotension. Continue to monitor CBC. Continue to monitor vital signs for fevers. There is a question of a right lower lobe infiltrate, continue to monitor. 12/10 Leukocytosis likely reactive. WBC slightly went up yesterday after GI bleed. However, it is downtrending now. Continue to monitor CBC. 12/11 WBC still elevated at 15.6. Hemoglobin stable at 9.1. This could be reactive to iron deficiency anemia. There are no signs of infection observed this patient is afebrile and is not tachycardic. Patient is satting very well 100% on room air. 12/18 monitor CBC. 12/19 WBC within normal range. Right testicular mass Imaging shows cystic mass on right. Evaluated by urology. No surgical intervention planned for hydrocele. Repeat CT: Large loculated hydrocele or cystic testicular mass in the right hemiscrotum measuring up to 13.6 cm in diameter. - Patient to follow-up with urology as outpt. Reconsult as needed. Alcohol abuse No evidence of withdrawal. - CIWA protocol, thiamine, folic acid. - cessation instruction. No evidence of alcohol withdrawal. History of CVA Stable. - Continue aspirin. HTN Hypotension Hold all antihypertensive medications due to current hypovolemic shock. 12/07 BP improved after IV fluid bolus. Continue to monitor vital signs. 12/18 blood pressure stable, continue to hold antihypertensive medications for now. 12/19 BP stable off antihypertensive medications. Continue to hold bp meds. Monitor BP. Hypokalemia S/t decreased PO intake. - replete and monitor. GI bleed with hypovolemic shock. The patient had coffee-ground emesis and melanotic stools on 12/07/17. The patient was immediately given a liter of normal saline bolus since the patient' s blood pressure was down. Hemoglobin was noted to drop down to 10.7. Continue to monitor CBC. Patient was transferred to the intensive care unit. Critical care consulted. GI was informed of the acute bleed. The case was discussed with them. GI recommended a bleeding scan which showed findings concerning for very slow rate of hemorrhage in the region of the cecum. 12/08 sp EGD/Colonoscopy - EGD showed duodenal ulcer which was treated with argon Plasma. Colonoscopy showed: 1. A sessile polyp ranging between 3-5mm in size was found in the sigmoid colon; polypectomy was performed with cold forceps 2. Diverticulum in the sigmoid colon, descending colon, and ascending colon 3. 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 Transfuse for hb less than 8 if active bleeding present. 12/10 patient had a syncopal episode and an episode of severe hypotension with a systolic blood pressure in the 50s yesterday afternoon. Today the patient has melanotic stools. Contacted GI and discussed the case. GI recommends stat IR for CT angiogram with possible embolization. Continue to monitor CBC and vital signs. 12/11 the patient underwent angiogram with selective injection of the celiac, GDA , SMA, and JANET. As per interventional radiology report celiac, GDA and SMA were unremarkable. There was a small bleed evident arising from the distal branch of the JANET. Subselective gel foam administration and coil placement performed with occlusion of the distal most branch of the artery. Complete occlusion of the distal branch following up angio. Remained of the JANET remains widely patent. 12/19 hemoglobin stable. Monitor cbc periodically. DVT prophylaxis: DSCD's, no chemoprophylaxis due to GI bleeding. Discharge Planning Discharge pending insurance authorization. Problem Qualifiers (1) Sepsis: Qualified Codes: A41.9 - Sepsis, unspecified organism (2) Alcohol dependence: Qualified Codes: F10.29 - Alcohol dependence with unspecified alcohol-induced disorder Montrell Robledo MD Dec 21, 2017 14:05
[2017-12-21 16:00] VITALS: BP 139/65; PULSE 74; RESP 18; TEMP 97.8; O2SAT 100
[2017-12-21 20:00] VITALS: BP 147/64; PULSE 67; RESP 15; TEMP 98; O2SAT 97
[2017-12-22] VITALS: BP 119/60; PULSE 78; RESP 14; TEMP 97.9; O2SAT 96
[2017-12-22 00:54] VITALS: BP 133/60; PULSE 77; RESP 14; TEMP 98.1; O2SAT 95
[2017-12-22 04:00] VITALS: BP 119/60; PULSE 78; RESP 14; TEMP 97.9; O2SAT 96
[2017-12-22 08:20] VITALS: BP 127/60; PULSE 71; RESP 18; TEMP 97.3; O2SAT 98
[2017-12-22] MEDS: DOCUSATE SODIUM 50 MG/SENNA 8.6 MG TAB PO SCH (08:34)
[2017-12-22] MEDS: PANTOPRAZOLE SOD 40 MG DELAYED RELEASE TAB PO SCH (08:34)
[2017-12-22] MEDS: BISACODYL 10 MG SUPP RECTAL SCH (08:34)
[2017-12-22] MEDS: amLODIPine BESYLATE 5 MG TAB PO SCH (08:34)
[2017-12-22] MEDS: LIPASE/PROTEASE/AMYLASE (12,000/38,000/60,000) CAP PO SCH ×2 (08:34→12:21)
[2017-12-22] MEDS: SODIUM CHLORIDE 0.9% FLUSH 10 ML FLUSH IV FLUSH SCH (08:35)
--- NOTE | 2017-12-22 10:19 | HHI.PR ---
Subjective Remarks No major overnight events. The patient has no complaints. Objective Vitals Vital Signs Date Time Temp Pulse Resp B/P (MAP) Pulse Ox O2 Delivery O2 Flow Rate FiO2 12/22/17 08:20 97.3 71 18 127/60 (82) 98 12/22/17 04:00 97.9 78 14 119/60 (79) 96 12/22/17 00:54 98.1 77 14 133/60 (84) 95 12/21/17 20:00 98.0 67 15 147/64 (91) 97 12/21/17 16:00 97.8 74 18 139/65 (89) 100 12/21/17 12:00 98.0 75 18 112/59 (76) 100 I/O 12/21/17 12/21/17 12/21/17 12/22/17 12/22/17 12/22/17 06:59 14:59 22:59 06:59 14:59 22:59 Intake Total 480 ml 250 ml Output Total 500 ml 500 ml Balance -20 ml -250 ml Intake Oral 480 ml 250 ml Output Urine Total 500 ml 500 ml Result Diagram: 12/18/17 1340 Objective Remarks General: No distress. Heart: Regular rate and rhythm. No murmur. Lungs: CTAB. No W/R/R. Abdomen: soft, non tender, non distended. Extremities: No lower extremity edema. Psych: Alert and oriented. Neuro: Normal speech. No focal deficits noted. : Significant scrotal enlargement Procedures ERCP/drainage of the liver collection/ angiogram with selective injection of the celiac, GDA, SMA, and JANET A/P Problem List: (1) Sepsis ICD Code: A41.9 - Sepsis, unspecified organism Status: Resolved (2) Choledocholithiasis ICD Code: K80.50 - Calculus of bile duct without cholangitis or cholecystitis without obstruction Status: Acute (3) Alcohol dependence ICD Code: F10.20 - Alcohol dependence Status: Chronic (4) Encephalopathy acute ICD Code: G93.40 - Encephalopathy, unspecified Status: Resolved (5) Hypertension ICD Code: I10 - Hypertension Status: Resolved (6) H/O: CVA (cerebrovascular accident) ICD Code: Z86.73 - Personal history of transient ischemic attack (TIA), and cerebral infarction without residual deficits Status: Chronic Assessment and Plan 1. Choledocholithiasis/ Liver abscess Abnormal HIDA scan and US noted. GI and surgical consults appreciated. S/p ERCP which revealed: Choledocholithiasis; Duodenal diverticulum; Duodenal polyps. CT 11/30: Over the last 4 days a large mass has developed in the anterior left lobe of the liver measuring up to 9.6 cm in diameter containing multiple locules of air likely a developing complex liver abscess; Multiple gallstones without significant inflammatory changes identified around the gallbladder. IR consulted for abscess drainage 12/01. Drain still in place. CT 12/03: Decreased size of left hepatic lobe hematoma following drainage; No evidence of free or loculated intraperitoneal fluid or free air; Stable intestinal tract without evidence of pathologic distention or inflammatory changes. Abscess culture with no growth, final. - continue IV Zosyn. Consider discharging on Cipro/ Flagyl. - follow up with GI. - trend LFTs. - will need outpt follow-up with surgery to schedule cholecystectomy. SP drain removal by IR on 12/05 Sepsis - resolved Source is UTI. Pseudomonas growing. - Continue IV Zosyn. Can change to Cipro upon discharge. Sepsis seems to be resolving. Reactive airway disease - resolved No further wheezing on exam. - Oxygen and nebs as needed. Started standing nebs. - d/c prednisone. - continue antibiotics. - repeat CXR. - will need home o2 12/19 Patient tolerating room air Leukocytosis - resolved Leukocytosis possibly secondary to steroid use and now reactive distress due to active GI bleed and hypotension. Continue to monitor CBC. Continue to monitor vital signs for fevers. There is a question of a right lower lobe infiltrate, continue to monitor. 12/10 Leukocytosis likely reactive. WBC slightly went up yesterday after GI bleed. However, it is downtrending now. Continue to monitor CBC. 12/11 WBC still elevated at 15.6. Hemoglobin stable at 9.1. This could be reactive to iron deficiency anemia. There are no signs of infection observed this patient is afebrile and is not tachycardic. Patient is satting very well 100% on room air. 12/18 monitor CBC. 12/19 WBC within normal range. Right testicular mass Imaging shows cystic mass on right. Evaluated by urology. No surgical intervention planned for hydrocele. Repeat CT: Large loculated hydrocele or cystic testicular mass in the right hemiscrotum measuring up to 13.6 cm in diameter. - Patient to follow-up with urology as outpt. Reconsult as needed. Alcohol abuse No evidence of withdrawal. - [facility] protocol, thiamine, folic acid. - cessation instruction. No evidence of alcohol withdrawal. History of CVA Stable. - Continue aspirin. HTN Hypotension Hold all antihypertensive medications due to current hypovolemic shock. 12/07 BP improved after IV fluid bolus. Continue to monitor vital signs. 12/18 blood pressure stable, continue to hold antihypertensive medications for now. 12/19 BP stable off antihypertensive medications. Continue to hold bp meds. Monitor BP. Hypokalemia S/t decreased PO intake. - replete and monitor. GI bleed with hypovolemic shock. The patient had coffee-ground emesis and melanotic stools on 12/07/17. The patient was immediately given a liter of normal saline bolus since the patient' s blood pressure was down. Hemoglobin was noted to drop down to 10.7. Continue to monitor CBC. Patient was transferred to the intensive care unit. Critical care consulted. GI was informed of the acute bleed. The case was discussed with them. GI recommended a bleeding scan which showed findings concerning for very slow rate of hemorrhage in the region of the cecum. 12/08 sp EGD/Colonoscopy - EGD showed duodenal ulcer which was treated with argon Plasma. Colonoscopy showed: 1. A sessile polyp ranging between 3-5mm in size was found in the sigmoid colon; polypectomy was performed with cold forceps 2. Diverticulum in the sigmoid colon, descending colon, and ascending colon 3. 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 Transfuse for hb less than 8 if active bleeding present. 12/10 patient had a syncopal episode and an episode of severe hypotension with a systolic blood pressure in the 50s yesterday afternoon. Today the patient has melanotic stools. Contacted GI and discussed the case. GI recommends stat IR for CT angiogram with possible embolization. Continue to monitor CBC and vital signs. 12/11 the patient underwent angiogram with selective injection of the celiac, GDA , SMA, and JANET. As per interventional radiology report celiac, GDA and SMA were unremarkable. There was a small bleed evident arising from the distal branch of the JANET. Subselective gel foam administration and coil placement performed with occlusion of the distal most branch of the artery. Complete occlusion of the distal branch following up angio. Remained of the JANET remains widely patent. 12/19 hemoglobin stable. Monitor cbc periodically. DVT prophylaxis: DSCD's, no chemoprophylaxis due to GI bleeding. Discharge Planning Discharge pending insurance authorization. Problem Qualifiers (1) Sepsis: Qualified Codes: A41.9 - Sepsis, unspecified organism (2) Alcohol dependence: Qualified Codes: F10.29 - Alcohol dependence with unspecified alcohol-induced disorder Montrell Robledo MD Dec 22, 2017 10:19
[2017-12-22] MEDS: DIPHENOXYLATE/ATROPINE 2.5 MG/0.025 MG TAB PO SCH (12:00)
[2017-12-22 12:24] VITALS: BP 139/67; PULSE 69; RESP 18; TEMP 97.9; O2SAT 98
== END 2017-12-22 12:58 | DRG 853 ==
LOC: NEPE 12:40 → NEDA 16:39 → N07B 20:34 → N03A 12-06 15:52 → N05A 12-12 21:16
PROVIDERS: ADMIT Hospitalist; ATTEND Hospitalist
PROC: 0FC98ZZ Extirpation of Matter from Common Bile Duct, Via Natural or Artificial Opening Endoscopic (ICD-10-PCS; 2017-11-28)
PROC: BF101ZZ Fluoroscopy of Bile Ducts using Low Osmolar Contrast (ICD-10-PCS; 2017-11-28)
PROC: 0DB98ZX Excision of Duodenum, Via Natural or Artificial Opening Endoscopic, Diagnostic (ICD-10-PCS; 2017-11-28)
PROC: 0F9230Z Drainage of Left Lobe Liver with Drainage Device, Percutaneous Approach (ICD-10-PCS; 2017-12-01)
PROC: 0W3P8ZZ Control Bleeding in Gastrointestinal Tract, Via Natural or Artificial Opening Endoscopic (ICD-10-PCS; 2017-12-06)
PROC: 0DBN8ZX Excision of Sigmoid Colon, Via Natural or Artificial Opening Endoscopic, Diagnostic (ICD-10-PCS; 2017-12-08)
PROC: 0W3P8ZZ Control Bleeding in Gastrointestinal Tract, Via Natural or Artificial Opening Endoscopic (ICD-10-PCS; 2017-12-08)
PROC: 04LB3DZ Occlusion of Inferior Mesenteric Artery with Intraluminal Device, Percutaneous Approach (ICD-10-PCS; principal; 2017-12-10)
PROC: B415YZZ Fluoroscopy of Inferior Mesenteric Artery using Other Contrast (ICD-10-PCS; 2017-12-10)
PROC: B414YZZ Fluoroscopy of Superior Mesenteric Artery using Other Contrast (ICD-10-PCS; 2017-12-10)
DX: A41.52 Sepsis due to Pseudomonas (principal); G93.41 Metabolic encephalopathy; R57.1 Hypovolemic shock; K75.0 Abscess of liver; K92.0 Hematemesis; K55.21 Angiodysplasia of colon with hemorrhage; K26.4 Chronic or unspecified duodenal ulcer with hemorrhage; K76.89 Other specified diseases of liver; N39.0 Urinary tract infection, site not specified; E87.1 Hypo-osmolality and hyponatremia; J98.11 Atelectasis; B96.5 Pseudomonas (aeruginosa) (mallei) (pseudomallei) as the cause of diseases classified elsewhere; I10 Essential (primary) hypertension; F10.20 Alcohol dependence, uncomplicated; E78.00 Pure hypercholesterolemia, unspecified; R73.9 Hyperglycemia, unspecified; K80.70 Calculus of gallbladder and bile duct without cholecystitis without obstruction; W18.30XA Fall on same level, unspecified, initial encounter; Y93.01 Activity, walking, marching and hiking; Y92.230 Patient room in hospital as the place of occurrence of the external cause; N43.3 Hydrocele, unspecified; K63.5 Polyp of colon; D13.2 Benign neoplasm of duodenum; K57.50 Diverticulosis of both small and large intestine without perforation or abscess without bleeding; J45.909 Unspecified asthma, uncomplicated; E87.6 Hypokalemia; I95.1 Orthostatic hypotension; T38.0X5A Adverse effect of glucocorticoids and synthetic analogues, initial encounter; Z86.73 Personal history of transient ischemic attack (TIA), and cerebral infarction without residual deficits; Z85.47 Personal history of malignant neoplasm of testis; Z78.1 Physical restraint status
CPT/HCPCS: 36245; 36246; 37244; 70450; 71045; 74018; 74177; 74330; 75726; 75774; 75989; 76700; 76937; 78226; 78278; 80048; 80053; 80074; 80076; 80307; 81001; 82140; 82150; 82247; 82248; 82272; 82550; 82552; 83605; 83690; 83735; 84100; 84484; 85018; 85025; 85027; 85610; 85730; 86850; 86900; 86901; 86920; 87040; 87070; 87077; 87086; 87186; 87205; 87493; 88305; 93005; 94150; 94618; 94640; 94664; 99152; 99153; A9537; A9560; C1729; C1760; C1769; C1887; C1894; C9113; J0330; J0360; J0690; J1100; J1650; J1956; J2060; J2250; J2270; J2370; J2405; J2543; J2765; J2920; J3010; J3480; J7030; J7040; J7042; J7050; J7120; J7512; J7613; J7644; Q9963; Q9967